=== PATIENT | male | born 1945 | race Caucasian/White ===

== ENCOUNTER 2018-12-28 11:34 | Inpatient (IN) | payer MEDICARE ==
[2018-12-28] MEDS ORDERED: LASIX40 MG PO (11:52)
[2018-12-28] MEDS ORDERED: METOPROLOL TART25 MG PO (11:52)
[2018-12-28] MEDS ORDERED: ASPIRIN81 MG PO (11:53)
[2018-12-28] MEDS ORDERED: LIPITOR40 MG PO (11:53)
[2018-12-28] MEDS ORDERED: NOVOLOG100 UNIT/1 SC (11:54)
[2018-12-28] MEDS ORDERED: FENOFIBRATE54 MG PO (11:54)
[2018-12-28] MEDS ORDERED: CLARITIN 10 MG10 MG PO (11:55)
[2018-12-28] MEDS ORDERED: LANTUS INSULIN10 ML SC (11:55)
[2018-12-28] MEDS ORDERED: GLUCOPHAGE500 MG PO (11:55)
[2018-12-28] MEDS ORDERED: OMEPRAZOLE20 M1 PO (11:56)
[2018-12-28] MEDS ORDERED: ELIQUIS5 MG PO (11:56)
[2018-12-28] MEDS ORDERED: FLOMAX0.4 MG PO (11:56)
[2018-12-28 12:36] LABS: BASOPHILS 0.3 % (0-2); EOSINOPHILS 1.8 % (0-7); HEMATOCRIT 36.9 % (42.0-54.0); HEMOGLOBIN 11.8 g/dL (13.5-17.5); IMMATURE GRANULOCYTES 0.3 % (0-5); LYMPHOCYTES 12.5 % (15-50); MCH 25.1 pg (26.0-34.0); MCV 78.5 fL (80.0-100.0); MEAN PLATELET VOLUME 9.2 fL (7.4-10.4); MONOCYTES 8.3 % (2-11); NEUTROPHILS 76.8 % (40-80); PLATELET COUNT 410 10x3/uL (130-400); RDW 16.6 % (11.5-14.5); WBC 13.1 10x3/uL (4.8-10.8)
[2018-12-28 12:47] LABS: ALBUMIN 2.8 g/dL (3.4-5.0); ANION GAP 15.1 mmol/L (8-16); BILIRUBIN - TOTAL 0.47 mg/dL (0.2-1.3); CALCIUM 9.1 mg/dL (8.5-10.1); CARBON DIOXIDE 25.8 mmol/L (21.0-32.0); CREATININE - SERUM 1.5 mg/dL (0.6-1.3); POTASSIUM - SERUM 3.9 mmol/L (3.5-5.1); PROTEIN - SERUM 7.6 g/dL (6.4-8.2)
[2018-12-28] MEDS ORDERED: LISINOPRIL20 MG PO (14:27)
--- NOTE | 2018-12-28 14:57 | MORECARE ---
CASE MANAGEMENT DISCHARGE SUMMARY PATIENT: GRAZYNA VALVERDE UNIT: [id number] ADM DATE: 12/28/18 AGE: 73 : 45 SEX: M ROOM/BED: D.2209 AUTHOR: SANFORDDOC PHYSICIAN: REFERRING PHYSICIAN: BILLY SHOOK MD DATE OF SERVICE: 12/28/18 Discharge Plan Patient Name: GRAZYNA VALVERDE Facility: [facility]:[place] : 1945 Planned Disposition: Home Anticipated Discharge Date: Discharge Date: Expected LOS: Initial Reviewer: [email or web address] Initial Review Date: 12/28/2018 Generated: 12/28/18 3:57 pm DCP- Discharge Planning Updated by [email or web address]: Rosalina Connor on 12/28/18 1:[address] Patient Name: GRAZYNA VALVERDE Admission Status: ER Accout number: [id number] Admission Date: 12-28-2018 : 1945 Admission Diagnosis: Attending: BILLY SHOOK Current LOS: 1 Anticipated DC Date: Planned Disposition: Home Primary Insurance: OUT OF STATE MEDICARE HMO Discharge Planning Comments: CM met with patient to complete initial dc planning assessment. CM educated patient on the CM role and verbal consent given by patient to complete assessment. CM verified patient's address, phone number, and emergency contact phone numbers. Patient lives in [facility] but is here in [place] staying with his ex . At discharge patient plans to return to his ex husbands home and feels this is a safe discharge. CM discussed availability of home health, rehab services, and medical equipment. Patient denied known discharge needs at this time. Patient reports is ex will transport him home at time of discharge. CM will continue to follow and will assist as needed with dc plans/needs. Director Foundation: Rosalina Connor RN, [facility] DCPIA - Discharge Planning Initial Assessment Updated by [email or web address]: Rosalina Connor on 12/28/18 2:51 pm * Is the patient Alert and Oriented? Yes * How many steps to enter\exit or inside your home? NONE * PCP Dr. Best Kathleen - In [place] * Pharmacy [facility] * Preadmission Environment Home with Family * ADLs Independent * Equipment None * List name and contact numbers for known caregivers / representatives who currently or will assist patient after discharge: William Ceja - ex [facility] - [phone] * Verbal permission to speak to the caregivers and representatives has been obtained from the patient. Yes * Community resources currently utilized None * Additional services required to return to the preadmission environment? No * Can the patient safely return to the preadmission environment? Yes * Has this patient been hospitalized within the prior 30 days at any hospital? No Patient Name: GRAZYNA VALVERDE Page 78064 at 1457 All edits/amendments must be made on the electronic document DICTATION DATE: 12/28/181455 AUTO SERVICE ADVISOR: VALDO 12/28/181455 RPT#: [id number] DC DATE: STATUS: ADM IN [facility] [address] [place] [address] END OF REPORT
[2018-12-28 15:32] VITALS: BP 140/73; BMI 32.2
[2018-12-28 17:06] VITALS: BP 140/73
[2018-12-28 20:00] VITALS: BP 110/45
--- NOTE | 2018-12-28 20:00 | NUR ---
PT SITTING UP IN BED WITHOUT DISTRESS, ALERT AND ORIENTED. AT BEDSIDE. DENIES PAIN UNLESS GETTING UP AND WALKING, USING URINAL. IV LEFT WRIST INFUSING NS @ [facility]. ULCER TO RIGHT SIDE OF R FOOT. CONSENTS SIGNED FOR I&D. PT VERBALIZED UNDERSTANDING OF NPO AFTER MN. WITHOUT NEEDS AT THIS TIME. CL IN REACH, WILL CTM
[2018-12-29] VITALS: BP 132/68
[2018-12-29 04:00] VITALS: BP 124/70
[2018-12-29 07:28] LABS: BASOPHILS 0.4 % (0-2); EOSINOPHILS 2.3 % (0-7); HEMATOCRIT 34.3 % (42.0-54.0); HEMOGLOBIN 10.9 g/dL (13.5-17.5); IMMATURE GRANULOCYTES 0.4 % (0-5); LYMPHOCYTES 14.6 % (15-50); MCHC 31.8 g/dL (31.0-37.0); MCV 78.7 fL (80.0-100.0); MEAN PLATELET VOLUME 9.4 fL (7.4-10.4); MONOCYTES 10.4 % (2-11); NEUTROPHILS 71.9 % (40-80); PLATELET COUNT 399 10x3/uL (130-400); RBC 4.36 10x6/uL (4.20-6.10); RDW 16.8 % (11.5-14.5)
[2018-12-29 07:36] LABS: WBC 9.7 10x3/uL (4.8-10.8)
[2018-12-29 07:48] LABS: CALCIUM 8.7 mg/dL (8.5-10.1); CARBON DIOXIDE 27.5 mmol/L (21.0-32.0); CREATININE - SERUM 1.4 mg/dL (0.6-1.3); POTASSIUM - SERUM 3.5 mmol/L (3.5-5.1)
[2018-12-29 08:41] VITALS: BP 131/80
[2018-12-29 12:35] VITALS: BMI 32.1
--- NOTE | 2018-12-29 13:03 | NUR ---
FSBS 61MG/DL. DR. CHAO NOTIFIED AND ORDERD 25ML D50W.
--- NOTE | 2018-12-29 13:16 | NUR ---
FSBS 115.
[2018-12-29 13:30] VITALS: BP 146/78
--- NOTE | 2018-12-29 16:17 | NUR ---
I have reviewed this patient and I concur with the Shift Assessment completed by the Licensed Practical Nurse today this shift.
--- NOTE | 2018-12-29 19:25 | NUR ---
RECEIVED REPORT, WILL ASSUME CARE OF PT, PT IS SITTING IN CHAIR WITH FOOT PROP UP, ASKING FOR COFFEE AND ICE CREAM(PROVIDED), CALL LIGHT IN REACH, WILL CONTINUE PLAN OF CARE
[2018-12-29 20:00] VITALS: BP 130/62
--- NOTE | 2018-12-29 22:03 | NUR ---
PM MEDS GIVEN, [id number] 80 UNITS OF LANTUS, PROVIDE ICE WATER, CALL LIGHT IN REACH, WILL CONTINUE PLAN OF CARE
--- NOTE | 2018-12-29 23:23 | NUR ---
SLEEPING, NO DISTRESS NOTICED AT THIS TIME, BED IS LOW, SRX2, CALL LIGHT IN REACH, WILL CONTINUE PLAN OF CARE
[2018-12-30] VITALS: BP 128/60
--- NOTE | 2018-12-30 01:04 | NUR ---
SITTING ON SIDE OF BED, DENIES ANY NEEDS, CALL LIGHT IN REACH, WILL CONTINUE PLAN OF CARE
--- NOTE | 2018-12-30 02:53 | NUR ---
SLEEPING, CALL LIGHT IN REACH, WILL CONTINUE PLAN OF CARE
[2018-12-30 03:00] VITALS: BP 162/74
--- NOTE | 2018-12-30 03:24 | NUR ---
I have reviewed this patient and I concur with the Shift Assessment completed by the Licensed Practical Nurse today this shift.
[2018-12-30 07:13] LABS: CALCIUM 8.5 mg/dL (8.5-10.1); CARBON DIOXIDE 26.9 mmol/L (21.0-32.0); CREATININE - SERUM 1.3 mg/dL (0.6-1.3); POTASSIUM - SERUM 3.9 mmol/L (3.5-5.1)
[2018-12-30 09:04] VITALS: BP 159/74
--- NOTE | 2018-12-30 11:45 | NUR ---
PT RESTING IN BED. NO SIGNS OF DISTRESS. IV TO LEFT WRIST PATENT NO REDNESS OR TENDERNESS. HAS DRESSING TO RIGHT FOOT CLEAN AND INTACT. DENIES ANY FUTHER NEED AT THIS TIME. CALL LIGHT IN REACH. BED LOW POSITION.
[2018-12-30 13:22] VITALS: BP 133/72
--- NOTE | 2018-12-30 15:36 | NUR ---
I have reviewed this patient and I concur with the Shift Assessment completed by the Licensed Practical Nurse today this shift.
[2018-12-30 17:13] VITALS: BP 143/73
--- NOTE | 2018-12-30 19:30 | NUR ---
ALERT AND ORIENTED. VISITORS AT BEDSIDE. PT STATES HE IS READY FOR DISCHARGE. LEFT WRIST IV THAT IS CURRENTLY SALINE LOCKED. HAS RIGHT FOOT ULCER THAT HAS DRESSING WITH PREVIOUS BLOD STAIN THAT IS SIZE OF TERESITA. DENIES FURTHER NEEDS. CALL LIGHT IN REACH.
[2018-12-30 20:00] VITALS: BP 134/68
[2018-12-31] VITALS: BP 131/70
--- NOTE | 2018-12-31 01:50 | NUR ---
I have reviewed this patient and I concur with the Shift Assessment completed by the Licensed Practical Nurse today this shift.
[2018-12-31 03:00] VITALS: BP 129/65
[2018-12-31 07:28] LABS: BASOPHILS 0.4 % (0-2); EOSINOPHILS 5.3 % (0-7); HEMATOCRIT 32.7 % (42.0-54.0); HEMOGLOBIN 10.3 g/dL (13.5-17.5); IMMATURE GRANULOCYTES 0.3 % (0-5); LYMPHOCYTES 16.5 % (15-50); MCH 24.7 pg (26.0-34.0); MCHC 31.5 g/dL (31.0-37.0); MCV 78.4 fL (80.0-100.0); MEAN PLATELET VOLUME 9.6 fL (7.4-10.4); MONOCYTES 10.4 % (2-11); NEUTROPHILS 67.1 % (40-80); PLATELET COUNT 422 10x3/uL (130-400); RBC 4.17 10x6/uL (4.20-6.10); RDW 16.7 % (11.5-14.5)
[2018-12-31 07:49] LABS: CALCIUM 8.4 mg/dL (8.5-10.1); CARBON DIOXIDE 25.9 mmol/L (21.0-32.0); CREATININE - SERUM 1.2 mg/dL (0.6-1.3); POTASSIUM - SERUM 3.9 mmol/L (3.5-5.1)
[2018-12-31 08:14] VITALS: BP 138/73
--- NOTE | 2018-12-31 08:48 | NUR ---
ALERT AND ORIENTED X 3. LUNGS CLEAR BILATERALLY IN ALL CALVERT. HEART SOUNDS 1 AND S2 HEARD IN ALL CALVERT. BOWEL SOUNDS ACTIVE X 4. SKIN INTACT WITHOUT REDNESS. DRSG IN PLACE TO RIGHT FOOT. EX EXPRESSED CONCERNS THAT PATIENT IS BECOMING DEPRESSED AND IS READY TO GO HOME. STATES NEED SOME SORT OF BRACE SO PATIENT DOES NOT WALK ON RIGHT FOOT. NOTIFIED. STATED PATIENT WILL LIKELY BE ABLE TO DC TODAY. WILL CONTINUE TO MONITOR. BED LOW. CALL KATZ AND PERSONAL ITEMS IN REACH.
[2018-12-31] MEDS ORDERED: CLEOCIN HCL300 MG PO (09:27)
--- NOTE | 2018-12-31 10:27 | NUR ---
RESTING IN BED. DENIES PAIN. DENIES NEEDS. WILL CONTINUE TO MONITOR.
--- NOTE | 2018-12-31 10:40 | NUR ---
SPOKE WITH CASE MANAGEMENT ABOUT PATIENT DISCHARGING HOME. STATED TO PUT IN PT ORDER SO THAT PATIENT CAN BE EVALUATED FOR USE OF WALKER, CRUTCHES, OR BOOT FOR RIGHT FOOT BEFORE DISCHARGING. ORDER PLACED. NOTIFIED KAYLYNN PT. WILL CONTINUE TO MONITOR.
--- NOTE | 2018-12-31 11:00 | NUR ---
SPOKE WITH DR RUTHERFORD WHO STATES OK FOR PATIENT TO DC ON ANTIBIOTICS PER PRIMARY CARE. STATES CHANGED DRSG TO PATIENT'S RIGHT FOOT AND TO KEEP CLEAN AND DRY. STATES WOUND LOOKS GOOD. NO FURTHER ORDERS.
--- NOTE | 2018-12-31 11:48 | NUR ---
DISCHARGE EDUCATION PROVIDED BOTH WRITTEN AND VERBAL. PATIENT VERBALIZED UNDERSTANDING. DENIES FURTHER QUESTIONS. IV REMOVED TO LFA WITH TIP INTACT. EXTRA DRSG GIVEN TO PATIENT PRECAUTION. EDUCATED TO KEEP CLEAN AND DRY. EDUCATED TO FOLLOW UP WITH SANGEETA IN 1 WEEK. RESOURCES FOR WALKER GIVEN TO PATIENT. DENIES FURTHER NEEDS.
--- NOTE | 2018-12-31 12:37 | MORECARE ---
CASE MANAGEMENT DISCHARGE SUMMARY PATIENT: GRAZYNA VALVERDE UNIT: [id number] ADM DATE: 12/28/18 AGE: 73 : 45 SEX: M ROOM/BED: D.2209 AUTHOR: SANFORDDOC PHYSICIAN: REFERRING PHYSICIAN: BILLY SHOOK MD DATE OF SERVICE: 12/31/18 Discharge Plan Patient Name: GRAZYNA VALVERDE Facility: [facility]:[place] : 1945 Planned Disposition: Home Anticipated Discharge Date: 12/31/18 Discharge Date: Expected LOS: 3 Initial Reviewer: [email or web address] Initial Review Date: 12/28/2018 Generated: 12/31/18 1:37 pm DCP- Discharge Planning Updated by [email or web address]: Rosalina Connor on 12/28/18 1:[address] Patient Name: GRAZYNA VALVERDE Admission Status: ER Accout number: [id number] Admission Date: 12-28-2018 : 1945 Admission Diagnosis: Attending: BILLY SHOOK Current LOS: 1 Anticipated DC Date: Planned Disposition: Home Primary Insurance: OUT OF STATE MEDICARE HMO Discharge Planning Comments: CM met with patient to complete initial dc planning assessment. CM educated patient on the CM role and verbal consent given by patient to complete assessment. CM verified patient's address, phone number, and emergency contact phone numbers. Patient lives in [facility] but is here in [place] staying with his ex . At discharge patient plans to return to his ex husbands home and feels this is a safe discharge. CM discussed availability of home health, rehab services, and medical equipment. Patient denied known discharge needs at this time. Patient reports is ex will transport him home at time of discharge. CM will continue to follow and will assist as needed with dc plans/needs. Can Conveyor Feeder: Rosalina Connor RN, [facility] DCPIA - Discharge Planning Initial Assessment Updated by [email or web address]: Rosalina Connor on 12/28/18 2:51 pm * Is the patient Alert and Oriented? Yes * How many steps to enter\exit or inside your home? NONE * PCP Dr. Best Kathleen - In [place] * Pharmacy [facility] * Preadmission Environment Home with Family * ADLs Independent * Equipment None * List name and contact numbers for known caregivers / representatives who currently or will assist patient after discharge: William Ceja - ex [facility] - [phone] * Verbal permission to speak to the caregivers and representatives has been obtained from the patient. Yes * Community resources currently utilized None * Additional services required to return to the preadmission environment? No * Can the patient safely return to the preadmission environment? Yes * Has this patient been hospitalized within the prior 30 days at any hospital? No Last DP export: 12/28/18 1:57 p Patient Name: GRAZYNA VALVERDE Page 02110 at 1237 All edits/amendments must be made on the electronic document DICTATION DATE: 12/31/18 1236 TRAFFIC OR SYSTEM DISPATCHER: VALDO 12/31/18 1236 RPT#: [id number] DC DATE: STATUS: ADM IN [facility] [address] [place] [address] END OF REPORT
--- NOTE | 2018-12-31 12:44 | MORECARE ---
CASE MANAGEMENT DISCHARGE SUMMARY PATIENT: GRAZYNA VALVERDE UNIT: [id number] ADM DATE: 12/28/18 AGE: 73 : 45 SEX: M ROOM/BED: D.2209 AUTHOR: SANFORDDOC PHYSICIAN: REFERRING PHYSICIAN: BILLY SHOOK MD DATE OF SERVICE: 12/31/18 Discharge Plan Patient Name: GRAZYNA VALVERDE Facility: [facility]:[place] : 1945 Planned Disposition: Home Anticipated Discharge Date: 12/31/18 Discharge Date: Expected LOS: 3 Initial Reviewer: [email or web address] Initial Review Date: 12/28/2018 Generated: 12/31/18 1:44 pm DCP- Discharge Planning Updated by [email or web address]: Rosalina Connor on 12/28/18 1:[address] Patient Name: GRAZYNA VALVERDE Admission Status: ER Accout number: [id number] Admission Date: 12-28-2018 : 1945 Admission Diagnosis: Attending: BILLY SHOOK Current LOS: 1 Anticipated DC Date: Planned Disposition: Home Primary Insurance: OUT OF STATE MEDICARE HMO Discharge Planning Comments: CM met with patient to complete initial dc planning assessment. CM educated patient on the CM role and verbal consent given by patient to complete assessment. CM verified patient's address, phone number, and emergency contact phone numbers. Patient lives in [facility] but is here in [place] staying with his ex . At discharge patient plans to return to his ex husbands home and feels this is a safe discharge. CM discussed availability of home health, rehab services, and medical equipment. Patient denied known discharge needs at this time. Patient reports is ex will transport him home at time of discharge. CM will continue to follow and will assist as needed with dc plans/needs. Plate Cutter: Rosalina Connor RN, [facility] DCPIA - Discharge Planning Initial Assessment Updated by [email or web address]: Rosalina Connor on 12/28/18 2:51 pm * Is the patient Alert and Oriented? Yes * How many steps to enter\exit or inside your home? NONE * PCP Dr. Best Kathleen - In [place] * Pharmacy [facility] * Preadmission Environment Home with Family * ADLs Independent * Equipment None * List name and contact numbers for known caregivers / representatives who currently or will assist patient after discharge: William Ceja - ex [facility] - [phone] * Verbal permission to speak to the caregivers and representatives has been obtained from the patient. Yes * Community resources currently utilized None * Additional services required to return to the preadmission environment? No * Can the patient safely return to the preadmission environment? Yes * Has this patient been hospitalized within the prior 30 days at any hospital? No Last DP export: 12/31/18 11:37 am Patient Name: GRAZYNA VALVERDE Page [phone] at 1244 All edits/amendments must be made on the electronic document DICTATION DATE: 12/31/181242 BATT PACKER: VALDO 12/31/183 RPT#: [id number] DC DATE: STATUS: ADM IN [facility] [address] [place] [address] END OF REPORT
--- NOTE | 2018-12-31 12:57 | MORECARE ---
CASE MANAGEMENT DISCHARGE SUMMARY PATIENT: GRAZYNA VALVERDE UNIT: [id number] ADM DATE: 12/28/18 AGE: 73 : 45 SEX: M ROOM/BED: D.2209 AUTHOR: SANFORD,DOC PHYSICIAN: REFERRING PHYSICIAN: BILLY SHOOK MD DATE OF SERVICE: 12/31/18 Discharge Plan Patient Name: GRAZYNA VALVERDE Facility: [facility]:[place] : 1945 Planned Disposition: Home Anticipated Discharge Date: 12/31/18 Discharge Date: 12/31/2018 Expected LOS: 3 Initial Reviewer: [email or web address] Initial Review Date: 12/28/2018 Generated: 12/31/18 1:57 pm Comments DCP- Discharge Planning Updated by [email or web address]: Kylie Sykes on 12/31/18 11:[address] Late Entry 0930 CM reviewed clinical and MD plan. Discussed with primary nurse. Awaited surgeon's visit to obtain order for Physical Therapy eval and initial dressing change. Imaging disc and clinical for referral to [facility] prepared. CM spoke with physical therapist, ortho MD requested boot for patient's foot. Therapist recommended a walker for the patient with consideration of age, height and weight. The [place]. He does not want to pay for a new walker. He states he will buy a used walker. CM provided names and locations ie [facility], [facility] and [facility]. Squared postop shoe boot obtained and applied by PT. Patient denies any other needs. 1230 CM explained Discharge IMM. Patient states he is ready for discharge. Discharge IMM served. Signature obtained. Copy to the patient and copy to the hard cover chart. Patient has transportation. No additional needs identified. Referral packet to be delivered to the Wound Center. DCP- Discharge Planning Updated by [email or web address]: Rosalina Connor on 12/28/18 1:[address] Patient Name: GRAZYNA VALVERDE Admission Status: ER Accout number: [id number] Admission Date: 12-28-2018 : 1945 Admission Diagnosis: Attending: BILLY SHOOK Current LOS: 1 Anticipated DC Date: Planned Disposition: Home Primary Insurance: OUT OF STATE MEDICARE HMO Discharge Planning Comments: CM met with patient to complete initial dc planning assessment. CM educated patient on the CM role and verbal consent given by patient to complete assessment. CM verified patient's address, phone number, and emergency contact phone numbers. Patient lives in [facility] but is here in [place] staying with his ex . At discharge patient plans to return to his ex husbands home and feels this is a safe discharge. CM discussed availability of home health, rehab services, and medical equipment. Patient denied known discharge needs at this time. Patient reports is ex will transport him home at time of discharge. CM will continue to follow and will assist as needed with dc plans/needs. Supervisor Stitching Department: Rosalina Connor RN, [facility] DCPIA - Discharge Planning Initial Assessment Updated by [email or web address]: Rosalina Connor on 12/28/18 2:51 pm * Is the patient Alert and Oriented? Yes * How many steps to enter\exit or inside your home? NONE * PCP Dr. Best Kathleen - In [place] * Pharmacy [facility] * Preadmission Environment Home with Family * ADLs Independent * Equipment None * List name and contact numbers for known caregivers / representatives who currently or will assist patient after discharge: William Ceja - ex - [phone] * Verbal permission to speak to the caregivers and representatives has been obtained from the patient. Yes * Community resources currently utilized None * Additional services required to return to the preadmission environment? No * Can the patient safely return to the preadmission environment? Yes * Has this patient been hospitalized within the prior 30 days at any hospital? No Coverage Notice Reviewer: [id number] - Kylie Sykes Notice Issued Date-Time: 12/31/2018 12:30 Notice Type: IM Discharge Notice Notice Delivered To: Patient Relationship to Patient: Self Center Specialists Name: Delivery Method: HAND - Hand Delivered Kirti Days: Prior Verbal Notification: Recipient Understood Notice: Yes Recipient Signature: Yes Med Rec Note Co-signed by Attending: Coverage Notice Comment: Discharge IMM explained. Patient had no questions or concerns. D/C IMM served. Last DP export: 12/31/18 11:44 am Patient Name: GRAZYNA VALVERDE Page 33750 at 1257 All edits/amendments must be made on the electronic document DICTATION DATE: 12/31/18 1257 OPERATIONS CLERK: VALDO 12/31/18 1257 RPT#: [id number] DC DATE:12/31/18 STATUS: DIS IN [facility] [address] [place] [address] END OF REPORT
--- NOTE | 2019-01-01 09:58 | MORECARE ---
CASE MANAGEMENT DISCHARGE SUMMARY PATIENT: GRAZYNA VALVERDE UNIT: [id number] ADM DATE: 12/28/18 AGE: 73 : 45 SEX: M ROOM/BED: D.2209 AUTHOR: SANFORD,DOC PHYSICIAN: REFERRING PHYSICIAN: BILLY SHOOK MD DATE OF SERVICE: 01/01/19 Discharge Plan Patient Name: GRAZYNA VALVERDE Facility: [facility]:[place] : 1945 Planned Disposition: Home Anticipated Discharge Date: 12/31/18 Discharge Date: 12/31/2018 Expected LOS: 3 Initial Reviewer: [email or web address] Initial Review Date: 12/28/2018 Generated: 01/01/19 10:58 am Comments DCP- Discharge Planning Updated by [email or web address]: Kylie Sykes on 01/01/19 8:[address] CLINICAL INFORMATION FORWARDED TO THE WOUND CENTER FOR PATIENT'S APPOINTMENT. TELEPHONED THE PATIENT . NO ANSWER. COULD NOT LEAVE A MESSAGE. TELEPHONED AGAIN. PATIENT ANSWERED AND HUNG UP. DCP- Discharge Planning Updated by [email or web address]: Kylie Sykes on 12/31/18 11:[address] Late Entry 0930 CM reviewed clinical and MD plan. Discussed with primary nurse. Awaited surgeon's visit to obtain order for Physical Therapy eval and initial dressing change. Imaging disc and clinical for referral to [facility] prepared. CM spoke with physical therapist, ortho MD requested boot for patient's foot. Therapist recommended a walker for the patient with consideration of age, height and weight. The patient has a walk[place] at home [place]. He does not want to pay for a new walker. He states he will buy a used walker. CM provided names and locations ie [facility], [facility] and [facility]. Squared postop shoe boot obtained and applied by PT. Patient denies any other needs. 1230 CM explained Discharge IMM. Patient states he is ready for discharge. Discharge IMM served. Signature obtained. Copy to the patient and copy to the hard cover chart. Patient has transportation. No additional needs identified. Referral packet to be delivered to the Wound Center. DCP- Discharge Planning Updated by [email or web address]: Rosalina Connor on 12/28/18 1:[address] Patient Name: GRAZYNA VALVERDE Admission Status: ER Accout number: [id number] Admission Date: 12-28-2018 : 1945 Admission Diagnosis: Attending: BILLY SHOOK Current LOS: 1 Anticipated DC Date: Planned Disposition: Home Primary Insurance: OUT OF STATE MEDICARE HMO Discharge Planning Comments: CM met with patient to complete initial dc planning assessment. CM educated patient on the CM role and verbal consent given by patient to complete assessment. CM verified patient's address, phone number, and emergency contact phone numbers. Patient lives in [facility] but is here in [place] staying with his ex . At discharge patient plans to return to his ex husbands home and feels this is a safe discharge. CM discussed availability of home health, rehab services, and medical equipment. Patient denied known discharge needs at this time. Patient reports is ex will transport him home at time of discharge. CM will continue to follow and will assist as needed with dc plans/needs. Insurance Clerk: Rosalina Connor RN, [facility] DCPIA - Discharge Planning Initial Assessment Updated by [email or web address]: Rosalina Connor on 12/28/18 2:51 pm * Is the patient Alert and Oriented? Yes * How many steps to enter\exit or inside your home? NONE * PCP Dr. Best Kathleen - In [place] * Pharmacy [facility] * Preadmission Environment Home with Family * ADLs Independent * Equipment None * List name and contact numbers for known caregivers / representatives who currently or will assist patient after discharge: William Ceja - ex - [phone] * Verbal permission to speak to the caregivers and representatives has been obtained from the patient. Yes * Community resources currently utilized None * Additional services required to return to the preadmission environment? No * Can the patient safely return to the preadmission environment? Yes * Has this patient been hospitalized within the prior 30 days at any hospital? No Coverage Notice Reviewer: [id number] - Kylie Sykes Notice Issued Date-Time: 12/31/2018 12:30 Notice Type: IM Discharge Notice Notice Delivered To: Patient Relationship to Patient: Self Cabinet Abrasive Sandblaster Name: Delivery Method: HAND - Hand Delivered Kirti Days: Prior Verbal Notification: Recipient Understood Notice: Yes Recipient Signature: Yes Med Rec Note Co-signed by Attending: Coverage Notice Comment: Discharge IMM explained. Patient had no questions or concerns. D/C IMM served. Last DP export: 6/2/19 11:57 am Patient Name: GRAZYNA VALVERDE Page [phone] at 0958 All edits/amendments must be made on the electronic document DICTATION DATE: 01/01/19957 PHLEBOTOMY TECHNOLOGIST: VALDO 01/01/19957 RPT#: [id number] DC DATE:12/31/18 STATUS: DIS IN [facility] [address] [place] [address] END OF REPORT
--- NOTE | 2019-01-02 15:36 | MORECARE ---
CASE MANAGEMENT DISCHARGE SUMMARY PATIENT: GRAZYNA VALVERDE UNIT: [id number] ADM DATE: 12/28/18 AGE: 73 : 45 SEX: M ROOM/BED: D.2209 AUTHOR: SANFORD,DOC PHYSICIAN: REFERRING PHYSICIAN: BILLY SHOOK MD DATE OF SERVICE: 01/02/19 Discharge Plan Patient Name: GRAZYNA VALVERDE Facility: [facility]:[place] : 1945 Planned Disposition: Home Anticipated Discharge Date: 12/31/18 Discharge Date: 12/31/2018 Expected LOS: 3 Initial Reviewer: [email or web address] Initial Review Date: 12/28/2018 Generated: 01/02/19 4:36 pm Comments DCP- Discharge Planning Updated by [email or web address]: Kylie Sykes on 01/01/19 8:[address] CLINICAL INFORMATION FORWARDED TO THE [facility] FOR PATIENT'S APPOINTMENT. TELEPHONED THE PATIENT . NO ANSWER. COULD NOT LEAVE A MESSAGE. TELEPHONED AGAIN. PATIENT ANSWERED AND HUNG UP. DCP- Discharge Planning Updated by [email or web address]: Kylie Sykes on 12/31/18 11:[address] Late Entry 0930 CM reviewed clinical and MD plan. Discussed with primary nurse. Awaited surgeon's visit to obtain order for Physical Therapy eval and initial dressing change. Imaging disc and clinical for referral to [facility] prepared. CM spoke with physical therapist, ortho MD requested boot for patient's foot. Therapist recommended a walker for the patient with consideration of age, height and weight. The patient [place] walk[place]. He does not want to pay for a new walker. He states he will buy a used walker. CM provided names and locations ie [facility], [facility] and [facility]. Squared postop shoe boot obtained and applied by PT. Patient denies any other needs. 1230 CM explained Discharge IMM. Patient states he is ready for discharge. Discharge IMM served. Signature obtained. Copy to the patient and copy to the hard cover chart. Patient has transportation. No additional needs identified. Referral packet to be delivered to the W[facility] Center. DCP- Discharge Planning Updated by [email or web address]: Rosalina Connor on 12/28/18 1:[address] Patient Name: GRAZYNA VALVERDE Admission Status: ER Accout number: [id number] Admission Date: 12-28-2018 : 1945 Admission Diagnosis: Attending: BILLY SHOOK Current LOS: 1 Anticipated DC Date: Planned Disposition: Home Primary Insurance: OUT OF STATE MEDICARE HMO Discharge Planning Comments: CM met with patient to complete initial dc planning assessment. CM educated patient on the CM role and verbal consent given by patient to complete assessment. CM verified patient's address, phone number, and emergency contact phone numbers. Patient lives in [facility] but is here in [place] staying with his ex . At discharge patient plans to return to his ex husbands home and feels this is a safe discharge. CM discussed availability of home health, rehab services, and medical equipment. Patient denied known discharge needs at this time. Patient reports is ex will transport him home at time of discharge. CM will continue to follow and will assist as needed with dc plans/needs. Maitre D': Rosalina Connor RN, [facility] DCPIA - Discharge Planning Initial Assessment Updated by [email or web address]: Rosalina Connor on 12/28/18 2:51 pm * Is the patient Alert and Oriented? Yes * How many steps to enter\exit or inside your home? NONE * PCP Dr. Best Kathleen - In [place] * Pharmacy [facility] * Preadmission Environment Home with Family * ADLs Independent * Equipment None * List name and contact numbers for known caregivers / representatives who currently or will assist patient after discharge: William Ceja - ex - [phone] * Verbal permission to speak to the caregivers and representatives has been obtained from the patient. Yes * Community resources currently utilized None * Additional services required to return to the preadmission environment? No * Can the patient safely return to the preadmission environment? Yes * Has this patient been hospitalized within the prior 30 days at any hospital? No Coverage Notice Reviewer: [email or web address] - Kylie Sykes Notice Issued Date-Time: 12/31/2018 12:30 Notice Type: IM Discharge Notice Notice Delivered To: Patient Relationship to Patient: Self Director Digital Marketing Name: Delivery Method: HAND - Hand Delivered Kirti Days: Prior Verbal Notification: Recipient Understood Notice: Yes Recipient Signature: Yes Med Rec Note Co-signed by Attending: Coverage Notice Comment: Discharge IMM explained. Patient had no questions or concerns. D/C IMM served. Last DP export: 6/3/19 8:58 am Patient Name: GRAZYNA VALVERDE Page [id number] at 1536 All edits/amendments must be made on the electronic document DICTATION DATE: 01/02/19 1535 TRAY LINE SUPERVISOR: VALDO 01/02/19 1535 RPT#: [id number] DC DATE:12/31/18 STATUS: DIS IN [facility] [address] [place] [address] END OF REPORT
[2019-01-07 17:06] LABS: AEROBE ID Final report (())
[2019-03-08] MEDS ORDERED: LOPRESSOR25 MG PO (10:18)
[2019-03-08] MEDS ORDERED: HYDROCODON-ACE1 EA10 PO (15:38)
== END 2018-12-31 12:56 | disposition home or self-care (01) | DRG 624 ==
LOC: D.ER 11:34 → D.MS 13:06
PROVIDERS: Emergency Medicine; Orthopaedic Surgery; ADMIT Legal Medicine; ATTEND Legal Medicine
PROC: 0JBQ0ZZ Excision of Right Foot Subcutaneous Tissue and Fascia, Open Approach (ICD-10-PCS; principal; 2018-12-29 10:30)
DX: E11.621 Type 2 diabetes mellitus with foot ulcer (principal); L97.512 Non-pressure chronic ulcer of other part of right foot with fat layer exposed; I10 Essential (primary) hypertension; D64.9 Anemia, unspecified

== ENCOUNTER 2019-01-15 10:47 | Inpatient (IN) | payer MEDICARE ==
[~2019-01-15] VITALS: Ht 182.9 cm; Wt 107.0 kg
[~2019-01-15 10:47] MED LIST: ASPIRIN81 MG PO; CLARITIN 10 MG10 MG PO; CLEOCIN HCL300 MG PO; ELIQUIS5 MG PO; FENOFIBRATE54 MG PO; FLOMAX0.4 MG PO; GLUCOPHAGE500 MG PO; LANTUS INSULIN10 ML SC; LASIX40 MG PO; LIPITOR40 MG PO; LISINOPRIL20 MG PO; METOPROLOL TART25 MG PO; NOVOLOG100 UNIT/1 SC; OMEPRAZOLE20 M1 PO
[2019-01-15 12:06] LABS: BASOPHILS 0.2 % (0-2); EOSINOPHILS 1.7 % (0-7); HEMATOCRIT 34.7 % (42.0-54.0); HEMOGLOBIN 11.2 g/dL (13.5-17.5); IMMATURE GRANULOCYTES 0.3 % (0-5); LYMPHOCYTES 11.5 % (15-50); MCH 24.9 pg (26.0-34.0); MCHC 32.3 g/dL (31.0-37.0); MCV 77.1 fL (80.0-100.0); MEAN PLATELET VOLUME 9.1 fL (7.4-10.4); NEUTROPHILS 77.3 % (40-80); PLATELET COUNT 409 10x3/uL (130-400); WBC 14.4 10x3/uL (4.8-10.8)
[2019-01-15 12:14] LABS: ALBUMIN 2.5 g/dL (3.4-5.0); ANION GAP 12.5 mmol/L (8-16); BILIRUBIN - TOTAL 0.45 mg/dL (0.2-1.3); CALCIUM 9.2 mg/dL (8.5-10.1); CARBON DIOXIDE 26.4 mmol/L (21.0-32.0); CREATININE - SERUM 1.7 mg/dL (0.6-1.3); POTASSIUM - SERUM 4.9 mmol/L (3.5-5.1); PROTEIN - SERUM 7.7 g/dL (6.4-8.2)
[2019-01-15] MEDS ORDERED: AMOXICILLIN500 M1 (13:28)
[2019-01-15] MEDS ORDERED: CIPRO500 MG (13:29)
[2019-01-15 14:57] VITALS: BP 179/96
[2019-01-15 15:30] VITALS: BP 147/88
[2019-01-15 16:30] VITALS: BP 152/70
--- NOTE | 2019-01-15 17:30 | NUR ---
PT REPORTS RIGHT FOOT PAIN 3/10 NUMERIC SCALE THAT IS INTERMITTENT AND FEELS LIKE A SHARP/STABBING SENSATION. PT REQUESTED MOTRIN. EDP NOTIFIED, ORDER FOR MOTRIN PLACED.
--- NOTE | 2019-01-15 17:50 | NUR ---
PT REPOSITIONED IN BED. DENIES FURTHER NEEDS AT THIS TIME. BREATHING IS EVEN AND UNLABORED. WILL CONTINUE TO MONITOR.
[2019-01-15 18:00] VITALS: BP 158/83
--- NOTE | 2019-01-15 18:37 | NUR ---
VERIFIED WITH TREATING PROVIDER Carlo CONNORS THAT IV NS INITIATED AT 1610 WAS TO BE ADMINISTERED BOLUS. NS BOLUS COMPLETE AT 1835. NURSE THEN RECEIVED ORDER TO ADMINISTER NS AT 75ML/HOUR.
--- NOTE | 2019-01-15 18:59 | NUR ---
HAND-OFF REPORT GIVEN TO YANET CASTRO.
--- NOTE | 2019-01-15 19:00 | NUR ---
PT SITTING ON BED EATING DINNER TRAY. PT DENIES FURTHER NEEDS AT THIS TIME.
--- NOTE | 2019-01-15 19:20 | NUR ---
REPORT CALLED TO MANUEL ON MED 1. MANUEL ADVISES ROOM DIRTY AT THIS TIME. WILL CALL WHEN ROOM IS CLEAN.
--- NOTE | 2019-01-15 19:29 | NUR ---
PT C/O R FOOT "LEAKING ON FLOOR". LOOSE DRESSING APPLIED TO 5TH TOE ON R FOOT.
[2019-01-15 23:54] VITALS: BP 146/68; BMI 32.1
[2019-01-16] VITALS (11 sets, daily range): BP systolic 117–158; BP diastolic 65–82; Ht 182.9 cm; Wt 107.0 kg
--- NOTE | 2019-01-16 03:17 | NUR ---
TELEMETRY APPLIED. PATIENT RUNNING 70 FLUTTER
[2019-01-16 06:48] LABS: BASOPHILS 0.2 % (0-2); EOSINOPHILS 2.3 % (0-7); HEMATOCRIT 32.7 % (42.0-54.0); HEMOGLOBIN 10.4 g/dL (13.5-17.5); IMMATURE GRANULOCYTES 0.4 % (0-5); MCH 24.5 pg (26.0-34.0); MCHC 31.8 g/dL (31.0-37.0); MCV 76.9 fL (80.0-100.0); MEAN PLATELET VOLUME 9.1 fL (7.4-10.4); MONOCYTES 8.8 % (2-11); NEUTROPHILS 77.3 % (40-80); PLATELET COUNT 400 10x3/uL (130-400); RBC 4.25 10x6/uL (4.20-6.10); RDW 17.1 % (11.5-14.5); WBC 11.4 10x3/uL (4.8-10.8)
[2019-01-16 07:13] LABS: ANION GAP 13.1 mmol/L (8-16); CALCIUM 8.6 mg/dL (8.5-10.1); CARBON DIOXIDE 25.1 mmol/L (21.0-32.0); CREATININE - SERUM 1.3 mg/dL (0.6-1.3); MAGNESIUM - SERUM 1.9 mg/dL (1.8-2.4); PHOSPHOROUS 3.7 mg/dL (2.5-4.9); POTASSIUM - SERUM 4.2 mmol/L (3.5-5.1)
[2019-01-16 07:14] LABS: % SATURATION 9 % (15-55); IRON 18 ug/dl (35-150); TOTAL IRON BIND CAPACITY 188 ug/dl (260-445); UNSAT IRON BIND CAPACITY 170 ug/dl (150-375)
[2019-01-16 07:16] LABS: INR 1.23 (0.85-1.17)
--- NOTE | 2019-01-16 08:00 | NUR ---
PT RESTING IN BED WITH FAMILY AT BEDSIDE. NO ACUTE DISTRESS NOTED. IV TO LEFT HAND D/C'D DUE TO LEAKING SITE. RESITED 22 G TO LEFT FOREARM X 1 STICK NS @ 75ML/HR INFUSING VIA PUMP. DRESSING C/D/I TO RIGHT FOOT. PT DENIES PAIN AT THIS TIME. DENIES FURTHER NEEDS ATH THIS TIME. CL WITHIN REACH. ENCOURAGED TO CALL WITH NEEDS. CONTINUE POC
--- NOTE | 2019-01-16 10:20 | NUR ---
PT TAKEN TO SURGERY VIA BED. NO ACUTE DISTRESS NOTED. IV INTACT TO LEFT FOREARM
--- NOTE | 2019-01-16 12:31 | NUR ---
PT RETURNED FROM SURGERY VIA BED. AWAKE ALERT AND ORIENTED. NO ACUTE DISTRESS. O2 @ 3L NC IN PLACE. IV INTACT TO LEFT FOREARM. SITE WITHOUT REDNESS OR EDEMA. DRESSING C/D/I TO RIGHT LOWER EXTREMITY. ABLE TO MOVE TOES. EXTREMITY WARM TO TOUCH, PULSE PALPABLE
[2019-01-17] VITALS: BP 141/76
--- NOTE | 2019-01-17 01:54 | NUR ---
PATIENT UP IN CHAIR TO SLEEP. STATES HE CAN NO LONGER SLEEP IN THE BED. CL IN REACH. O2 ON AT 2 L BECAUSE HE WAS 85% ON ROOM AIR. FRESH LINEN PROVIDED BECAUSE HIS BED WAS WET. WCTM
[2019-01-17 04:00] VITALS: BP 144/68
[2019-01-17 05:41] LABS: BASOPHILS 0.2 % (0-2); EOSINOPHILS 1.1 % (0-7); HEMATOCRIT 32.4 % (42.0-54.0); HEMOGLOBIN 10.3 g/dL (13.5-17.5); IMMATURE GRANULOCYTES 0.4 % (0-5); LYMPHOCYTES 9.6 % (15-50); MCH 24.6 pg (26.0-34.0); MCHC 31.8 g/dL (31.0-37.0); MCV 77.3 fL (80.0-100.0); MEAN PLATELET VOLUME 9.1 fL (7.4-10.4); MONOCYTES 10.7 % (2-11); PLATELET COUNT 429 10x3/uL (130-400); RBC 4.19 10x6/uL (4.20-6.10); RDW 17.4 % (11.5-14.5)
[2019-01-17 06:03] LABS: ANION GAP 12.5 mmol/L (8-16); CALCIUM 8.4 mg/dL (8.5-10.1); CARBON DIOXIDE 26.7 mmol/L (21.0-32.0); CREATININE - SERUM 1.3 mg/dL (0.6-1.3); MAGNESIUM - SERUM 1.8 mg/dL (1.8-2.4); PHOSPHOROUS 3.6 mg/dL (2.5-4.9); POTASSIUM - SERUM 4.2 mmol/L (3.5-5.1)
[2019-01-17 08:12] LABS: FOLATE (FOLIC ACID) - SERUM >20.0 ng/mL (>3.0)
--- NOTE | 2019-01-17 08:21 | NUR ---
PT SITTING UP IN CHAIR. DENIES ANY NEEDS. NO S.S OF ACUTE DISTRESS. CL IN PLACE.
[2019-01-17 09:12] VITALS: BP 153/70
[2019-01-17 12:09] VITALS: BP 156/73
--- NOTE | 2019-01-17 16:01 | MORECARE ---
CASE MANAGEMENT DISCHARGE SUMMARY PATIENT: GRAZYNA VALVERDE UNIT: [id number] ADM DATE: 01/15/19 AGE: 73 : 45 SEX: M ROOM/BED: D.2233 AUTHOR: SHELIA CHRISTINA PHYSICIAN: REFERRING PHYSICIAN: REFUGIO BAJWA MD DATE OF SERVICE: 01/17/19 Discharge Plan Patient Name: GRAZYNA VALVERDE [facility] [facility] 1945 Planned Disposition: Home Anticipated Discharge Date: Discharge Date: Expected LOS: Initial Reviewer: [email or web address] Initial Review Date: 01/17/2019 Generated: 01/17/19 5:01 pm DCPIA - Discharge Planning Initial Assessment Updated by [email or web address]: Jessica Huang on 01/17/19 3:57 pm * Is the patient Alert and Oriented? Yes * How many steps to enter\exit or inside your home? 0/0 * PCP None * Pharmacy [facility] on [address] * Preadmission Environment Home with Family * ADLs Independent * Equipment Walker * List name and contact numbers for known caregivers / representatives who currently or will assist patient after discharge: William Ceja - [phone] * Verbal permission to speak to the caregivers and representatives has been obtained from the patient. Yes * Community resources currently utilized None * Additional services required to return to the preadmission environment? No * Can the patient safely return to the preadmission environment? Yes * Has this patient been hospitalized within the prior 30 days at any hospital? Yes Patient Name: GRAZYNA VALVERDE Page [id number] at 1601 All edits/amendments must be made on the electronic document DICTATION DATE: 01/17/19 1601 SUPERVISOR GROWER: VALDO 01/17/19 1601 RPT#: [id number] DC DATE: STATUS: ADM IN [facility] [address] [place] [address] END OF REPORT
--- NOTE | 2019-01-17 16:13 | MORECARE ---
CASE MANAGEMENT DISCHARGE SUMMARY PATIENT: GRAZYNA VALVERDE UNIT: [id number] ADM DATE: 01/15/19 AGE: 73 : 45 SEX: M ROOM/BED: D.2233 AUTHOR: SANFORD,DOC PHYSICIAN: REFERRING PHYSICIAN: REFUGIO BAJWA MD DATE OF SERVICE: 01/17/19 Discharge Plan Patient Name: GRAZYNA VALVERDE Facility: [facility]:[place] : 1945 Planned Disposition: Home Anticipated Discharge Date: Discharge Date: Expected LOS: Initial Reviewer: [email or web address] Initial Review Date: 01/17/2019 Generated: 01/17/19 5:13 pm Comments DCP- Discharge Planning Updated by [email or web address]: Jessica Huang on 01/17/19 3:[address] Patient Name: GRAZYNA VALVERDE Admission Status: ER Accout number: [id number] Admission Date: 01-15-2019 : 1945 Admission Diagnosis: Attending: REFUGIO BAJWA Current LOS: 2 Anticipated DC Date: Planned Disposition: Home Primary Insurance: OUT OF STATE MEDICARE HMO Discharge Planning Comments: CM met with patient to complete initial dc planning assessment. CM educated patient on the CM role and verbal consent given by patient to complete assessment. Patient lives at home with William Ceja. At discharge patient plans to return and feels this is a safe discharge. CM discussed availability of home health, rehab services, and medical equipment. Patient denied known discharge needs at this time. He states his insurance will cancel at the end of the month and wanted information on which insurance company would be best for him. I referred him to [facility] and he states he knows where that is and he will see them. I informed him he should get a primary care doctor and physician referral line offered. He states that William is a nurse and has worked with home health and he will get him a primary doctor here in [place]. CM will continue to follow and will assist as needed with dc plans/needs Corporate Logistics Manager: Jessica Huang DCPIA - Discharge Planning Initial Assessment Updated by [email or web address]: Jessica Huang on 01/17/19 3:57 pm * Is the patient Alert and Oriented? Yes * How many steps to enter\exit or inside your home? 0/0 * PCP None * Pharmacy [facility] on [address] * Preadmission Environment Home with Family * ADLs Independent * Equipment Walker * List name and contact numbers for known caregivers / representatives who currently or will assist patient after discharge: William Ceja - [phone] * Verbal permission to speak to the caregivers and representatives has been obtained from the patient. Yes * Community resources currently utilized None * Additional services required to return to the preadmission environment? No * Can the patient safely return to the preadmission environment? Yes * Has this patient been hospitalized within the prior 30 days at any hospital? Yes Last DP export: 01/17/19 3:01 p Patient Name: GRAZYNA VALVERDE Page [id number] at 1613 All edits/amendments must be made on the electronic document DICTATION DATE: 01/17/191612 MICROARRAY SPECIALIST: VALDO 01/17/191612 RPT#: [id number] DC DATE: STATUS: ADM IN [facility] [address] [place] [address] END OF REPORT
[2019-01-17 16:24] VITALS: BP 124/64
--- NOTE | 2019-01-17 18:40 | NUR ---
PT RESTING IN BED. DENIES PAIN. BROUGHT PT A GOSIA UPON REQUEST. NO S/S OF ACUTE DISTRESS. CL IN PLACE.
[2019-01-17 20:56] VITALS: BP 142/68
[2019-01-18 00:47] VITALS: BP 119/65
--- NOTE | 2019-01-18 03:09 | NUR ---
PT RESTING IN CHAIR. EYES CLOSED. NO SIGNS OF DISTRESS. BREATHING EVEN AND UNLABORED. CALL LIGHT IN REACH. WILL CONTINUE PLAN OF CARE.
--- NOTE | 2019-01-18 03:13 | NUR ---
I have reviewed this patient and I concur with the Shift Assessment completed by the Licensed Practical Nurse today this shift.
[2019-01-18 05:23] VITALS: BP 135/77
--- NOTE | 2019-01-18 06:14 | NUR ---
FSBS 134 NO INSULIN GIVEN AT THIS TIME PER SS.
[2019-01-18 06:36] LABS: BASOPHILS 0.2 % (0-2); EOSINOPHILS 2.2 % (0-7); HEMATOCRIT 29.8 % (42.0-54.0); HEMOGLOBIN 9.5 g/dL (13.5-17.5); IMMATURE GRANULOCYTES 0.5 % (0-5); LYMPHOCYTES 10.2 % (15-50); MCH 24.4 pg (26.0-34.0); MCHC 31.9 g/dL (31.0-37.0); MCV 76.4 fL (80.0-100.0); MONOCYTES 9.5 % (2-11); NEUTROPHILS 77.4 % (40-80); PLATELET COUNT 388 10x3/uL (130-400); RDW 17.6 % (11.5-14.5); WBC 12.4 10x3/uL (4.8-10.8)
[2019-01-18 07:16] LABS: ANION GAP 12.1 mmol/L (8-16); CALCIUM 8.4 mg/dL (8.5-10.1); CARBON DIOXIDE 27.6 mmol/L (21.0-32.0); CREATININE - SERUM 1.3 mg/dL (0.6-1.3); MAGNESIUM - SERUM 1.8 mg/dL (1.8-2.4); PHOSPHOROUS 3.5 mg/dL (2.5-4.9); POTASSIUM - SERUM 3.7 mmol/L (3.5-5.1)
--- NOTE | 2019-01-18 08:10 | NUR ---
PT SITTING UP IN CHAIR. " I AM READY TO GO HOME." LET PT KNOW WE DID NOT HAVE A DC ORDER ON HIM BUT ONCE I SAW THE MD I WOULD ASK HIM. NO S/S OF ACUTE DISTRESS. CL IN PLACE.
[2019-01-18 08:55] VITALS: BP 154/73
[2019-01-18 12:24] VITALS: BP 133/70
--- NOTE | 2019-01-18 13:56 | MORECARE ---
CASE MANAGEMENT DISCHARGE SUMMARY PATIENT: GRAZYNA VALVERDE UNIT: [id number] ADM DATE: 01/15/19 AGE: 73 : 45 SEX: M ROOM/BED: D.2233 AUTHOR: SANFORD,DOC PHYSICIAN: REFERRING PHYSICIAN: REFUGIO BAJWA MD DATE OF SERVICE: 01/18/19 Discharge Plan Patient Name: GRAZYNA VALVERDE Facility: [facility]:[place] : 1945 Planned Disposition: Home Anticipated Discharge Date: Discharge Date: Expected LOS: Initial Reviewer: [email or web address] Initial Review Date: 01/17/2019 Generated: 01/18/19 2:56 pm Comments DCP- Discharge Planning Updated by [email or web address]: Jessica Huang on 01/18/19 12:[address] Celestino Rueda from patient's insurance called and states she wanted to make sure that the patient knew he would need to change his insurance after 01/28. I informed her that he did know and has plans to [facility] to chose the "right one for him." I spoke with the patient again after her call and he is planning on going to [facility] to chose a new insurance to start on 01/29. I provided him with the physician referral number and [facility] number and informed him to chose a PCP as soon as he had his new insurance. He states he will give the numbers to William. States "he takes care of all that for me." Declines other needs at this time. CM will continue to follow and assist with discharge planning/needs. DCP- Discharge Planning Updated by [email or web address]: Jessica Huang on 01/17/19 3:[address] Patient Name: GRAZYNA VALVERDE Admission Status: ER Accout number: [id number] Admission Date: 01-15-2019 : 1945 Admission Diagnosis: Attending: REFUGIO BAJWA Current LOS: 2 Anticipated DC Date: Planned Disposition: Home Primary Insurance: OUT OF STATE MEDICARE HMO Discharge Planning Comments: CM met with patient to complete initial dc planning assessment. CM educated patient on the CM role and verbal consent given by patient to complete assessment. Patient lives at home with William Ceja. At discharge patient plans to return and feels this is a safe discharge. CM discussed availability of home health, rehab services, and medical equipment. Patient denied known discharge needs at this time. He states his insurance will cancel at the end of the month and wanted information on which insurance company would be best for him. I referred him to [facility] and he states he knows where that is and he will see them. I informed him he should get a primary care doctor and physician referral line offered. He states that William is a nurse and has worked with home health and he will get him a primary doctor here in [place]. CM will continue to follow and will assist as needed with dc plans/needs Aircraft Maintenance Technician: Jessica Huang DCPIA - Discharge Planning Initial Assessment Updated by [email or web address]: Jessica Huang on 01/17/19 3:57 pm * Is the patient Alert and Oriented? Yes * How many steps to enter\\exit or inside your home? 0/0 * PCP None * Pharmacy [facility] on [address] * Preadmission Environment Home with Family * ADLs Independent * Equipment Walker * List name and contact numbers for known caregivers / representatives who currently or will assist patient after discharge: William Ceja - [phone] * Verbal permission to speak to the caregivers and representatives has been obtained from the patient. Yes * Community resources currently utilized None * Additional services required to return to the preadmission environment? No * Can the patient safely return to the preadmission environment? Yes * Has this patient been hospitalized within the prior 30 days at any hospital? Yes Last DP export: 01/17/19 3:13 p Patient Name: GRAZYNA VALVERDE Page [id number] at 1356 All edits/amendments must be made on the electronic document DICTATION DATE: 01/18/19 1356 REPAIRER HELPER: VALDO 01/18/19 1352 RPT#: [id number] DC DATE: STATUS: ADM IN [facility] [address] [place] [address] END OF REPORT
--- NOTE | 2019-01-18 14:40 | NUR ---
NUTRITION F/U CHART REVIEWED, PT VISIT. TOLERATING DIABETIC DIET WITH GOOD INTAKE RECENT MEALS. WILL CONTINUE TO PROVIDE DIET, MONITOR PO INTAKE. RD FOLLOWING
[2019-01-18 17:34] VITALS: BP 151/71
--- NOTE | 2019-01-18 18:16 | NUR ---
PT SITTING UP IN CHAIR WATCHING TV. IV ABT RUNNING. NO S/S OF ACUTE DISTRESS. DENIES PAIN. CL IN PLACE.
--- NOTE | 2019-01-18 19:08 | NUR ---
PT REQUEST SOMETHING FOR CONSTIPATION, "HAS NOT WENT IN X3 DAYS ALSO I NEED A POTASSIUM SUPPLEMENT." SPOKE WITH DR BAJWA WHO GAVE VO FOR MAG CITRATE AND POTASSIUM. NO S/S OF ACUTE DISTRESS. CL IN PLACE.
[2019-01-18 20:00] VITALS: BP 158/74
--- NOTE | 2019-01-18 21:00 | NUR ---
FSBS 234 8 UNITS OF INSULIN GIVEN PER SS.
[2019-01-19 04:00] VITALS: BP 145/75
--- NOTE | 2019-01-19 05:19 | NUR ---
I have reviewed this patient and I concur with the Shift Assessment completed by the Licensed Practical Nurse today this shift.
--- NOTE | 2019-01-19 07:41 | NUR ---
SITTING IN CHAIR AT BEDSIDE. ALERT AND ORIENTED X 3. LUNGS CLEAR BILATERALLY IN ALL CALVERT. BOWEL SOUNDS ACTIVE X 4. SKIN INTACT WITHOUT REDNESS. BOOT AND DRSG IN PLACE TO RIGHT FOOT FROM RIGHT GREAT TOE AMPUTATION X 3 [address] AGO[address] TELE[address] IN PL[address]. IV TO LFA PATENT WITHOUT REDNESS. DENIES PAIN. DENIES NEEDS. STATED DISCHARGING HOME TODAY. CALL KATZ AND PERSONAL ITEMS IN REACH. WILL CONTINUE TO MONITOR.
[2019-01-19 08:00] VITALS: BP 161/83
--- NOTE | 2019-01-19 08:24 | MORECARE ---
CASE MANAGEMENT DISCHARGE SUMMARY PATIENT: GRAZYNA VALVERDE UNIT: [id number] ADM DATE: 01/15/19 AGE: 73 : 45 SEX: M ROOM/BED: D.2233 AUTHOR: SANFORD,DOC PHYSICIAN: REFERRING PHYSICIAN: REFUGIO BAJWA MD DATE OF SERVICE: 01/19/19 Discharge Plan Patient Name: GRAZYNA VALVERDE Facility: [facility]:[place] : 1945 Planned Disposition: Home Anticipated Discharge Date: Discharge Date: Expected LOS: Initial Reviewer: [email or web address] Initial Review Date: 01/17/2019 Generated: 01/19/19 9:23 am Comments DCP- Discharge Planning Updated by [id number]: Jessica Hsunancy on 01/18/19 12:[address] Celestino Rueda from patient's insurance called and states she wanted to make sure that the patient knew he would need to change his insurance after 01/28. I informed her that he did know and has plans to go [facility] to chose the "right one for him." I spoke with the patient again after her call and he is planning on going [facility] to chose a new insurance to start on 01/29. I provided him with the physician referral number and [facility] number and informed him to chose a PCP as soon as he had his new insurance. He states he will give the numbers to William. States "he takes care of all that for me." Declines other needs at this time. CM will continue to follow and assist with discharge planning/needs. DCP- Discharge Planning Updated by [email or web address]: Jessica Huang on 01/17/19 3:[address] Patient Name: GRAZYNA VALVERDE Admission Status: ER Accout number: [id number] Admission Date: 01-15-2019 : 1945 Admission Diagnosis: Attending: REFUGIO BAJWA Current LOS: 2 Anticipated DC Date: Planned Disposition: Home Primary Insurance: OUT OF STATE MEDICARE HMO Discharge Planning Comments: CM met with patient to complete initial dc planning assessment. CM educated patient on the CM role and verbal consent given by patient to complete assessment. Patient lives at home with William Ceja. At discharge patient plans to return and feels this is a safe discharge. CM discussed availability of home health, rehab services, and medical equipment. Patient denied known discharge needs at this time. He states his insurance will cancel at the end of the month and wanted information on which insurance company would be best for him. I referred him to [facility] and he states he knows where that is and he will see them. I informed him he should get a primary care doctor and physician referral line offered. He states that William is a nurse and has worked with home health and he will get him a primary doctor here in [place]. CM will continue to follow and will assist as needed with dc plans/needs Hearing Therapy Teacher: Jessica Huang DCPIA - Discharge Planning Initial Assessment Updated by [id number]: Jessica Huang on 01/17/19 3:57 pm * Is the patient Alert and Oriented? Yes * How many steps to enter\\exit or inside your home? 0/0 * PCP None * Pharmacy [facility] * Preadmission Environment Home with Family * ADLs Independent * Equipment Walker * List name and contact numbers for known caregivers / representatives who currently or will assist patient after discharge: William Ceja - [phone] * Verbal permission to speak to the caregivers and representatives has been obtained from the patient. Yes * Community resources currently utilized None * Additional services required to return to the preadmission environment? No * Can the patient safely return to the preadmission environment? Yes * Has this patient been hospitalized within the prior 30 days at any hospital? Yes External Providers External Provider: [facility] Next Contact Date: Service Request Date: Service Type: Resolution: Reviewer: Comments: Last DP export: 01/18/19 12:56 p Patient Name: GRAZYNA VALVERDE Page [phone] at 0824 All edits/amendments must be made on the electronic document DICTATION DATE: 01/19/19822 DIRECTOR ALUMNI RELATIONS: VALDO 01/19/19822 RPT#: [id number] DC DATE: STATUS: ADM IN [facility] [address] [facility] [place] [address] END OF REPORT
[2019-01-19 09:22] LABS: BASOPHILS 0.2 % (0-2); EOSINOPHILS 2.5 % (0-7); HEMATOCRIT 32.7 % (42.0-54.0); HEMOGLOBIN 10.5 g/dL (13.5-17.5); IMMATURE GRANULOCYTES 0.5 % (0-5); LYMPHOCYTES 10.5 % (15-50); MCH 24.4 pg (26.0-34.0); MCHC 32.1 g/dL (31.0-37.0); MCV 75.9 fL (80.0-100.0); MEAN PLATELET VOLUME 9.2 fL (7.4-10.4); MONOCYTES 9.8 % (2-11); NEUTROPHILS 76.5 % (40-80); PLATELET COUNT 425 10x3/uL (130-400); RBC 4.31 10x6/uL (4.20-6.10); RDW 17.3 % (11.5-14.5); WBC 12.1 10x3/uL (4.8-10.8)
[2019-01-19 09:35] LABS: CALCIUM 8.9 mg/dL (8.5-10.1); CREATININE - SERUM 1.2 mg/dL (0.6-1.3); MAGNESIUM - SERUM 2.1 mg/dL (1.8-2.4); PHOSPHOROUS 3.2 mg/dL (2.5-4.9)
--- NOTE | 2019-01-19 10:47 | NUR ---
SITTING IN CHAIR AT BEDSIDE. DENIES PAIN. DENIES NEEDS. WILL CONTINUE TO MONITOR.
--- NOTE | 2019-01-19 11:45 | MORECARE ---
CASE MANAGEMENT DISCHARGE SUMMARY PATIENT: GRAZYNA VAVLERDE UNIT: [id number] ADM DATE: 01/15/19 AGE: 73 : 45 SEX: M ROOM/BED: D.2233 AUTHOR: SANFORD,DOC PHYSICIAN: REFERRING PHYSICIAN: REFUGIO BAJWA MD DATE OF SERVICE: 01/19/19 Discharge Plan Patient Name: GRAZYNA VALVERDE Facility: [facility]:[place] : 1945 Planned Disposition: Home Anticipated Discharge Date: Discharge Date: Expected LOS: Initial Reviewer: [id number] Initial Review Date: 01/17/2019 Generated: 01/19/19 12:45 pm Comments DCP- Discharge Planning Updated by [email or web address]: Jessica Huang on 01/18/19 12:[address] Celestino Rueda from patient's insurance called and states she wanted to make sure that the patient knew he would need to change his insurance after 01/28. I informed her that he did know and [facility] I spoke with the patient again after her call and [facility] to start on 01/[facility]. I provided him with the physician referral number and [facility] number and informed him to chose a PCP as soon as he had his new insurance. He states he will give the numbers to William. States "he takes care of all that for me." Declines other needs at this time. CM will continue to follow and assist with discharge planning/needs. DCP- Discharge Planning Updated by [email or web address]: Jessica Huang on 01/17/19 3:[address] Patient Name: GRAZYNA VALVERDE Admission Status: ER Accout number: [id number] Admission Date: 01-15-2019 : 1945 Admission Diagnosis: Attending: REFUGIO BAJWA Current LOS: 2 Anticipated DC Date: Planned Disposition: Home Primary Insurance: OUT OF STATE MEDICARE HMO Discharge Planning Comments: CM met with patient to complete initial dc planning assessment. CM educated patient on the CM role and verbal consent given by patient to complete assessment. Patient lives at home with William Ceja. At discharge patient plans to return and feels this is a safe discharge. CM discussed availability of home health, rehab services, and medical equipment. Patient denied known discharge needs at this time. He states his insurance will cancel at the end of the month and wanted information on which insurance company would be best for him. I referred him to [facility] and he states he knows where that is and he will see them. I informed him he should get a primary care doctor and physician referral line offered. 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 CM will continue to follow and will assist as needed with dc plans/needs Seismograph Chief: Jessica Huang DCPIA - Discharge Planning Initial Assessment Updated by [email or web address]: Jessica Huang on 01/17/19 3:57 pm * Is the patient Alert and Oriented? Yes * How many steps to enter\\exit or inside your home? 0/0 * PCP None * Pharmacy [facility] [address] * Preadmission Environment Home with Family * ADLs Independent * Equipment Walker * List name and contact numbers for known caregivers / representatives who currently or will assist patient after discharge: William Ceja - [phone] * Verbal permission to speak to the caregivers and representatives has been obtained from the patient. Yes * Community resources currently utilized None * Additional services required to return to the preadmission environment? No * Can the patient safely return to the preadmission environment? Yes * Has this patient been hospitalized within the prior 30 days at any hospital? Yes External Providers External Provider: [facility] Next Contact Date: Service Request Date: Service Type: Resolution: Reviewer: Comments: [facility] Next Contact Date: Service Request Date: Service Type: Resolution: Reviewer: Comments: Last DP export: 01/19/19 7:24 a Patient Name: GRAZYNA VALVERDE Page [phone] at 1145 All edits/amendments must be made on the electronic document DICTATION DATE: 01/19/19 1145 SUPPLY CHAIN DEVELOPMENT MANAGER: VALDO 01/19/19 1145 RPT#: [id number] DC DATE: STATUS: ADM IN [facility] [address] [place] [address] END OF REPORT
--- NOTE | 2019-01-19 11:54 | MORECARE ---
CASE MANAGEMENT DISCHARGE SUMMARY PATIENT: GRAZYNA VALVERDE UNIT: [id number] ADM DATE: 01/15/19 AGE: 73 : 45 SEX: M ROOM/BED: D.2233 AUTHOR: SANFORD,DOC PHYSICIAN: REFERRING PHYSICIAN: REFUGIO BAJWA MD DATE OF SERVICE: 01/19/19 Discharge Plan Patient Name: GRAZYNA VALVERDE Facility: [facility]:[place] : 1945 Planned Disposition: Home Anticipated Discharge Date: Discharge Date: Expected LOS: Initial Reviewer: [email or web address] Initial Review Date: 01/17/2019 Generated: 01/19/19 12:54 pm Comments DCP- Discharge Planning Updated by [email or web address]: Jessica Huang on 01/19/19 10:[address] Warren note has the patient will need IV antibiotics at home. I have called [facility] and she states they will not be following the patient. He does not have a PCP. She states Dr. Warren will be following. I called and spoke to Cesar Cavazos, he will come over at lunch and write discharge antibiotic orders. I spoke with the patient and explained he would need [facility] set up for IV antibiotics. He does not have a preference of [facility] or IV infusion companies. I gave him the TIFF and the list. I called [facility] and spoke with Susana and called Betty Oakes with [employer] for a mercedes quote. CM will continue to follow and assist with discharge planning/needs. DCP- Discharge Planning Updated by [id number]: Jessica Huang on 01/18/19 12:[address] Celestino Rueda from patient's insurance called and states she wanted to make sure that the patient knew he would need to change his insurance after 01/28. I informed her that he did know and has plans to go to [facility] to chose the "right one for him." I spoke with the patient again after her call and he is planning on going to [facility] to chose a new insurance to start on 01/29. I provided him with the physician referral number and [facility] number and informed him to chose a PCP as soon as he had his new insurance. He states he will give the numbers to William. States "he takes care of all that for me." Declines other needs at this time. CM will continue to follow and assist with discharge planning/needs. DCP- Discharge Planning Updated by [email or web address]: Jessica Huang on 01/17/19 3:[address] Patient Name: GRAZYNA VALVERDE Admission Status: ER Accout number: [id number] Admission Date: 01-15-2019 : 1945 Admission Diagnosis: Attending: REFUGIO BAJWA Current LOS: 2 Anticipated DC Date: Planned Disposition: Home Primary Insurance: OUT OF STATE MEDICARE HMO Discharge Planning Comments: CM met with patient to complete initial dc planning assessment. CM educated patient on the CM role and verbal consent given by patient to complete assessment. Patient lives at home with William Ceja. At discharge patient plans to return and feels this is a safe discharge. CM discussed availability of home health, rehab services, and medical equipment. Patient denied known discharge needs at this time. He states his insurance will cancel at the end of the month and wanted information on which insurance company would be best for him. [facility] and he states he knows where that is and he will see them. I informed him he should get a primary care doctor and physician referral line offered. 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 CM will continue to follow and will assist as needed with dc plans/needs Traffic Sign Supervisor: Jessica Huang DCPIA - Discharge Planning Initial Assessment Updated by [id number]: Jessica Huang on 01/17/19 3:57 pm * Is the patient Alert and Oriented? Yes * How many steps to enter\\exit or inside your home? 0/0 * PCP None * Pharmacy [facility] * Preadmission Environment Home with Family * ADLs Independent * Equipment Walker * List name and contact numbers for known caregivers / representatives who currently or will assist patient after discharge: William Ceja - [phone] * Verbal permission to speak to the caregivers and representatives has been obtained from the patient. Yes * Community resources currently utilized None * Additional services required to return to the preadmission environment? No * Can the patient safely return to the preadmission environment? Yes * Has this patient been hospitalized within the prior 30 days at any hospital? Yes Last DP export: 01/19/19 10:45 a Patient Name: GRAZYNA VALVERDE Page 15894 at 1154 All edits/amendments must be made on the electronic document DICTATION DATE: 01/19/19 115 COMPUTER ARCHITECT: VALDO 01/19/19 1153 RPT#: [id number] DC DATE: STATUS: ADM IN [facility] [address] [place] [address] END OF REPORT
--- NOTE | 2019-01-19 12:02 | MORECARE ---
CASE MANAGEMENT DISCHARGE SUMMARY PATIENT: GRAZYNA VALVERED UNIT: [id number] ADM DATE: 01/15/19 AGE: 73 : 45 SEX: M ROOM/BED: D.2233 AUTHOR: SANFORD,DOC PHYSICIAN: REFERRING PHYSICIAN: REFUGIO BAJWA MD DATE OF SERVICE: 01/19/19 Discharge Plan Patient Name: GRAZYNA VALVERDE Facility: [facility]:[place] : 1945 Planned Disposition: Home Anticipated Discharge Date: Discharge Date: Expected LOS: Initial Reviewer: [email or web address] Initial Review Date: 01/17/2019 Generated: 01/19/19 1:02 pm Comments DCP- Discharge Planning Updated by [id number]: Jessica Huang on 01/19/19 10:[address] Warren note has the patient will need IV antibiotics at home. I have called [facility] and she states they will not be following the patient. He does not have a PCP. She states Dr. Warren will be following. I called and spoke to Cesar Cavazos, he will come over at lunch and write discharge antibiotic orders. I spoke with the patient and explained he would need [facility] set up for IV antibiotics. He does not have a preference of [facility] or IV infusion companies. I gave him the TIFF and the list. I called [facility] and spoke with Susana and called Betty Oakes with [employer] for a mercedes quote. CM will continue to follow and assist with discharge planning/needs. DCP- Discharge Planning Updated by [email or web address]: Jessica Huang on 01/18/19 12:[address] Celestino Rueda from patient's insurance called and states she wanted to make sure that the patient knew he would need to change his insurance after 01/28. I informed her that he did know and has plans to go to [facility] to chose the "right one for him." I spoke with the patient again after her call and he is planning on going to [facility] to chose a new insurance to start on 01/29. I provided him with the physician referral number and [facility] number and informed him to chose a PCP as soon as he had his new insurance. He states he will give the numbers to William. States "he takes care of all that for me." Declines other needs at this time. CM will continue to follow and assist with discharge planning/needs. DCP- Discharge Planning Updated by [email or web address]: Jessica Huang on 01/17/19 3:[address] Patient Name: GRAZYNA VALVERDE Admission Status: ER Accout number: [id number] Admission Date: 01-15-2019 : 1945 Admission Diagnosis: Attending: REFUGIO BAJWA Current LOS: 2 Anticipated DC Date: Planned Disposition: Home Primary Insurance: OUT OF STATE MEDICARE HMO Discharge Planning Comments: CM met with patient to complete initial dc planning assessment. CM educated patient on the CM role and verbal consent given by patient to complete assessment. Patient lives at home with William Ceja. At discharge patient plans to return and feels this is a safe discharge. CM discussed availability of home health, rehab services, and medical equipment. Patient denied known discharge needs at this time. He states his insurance will cancel at the end of the month and wanted information on which insurance company would be best for him. [facility] and he states he knows where that is and he will see them. I informed him he should get a primary care doctor and physician referral line offered. 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 CM will continue to follow and will assist as needed with dc plans/needs Back Stayer: Jessica Huang DCPIA - Discharge Planning Initial Assessment Updated by [email or web address]: Jessica Huang on 01/17/19 3:57 pm * Is the patient Alert and Oriented? Yes * How many steps to enter\\exit or inside your home? 0/0 * PCP None * Pharmacy [facility] * Preadmission Environment Home with Family * ADLs Independent * Equipment Walker * List name and contact numbers for known caregivers / representatives who currently or will assist patient after discharge: William Ceja - [phone] * Verbal permission to speak to the caregivers and representatives has been obtained from the patient. Yes * Community resources currently utilized None * Additional services required to return to the preadmission environment? No * Can the patient safely return to the preadmission environment? Yes * Has this patient been hospitalized within the prior 30 days at any hospital? Yes External Providers External Provider: [facility] Next Contact Date: Service Request Date: Service Type: Resolution: Reviewer: Comments: Last DP export: 01/19/19 10:54 a Patient Name: GRAZYNA VALVERDE Page [phone] at 1202 All edits/amendments must be made on the electronic document DICTATION DATE: 01/19/19 1202 POLE FRAMER MACHINE: VALDO 01/19/19 1202 RPT#: [id number] DC DATE: STATUS: ADM IN [facility] [address] [place] [address] END OF REPORT
[2019-01-19] MEDS ORDERED: ULTRAM50 MG PO (12:19)
--- NOTE | 2019-01-19 12:26 | MORECARE ---
CASE MANAGEMENT DISCHARGE SUMMARY PATIENT: GRAZYNA VALVERDE UNIT: [id number] ADM DATE: 01/15/19 AGE: 73 : 45 SEX: M ROOM/BED: D.2233 AUTHOR: SANFORD,DOC PHYSICIAN: REFERRING PHYSICIAN: REFUGIO BAJWA MD DATE OF SERVICE: 01/19/19 Discharge Plan Patient Name: GRAZYNA VALVERDE Facility: [facility]:[place] : 1945 Planned Disposition: Home Anticipated Discharge Date: Discharge Date: Expected LOS: Initial Reviewer: [email or web address] Initial Review Date: 01/17/2019 Generated: 01/19/19 1:26 pm Comments DCP- Discharge Planning Updated by [email or web address]: Jessica Huang on 01/19/19 10:[address] Warren note has the patient will need IV antibiotics at home. I have called [facility] and she states they will not be following the patient. He does not have a PCP. She states Dr. Warren will be following. I called and spoke to Cesar Cavazos, he will come over at lunch and write discharge antibiotic orders. I spoke with the patient and explained he would need [facility] set up for IV antibiotics. He does not have a preference of [facility] or IV infusion companies. I gave him the TIFF and the list. I called [facility] and spoke with Susana and called Betty Oakes with [employer] for a mercedes quote. CM will continue to follow and assist with discharge planning/needs. DCP- Discharge Planning Updated by [email or web address]: Jessica Huang on 01/18/19 12:[address] Celestino Rueda from patient's insurance called and states she wanted to make sure that the patient knew he would need to change his insurance after 01/28. I informed her that he did know and has plans to go to [facility] to chose the "right one for him." I spoke with the patient again after her call and he is planning on going to [facility] to chose a new insurance to start on 01/29. I provided him with the physician referral number and [facility] number and informed him to chose a PCP as soon as he had his new insurance. He states he will give the numbers to William. States "he takes care of all that for me." Declines other needs at this time. CM will continue to follow and assist with discharge planning/needs. DCP- Discharge Planning Updated by [id number]: Jessica Huang on 01/17/19 3:[address] Patient Name: GRAZYNA VALVERDE Admission Status: ER Accout number: [id number] Admission Date: 01-15-2019 : 1945 Admission Diagnosis: Attending: REFUGIO BAJWA Current LOS: 2 Anticipated DC Date: Planned Disposition: Home Primary Insurance: OUT OF STATE MEDICARE HMO Discharge Planning Comments: CM met with patient to complete initial dc planning assessment. CM educated patient on the CM role and verbal consent given by patient to complete assessment. Patient lives at home with William Ceja. At discharge patient plans to return and feels this is a safe discharge. CM discussed availability of home health, rehab services, and medical equipment. Patient denied known discharge needs at this time. He states his insurance will cancel at the end of the month and wanted information on which insurance company would be best for him. [facility] and he states he knows where that is and he will see them. I informed him he should get a primary care doctor and physician referral line offered. 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 CM will continue to follow and will assist as needed with dc plans/needs Senior [employer] Parachutist: Jessica Huang DCPIA - Discharge Planning Initial Assessment Updated by [email or web address]: Jessica Huang on 01/17/19 3:57 pm * Is the patient Alert and Oriented? Yes * How many steps to enter\\exit or inside your home? 0/0 * PCP None * Pharmacy [facility] * Preadmission Environment Home with Family * ADLs Independent * Equipment Walker * List name and contact numbers for known caregivers / representatives who currently or will assist patient after discharge: William Ceja - [phone] * Verbal permission to speak to the caregivers and representatives has been obtained from the patient. Yes * Community resources currently utilized None * Additional services required to return to the preadmission environment? No * Can the patient safely return to the preadmission environment? Yes * Has this patient been hospitalized within the prior 30 days at any hospital? Yes External Providers External Provider: [facility] Next Contact Date: Service Request Date: Service Type: Resolution: Reviewer: Comments: Last DP export: 01/19/19 11:02 a Patient Name: GRAZYNA VALVERDE Page 43773 at 1226 All edits/amendments must be made on the electronic document DICTATION DATE: 01/19/19 1226 BRICK MOLDER HAND: VALDO 01/19/19 1226 RPT#: [id number] DC DATE: STATUS: ADM IN [facility] [address] [place] [address] END OF REPORT
[2019-01-19 13:07] VITALS: BP 157/81
--- NOTE | 2019-01-19 14:13 | MORECARE ---
CASE MANAGEMENT DISCHARGE SUMMARY PATIENT: GRAZYNA VALVERDE UNIT: [id number] ADM DATE: 01/15/19 AGE: 73 : 45 SEX: M ROOM/BED: D.2233 AUTHOR: SANFORD,DOC PHYSICIAN: REFERRING PHYSICIAN: REFUGIO BAJAW MD DATE OF SERVICE: 01/19/19 Discharge Plan Patient Name: GRAZYNA VALVERDE Facility: [facility]:[place] : 1945 Planned Disposition: Home Anticipated Discharge Date: Discharge Date: Expected LOS: Initial Reviewer: [email or web address] Initial Review Date: 01/17/2019 Generated: 01/19/19 3:13 pm Comments DCP- Discharge Planning Updated by [email or web address]: Jessica Huang on 01/19/19 10:[address] Warren note has the patient will need IV antibiotics at home. I have called [facility] and she states they will not be following the patient. He does not have a PCP. She states Dr. Warren will be following. I called and spoke to Cesar Cavazos, he will come over at lunch and write discharge antibiotic orders. I spoke with the patient and explained he would need [facility] set up for IV antibiotics. He does not have a preference of [facility] or IV infusion companies. I gave him the TIFF and the list. I called [facility] and spoke with Susana and called Betty Oakes with [employer] for a [employer]cedes quote. CM will continue to follow and assist with discharge planning/needs. DCP- Discharge Planning Updated by [email or web address]: Jessica Huang on 01/18/19 12:[address] Celestino Rueda from patient's insurance called and states she wanted to make sure that the patient knew he would need to change his insurance after 01/28. I informed her that he did know and has plans to go to [facility] to chose the "right one for him." I spoke with the patient again after her call and he is planning on going to elder[facility] to chose a new insurance to start on 01/29. I provided him with the physician referral number and [facility] number and informed him to chose a PCP as soon as he had his new insurance. He states he will give the numbers to iWlliam. States "he takes care of all that for me." Declines other needs at this time. CM will continue to follow and assist with discharge planning/needs. DCP- Discharge Planning Updated by [email or web address]: Jessica Huang on 01/17/19 3:[address] Patient Name: GRAZYNA VALVERDE Admission Status: ER Accout number: [id number] Admission Date: 01-15-2019 : 1945 Admission Diagnosis: Attending: REFUGIO BAJWA Current LOS: 2 Anticipated DC Date: Planned Disposition: Home Primary Insurance: OUT OF STATE MEDICARE HMO Discharge Planning Comments: CM met with patient to complete initial dc planning assessment. CM educated patient on the CM role and verbal consent given by patient to complete assessment. Patient lives at home with William Ceja. At discharge patient plans to return and feels this is a safe discharge. CM discussed availability of home health, rehab services, and medical equipment. Patient denied known discharge needs at this time. He states his insurance will cancel at the end of the month and wanted information on which insurance company would be best for him. [facility] and he states he knows where that is and he will see them. I informed him he should get a primary care doctor and physician referral line offered. 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 CM will continue to follow and will assist as needed with dc plans/needs High School Director: Jessica Huang DCPIA - Discharge Planning Initial Assessment Updated by [id number]: Jessica Huang on 01/17/19 3:57 pm * Is the patient Alert and Oriented? Yes * How many steps to enter\\exit or inside your home? 0/0 * PCP None * Pharmacy [facility] * Preadmission Environment Home with Family * ADLs Independent * Equipment Walker * List name and contact numbers for known caregivers / representatives who currently or will assist patient after discharge: William Ceja - [phone] * Verbal permission to speak to the caregivers and representatives has been obtained from the patient. Yes * Community resources currently utilized None * Additional services required to return to the preadmission environment? No * Can the patient safely return to the preadmission environment? Yes * Has this patient been hospitalized within the prior 30 days at any hospital? Yes External Providers [facility] Next Contact Date: Service Request Date: Service Type: Resolution: Reviewer: Comments: Last DP export: 01/19/19 11:26 a Patient Name: GRAZYNA VALVERDE Page 19304 at 1413 All edits/amendments must be made on the electronic document DICTATION DATE: 01/19/191412 ROTOPRINTER: VALDO 01/19/191412 RPT#: [id number] DC DATE: STATUS: ADM IN [facility] [address] [place] [address] END OF REPORT
--- NOTE | 2019-01-19 14:29 | NUR ---
RESTING IN BED. DENIES NEEDS. WILL CONTINUE TO MONITOR.
--- NOTE | 2019-01-19 14:33 | MORECARE ---
CASE MANAGEMENT DISCHARGE SUMMARY PATIENT: GRAZYNA VALVERDE UNIT: [id number] ADM DATE: 01/15/19 AGE: 73 : 45 SEX: M ROOM/BED: D.2233 AUTHOR: SANFORD,DOC PHYSICIAN: REFERRING PHYSICIAN: REFUGIO BAJWA MD DATE OF SERVICE: 01/19/19 Discharge Plan Patient Name: GRAZYNA VALVERDE Facility: [facility]:[place] : 1945 Planned Disposition: Home Anticipated Discharge Date: Discharge Date: Expected LOS: Initial Reviewer: [id number] Initial Review Date: 01/17/2019 Generated: 01/19/19 3:33 pm Comments DCP- Discharge Planning Updated by [id number]: Jessica Huang on 01/19/19 1:[address] I have sent a referral for home health to [facility] (next available next weed), [facility] (not able to take IV antibiotic patient's at this time per Peggy), [facility] (not available until next week), [facility] (has not gotten back to me yet) and [facility] (has not returned call yet). Still awaiting mercedes quote from [facility] and [employer] [facility] [employer]. CM will continue to follow and assist with discharge planning/needs. DCP- Discharge Planning Updated by [id number]: Jessica Huang on 01/19/19 10:[address] Warren note has the patient will need IV antibiotics at home. I have called [facility] and she states they will not be following the patient. He does not have a PCP. She states Dr. Warren will be following. I called and spoke to Cesar Cavazos, he will come over at lunch and write discharge antibiotic orders. I spoke with the patient and explained he would need [facility] set up for IV antibiotics. He does not have a preference of [facility] or IV infusion companies. I gave him the TIFF and the list. I called [facility] and spoke with Susana and called Betty Oakes with [facility] for a mercedes quote. CM will continue to follow and assist with discharge planning/needs. DCP- Discharge Planning Updated by [id number]: Jessica Huang on 01/18/19 12:[address] Cathlene Layton from patient's insurance called and states she wanted to make sure that the patient knew he would need to change his insurance after 01/28. I informed her that he did know and has plans to go to eldercare to chose the "right one for him." I spoke with the patient again after her call and he is planning on going to eldercare to chose a new insurance to start on 01/29. I provided him with the physician referral number and [facility] number and informed him to chose a PCP as soon as he had his new insurance. He states he will give the numbers to William. States "he takes care of all that for me." Declines other needs at this time. CM will continue to follow and assist with discharge planning/needs. DCP- Discharge Planning Updated by [id number]: Jessica Huang on 01/17/19 3:[address] Patient Name: GRAZYNA VALVERDE Admission Status: ER Accout number: [id number] Admission Date: 01-15-2019 : 1945 Admission Diagnosis: Attending: REFUGIO BAJWA Current LOS: 2 Anticipated DC Date: Planned Disposition: Home Primary Insurance: OUT OF STATE MEDICARE HMO Discharge Planning Comments: CM met with patient to complete initial dc planning assessment. CM educated patient on the CM role and verbal consent given by patient to complete assessment. Patient lives at home with William Ceja. At discharge patient plans to return and feels this is a safe discharge. CM discussed availability of home health, rehab services, and medical equipment. Patient denied known discharge needs at this time. He states his insurance will cancel at the end of the month and wanted information on which insurance company would be best for him. I referred him to eldercare and he states he knows where that is and he will see them. I informed him he should get a primary care doctor and physician referral line offered. He states that William is a nurse and has worked with home health and he will get him a primary doctor here in [place]. CM will continue to follow and will assist as needed with dc plans/needs Extrusion Former: Jessica Huang DCPIA - Discharge Planning Initial Assessment Updated by [id number]: Jessica Huang on 01/17/19 3:57 pm * Is the patient Alert and Oriented? Yes * How many steps to enter\\exit or inside your home? 0/0 * PCP None * Pharmacy [facility] * Preadmission Environment Home with Family * ADLs Independent * Equipment Walker * List name and contact numbers for known caregivers / representatives who currently or will assist patient after discharge: William Ceja - [phone] * Verbal permission to speak to the caregivers and representatives has been obtained from the patient. Yes * Community resources currently utilized None * Additional services required to return to the preadmission environment? No * Can the patient safely return to the preadmission environment? Yes * Has this patient been hospitalized within the prior 30 days at any hospital? Yes External [facility]iders [facility] Contact Date: Service Request Date: Service Type: Resolution: Reviewer: Comments: Last DP export: 01/19/19 1:13 p Patient Name: GRAZYNA VALVERDE Page [id number] at 1433 All edits/amendments must be made on the electronic document DICTATION DATE: 01/19/191431 WHEAT COMBINE DRIVER: VALDO 01/19/191431 RPT#: [id number] DC DATE: STATUS: ADM IN [facility] [address] [place] [address] END OF REPORT
--- NOTE | 2019-01-19 14:56 | MORECARE ---
CASE MANAGEMENT DISCHARGE SUMMARY PATIENT: GRAZYNA VALVERDE UNIT: [id number] ADM DATE: 01/15/19 AGE: 73 : 45 SEX: M ROOM/BED: D.2233 AUTHOR: SANFORD,DOC PHYSICIAN: REFERRING PHYSICIAN: REFUGIO BAJWA MD DATE OF SERVICE: 01/19/19 Discharge Plan Patient Name: GRAZYNA VALVERDE Facility: [facility]:[place] : 1945 Planned Disposition: Home Anticipated Discharge Date: Discharge Date: Expected LOS: Initial Reviewer: [email or web address] Initial Review Date: 01/17/2019 Generated: 01/19/19 3:56 pm Comments DCP- Discharge Planning Updated by [id number]: Jessica Huang on 01/19/19 1:[address] [facility] called back and states they can accept the patient and will see him Tuesday. William (patient's ex-spouse, he lives with) is a nurse and will be giving the IV antibiotic on Tuesday after instruction by [facility] or [facility]. I have called [facility] and [facility] and waiting a mercedes quote back from them. DCP- Discharge Planning Updated by [id number]: Jessica Huang on 01/19/19 1:[address] I have sent a referral for home health to [facility] (next available next weed), [facility] (not able to take IV antibiotic patient's at this time per Peggy), [facility] (not available until next week), [facility] (has not gotten back to me yet) and [facility] (has not returned call yet). Still awaiting mercedes quote from [facility] and [facility] infusion companies. CM will continue to follow and assist with discharge planning/needs. DCP- Discharge Planning Updated by [id number]: Jessica Huang on 01/19/19 10:[address] Warren note has the patient will need IV antibiotics at home. I have called [facility] and she states they will not be following the patient. He does not have a PCP. She states Dr. Warren will be following. I called and spoke to Cesar Cavazos, he will come over at lunch and write discharge antibiotic orders. I spoke with the patient and explained he would need [facility] set up for IV antibiotics. He does not have a preference of [facility] or IV infusion companies. I gave him the TIFF and the list. I called [facility] and spoke with Susana and called Betty Oakes with [facility] for a mercedes quote. CM will continue to follow and assist with discharge planning/needs. DCP- Discharge Planning Updated by [email or web address]: Jessica Huang on 01/18/19 12:[address] Celestino Rueda from patient's insurance called and states she wanted to make sure that the patient knew he would need to change his insurance after 01/28. I informed her that he did know and [facility]." I spoke with the patient again after her call and he is planning on going to [facility] to chose a new insurance to start on 01/29. I provided him with the physician referral number and [facility] number and informed him to chose a PCP as soon as he had his new insurance. He states he will give the numbers to William. States "he takes care of all that for me." Declines other needs at this time. CM will continue to follow and assist with discharge planning/needs. DCP- Discharge Planning Updated by [id number]: Jessica Huang on 01/17/19 3:[address] Patient Name: GRAZYNA VALVERDE Admission Status: ER Accout number: [id number] Admission Date: 01-15-2019 : 1945 Admission Diagnosis: Attending: REFUGIO BAJWA Current LOS: 2 Anticipated DC Date: Planned Disposition: Home Primary Insurance: OUT OF STATE MEDICARE HMO Discharge Planning Comments: CM met with patient to complete initial dc planning assessment. CM educated patient on the CM role and verbal consent given by patient to complete assessment. Patient lives at home with William Ceja. At discharge patient plans to return and feels this is a safe discharge. CM discussed availability of home health, rehab services, and medical equipment. Patient denied known discharge needs at this time. He states his insurance will cancel at the end of the month and wanted information on which insurance company would be best for him. I referred him to [facility] and he states he knows where that is and he will see them. I informed him he should get a primary care doctor and physician referral line offered. He states that William is a nurse and has worked with home health and he will get him a primary doctor here in [place]. CM will continue to follow and will assist as needed with dc plans/needs Admissions Director: Jessicakeaton Huang DCPIA - Discharge Planning Initial Assessment Updated by [email or web address]: Jessica Sal on 01/17/19 3:57 pm * Is the patient Alert and Oriented? Yes * How many steps to enter\\exit or inside your home? 0/0 * PCP None * Pharmacy [facility] [address] * Preadmission Environment Home with Family * ADLs Independent * Equipment Walker * List name and contact numbers for known caregivers / representatives who currently or will assist patient after discharge: William Marcial - [phone] * Verbal permission to speak to the caregivers and representatives has been obtained from the patient. Yes * Community resources currently utilized None * Additional services required to return to the preadmission environment? No * Can the patient safely return to the preadmission environment? Yes * Has this patient been hospitalized within the prior 30 days at any hospital? Yes Last DP export: 01/19/19 1:33 p Patient Name: GRAZYNA VALVERDE Page [id number] at 1456 All edits/amendments must be made on the electronic document DICTATION DATE: 01/19/191454 WHITE LEAD GRINDER: VALDO 01/19/191454 RPT#: [id number] DC DATE: STATUS: ADM IN [facility] [address] [place] [address] END OF REPORT
--- NOTE | 2019-01-19 16:27 | MORECARE ---
CASE MANAGEMENT DISCHARGE SUMMARY PATIENT: GRAZYNA VALVERDE UNIT: [id number] ADM DATE: 01/15/19 AGE: 73 : 45 SEX: M ROOM/BED: D.2233 AUTHOR: SANFORD,DOC PHYSICIAN: REFERRING PHYSICIAN: REFUGIO BAJWA MD DATE OF SERVICE: 01/19/19 Discharge Plan Patient Name: GRAZYNA VALVERDE Facility: [facility]:[place] : 1945 Planned Disposition: Home Anticipated Discharge Date: Discharge Date: Expected LOS: Initial Reviewer: [email or web address] Initial Review Date: 01/17/2019 Generated: 01/19/19 5:27 pm Comments DCP- Discharge Planning Updated by [email or web address]: Jessica Huang on 01/19/19 3:[address] [facility] states there will be a copay for his med and his supply costs, unsure of copay amount. Genesis with [facility] states that his med and supplies are 100% I spoke with the patient and he wants to use [facility]. After speaking with the patient, [facility] returned call and states that he will not be covered at all for IV antibiotics since his insurance is out of state. I have called Betty Oakes with [facility] and they are still trying to work out all the details. DCP- Discharge Planning Updated by [email or web address]: Jessica Huang on 01/19/19 1:[address] Susana with [facility] called back and states they can accept the patient and will see him Tuesday morning. William (patient's ex-spouse, he lives with) is a nurse and will be giving the IV antibiotic on Tuesday after instruction by [facility] or [facility]. I have called [facility] and [facility] and waiting a mercedes quote back from them. DCP- Discharge Planning Updated by [id number]: Jessica Huang on 01/19/19 1:[address] I have sent a referral for home health to [facility] (next available next weed), [facility] (not able to take IV antibiotic patient's at this time per Peggy), [facility] (not available until next week), [facility] (has not gotten back to me yet) and [facility] (has not returned call yet). Still awaiting mercedes quote from [facility] and [facility]. CM will continue to follow and assist with discharge planning/needs. DCP- Discharge Planning Updated by [id number]: Jessica Huang on 01/19/19 10:[address] Warren note has the patient will need IV antibiotics at home. I have called [facility] and she states they will not be following the patient. He does not have a PCP. She states Dr. Warren will be following. I called and spoke to Cesar Cavazos, he will come over at lunch and write discharge antibiotic orders. I spoke with the patient and explained he would need [facility] set up for IV antibiotics. He does not have a preference of [facility] or IV infusion companies. I gave him the TIFF and the list. I called [facility] and spoke with Susana and called Betty Oakes with [facility] for a mercedes quote. CM will continue to follow and assist with discharge planning/needs. DCP- Discharge Planning Updated by [email or web address]: Jessica Hsunancy on 01/18/19 12:[address] Celestino Rueda from patient's insurance called and states she wanted to make sure that the patient knew he would need to change his insurance after 01/28. I informed her that he did know and has plans to go to elder[facility] to chose the "right one for him." I spoke with the patient again after her call and [facility] to start on [facility]. I provided him with the physician referral number and [facility] number and informed him to chose a PCP as soon as he had his new insurance. He states he will give the numbers to [place]. States "he takes care of all that for me." Declines other needs at this time. CM will continue to follow and assist with discharge planning/needs. DCP- Discharge Planning Updated by [id number]: Jessica Huang on 01/17/19 3:[address] Patient Name: GRAZYNA VALVERDE Admission Status: ER Accout number: [id number] Admission Date: 01-15-2019 : 1945 Admission Diagnosis: Attending: REFUGIO BAJWA Current LOS: 2 Anticipated DC Date: Planned Disposition: Home Primary Insurance: OUT OF STATE MEDICARE HMO Discharge Planning Comments: CM met with patient to complete initial dc planning assessment. CM educated patient on the CM role and verbal consent given by patient to complete assessment. Patient lives at home with William Ceja. At discharge patient plans to return and feels this is a safe discharge. CM discussed availability of home health, rehab services, and medical equipment. Patient denied known discharge needs at this time. He states his insurance will cancel at the end of the month and wanted information on which insurance company would be best for him. [facility] and he states he knows where that is and he will see them. I informed him he should get a primary care doctor and physician referral line offered. He states that William is a nurse and has worked with home health and he will get him a primary doctor here in [place]. CM will continue to follow and will assist as needed with dc plans/needs Wood Cabinet Finisher: Jessica Huang DCPIA - Discharge Planning Initial Assessment Updated by [id number]: Jessica Huang on 01/17/19 3:57 pm * Is the patient Alert and Oriented? Yes * How many steps to enter\\exit or inside your home? 0/0 * PCP None * Pharmacy [facility] * Preadmission Environment Home with Family * ADLs Independent * Equipment Walker * List name and contact numbers for known caregivers / representatives who currently or will assist patient after discharge: William Ceja - [phone] * Verbal permission to speak to the caregivers and representatives has been obtained from the patient. Yes * Community resources currently utilized None * Additional services required to return to the preadmission environment? No * Can the patient safely return to the preadmission environment? Yes * Has this patient been hospitalized within the prior 30 days at any hospital? Yes Coverage Notice Reviewer: [id number] Leonarda Huang Notice Issued Date-Time: 01/19/2019 14:53 Notice Type: Patient Choice Letter Notice Delivered To: Patient Relationship to Patient: Self Canine Enforcement Officer Name: Delivery Method: HAND - Hand Delivered Kirti Days: Prior Verbal Notification: Recipient Understood Notice: Yes Recipient Signature: Yes Med Rec Note Co-signed by Attending: Coverage Notice Comment: TIFF for [employer] Reviewer: [email or web address] Leonarda Huang Notice Issued Date-Time: 01/19/2019 15:05 Notice Type: IM Discharge Notice Notice Delivered To: Patient Relationship to Patient: Self Canine Enforcement Officer Name: Delivery Method: HAND - Hand Delivered Kirti Days: Prior Verbal Notification: Recipient Understood Notice: Yes Recipient Signature: Yes Med Rec Note Co-signed by Attending: Coverage Notice Comment: IMM explained, signed, given, copy placed in MR Last DP export: 01/19/19 1:56 p Patient Name: GRAZYNA VALVERDE Page [id number] at 1627 All edits/amendments must be made on the electronic document DICTATION DATE: 01/19/191625 ADVANCED REGISTERED NURSE: VALDO 01/19/191625 RPT#: [id number] DC DATE: STATUS: ADM IN [facility] [address] [place] [address] END OF REPORT
--- NOTE | 2019-01-19 17:14 | MORECARE ---
CASE MANAGEMENT DISCHARGE SUMMARY PATIENT: GRAZYNA VALVERDE UNIT: [id number] ADM DATE: 01/15/19 AGE: 73 : 45 SEX: M ROOM/BED: D.2233 AUTHOR: SANFORD,DOC PHYSICIAN: REFERRING PHYSICIAN: REFUGIO BAJWA MD DATE OF SERVICE: 01/19/19 Discharge Plan Patient Name: GRAZYNA VALVERDE Facility: [facility]:[place] : 1945 Planned Disposition: Home Anticipated Discharge Date: Discharge Date: Expected LOS: Initial Reviewer: [id number] Initial Review Date: 01/17/2019 Generated: 01/19/19 6:14 pm Comments DCP- Discharge Planning Updated by [email or web address]: Jessica Sal on 01/19/19 4:[address] [facility] with [facility] priced 1535 for 14 days of IV antibiotics. [facility] priced worse case scenario as 457 per week. I informed Jeff with [facility] that he now would like to go with [facility]. I called [facility] and they will call William Ceja and get the OK and what time to come out. Patient states he has a 100 dollar copay for each outpatient visit. [facility] Grigsby notified of the difficulty getting IV antibiotic set up with out of state insurance. CM will continue to follow and assist with discharge planning/needs. DCP- Discharge Planning Updated by [id number]: Jessica Hsunancy on 01/19/19 3:[address] Betty Oakes states there will be a copay for his med and his supply costs, unsure of copay amount. Genesis with [facility] states that his med and supplies are 100% I spoke with the patient and he wants to use [facility]. After speaking with the patient, [facility] returned call and states that he will not be covered at all for IV antibiotics since his insurance is out of state. I have called Shweta with [facility] and they are still trying to work out all the details. DCP- Discharge Planning Updated by [id number]: Jessica Hsunancy on 01/19/19 1:[address] Susana with [facility] called back and states they can accept the patient and will see him Tuesday. William (patient's ex-spouse, he lives with) is a nurse and will be giving the IV antibiotic on Tuesday after instruction by [facility] or [facility]. I have called Shweta and Jeff and waiting a mercedes quote back from them. DCP- Discharge Planning Updated by [id number]: Jessica Huang on 01/19/19 1:[address] I have sent a referral for home health to [facility] (next available next weed), [facility] (not able to take IV antibiotic patient's at this time per Peggy), [facility] (not available until next week), [facility] (has not gotten back to me yet) and [facility] (has not returned call yet). Still awaiting mercedes quote from [facility] and [facility] infusion companies. CM will continue to follow and assist with discharge planning/needs. DCP- Discharge Planning Updated by [id number]: Jessica Hsunancy on 01/19/19 10:[address] Warren note has the patient will need IV antibiotics at home. I have called [facility] and she states they will not be following the patient. He does not have a PCP. She states Dr. Warren will be following. I called and spoke to Cesar Cavazos, he will come over at lunch and write discharge antibiotic orders. I spoke with the patient and explained he would need [facility] set up for IV antibiotics. He does not have a preference of [facility] or IV infusion companies. I gave him the TIFF and the list. I called [facility] and spoke with Susana and called Shweta with [facility] for a mercedes quote. CM will continue to follow and assist with discharge planning/needs. DCP- Discharge Planning Updated by [id number]: Jessica Huang on 01/18/19 12:[address] Celestino Rueda from patient's insurance called and states she wanted to make sure that the patient knew he would need to change his insurance after 01/28. I informed her that he did know and has plans to go to eldercare to chose the "right one for him." I spoke with the patient again after her call and he is planning on going to eldercare to chose a new insurance to start on 01/29. I provided him with the physician referral number and [facility] number and informed him to chose a PCP as soon as he had his new insurance. He states he will give the numbers to William. States "he takes care of all that for me." Declines other needs at this time. CM will continue to follow and assist with discharge planning/needs. DCP- Discharge Planning Updated by [id number]: Jessica Huang on 01/17/19 3:[address] Patient Name: GRAZYNA VALVERDE Admission Status: ER Accout number: [id number] Admission Date: 01-15-2019 : 1945 Admission Diagnosis: Attending: REFUGIO BAJWA Current LOS: 2 Anticipated DC Date: Planned Disposition: Home Primary Insurance: OUT OF STATE MEDICARE HMO Discharge Planning Comments: CM met with patient to complete initial dc planning assessment. CM educated patient on the CM role and verbal consent given by patient to complete assessment. Patient lives at home with William Ceja. At discharge patient plans to return and feels this is a safe discharge. CM discussed availability of home health, rehab services, and medical equipment. Patient denied known discharge needs at this time. He states his insurance will cancel at the end of the month and wanted information on which insurance company would be best for him. I referred him to [employer] and he states he knows where that is and he will see them. I informed him he should get a primary care doctor and physician referral line offered. He states that William is a nurse and has worked with home health and he will get him a primary doctor here in [place]. CM will continue to follow and will assist as needed with dc plans/needs Diversified Crops Supervisor: Jessica Sal DCPIA - Discharge Planning Initial Assessment Updated by [id number]: Jessica Huang on 01/17/19 3:57 pm * Is the patient Alert and Oriented? Yes * How many steps to enter\\exit or inside your home? 0/0 * PCP None * Pharmacy [facility] [address] * Preadmission Environment Home with Family * ADLs Independent * Equipment Walker * List name and contact numbers for known caregivers / representatives who currently or will assist patient after discharge: William Ceja - [phone] * Verbal permission to speak to the caregivers and representatives has been obtained from the patient. Yes * Community resources currently utilized None * Additional services required to return to the preadmission environment? No * Can the patient safely return to the preadmission environment? Yes * Has this patient been hospitalized within the prior 30 days at any hospital? Yes Coverage Notice Reviewer: [id number] Leonarda Huang Notice Issued Date-Time: 01/19/2019 14:53 Notice Type: Patient Choice Letter Notice Delivered To: Patient Relationship to Patient: Self Credit Underwriter Name: Delivery Method: HAND - Hand Delivered Kirti Days: Prior Verbal Notification: Recipient Understood Notice: Yes Recipient Signature: Yes Med Rec Note Co-signed by Attending: Coverage Notice Comment: TIFF for [facility] and [facility] and [employer] infusion [facility] Reviewer: [id number] Leonarda Huang Notice Issued Date-Time: 01/19/2019 15:05 Notice Type: IM Discharge Notice Notice Delivered To: Patient Relationship to Patient: Self Credit Underwriter Name: Delivery Method: HAND - Hand Delivered Kirti Days: Prior Verbal Notification: Recipient Understood Notice: Yes Recipient Signature: Yes Med Rec Note Co-signed by Attending: Coverage Notice Comment: IMM explained, signed, given, copy placed in MR Last DP export: 01/19/19 3:27 p Patient Name: GRAZYNA VALVERDE Page [id number] at 1714 All edits/amendments must be made on the electronic document DICTATION DATE: 01/19/191712 TESTER PRINTED CIRCUIT BOARDS: VALDO 01/19/191712 RPT#: [id number] DC DATE: STATUS: ADM IN [facility] [address] [place] [address] END OF REPORT
[2019-01-19 17:23] VITALS: BP 164/86
--- NOTE | 2019-01-19 17:24 | MORECARE ---
CASE MANAGEMENT DISCHARGE SUMMARY PATIENT: GRAZYNA VALVERDE UNIT: [id number] ADM DATE: 01/15/19 AGE: 73 : 45 SEX: M ROOM/BED: D.2233 AUTHOR: SANFORD,DOC PHYSICIAN: REFERRING PHYSICIAN: REFUGIO BAJWA MD DATE OF SERVICE: 01/19/19 Discharge Plan Patient Name: GRAZYNA VALVERDE Facility: [facility]:[place] : 1945 Planned Disposition: Home Anticipated Discharge Date: Discharge Date: Expected LOS: Initial Reviewer: [id number] Initial Review Date: 01/17/2019 Generated: 01/19/19 6:24 pm Comments DCP- Discharge Planning Updated by [id number]: Jessica Huang on 01/19/19 4:[address] Betty Oakes with [facility] will come to patient's house at 1900 to go over the antibiotics with patient and his spouse, William. [facility] will see him on Tuesday. Susana with [facility] states William is a nurse and [facility] will check him off to do the antibiotics and they will follow up on competency. Patient informed and he is in agreement to discharge with [facility] and [facility] infusion [facility]. CM will continue to follow and assist with discharge planning/needs. DCP- Discharge Planning Updated by [id number]: Jessica Huang on 01/19/19 4:[address] [facility] with [facility] priced 1535 for 14 days of IV antibiotics. [facility] priced worse case scenario as 457 per week. I informed Jeff with [facility] that he now would like to go with [facility]. I called Betty Oakes and they will call William Ceja and get the OK and what time to come out. Patient states he has a 100 dollar copay for each outpatient visit. Arnulfo Grigsby notified of the difficulty getting IV antibiotic set up with out of state insurance. CM will continue to follow and assist with discharge planning/needs. DCP- Discharge Planning Updated by [id number]: Jessica Sal on 01/19/19 3:[address] Betty Oakes states there will be a copay for his med and his supply costs, unsure of copay amount. Genesis with [facility] states that his med and supplies are 100% I spoke with the patient and he wants to use [facility]. After speaking with the patient, [facility] returned call and states that he will not be covered at all for IV antibiotics since his insurance is out of state. I have called Shweta with [facility] and they are still trying to work out all the details. DCP- Discharge Planning Updated by [id number]: Jessica Huang on 01/19/19 1:[address] Susana with [facility] called back and states they can accept the patient and will see him Tuesday morning. William (patient's ex-spouse, he lives with) is a nurse and will be giving the IV antibiotic on Tuesday after instruction by [facility] or [facility]. I have called Betty Oakes and Jeff and waiting a mercedes quote back from them. DCP- Discharge Planning Updated by [id number]: Jessica Huang on 01/19/19 1:[address] I have sent a referral for home health to [facility] (next available next weed), [facility] (not able to take IV antibiotic patient's at this time per Peggy), [facility] (not available until next week), [facility] (has not gotten back to me yet) and [facility] (has not returned call yet). Still awaiting mercedes quote from [facility] and [facility] infusion companies. CM will continue to follow and assist with discharge planning/needs. DCP- Discharge Planning Updated by [id number]: Jessica Huang on 01/19/19 10:[address] Warren note has the patient will need IV antibiotics at home. I have called [facility] and she states they will not be following the patient. He does not have a PCP. She states Dr. Warren will be following. I called and spoke to Cesar Cavazos, he will come over at lunch and write discharge antibiotic orders. I spoke with the patient and explained he would need [facility] set up for IV antibiotics. He does not have a preference of [facility] or IV infusion companies. I gave him the TIFF and the list. I called [facility] and spoke with Susana and called Betty Oakes with [facility] for a mercedes quote. CM will continue to follow and assist with discharge planning/needs. DCP- Discharge Planning Updated by [id number]: Jessica Huang on 01/18/19 12:[address] Cathlene [place] from patient's insurance called and states she wanted to make sure that the patient knew he would need to change his insurance after 01/28. I informed her that he did know and has plans to go to eldercare to chose the "right one for him." I spoke with the patient again after her call and he is planning on going to eldercare to chose a new insurance to start on 01/29. I provided him with the physician referral number and [facility] number and informed him to chose a PCP as soon as he had his new insurance. He states he will give the numbers to William. States "he takes care of all that for me." Declines other needs at this time. CM will continue to follow and assist with discharge planning/needs. DCP- Discharge Planning Updated by [id number]: Jessica Huang on 01/17/19 3:[address] Patient Name: GRAZYNA VALVERDE Admission Status: ER Accout number: [id number] Admission Date: 01-15-2019 : 1945 Admission Diagnosis: Attending: REFUGIO BAJWA Current LOS: 2 Anticipated DC Date: Planned Disposition: Home Primary Insurance: [place] OUT OF STATE MEDICARE HMO Discharge Planning Comments: CM met with patient to complete initial dc planning assessment. CM educated patient on the CM role and verbal consent given by patient to complete assessment. Patient lives at home with William Ceja. At discharge patient plans to return and feels this is a safe discharge. CM discussed availability of home health, rehab services, and medical equipment. Patient denied known discharge needs at this time. He states his insurance will cancel at the end of the month and wanted information on which insurance company would be best for him. I referred him to eldercare and he states he knows where that is and he will see them. I informed him he should get a primary care doctor and physician referral line offered. He states that William is a nurse and has worked with home health and he will get him a primary doctor here in [place]. CM will continue to follow and will assist as needed with dc plans/needs Printed Circuit Board Assembler: Jessica Huang DCPIA - Discharge Planning Initial Assessment Updated by [id number]: Jessica Huang on 01/17/19 3:57 pm * Is the patient Alert and Oriented? Yes * How many steps to enter\\exit or inside your home? 0/0 * PCP None * Pharmacy [facility] [address] * Preadmission Environment Home with Family * ADLs Independent * Equipment Walker * List name and contact numbers for known caregivers / representatives who currently or will assist patient after discharge: William Ceja - [phone] * Verbal permission to speak to the caregivers and representatives has been obtained from the patient. Yes * Community resources currently utilized None * Additional services required to return to the preadmission environment? No * Can the patient safely return to the preadmission environment? Yes * Has this patient been hospitalized within the prior 30 days at any hospital? Yes Coverage Notice Reviewer: [id number] Leonarda Huang Notice Issued Date-Time: 01/19/2019 14:53 Notice Type: Patient Choice Letter Notice Delivered To: Patient Relationship to Patient: Self Flatbed Driver Name: Delivery Method: HAND - Hand Delivered Kirti Days: Prior Verbal Notification: Recipient Understood Notice: Yes Recipient Signature: Yes Med Rec Note Co-signed by Attending: Coverage Notice Comment: [facility] for [employer] and [employer] and [employer] Reviewer: [id number] Leonarda Huang Notice Issued Date-Time: 01/19/2019 15:05 Notice Type: IM Discharge Notice Notice Delivered To: Patient Relationship to Patient: Self Flatbed Driver Name: Delivery Method: HAND - Hand Delivered Kirti Days: Prior Verbal Notification: Recipient Understood Notice: Yes Recipient Signature: Yes Med Rec Note Co-signed by Attending: Coverage Notice Comment: IMM explained, signed, given, copy placed in MR Last DP export: 01/19/19 4:14 p Patient Name: GRAZYNA VALVERDE Page [phone] at 1724 All edits/amendments must be made on the electronic document DICTATION DATE: 01/19/191722 TRAINS SERVICE CONDUCTOR: VALDO 01/19/191722 RPT#: [id number] DC DATE: STATUS: ADM IN [facility] [address] [place] [address] END OF REPORT
[2019-01-19] MEDS ORDERED: MAXIPIME 1 GM/D51 G1 IV (17:25)
[2019-01-19] MEDS ORDERED: Vancomycin 1.25 GM/N IV (17:25)
--- NOTE | 2019-01-19 17:33 | MORECARE ---
CASE MANAGEMENT DISCHARGE SUMMARY PATIENT: GRAZYNA VALVERDE UNIT: [id number] ADM DATE: 01/15/19 AGE: 73 : 45 SEX: M ROOM/BED: D.2233 AUTHOR: SANFORD,DOC PHYSICIAN: REFERRING PHYSICIAN: REFUGIO BAJWA MD DATE OF SERVICE: 01/19/19 Discharge Plan Patient Name: GRAZYNA VALVERDE Facility: [facility]:[place] : 1945 Planned Disposition: Home Anticipated Discharge Date: Discharge Date: Expected LOS: Initial Reviewer: [email or web address] Initial Review Date: 01/17/2019 Generated: 01/19/19 6:33 pm Comments DCP- Discharge Planning Updated by [id number]: Jessica Huang on 01/19/19 4:[address] marketing communications coordinator (Amber) and primary nurse (Bella) notified that [facility] is meeting patient at his home tonight at 7PM. [facility] Grigsby APN is writing his discharge orders. DCP- Discharge Planning Updated by [id number]: Jessica Huang on 01/19/19 4:[address] Betty Oakes with [facility] will come to patient's house at 1900 to go over the antibiotics with patient and his spouse, William. [facility] will see him on Tuesday morning. 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 Patient informed and he is in agreement to discharge with [facility] and [facility] infusion company. CM will continue to follow and assist with discharge planning/needs. DCP- Discharge Planning Updated by [email or web address]: Jessica Huang on 01/19/19 4:[address] [facility] with [facility] priced 1535 for 14 days of IV antibiotics. [facility] priced worse case scenario as 457 per week. I informed Jeff with [facility] that he now would like to go with [facility]. I called Betty Oakes and they will call William Ceja and get the OK and what time to come out. Patient states he has a 100 dollar copay for each outpatient visit. Arnulfo Grigsby notified of the difficulty getting IV antibiotic set up with out of state insurance. CM will continue to follow and assist with discharge planning/needs. DCP- Discharge Planning Updated by [email or web address]: Jessica Hsunancy on 01/19/19 3:[address] Betty Oakes states there will be a copay for his med and his supply costs, unsure of copay amount. Genesis with [facility] states that his med and supplies are 100% I spoke with the patient and he wants to use [facility]. After speaking with the patient, [facility] returned call and states that he will not be covered at all for IV antibiotics since his insurance is out of state. I have called Betty Oakes with [facility] and they are still trying to work out all the details. DCP- Discharge Planning Updated by [id number]: Jessica Sal on 01/19/19 1:[address] Susana with [facility] called back and states they can accept the patient and will see him Tuesday. William (patient's ex-spouse, he lives with) is a nurse and will be giving the IV antibiotic on Tuesday after instruction by [facility] or [facility]. I have called Betty Oakes and Jeff and waiting a mercedes quote back from them. DCP- Discharge Planning Updated by [id number]: Jessica Hsunancy on 01/19/19 1:[address] I have sent a referral for home health to [facility] (next available next weed), [facility] (not able to take IV antibiotic patient's at this time per Peggy), [facility] (not available until next week), [facility] (has not gotten back to me yet) and [facility] (has not returned call yet). Still awaiting mercedes quote from [facility] and [facility] infusion companies. CM will continue to follow and assist with discharge planning/needs. DCP- Discharge Planning Updated by [id number]: Jessica Huang on 01/19/19 10:[address] Warren note has the patient will need IV antibiotics at home. I have called [facility] and she states they will not be following the patient. He does not have a PCP. She states Dr. Warren will be following. I called and spoke to Cesar Cavazos, he will come over at lunch and write discharge antibiotic orders. I spoke with the patient and explained he would need [facility] set up for IV antibiotics. He does not have a preference of [facility] or IV infusion companies. I gave him the TIFF and the list. I called [facility] and spoke with Susana and called Betty Oakes with [facility] for a mercedes quote. CM will continue to follow and assist with discharge planning/needs. DCP- Discharge Planning Updated by [email or web address]: Jessica Huang on 01/18/19 12:[address] Celestino Rueda from patient's insurance called and states she wanted to make sure that the patient knew he would need to change his insurance after 01/28. I informed her that he did know and has plans to go to eldercare to chose the "right one for him." I spoke with the patient again after her call and he is planning on going to eldercare to chose a new insurance to start on 01/29. I provided him with the physician referral number and [facility] number and informed him to chose a PCP as soon as he had his new insurance. He states he will give the numbers to William. States "he takes care of all that for me." Declines other needs at this time. CM will continue to follow and assist with discharge planning/needs. DCP- Discharge Planning Updated by [id number]: Jessica Huang on 01/17/19 3:[address] Patient Name: GRAZYNA VALVERDE Admission Status: ER Accout number: [id number] Admission Date: 01-15-2019 : 1945 Admission Diagnosis: Attending: REFUGIO BAJWA Current LOS: 2 Anticipated DC Date: Planned Disposition: Home Primary Insurance: OUT OF STATE MEDICARE HMO Discharge Planning Comments: CM met with patient to complete initial dc planning assessment. CM educated patient on the CM role and verbal consent given by patient to complete assessment. Patient lives at home with William Marcial. At discharge patient plans to return and feels this is a safe discharge. CM discussed availability of home health, rehab services, and medical equipment. Patient denied known discharge needs at this time. He states his insurance will cancel at the end of the month and wanted information on which insurance company would be best for him. I referred him to eldercare and he states he knows where that is and he will see them. I informed him he should get a primary care doctor and physician referral line offered. He states that William is a nurse and has worked with home health and he will get him a primary doctor here in [place]. CM will continue to follow and will assist as needed with dc plans/needs X Ray Service Engineer: Jessica Sal DCPIA - Discharge Planning Initial Assessment Updated by [id number]: Jessica Huang on 01/17/19 3:57 pm * Is the patient Alert and Oriented? Yes * How many steps to enter\\exit or inside your home? 0/0 * PCP None * Pharmacy [facility] on [address] * Preadmission Environment Home with Family * ADLs Independent * Equipment Walker * List name and contact numbers for known caregivers / representatives who currently or will assist patient after discharge: William Ceja - [phone] * Verbal permission to speak to the caregivers and representatives has been obtained from the patient. Yes * Community resources currently utilized None * Additional services required to return to the preadmission environment? No * Can the patient safely return to the preadmission environment? Yes * Has this patient been hospitalized within the prior 30 days at any hospital? Yes Coverage Notice Reviewer: [id number] Leonarda Huang Notice Issued Date-Time: 01/19/2019 14:53 Notice Type: Patient Choice Letter Notice Delivered To: Patient Relationship to Patient: Self Frame And Scrap Crusher Name: Delivery Method: HAND - Hand Delivered Kirti Days: Prior Verbal Notification: Recipient Understood Notice: Yes Recipient Signature: Yes Med Rec Note Co-signed by Attending: Coverage Notice Comment: TIFF for [employer] and [employer] and [employer] Reviewer: [id number] Leonarda Huang Notice Issued Date-Time: 01/19/2019 15:05 Notice Type: IM Discharge Notice Notice Delivered To: Patient Relationship to Patient: Self Frame And Scrap Crusher Name: Delivery Method: HAND - Hand Delivered Kirti Days: Prior Verbal Notification: Recipient Understood Notice: Yes Recipient Signature: Yes Med Rec Note Co-signed by Attending: Coverage Notice Comment: IMM explained, signed, given, copy placed in MR Last DP export: 01/19/19 4:24 p Patient Name: GRAZYNA VALVERDE Page [id number] at 1733 All edits/amendments must be made on the electronic document DICTATION DATE: 01/19/191731 MEDICAL PRACTICE MANAGER: VALDO 01/19/191731 RPT#: [id number] DC DATE: STATUS: ADM IN [place] [id number] [place] [address] END OF REPORT
--- NOTE | 2019-01-19 17:42 | NUR ---
SITTING IN BED. DENIES PAIN. DENIES NEEDS.
--- NOTE | 2019-01-19 18:22 | NUR ---
DISCHARGE EDUCATION PROVIDED BOTH WRITTEN AND VERBAL. DENIES QUESTIONS. DENIES NEEDS. IV REMOVED TO RIGHT WRIST WITH TIP INTACT. PATIENT DISCHARGED HOME WITH WITH ALL BELONGINGS.
== END 2019-01-19 18:23 | disposition home health service (06) | DRG 617 ==
LOC: D.ER 10:47 → D.SDCHOLD 18:21 → D.MS 18:21
PROVIDERS: Family Medicine; Orthopaedic Surgery; ADMIT Internal Medicine Nephrology; ATTEND Internal Medicine Nephrology
PROC: 0Y6M0ZD Detachment at Right Foot, Partial 4th Ray, Open Approach (ICD-10-PCS; principal; 2019-01-16 09:00)
DX: E11.69 Type 2 diabetes mellitus with other specified complication (principal); L97.516 Non-pressure chronic ulcer of other part of right foot with bone involvement without evidence of necrosis; M86.171 Other acute osteomyelitis, right ankle and foot; E11.621 Type 2 diabetes mellitus with foot ulcer; L97.514 Non-pressure chronic ulcer of other part of right foot with necrosis of bone; E11.65 Type 2 diabetes mellitus with hyperglycemia; I10 Essential (primary) hypertension; I25.10 Atherosclerotic heart disease of native coronary artery without angina pectoris; D64.9 Anemia, unspecified

== ENCOUNTER → 2019-01-22 08:12 | Outpatient (CLI) | payer MEDICARE ==
[2019-01-16 13:24] VITALS: BMI 32.0
[~2019-01-22 08:12] MED LIST changes: +AMOXICILLIN500 M1; +CIPRO500 MG; +MAXIPIME 1 GM/D51 G1 IV; +ULTRAM50 MG PO; +Vancomycin 1.25 GM/N IV
[2019-01-22 09:21] LABS: BASOPHILS 0.2 % (0-2); EOSINOPHILS 2.3 % (0-7); HEMATOCRIT 30.6 % (42.0-54.0); HEMOGLOBIN 9.8 g/dL (13.5-17.5); IMMATURE GRANULOCYTES 0.8 % (0-5); LYMPHOCYTES 8.3 % (15-50); MCH 24.4 pg (26.0-34.0); MCV 76.1 fL (80.0-100.0); MEAN PLATELET VOLUME 9.2 fL (7.4-10.4); MONOCYTES 7.5 % (2-11); NEUTROPHILS 80.9 % (40-80); PLATELET COUNT 414 10x3/uL (130-400); RBC 4.02 10x6/uL (4.20-6.10); WBC 12.8 10x3/uL (4.8-10.8)
[2019-01-22 09:33] LABS: CREATININE - SERUM 1.3 mg/dL (0.6-1.3); VANCOMYCIN - TROUGH 17.2 ug/mL (10.0-20.0)
[2019-01-22 09:40] LABS: C-REACTIVE PROTEIN 16.9 mg/dL (0.0-0.9)
[2019-01-22 10:39] LABS: ERYTHROCYTE SEDIMENTATION RATE 130 mm/hr (0-20)
== END | disposition home or self-care (01) ==
LOC: D.LABREF 08:12
PROVIDERS: ATTEND Orthopaedic Surgery
DX: M86.9 Osteomyelitis, unspecified (principal); E11.621 Type 2 diabetes mellitus with foot ulcer

== ENCOUNTER → 2019-01-29 19:55 | Outpatient (CLI) | payer MEDICARE ==
[2019-01-16 13:24] VITALS: BMI 32.0
[2019-01-29 20:09] LABS: BASOPHILS 0.3 % (0-2); EOSINOPHILS 3.1 % (0-7); HEMATOCRIT 33.7 % (42.0-54.0); HEMOGLOBIN 10.8 g/dL (13.5-17.5); IMMATURE GRANULOCYTES 0.7 % (0-5); LYMPHOCYTES 15.1 % (15-50); MCH 24.7 pg (26.0-34.0); MCV 76.9 fL (80.0-100.0); MEAN PLATELET VOLUME 9.3 fL (7.4-10.4); MONOCYTES 8.6 % (2-11); NEUTROPHILS 72.2 % (40-80); PLATELET COUNT 468 10x3/uL (130-400); RBC 4.38 10x6/uL (4.20-6.10); RDW 17.9 % (11.5-14.5); WBC 9.7 10x3/uL (4.8-10.8)
[2019-01-29 20:22] LABS: CREATININE - SERUM 1.2 mg/dL (0.6-1.3); VANCOMYCIN - TROUGH 15.5 ug/mL (10.0-20.0)
[2019-01-29 21:16] LABS: ERYTHROCYTE SEDIMENTATION RATE 95 mm/hr (0-20)
== END | disposition home or self-care (01) ==
LOC: D.LABREF 19:55
PROVIDERS: ATTEND Orthopaedic Surgery
DX: E11.621 Type 2 diabetes mellitus with foot ulcer (principal); L97.509 Non-pressure chronic ulcer of other part of unspecified foot with unspecified severity; M86.9 Osteomyelitis, unspecified

== ENCOUNTER → 2019-02-05 10:41 | Outpatient (CLI) | payer OTHER ==
[2019-01-16 13:24] VITALS: BMI 32.0
[~2019-02-05 10:41] MED LIST changes: +AMIODARONE HCL200 MG PO; +MAXIPIME 2 GM/D52 G1 IVPB; +ZOFRAN ODT4 MG/UDTAB PO; +ZYVOX PREMIX600 MG IV; +ZYVOX600 MG PO
[2019-02-05 15:27] LABS: BASOPHILS 0.2 % (0-2); EOSINOPHILS 1.8 % (0-7); HEMOGLOBIN 10.1 g/dL (13.5-17.5); IMMATURE GRANULOCYTES 0.3 % (0-5); LYMPHOCYTES 15.2 % (15-50); MCH 24.5 pg (26.0-34.0); MCHC 31.6 g/dL (31.0-37.0); MCV 77.7 fL (80.0-100.0); MEAN PLATELET VOLUME 9.4 fL (7.4-10.4); MONOCYTES 13.8 % (2-11); NEUTROPHILS 68.7 % (40-80); PLATELET COUNT 471 10x3/uL (130-400); RBC 4.12 10x6/uL (4.20-6.10); RDW 18.7 % (11.5-14.5); WBC 10.3 10x3/uL (4.8-10.8)
[2019-02-05 15:40] LABS: CREATININE - SERUM 1.2 mg/dL (0.6-1.3); VANCOMYCIN - TROUGH 16.2 ug/mL (10.0-20.0)
[2019-02-05 16:54] LABS: ERYTHROCYTE SEDIMENTATION RATE 120 mm/hr (0-20)
== END | disposition home or self-care (01) ==
LOC: D.LABREF 10:41
PROVIDERS: ATTEND Orthopaedic Surgery
DX: Z47.89 Encounter for other orthopedic aftercare (principal)

== ENCOUNTER 2019-02-06 11:38 | Inpatient (IN) | payer OTHER ==
[~2019-02-06] VITALS: Ht 182.9 cm; Wt 103.9 kg
[~2019-02-06 11:38] MED LIST changes: -AMIODARONE HCL200 MG PO; -MAXIPIME 2 GM/D52 G1 IVPB; -ZOFRAN ODT4 MG/UDTAB PO; -ZYVOX PREMIX600 MG IV; -ZYVOX600 MG PO
--- NOTE | 2019-02-06 12:05 | NUR ---
PT HAS EXISTING PICC LINE TO LEFT UPPER ARM. NO REDDNESS NOTED. DRESSING DATED 02/05/19. ACCESSED FOR USE.
[2019-02-06 13:32] VITALS: BP 198/81
[2019-02-06 13:42] LABS: BASOPHILS 0.2 % (0-2); HEMATOCRIT 33.4 % (42.0-54.0); HEMOGLOBIN 10.5 g/dL (13.5-17.5); IMMATURE GRANULOCYTES 0.4 % (0-5); LYMPHOCYTES 10.2 % (15-50); MCH 24.5 pg (26.0-34.0); MCHC 31.4 g/dL (31.0-37.0); MONOCYTES 9.7 % (2-11); NEUTROPHILS 78.5 % (40-80); PLATELET COUNT 461 10x3/uL (130-400); RBC 4.28 10x6/uL (4.20-6.10); RDW 18.7 % (11.5-14.5)
[2019-02-06 13:43] LABS: WBC 14.3 10x3/uL (4.8-10.8)
[2019-02-06 13:51] LABS: ANION GAP 13.5 mmol/L (8-16); C-REACTIVE PROTEIN 11.8 mg/dL (0.0-0.9); CALCIUM 8.8 mg/dL (8.5-10.1); CARBON DIOXIDE 28.7 mmol/L (21.0-32.0); CREATININE - SERUM 1.4 mg/dL (0.6-1.3); POTASSIUM - SERUM 5.2 mmol/L (3.5-5.1)
[2019-02-06 14:42] LABS: ERYTHROCYTE SEDIMENTATION RATE 128 mm/hr (0-20)
--- NOTE | 2019-02-06 15:04 | NUR ---
As per Dr. Meneses's orders, a wound vac dressing was applied to open wound on right lateral foot. Measurements are 2cm x 10cm x 1cm. There is an odor to the wound. No drainage noted on dressing. #4 toe on right foot is purple and blistered. Pulses palpable. Foot is warm to the touch. Wound care will continue monitoring.
[2019-02-06 17:19] VITALS: BP 164/62
[2019-02-06 21:47] VITALS: BP 138/72
[2019-02-07 01:23] VITALS: BP 128/90
[2019-02-07 04:53] VITALS: BP 135/64
--- NOTE | 2019-02-07 07:30 | NUR ---
PT SITTING UP IN BED TALKING TO SPOUSE ALERT X4. PICC LINE SITE LOCATED IN LT UPPPER ARM INFUSING 0.9 NS @ 50 ML/HR. SITE IS CLEAN WITH NO REDNESS OR SWELLING. WOUND LOCATED ON TOP OF RT FOOT WITH WOUND VAC IN PLACE. DARK RED DRAINAGE NOTED FROM THE WOUND VAC. PT DENIES PAIN OR NEEDING ANYTHING AT THIS TIME. BED IN LOWEST POSITION AND CALL LIGHT WITH IN REACH. CONTINUE WITH PLAN OF CARE.
[2019-02-07 07:43] LABS: BASOPHILS 0.1 % (0-2); EOSINOPHILS 2.4 % (0-7); HEMATOCRIT 30.1 % (42.0-54.0); HEMOGLOBIN 9.4 g/dL (13.5-17.5); IMMATURE GRANULOCYTES 0.5 % (0-5); LYMPHOCYTES 14.2 % (15-50); MCH 24.1 pg (26.0-34.0); MCHC 31.2 g/dL (31.0-37.0); MCV 77.2 fL (80.0-100.0); MONOCYTES 10.5 % (2-11); NEUTROPHILS 72.3 % (40-80); PLATELET COUNT 455 10x3/uL (130-400); RDW 18.5 % (11.5-14.5)
[2019-02-07 07:50] LABS: WBC 10.2 10x3/uL (4.8-10.8)
[2019-02-07 08:02] LABS: ALBUMIN 1.9 g/dL (3.4-5.0); ANION GAP 12.6 mmol/L (8-16); BILIRUBIN - TOTAL 0.94 mg/dL (0.2-1.3); CALCIUM 8.8 mg/dL (8.5-10.1); CARBON DIOXIDE 27.5 mmol/L (21.0-32.0); CREATININE - SERUM 1.2 mg/dL (0.6-1.3); POTASSIUM - SERUM 4.1 mmol/L (3.5-5.1); PROTEIN - SERUM 7.3 g/dL (6.4-8.2)
--- NOTE | 2019-02-07 08:02 | NUR ---
REC'D. IN BED.RIGHT FOOT ELEVATED.2+EDEMA TO FOOT/DISCOLORATION.PEDAL PULSE PRESENT WITH MINIMAL DECREASE IN SENSATION. WIGGLES TOES WOUND VAC INTACT.WILL CONTINUE TO MONITOR FOR ANY CHANGE IN NEUROVASCULAR STATUS AND FOLLOW CURRENT PLAN OF CARE
--- NOTE | 2019-02-07 08:06 | NUR ---
PT. ACCIDENTLY PULLED WOUND VAC OFF. MESSAGE LEFT FOR WOUNDCARE NURSE
--- NOTE | 2019-02-07 08:23 | NUR ---
Pt resting in bed resting no needs noted at this time . call light in reach.
[2019-02-07 08:39] VITALS: BP 157/70
[2019-02-07 13:13] VITALS: BP 160/74
--- NOTE | 2019-02-07 15:40 | NUR ---
PT SITTING IN BED AND REQUESTED TO BE MOVED TO CHAIR. MOVED PT TO CHAIR WITH WHEELS LOCKED AND CALL LIGHT WITH IN REACH. CONTINUE WITH PLAN OF CARE.
[2019-02-07 17:36] VITALS: BP 151/74
--- NOTE | 2019-02-07 18:14 | NUR ---
REQUESTED PAIN MED, COMPLAINING OF 8/10 THROBBING PAIN IN RT FOOT. GAVE NORCO 7.5 MG TAB ORDERED. WILL REASSES PAIN IN THIRTY MINUTES. PT ALSO STATED THE HE DID NOT WANT HIS EVENING DOSE OF LASIX BECAUSE HE HAS BEEN PEEING ALL DAY.
--- NOTE | 2019-02-07 18:45 | NUR ---
REASSED PAIN LEVEL TO RT FOOT. PT STATES PAIN LEVEL IS 3/10, DENIES NEEDING ANYTHING ELSE AT THIS TIME. CONTINUE PLAN OF CARE.
[2019-02-07 20:50] VITALS: BP 158/76
--- NOTE | 2019-02-07 20:57 | NUR ---
REC'D. IN BED EYES CLOSED RESP.DEEP AND EVEN.LYING ON LEFT SIDE.WILL CONTINUE TO MONITOR FOR ANY CHGES. AND FOLLOW CURRENT PLAN OF CARE.
[2019-02-08 00:50] VITALS: BP 140/74
[2019-02-08 04:47] VITALS: BP 150/78
--- NOTE | 2019-02-08 05:16 | NUR ---
I have reviewed this patient and I concur with the Shift Assessment completed by the Licensed Practical Nurse today this shift.
[2019-02-08 06:34] LABS: BASOPHILS 0.2 % (0-2); EOSINOPHILS 3.5 % (0-7); HEMATOCRIT 30.8 % (42.0-54.0); HEMOGLOBIN 9.7 g/dL (13.5-17.5); IMMATURE GRANULOCYTES 0.6 % (0-5); LYMPHOCYTES 13.3 % (15-50); MCH 24.1 pg (26.0-34.0); MCHC 31.5 g/dL (31.0-37.0); MCV 76.6 fL (80.0-100.0); NEUTROPHILS 72.4 % (40-80); PLATELET COUNT 451 10x3/uL (130-400); RBC 4.02 10x6/uL (4.20-6.10); RDW 18.5 % (11.5-14.5); WBC 9.4 10x3/uL (4.8-10.8)
[2019-02-08 06:47] LABS: ALBUMIN 1.9 g/dL (3.4-5.0); BILIRUBIN - TOTAL 0.74 mg/dL (0.2-1.3); CALCIUM 8.7 mg/dL (8.5-10.1); CREATININE - SERUM 1.2 mg/dL (0.6-1.3); PROTEIN - SERUM 7.3 g/dL (6.4-8.2)
[2019-02-08 10:01] VITALS: BP 151/55
--- NOTE | 2019-02-08 10:07 | NUR ---
GAVE PREOP MEDS ORDERED. AWAITING TO GO BACK FOR PROCEDURE. CONTINUE PLAN OF CARE.
--- NOTE | 2019-02-08 12:40 | NUR ---
RECEIVED FROM RECOVERY VIA BED. WOUND VAC APPLIED TO RIGHT FOOT DRAINING DARK RED BLOOD. PICC LINE TO THE LT UPPER ARM INFUSING LR AT 30ML/HR. ALERT X4 AND DENIES ANY PAIN AT THIS TIME. BED IN THE LOWEST POSITON AND CALL LIGHT WITH IN REACH. WILL CONTINUE TO ASSES AND MONITOR.
[2019-02-08 12:44] VITALS: BP 105/63
[2019-02-08 13:22] VITALS: BMI 31.0
[2019-02-08 15:28] VITALS: Ht 182.9 cm; Wt 103.9 kg
--- NOTE | 2019-02-08 15:31 | MORECARE ---
CASE MANAGEMENT DISCHARGE SUMMARY PATIENT: GRAZYNA VALVERDE UNIT: [id number] ADM DATE: 02/06/19 AGE: 73 : 45 SEX: M ROOM/BED: D.2202 AUTHOR: SHELIA CHRISTINA PHYSICIAN: REFERRING PHYSICIAN: DELFINO ZEE MD DATE OF SERVICE: 02/08/19 Discharge Plan Patient Name: GRAZYNA VALEVRDE [facility] [facility] 1945 Planned Disposition: Home Health Service Anticipated Discharge Date: Discharge Date: Expected LOS: Initial Reviewer: [email or web address] Initial Review Date: 02/06/2019 Generated: 02/08/19 4:30 pm DCPIA - Discharge Planning Initial Assessment Updated by [email or web address]: Eulalia Zavala on 02/08/19 3:29 pm * Is the patient Alert and Oriented? Yes * How many steps to enter\exit or inside your home? * PCP DR LUCERO * Pharmacy [facility] * Preadmission Environment Home with Family * ADLs Independent * Equipment Walker * List name and contact numbers for known caregivers / representatives who currently or will assist patient after discharge: ERASMO CARIAS [phone] * Verbal permission to speak to the caregivers and representatives has been obtained from the patient. N/A * Community resources currently utilized Home Health Infusion Services * Please name any agencies selected above. [facility] * Additional services required to return to the preadmission environment? Yes * Can the patient safely return to the preadmission environment? Yes * Has this patient been hospitalized within the prior 30 days at any hospital? Yes Patient Name: GRAZYNA VALVERDE Page [id number] at 1531 All edits/amendments must be made on the electronic document DICTATION DATE: 02/08/19 1530 CONTACT PERSON: VALDO 02/08/19 1530 RPT#: [id number] DC DATE: STATUS: ADM IN [facility] [address] [place] [address] END OF REPORT
--- NOTE | 2019-02-08 15:40 | MORECARE ---
CASE MANAGEMENT DISCHARGE SUMMARY PATIENT: GRAZYNA VALVERDE UNIT: [id number] ADM DATE: 02/06/19 AGE: 73 : 45 SEX: M ROOM/BED: D.2202 AUTHOR: SANFORD,DOC PHYSICIAN: REFERRING PHYSICIAN: DELFINO ZEE MD DATE OF SERVICE: 02/08/19 Discharge Plan Patient Name: GRAZYNA VALVERDE Facility: [facility]:[place] : 1945 Planned Disposition: Home Health Service Anticipated Discharge Date: Discharge Date: Expected LOS: Initial Reviewer: [id number] Initial Review Date: 02/06/2019 Generated: 02/08/19 4:40 pm Comments DCP- Discharge Planning Updated by [email or web address]: Eulalia Zavala on 02/08/19 2:[address] Patient Name: GRAZYNA VALVERDE Admission Status: Elective Accout number: [id number] Admission Date: 02-06-2019 : 1945 Admission Diagnosis: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 Discharge Planning Comments: CM met with patient to complete initial dc planning assessment. CM educated patient on the CM role and verbal consent given by patient to complete assessment. Patient lives at home with his partner Erasmo, where he was independent at home. At discharge patient plans to return home and feels this is a safe discharge. CM discussed availability of home health, rehab services, and medical equipment. He is current with [facility] and [facility]. He is happy with both of those services. He does have a walker at home. Patient denied known discharge needs at this time. CM will continue to follow and will assist as needed with dc plans/needs. Rooming House Operator: Eulalia Zavala DCPIA - Discharge Planning Initial Assessment Updated by [id number]: Eulalia Zavala on 02/08/19 3:29 pm * Is the patient Alert and Oriented? Yes * How many steps to enter\exit or inside your home? * PCP DR LUCERO * Pharmacy [facility] * Preadmission Environment Home with Family * ADLs Independent * Equipment Walker * List name and contact numbers for known caregivers / representatives who currently or will assist patient after discharge: ERASMO CARIAS [phone] * Verbal permission to speak to the caregivers and representatives has been obtained from the patient. N/A * Community resources currently utilized Home Health Infusion Services * Please name any agencies selected above. [facility] * Additional services required to return to the preadmission environment? Yes * Can the patient safely return to the preadmission environment? Yes * Has this patient been hospitalized within the prior 30 days at any hospital? Yes Coverage Notice Reviewer: [id number] Leonarda Zavala Notice Issued Date-Time: 02/08/2019 15:25 Notice Type: Patient Choice Letter Notice Delivered To: Patient Relationship to Patient: Materials Management Clerk Name: Delivery Method: - Kirti Days: Prior Verbal Notification: Recipient Understood Notice: Yes Recipient Signature: Yes Med Rec Note Co-signed by Attending: Coverage Notice Comment: CURRENT WITH RICARDO Last DP export: 02/08/19 2:31 p Patient Name: GRAZYNA VALVERDE Page [phone] at 1540 All edits/amendments must be made on the electronic document DICTATION DATE: 02/08/19 1540 STAPLE PROCESSING MACHINE OPERATOR: VALDO 02/08/19 1540 RPT#: [id number] DC DATE: STATUS: ADM IN [facility] [address] [place] [address] END OF REPORT
--- NOTE | 2019-02-08 15:49 | MORECARE ---
CASE MANAGEMENT DISCHARGE SUMMARY PATIENT: GRAZYNA VALVERDE UNIT: [id number] ADM DATE: 02/06/19 AGE: 73 : 45 SEX: M ROOM/BED: D.2202 AUTHOR: SANFORD,DOC PHYSICIAN: REFERRING PHYSICIAN: DELFINO ZEE MD DATE OF SERVICE: 02/08/19 Discharge Plan Patient Name: GRAZYNA VALVERDE Facility: [facility]:[place] : 1945 Planned Disposition: Home Health Service Anticipated Discharge Date: Discharge Date: Expected LOS: Initial Reviewer: [email or web address] Initial Review Date: 02/06/2019 Generated: 02/08/19 4:48 pm Comments DCP- Discharge Planning Updated by [email or web address]: Eulalia Zavala on 02/08/19 2:[address] Patient Name: GRAZYNA VALVERDE Admission Status: Elective Accout number: [id number] Admission Date: 02-06-2019 : 1945 Admission Diagnosis:TYPE 2 DIABETES MELLITUS WITH OTHER SPECIFIED COMPLICAT Attending: DELFINO ZEE Current LOS: 2 Anticipated DC Date: Planned Disposition: Home Health Service Primary Insurance: [employer] Discharge Planning Comments: CM met with patient to complete initial dc planning assessment. CM educated patient on the CM role and verbal consent given by patient to complete assessment. Patient lives at home with his partner Erasmo, where he was independent at home. At discharge patient plans to return home and feels this is a safe discharge. CM discussed availability of home health, rehab services, and medical equipment. He is current with [facility] and [facility]. He is happy with both of those services. He does have a walker at home. Patient denied known discharge needs at this time. CM will continue to follow and will assist as needed with dc plans/needs. Java Sdet: Eulalia Zavala DCPIA - Discharge Planning Initial Assessment Updated by [id number]: Eulalia Zavala on 02/08/19 3:29 pm * Is the patient Alert and Oriented? Yes * How many steps to enter\exit or inside your home? * PCP DR LUCERO * Pharmacy [facility] * Preadmission Environment Home with Family * ADLs Independent * Equipment Walker * List name and contact numbers for known caregivers / representatives who currently or will assist patient after discharge: ERASMO CARIAS [phone] * Verbal permission to speak to the caregivers and representatives has been obtained from the patient. N/A * Community resources currently utilized Home Health Infusion Services * Please name any agencies selected above. [facility] * Additional services required to return to the preadmission environment? Yes * Can the patient safely return to the preadmission environment? Yes * Has this patient been hospitalized within the prior 30 days at any hospital? Yes External Providers External Provider: [facility] Next Contact Date: Service Request Date: Service Type: Resolution: Reviewer: Comments: Coverage Notice Reviewer: [id number] Leonarda Zavala Notice Issued Date-Time: 02/08/2019 15:25 Notice Type: Patient Choice Letter Notice Delivered To: Patient Relationship to Patient: House Superintendent Name: Delivery Method: - Kirti Days: Prior Verbal Notification: Recipient Understood Notice: Yes Recipient Signature: Yes Med Rec Note Co-signed by Attending: Coverage Notice Comment: CURRENT WITH RICARDO Last DP export: 02/08/19 2:40 p Patient Name: GRAZYNA VALVERDE Page [id number] at 1549 All edits/amendments must be made on the electronic document DICTATION DATE: 02/08/191547 WELDER/FABRICATOR: VALDO 02/08/191547 RPT#: [id number] DC DATE: STATUS: ADM IN [facility] [address] [place] [address] END OF REPORT
--- NOTE | 2019-02-08 19:00 | NUR ---
REPORT RECEIVED AND CARE OF PT ASSUMED. PT LYING IN SUPINE POSITION WITH EYES CLOSED. LEFT PICC LINE PATENT WITH NS INFUSING AT 30 ML/HR. DRESSING ON RIGHT FOOT CLEAN AND DRY. WILL MONITOR FOR NEEDS.
[2019-02-08 19:09] VITALS: BP 138/73
[2019-02-08 20:00] VITALS: BP 151/73
--- NOTE | 2019-02-08 20:54 | NUR ---
HS MEDICATIONS GIVEN. FSBS 201 THIS CHECK REQUIRING COVERAGE WITH 4 UNITS OF INSULIN PER SLIDING SCALE.
--- NOTE | 2019-02-08 21:00 | NUR ---
GAVE ORANGE SHEBERT FOR HS SNACK.
[2019-02-09] VITALS: BP 138/68
[2019-02-09 03:30] LABS: BASOPHILS 0.2 % (0-2); EOSINOPHILS 1.2 % (0-7); HEMATOCRIT 28.4 % (42.0-54.0); HEMOGLOBIN 8.9 g/dL (13.5-17.5); IMMATURE GRANULOCYTES 0.5 % (0-5); MCHC 31.3 g/dL (31.0-37.0); MCV 76.5 fL (80.0-100.0); MEAN PLATELET VOLUME 8.7 fL (7.4-10.4); MONOCYTES 10.8 % (2-11); NEUTROPHILS 79.3 % (40-80); PLATELET COUNT 423 10x3/uL (130-400); RBC 3.71 10x6/uL (4.20-6.10); RDW 18.6 % (11.5-14.5); WBC 9.7 10x3/uL (4.8-10.8)
[2019-02-09 03:41] LABS: ALBUMIN 1.7 g/dL (3.4-5.0); ANION GAP 10.3 mmol/L (8-16); BILIRUBIN - TOTAL 0.67 mg/dL (0.2-1.3); CARBON DIOXIDE 27.1 mmol/L (21.0-32.0); CREATININE - SERUM 1.5 mg/dL (0.6-1.3); POTASSIUM - SERUM 4.4 mmol/L (3.5-5.1); PROTEIN - SERUM 6.5 g/dL (6.4-8.2)
[2019-02-09 04:00] VITALS: BP 133/58
--- NOTE | 2019-02-09 07:49 | NUR ---
PT RESTING IN BED. CO OF PAIN, "NORCO MAKES ME SICK AND I TAKE ULTRAM ON A SCHEDULED BASIS." CONCERNED ABOUT PT "TELLING ME THAT HE MAY BE SEPTIC" SPOKE WITH SEDRICK CHAUDHARY WHO STATED, "NO, THERE IS NO EVIDENCE ON BEING SEPTIC BUT WE ARE ADDING [employer] FOR ANEROBIC COVERAGE". RELAYED INFO TO ERASMO, WHO "IS OK" NO S/S OF ACUTE DISTRESS. CL IN PLACE.
[2019-02-09 08:30] VITALS: BP 145/66
[2019-02-09 09:29] LABS: ERYTHROCYTE SEDIMENTATION RATE 110 mm/hr (0-20)
[2019-02-09 12:32] VITALS: BP 120/63
--- NOTE | 2019-02-09 14:23 | MORECARE ---
CASE MANAGEMENT DISCHARGE SUMMARY PATIENT: GRAZYNA VALVERDE UNIT: [id number] ADM DATE: 02/06/19 AGE: 73 : 45 SEX: M ROOM/BED: D.2202 AUTHOR: SANFORD,DOC PHYSICIAN: REFERRING PHYSICIAN: DELFINO ZEE MD DATE OF SERVICE: 02/09/19 Discharge Plan Patient Name: GRAZYNA VALVERDE Facility: [facility]:[place] : 1945 Planned Disposition: Home Health Service Anticipated Discharge Date: Discharge Date: Expected LOS: Initial Reviewer: [email or web address] Initial Review Date: 02/06/2019 Generated: 02/09/19 3:23 pm Comments DCP- Discharge Planning Updated by [email or web address]: Eulalia Zavala on 02/09/19 1:[address] [facility] wound vac order sent, awaiting approval DCP- Discharge Planning Updated by [email or web address]: Eulalia Zavala on 02/08/19 2:[address] Patient Name: GRAZYNA VALVERDE Admission Status: Elective Accout number: [id number] Admission Date: 02-06-2019 : 1945 Admission Diagnosis:TYPE 2 DIABETES MELLITUS WITH OTHER SPECIFIED COMPLICAT Attending: DELFINO ZEE Current LOS: 2 Anticipated DC Date: Planned Disposition: Home Health Service Primary Insurance: [facility] Discharge Planning Comments: CM met with patient to complete initial dc planning assessment. CM educated patient on the CM role and verbal consent given by patient to complete assessment. Patient lives at home with his partner Erasmo, where he was independent at home. At discharge patient plans to return home and feels this is a safe discharge. CM discussed availability of home health, rehab services, and medical equipment. He is current with [facility] and [facility]. He is happy with both of those services. He does have a walker at home. Patient denied known discharge needs at this time. CM will continue to follow and will assist as needed with dc plans/needs. Size Roller Operator: Eulalia Zavala DCPIA - Discharge Planning Initial Assessment Updated by [id number]: Eulalia Zavala on 02/08/19 3:29 pm * Is the patient Alert and Oriented? Yes * How many steps to enter\exit or inside your home? * PCP DR LUCERO * Pharmacy [facility] * Preadmission Environment Home with Family * ADLs Independent * Equipment Walker * List name and contact numbers for known caregivers / representatives who currently or will assist patient after discharge: ERASMO CARIAS [phone] * Verbal permission to speak to the caregivers and representatives has been obtained from the patient. N/A * Community resources currently utilized Home [facility] Infusion Services * Please name any agencies selected above. [facility] * Additional services required to return to the preadmission environment? Yes * Can the patient safely return to the preadmission environment? Yes * Has this patient been hospitalized within the prior 30 days at any hospital? Yes Coverage Notice Reviewer: [id number] Leonarda Zavala Notice Issued Date-Time: 02/08/2019 15:25 Notice Type: Patient Choice Letter Notice Delivered To: Patient Relationship to Patient: Mattress And Foundation Sewer Name: Delivery Method: - Kirti Days: Prior Verbal Notification: Recipient Understood Notice: Yes Recipient Signature: Yes Med Rec Note Co-signed by Attending: Coverage Notice Comment: CURRENT WITH [facility] Last DP export: 02/08/19 2:48 p Patient Name: GRAZYNA VALVERDE Page [id number] at 1423 All edits/amendments must be made on the electronic document DICTATION DATE: 02/09/191422 DIRECTOR OF PUBLIC HEALTH: VALDO 02/09/191422 RPT#: [id number] DC DATE: STATUS: ADM IN [facility] [address] [place] [address] END OF REPORT
--- NOTE | 2019-02-09 16:25 | MORECARE ---
CASE MANAGEMENT DISCHARGE SUMMARY PATIENT: GRAZYNA VALVERDE UNIT: [id number] ADM DATE: 02/06/19 AGE: 73 : 45 SEX: M ROOM/BED: D.2202 AUTHOR: SANFORD,DOC PHYSICIAN: REFERRING PHYSICIAN: DELFINO ZEE MD DATE OF SERVICE: 02/09/19 Discharge Plan Patient Name: GRAZYNA VALVERDE Facility: [facility]:[place] : 1945 Planned Disposition: Home Health Service Anticipated Discharge Date: Discharge Date: Expected LOS: Initial Reviewer: [email or web address] Initial Review Date: 02/06/2019 Generated: 02/09/19 5:25 pm Comments DCP- Discharge Planning Updated by [id number]: Eulalia Zavala on 02/09/19 3:[address] Lucero's office and he has been seen there as a work in, but he not an official patient. I spoke with Rowan at the office and she stated that there is a list for Dr Lucero, but she could get him in to see his partner Dr Painting. When DC need to make an apt with Dr Painting. He will have to have a referral to go see the timber mill worker per Sarah DUBOSE DCP- Discharge Planning Updated by [id number]: Eulalia Zavala on 02/09/19 1:[address] [facility] wound vac order sent, awaiting approval DCP- Discharge Planning Updated by [id number]: Elualia Zavala on 02/08/19 2:[address] Patient Name: GRAZYNA VALVERDE Admission Status: Elective Accout number: [id number] Admission Date: 02-06-2019 : 1945 Admission Diagnosis:TYPE 2 DIABETES MELLITUS WITH OTHER SPECIFIED COMPLICAT Attending: DELFINO ZEE Current LOS: 2 Anticipated DC Date: Planned Disposition: Home Health Service Primary Insurance: [facility] Discharge Planning Comments: CM met with patient to complete initial dc planning assessment. CM educated patient on the CM role and verbal consent given by patient to complete assessment. Patient lives at home with his partner Erasmo, where he was independent at home. At discharge patient plans to return home and feels this is a safe discharge. CM discussed availability of home health, rehab services, and medical equipment. He is current with [facility] and [facility]. He is happy with both of those services. He does have a walker at home. Patient denied known discharge needs at this time. CM will continue to follow and will assist as needed with dc plans/needs. Distillery Worker: Eulalia Zavala DCPIA - Discharge Planning Initial Assessment Updated by [id number]: Eulalia Zavala on 02/08/19 3:29 pm * Is the patient Alert and Oriented? Yes * How many steps to enter\exit or inside your home? * PCP DR LUCERO * Pharmacy [facility] * Preadmission Environment Home with Family * ADLs Independent * Equipment Walker * List name and contact numbers for known caregivers / representatives who currently or will assist patient after discharge: ERASMO CARIAS [phone] * Verbal permission to speak to the caregivers and representatives has been obtained from the patient. N/A * Community resources currently utilized [facility]fusion [facility] * Please name any agencies selected above. [facility] * Additional services required to return to the preadmission environment? Yes * Can the patient safely return to the preadmission environment? Yes * Has this patient been hospitalized within the prior 30 days at any hospital? Yes Coverage Notice Reviewer: [id number] - Eulalia Zavala Notice Issued Date-Time: 02/08/2019 15:25 Notice Type: Patient Choice Letter Notice Delivered To: Patient Relationship to Patient: Digital Campaign Manager Name: Delivery Method: - Kirti Days: Prior Verbal Notification: Recipient Understood Notice: Yes Recipient Signature: Yes Med Rec Note Co-signed by Attending: Coverage Notice Comment: CURRENT [facility] Last DP export: 02/09/19 1:23 p Patient Name: GRAZYNA VALVERDE Page [phone] at 1625 All edits/amendments must be made on the electronic document DICTATION DATE: 02/09/191624 GETTER OPERATOR: VALDO 02/09/191624 RPT#: [id number] DC DATE: STATUS: ADM IN [facility] [address] [place] [address] END OF REPORT
--- NOTE | 2019-02-09 16:36 | MORECARE ---
CASE MANAGEMENT DISCHARGE SUMMARY PATIENT: GRAZYNA VALVERDE UNIT: [id number] ADM DATE: 02/06/19 AGE: 73 : 45 SEX: M ROOM/BED: D.2202 AUTHOR: SANFORD,DOC PHYSICIAN: REFERRING PHYSICIAN: DELFINO ZEE MD DATE OF SERVICE: 02/09/19 Discharge Plan Patient Name: GRAZYNA VALVERDE Facility: [facility]:[place] : 1945 Planned Disposition: Home Health Service Anticipated Discharge Date: Discharge Date: Expected LOS: Initial Reviewer: [email or web address] Initial Review Date: 02/06/2019 Generated: 02/09/19 5:36 pm Comments DCP- Discharge Planning Updated by [email or web address]: Eulalia Zavala on 02/09/19 3:[address] Patient's Home Wound Vac has been approved. Patient is sleeping and I did not wake him to sign the Proof of Delivery form. THESE FORMS ARE ON THE FRONT OF HIS CHART if he is DC over the weekend please have patient sign & fax to correct areas. CM will continue to follow and assist with DC planning as needed DCP- Discharge Planning Updated by [email or web address]: Eulalia Zavala on 02/09/19 3:[address] Lucero's office and he has been seen there as a work in, but he not an official patient. I spoke with Rowan at the office and she stated that there is a list for Dr Lucero, but she could get him in to see his partner Dr Painting. When DC need to make an apt with Dr Painting. He will have to have a referral to go see the grout machine tender per Sarah DUBOSE DCP- Discharge Planning Updated by [id number]: Eulalia Zavala on 02/09/19 1:[address] [facility] wound vac order sent, awaiting approval DCP- Discharge Planning Updated by [id number]: Eulalia Zavala on 02/08/19 2:[address] Patient Name: GRAZYNA VALVERDE Admission Status: Elective Accout number: [id number] Admission Date: 02-06-2019 : 1945 Admission Diagnosis:TYPE 2 DIABETES MELLITUS WITH OTHER SPECIFIED COMPLICAT Attending: DELFINO ZEE Current LOS: 2 Anticipated DC Date: Planned Disposition: Home Health Service Primary Insurance: [facility] Discharge Planning Comments: CM met with patient to complete initial dc planning assessment. CM educated patient on the CM role and verbal consent given by patient to complete assessment. Patient lives at home with his partner Erasmo, where he was independent at home. At discharge patient plans to return home and feels this is a safe discharge. CM discussed availability of home health, rehab services, and medical equipment. He is current with [facility] and [facility]. He is happy with both of those services. He does have a walker at home. Patient denied known discharge needs at this time. CM will continue to follow and will assist as needed with dc plans/needs. Flat Drier: Eulalia Zavala DCPIA - Discharge Planning Initial Assessment Updated by [email or web address]: Eulalia Zavala on 02/08/19 3:29 pm * Is the patient Alert and Oriented? Yes * How many steps to enter\exit or inside your home? * PCP DR LUCERO * Pharmacy [facility] * Preadmission Environment Home with Family * ADLs Independent * Equipment Walker * List name and contact numbers for known caregivers / representatives who currently or will assist patient after discharge: ERASMO CARIAS [phone] * Verbal permission to speak to the caregivers and representatives has been obtained from the patient. N/A * Community resources currently utilized [facility] * Please name any agencies selected above. [facility] * Additional services required to return to the preadmission environment? Yes * Can the patient safely return to the preadmission environment? Yes * Has this patient been hospitalized within the prior 30 days at any hospital? Yes Coverage Notice Reviewer: [id number] - Eulalia Zavala Notice Issued Date-Time: 02/08/2019 15:25 Notice Type: Patient Choice Letter Notice Delivered To: Patient Relationship to Patient: Decorative Engraver Apprentice Name: Delivery Method: - Kirti Days: Prior Verbal Notification: Recipient Understood Notice: Yes Recipient Signature: Yes Med Rec Note Co-signed by Attending: Coverage Notice Comment: CURRENT [facility] Last DP export: 02/09/19 3:25 p Patient Name: GRAZYNA VALVERDE Page [phone] at 1636 All edits/amendments must be made on the electronic document DICTATION DATE: 02/09/19 163 CORPORATE COMPLIANCE DIRECTOR: VALDO 02/09/19 163 RPT#: [id number] DC DATE: STATUS: ADM IN [facility] [address] [place] [address] END OF REPORT
[2019-02-09 16:51] VITALS: BP 110/61
--- NOTE | 2019-02-09 19:00 | NUR ---
REPORT RECEIVED AND CARE OF PT ASSUMED. PT LYING ON RIGHT SIDE WITH EYES CLOSED AND EASY RESPIRATIONS. LEFT PICC LINE PATENT WITH LR INFUSING AT 30 ML/HR. WOUND VAC IN LACE ON RIGHT FOOT WITH NO LEAKAGE ALARMS. WILL MONITOR FOR NEEDS. SPOUSE IS AT BEDSIDE.
[2019-02-09 20:00] VITALS: BP 131/76
--- NOTE | 2019-02-09 20:46 | NUR ---
HS MEDICATIONS GIVEN. FSBS 247 THIS CHECK. PT DECLINED SLIDING SCALE. 80 UNITS OF LANTUS GIVEN PER ORDER. GAVE TRMADOL PO FOR PAIN AND ZOFRAN IVP FOR C/O NAUSEA. WILL CONTINUE TO MONITOR FOR NEEDS. SPOUSE IS AT BEDSIDE.
[2019-02-10] VITALS: BP 151/71
[2019-02-10 06:06] LABS: BASOPHILS 0.2 % (0-2); EOSINOPHILS 2.9 % (0-7); HEMATOCRIT 27.4 % (42.0-54.0); HEMOGLOBIN 8.4 g/dL (13.5-17.5); IMMATURE GRANULOCYTES 0.9 % (0-5); LYMPHOCYTES 14.5 % (15-50); MCH 23.5 pg (26.0-34.0); MCHC 30.7 g/dL (31.0-37.0); MCV 76.8 fL (80.0-100.0); MONOCYTES 11.5 % (2-11); PLATELET COUNT 435 10x3/uL (130-400); RBC 3.57 10x6/uL (4.20-6.10); RDW 18.5 % (11.5-14.5)
--- NOTE | 2019-02-10 06:07 | NUR ---
STARTED NEW IV TO LEFT WRIST USING 22 GUAGE CATHETER IN ONE STICK. IV FLUIDS MOVED TO THIS SITE.
[2019-02-10 06:36] LABS: ALBUMIN 1.7 g/dL (3.4-5.0); BILIRUBIN - TOTAL 0.5 mg/dL (0.2-1.3); CALCIUM 8.3 mg/dL (8.5-10.1); CREATININE - SERUM 1.5 mg/dL (0.6-1.3); PROTEIN - SERUM 6.8 g/dL (6.4-8.2); VANCOMYCIN - TROUGH 19.9 ug/mL (10.0-20.0)
[2019-02-10 06:38] LABS: ANION GAP 10.7 mmol/L (8-16); POTASSIUM - SERUM 3.7 mmol/L (3.5-5.1)
--- NOTE | 2019-02-10 07:15 | NUR ---
REC'D IN BED AWAKE AND ALERT. RESP EVEN AND UNLABORED WITH NO DISTRESS NOTED. CAN EXPRESS NEEDS AND WANTS WITH NONE NOTED OR VOICED. ASSESSMENT COMPLETED. C/L IN REACH AT BEDSIDE.
[2019-02-10 08:26] VITALS: BP 134/59
[2019-02-10 12:46] VITALS: BP 157/78
--- NOTE | 2019-02-10 16:28 | NUR ---
I have reviewed this patient and I concur with the Shift Assessment completed by the Licensed Practical Nurse today this shift.
[2019-02-10 17:52] VITALS: BP 140/70
--- NOTE | 2019-02-10 19:00 | NUR ---
REPORT RECEIVED AND CARE OF PT ASSUMED. PT SITTING UP IN CHAIR WATCHING TV....STATES THAT HE IS FEELING BETTER TODAY. LEFT PICC LINE PATENT WITH LR INFUSING AT 30 ML/HR. WOUND VAC IN PLACE ON RIGHT FOOT. WILL MONITOR FOR NEEDS.
[2019-02-10 20:00] VITALS: BP 128/71
[2019-02-11] VITALS: BP 147/74
[2019-02-11 04:00] VITALS: BP 156/79
[2019-02-11 06:40] LABS: BASOPHILS 0.3 % (0-2); EOSINOPHILS 4.3 % (0-7); HEMATOCRIT 28.3 % (42.0-54.0); HEMOGLOBIN 8.9 g/dL (13.5-17.5); IMMATURE GRANULOCYTES 1.3 % (0-5); LYMPHOCYTES 15.7 % (15-50); MCH 24.1 pg (26.0-34.0); MCHC 31.4 g/dL (31.0-37.0); MCV 76.7 fL (80.0-100.0); MEAN PLATELET VOLUME 9.1 fL (7.4-10.4); MONOCYTES 11.2 % (2-11); NEUTROPHILS 67.2 % (40-80); PLATELET COUNT 470 10x3/uL (130-400); RBC 3.69 10x6/uL (4.20-6.10); RDW 18.5 % (11.5-14.5); WBC 9.3 10x3/uL (4.8-10.8)
[2019-02-11 07:11] LABS: ALBUMIN 1.7 g/dL (3.4-5.0); ANION GAP 12.9 mmol/L (8-16); BILIRUBIN - TOTAL 0.45 mg/dL (0.2-1.3); CALCIUM 8.2 mg/dL (8.5-10.1); CARBON DIOXIDE 26.9 mmol/L (21.0-32.0); CREATININE - SERUM 1.6 mg/dL (0.6-1.3); POTASSIUM - SERUM 3.8 mmol/L (3.5-5.1); PROTEIN - SERUM 6.9 g/dL (6.4-8.2); VANCOMYCIN - RANDOM 19.8 ug/mL (10.0-20.0)
[2019-02-11 09:10] VITALS: BP 146/78
--- NOTE | 2019-02-11 09:32 | NUR ---
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 EXPLAINED TO PATIENT REASON FOR ISOLATION. VERBALIZED UNDERSTANDING. DENIES ANY CONCERNS OR QUESTIONS, BED LOWERED AND LOCKED, CALL LIGHT WITHIN REACH. CPOC
[2019-02-11 12:12] VITALS: BP 156/82
[2019-02-11 16:31] VITALS: BP 126/66
--- NOTE | 2019-02-11 19:00 | NUR ---
REPORT RECEIVED AND CARE OF PT ASSUMED. PT SITTING UP ON SIDE OF BED AT THIS TIME. WOUND VAC IN PLACE ON RIGHT FOOT. LEFT PICC LINE PATENT WITH 1/2 NS INFUSING AT 75 ML/HR. WILL MONITOR FOR NEEDS.
--- NOTE | 2019-02-11 20:06 | NUR ---
HS MEDICATIONS GIVEN. FSBS 265 THIS CHECK REQUIRING COVERAGE WITH 6 UNITS OF INSULIN PER SLIDING SCALE.
[2019-02-11 20:44] VITALS: BP 138/72
--- NOTE | 2019-02-11 21:03 | NUR ---
GAVE ULTRAM PER REQUEST FOR PAIN, PER PRN ORDER. WILL CONTINUE TO MONITOR FOR NEEDS.
--- NOTE | 2019-02-11 23:31 | NUR ---
PT RESTING ON RIGHT SIDE WITH EYES CLOSED AND EASY RESPIRATIONS. WILL CONTINUE TO MONITOR FOR NEEDS.
[2019-02-12 01:27] VITALS: BP 120/70
[2019-02-12 05:19] LABS: BASOPHILS 0.4 % (0-2); EOSINOPHILS 4.7 % (0-7); HEMATOCRIT 28.5 % (42.0-54.0); HEMOGLOBIN 8.8 g/dL (13.5-17.5); IMMATURE GRANULOCYTES 1.4 % (0-5); LYMPHOCYTES 15.8 % (15-50); MCH 23.7 pg (26.0-34.0); MCHC 30.9 g/dL (31.0-37.0); MCV 76.6 fL (80.0-100.0); MEAN PLATELET VOLUME 8.8 fL (7.4-10.4); MONOCYTES 10.6 % (2-11); NEUTROPHILS 67.1 % (40-80); PLATELET COUNT 456 10x3/uL (130-400); RBC 3.72 10x6/uL (4.20-6.10); RDW 18.5 % (11.5-14.5); WBC 8.4 10x3/uL (4.8-10.8)
[2019-02-12 05:42] VITALS: BP 124/85
[2019-02-12 05:46] LABS: ALBUMIN 1.7 g/dL (3.4-5.0); ANION GAP 12.3 mmol/L (8-16); BILIRUBIN - TOTAL 0.39 mg/dL (0.2-1.3); C-REACTIVE PROTEIN 4.1 mg/dL (0.0-0.9); CALCIUM 8.1 mg/dL (8.5-10.1); CARBON DIOXIDE 27.3 mmol/L (21.0-32.0); CREATININE - SERUM 1.4 mg/dL (0.6-1.3); POTASSIUM - SERUM 3.6 mmol/L (3.5-5.1); PROTEIN - SERUM 6.7 g/dL (6.4-8.2)
[2019-02-12 05:49] LABS: ERYTHROCYTE SEDIMENTATION RATE 98 mm/hr (0-20)
[2019-02-12 08:43] VITALS: BP 148/77
--- NOTE | 2019-02-12 11:33 | NUR ---
WOUND VAC DRESSING CHANGE DATE: 02/12/19 (FIRST DRESSING CHANGE SINCE I&D ON 02/08) WOUND LOCATION: RIGHT FOOT + #4/5 TOES WOUND MEASUREMENTS: 3CM X 12CM X 2.5CM WOUND DESCRIPTION: GRANULATION NOTED MUSCLE, TENDON, OR BONE EXPOSED? ABLE TO TAP BONE (NONE EXPOSED) DRAINAGE AMOUNT/DESCRIPTION: MODERATE BLOODY ODOR? SLIGHT ODOR TYPE OF SPONGE USED AND AMOUNT: BLACK (1 PIECE) SETTINGS: -125MMHG LOW CONTINUOUS TEACHING: HEALING PROCESS, DRESSING CHANGES, HOME HEALTH PT TOLERATED WELL.
[2019-02-12 13:10] VITALS: BP 150/85
[2019-02-12 17:15] VITALS: BP 149/82
--- NOTE | 2019-02-12 18:38 | EC ---
PATIENT:GRAZYNA VALVERDE DATE OF SERVICE: 02/06/19 SEX: M MEDICAL RECORD: [id number] DATE OF : [birth year] LOCATION:D.MS [address] AGE OF PATIENT: 73 ADMISSION DATE: 02/06/19 REFERRING PHYSICIAN: INTERPRETING PHYSICIAN: SYLVIA ROGERS MD ECHOCARDIOGRAM REPORT ECHO CHARGES 4 ECHO COMPLETE Date: 02/09/19 CLINICAL DIAGNOSIS: CHF/ATRIAL FLUTTER HX CAD/CABG ECHOCARDIOGRAPHIC MEASUREMENTS (adult normal given) AC root (d.<3.7cm) 4.2 cm LV Septum d (<1.2 cm> 1.4 cm Valve Excursion 1.7 cm LV Septum (systole) 1.7 cm Left Atria (s.<4.0cm> 5.5 cm LVPW d(<1.2cm) 1.5 cm RV (d.<2.3cm) 4.5 cm LVPW (sytole) 1.7 cm LV diastole(<5.6CM) 7.7 cm MV E-F(>70mm/sec) cm LV systole 6.0 cm LVOT Diameter 2.4 cm MV exc.(>10mm) 1.7 cm Est.ejection fraction (50-75%) % DOPPLER: LVIT cm/sec A 44.0 cm/sec E 115 cm/sec LA cm/sec RVSP 32 mmHg LVOT 94 cm/sec AOP1/2T m/s Asc. Ao 149 cm/sec RVOT 83 cm/sec RA cm/sec PA 109 cm/sec AV Gradient Peak 8.89 mmHg AV Mean 5.17 mmHg AV Area 2.8 cm MV Gradient Peak 6.19 mmHg MV Mean 2.01 mmHg MV Area cm COMMENTS: Yard Conductor: Diallo TOUSSAINT Aviation Safety Technician: 1 Dr. Rogers TAPE# PACS Pericardial Effusion N DATE OF SERVICE: FINDINGS: 1. Left ventricular chamber size is dilated. Left ventricular systolic function is mildly reduced at 45% to 50%. 2. Left atrium is severely dilated at 5.5 cm. Right atrium and right ventricular chamber sizes are as well severely dilated. 3. Valvular structures have normal structure and motion. 4. Doppler interrogation reveals mild mitral regurgitation, mild tricuspid regurgitation, no other valvular insufficiency or stenosis. ECHOCARDIOGRAM REPORT [id number] GRAZYNA VALVERDE 5. No evidence of pericardial effusion or left ventricular thrombus. TRANSINT:[id number] Voice Confirmation ID: [id number] DOCUMENT ID: [id number] SYLVIA ROGERS MD at 1838 CC: [id number] DICTATION DATE: 02/09/19 1227 SOFTWARE TOOLS BUILD ENGINEER: 02/09/19 1259 ADM IN [facility] [address] [place] [address]
--- NOTE | 2019-02-12 20:27 | NUR ---
REC'D CÉSAR OF SHIFT IN BED SPOUSE AT BEDSIDE. RAY WRAP WITH WOUND VAC INTACT RIGHT FOOT UP ON PILLOW.TOES PINK/WARM WIGGLES WITHOUT DIFFICULTY.WILL CONTINUE TO MONITOR FOR ANY CHGES. IN NEUROVASCULAR STATUS AND FOLLOW CURRENT PLAN OF CARE.
[2019-02-12 21:57] VITALS: BP 148/77
[2019-02-13 00:53] VITALS: BP 154/70
--- NOTE | 2019-02-13 04:00 | NUR ---
I have reviewed this patient and I concur with the Shift Assessment completed by the Licensed Practical Nurse today this shift.
[2019-02-13 04:45] VITALS: BP 164/77
[2019-02-13 07:04] LABS: BASOPHILS 0.4 % (0-2); EOSINOPHILS 4.5 % (0-7); HEMATOCRIT 29.8 % (42.0-54.0); HEMOGLOBIN 9.3 g/dL (13.5-17.5); IMMATURE GRANULOCYTES 1.3 % (0-5); LYMPHOCYTES 17.1 % (15-50); MCHC 31.2 g/dL (31.0-37.0); MCV 76.8 fL (80.0-100.0); MEAN PLATELET VOLUME 8.8 fL (7.4-10.4); MONOCYTES 10.2 % (2-11); NEUTROPHILS 66.5 % (40-80); PLATELET COUNT 481 10x3/uL (130-400); RBC 3.88 10x6/uL (4.20-6.10); RDW 18.5 % (11.5-14.5)
[2019-02-13 07:21] LABS: ALBUMIN 1.9 g/dL (3.4-5.0); ANION GAP 13.2 mmol/L (8-16); BILIRUBIN - TOTAL 0.34 mg/dL (0.2-1.3); CALCIUM 8.6 mg/dL (8.5-10.1); CARBON DIOXIDE 28.4 mmol/L (21.0-32.0); CREATININE - SERUM 1.3 mg/dL (0.6-1.3); POTASSIUM - SERUM 3.6 mmol/L (3.5-5.1); PROTEIN - SERUM 7.1 g/dL (6.4-8.2)
[2019-02-13 09:08] VITALS: BP 162/81
--- NOTE | 2019-02-13 10:22 | NUR ---
PT RESTING QUIETLY WITH NO VOICED COMPLAINTS. DRESSING TO RIGHT FOOT CLEAN DRY AND INTACT WITH WOUND VAC PRESENT. FOR DISCHARGE LATER TODAY. REMAINS IN CONTACT ISOLATION. CALL LIGHT IN REACH
--- NOTE | 2019-02-13 11:15 | MORECARE ---
CASE MANAGEMENT DISCHARGE SUMMARY PATIENT: GRAZYNA VALVERDE UNIT: [id number] ADM DATE: 02/06/19 AGE: 73 : 45 SEX: M ROOM/BED: D.2202 AUTHOR: SANFORD,DOC PHYSICIAN: REFERRING PHYSICIAN: DELFINO ZEE MD DATE OF SERVICE: 02/13/19 Discharge Plan Patient Name: GRAZYNA VALVERDE Facility: [facility]:[place] : 1945 Planned Disposition: Home Health Service Anticipated Discharge Date: Discharge Date: Expected LOS: Initial Reviewer: [email or web address] Initial Review Date: 02/06/2019 Generated: 02/13/19 12:14 pm DCP- Discharge Planning Updated by [email or web address]: Eulalia Zavala on 02/09/19 3:[address] Patient's Home Wound Vac has been approved. Patient is sleeping and I did not wake him to sign the Proof of Delivery form. THESE FORMS ARE ON THE FRONT OF HIS CHART if he is DC over the weekend please have patient sign & fax to correct areas. CM will continue to follow and assist with DC planning as needed DCP- Discharge Planning Updated by [email or web address]: Eulalia Zavala on 02/09/19 3:[address] Lucero's office and he has been seen there as a work in, but he not an official patient. I spoke with Rowan at the office and she stated that there is a list for Dr Lucero, but she could get him in to see his partner Dr Painting. When DC need to make an apt with Dr Painting. He will have to have a referral to go see the teacher elementary school per Sarah DUBOSE DCP- Discharge Planning Updated by [id number]: Eulalia Zavala on 02/09/19 1:[address] [facility] wound vac order sent, awaiting approval DCP- Discharge Planning Updated by [email or web address]: Eulalia Zavala on 02/08/19 2:[address] Patient Name: GRAZYNA VALVERDE Admission Status: Elective Accout number: [id number] Admission Date: 02-06-2019 : 1945 Admission Diagnosis:TYPE 2 DIABETES MELLITUS WITH OTHER SPECIFIED COMPLICAT Attending: DELFINO ZEE Current LOS: 2 Anticipated DC Date: Planned Disposition: Home Health Service [facility] Discharge Planning Comments: CM met with patient to complete initial dc planning assessment. CM educated patient on the CM role and verbal consent given by patient to complete assessment. Patient lives at home with his partner Erasmo, where he was independent at home. At discharge patient plans to return home and feels this is a safe discharge. CM discussed availability of home health, rehab services, and medical equipment. He is current with [facility] and [facility]. He is happy with both of those services. He does have a walker at home. Patient denied known discharge needs at this time. CM will continue to follow and will assist as needed with dc plans/needs. Roll Filler: Eulalia Zavala DCPIA - Discharge Planning Initial Assessment Updated by [email or web address]: Eulalia Zavala on 02/08/19 3:29 pm * Is the patient Alert and Oriented? Yes * How many steps to enter\exit or inside your home? * PCP DR LUCERO * Pharmacy [facility] * Preadmission Environment Home with Family * ADLs Independent * Equipment Walker * List name and contact numbers for known caregivers / representatives who currently or will assist patient after discharge: ERASMO CARIAS [phone] * Verbal permission to speak to the caregivers and representatives has been obtained from the patient. N/A * Community resources currently utilized [facility]fusion Services * Please name any agencies selected above. [facility] * Additional services required to return to the preadmission environment? Yes * Can the patient safely return to the preadmission environment? Yes * Has this patient been hospitalized within the prior 30 days at any hospital? Yes External Providers External Provider: [facility] Next Contact Date: Service Request Date: Service Type: Resolution: Reviewer: Comments: Coverage Notice Reviewer: [email or web address] - Eulalia Zavala Notice Issued Date-Time: 02/08/2019 15:25 Notice Type: Patient Choice Letter Notice Delivered To: Patient Relationship to Patient: Hat Stock Laminating Machine Operator Name: Delivery Method: - Kirti Days: Prior Verbal Notification: Recipient Understood Notice: Yes Recipient Signature: Yes Med Rec Note Co-signed by Attending: Coverage Notice Comment: CURRENT WITH [facility] Last DP export: 02/09/19 3:36 p Patient Name: GRAZYNA VALVERDE Page 51120 at 1115 All edits/amendments must be made on the electronic document DICTATION DATE: 02/13/191113 COREMAKING SUPERVISOR: VALDO 02/13/191113 RPT#: [id number] DC DATE: STATUS: ADM IN [facility] [address] [place] [address] END OF REPORT
--- NOTE | 2019-02-13 11:53 | MORECARE ---
CASE MANAGEMENT DISCHARGE SUMMARY PATIENT: GRAZYNA VALVERDE UNIT: [id number] ADM DATE: 02/06/19 AGE: 73 : 45 SEX: M ROOM/BED: D.2202 AUTHOR: SANFORD,DOC PHYSICIAN: REFERRING PHYSICIAN: DELFINO ZEE MD DATE OF SERVICE: 02/13/19 Discharge Plan Patient Name: GRAZYNA VALVERDE Facility: [facility]:[place] : 1945 Planned Disposition: Home Health Service Anticipated Discharge Date: Discharge Date: Expected LOS: Initial Reviewer: [id number] Initial Review Date: 02/06/2019 Generated: 02/13/19 12:53 pm Comments DCP- Discharge Planning Updated by [email or web address]: Eulalia Zavala on 02/13/19 10:[address] Patient will be discharging home today with IV abx , home wound vac and home health with [facility]. [facility] will deliver his Abx to his home. He will have his zyvox due at 1800 tonight and Betty Oakes is aware of this. I spoke with Linda with [facility] and she has him down to be seen tomorrow. [facility] home wound vac has been approved and will be delivered and exchanged prior to DC. I called Marium with Wound care to let her know. CM will continue to follow and assist with DC planning. IMM served and explained DCP- Discharge Planning Updated by [id number]: Eulalia Zavala on 02/09/19 3:[address] Patient's Home Wound Vac has been approved. Patient is sleeping and I did not wake him to sign the Proof of Delivery form. THESE FORMS ARE ON THE FRONT OF HIS CHART if he is DC over the weekend please have patient sign & fax to correct areas. CM will continue to follow and assist with DC planning as needed DCP- Discharge Planning Updated by [email or web address]: Eulalia Zavala on 02/09/19 3:[address] Lucero's office and he has been seen there as a work in, but he not an official patient. I spoke with Rowan at the office and she stated that there is a list for Dr Lucero, but she could get him in to see his partner Dr Painting. When DC need to make an apt with Dr Painting. He will have to have a referral to go see the dice person per Sarah DUBOSE DCP- Discharge Planning Updated by [id number]: Eulalia Zavala on 02/09/19 1:[address] [facility] wound vac order sent, awaiting approval DCP- Discharge Planning Updated by [email or web address]: Eulalia Lucas on 02/08/19 2:[address] Patient Name: GRAZYNA VALVERDE Admission Status: Elective Accout number: [id number] Admission Date: 02-06-2019 : 1945 Admission Diagnosis:TYPE 2 DIABETES MELLITUS WITH OTHER SPECIFIED COMPLICAT Attending: DELFINO ZEE Current LOS: 2 Anticipated DC Date: Planned Disposition: Home Health Service Primary Insurance: [employer] Discharge Planning Comments: CM met with patient to complete initial dc planning assessment. CM educated patient on the CM role and verbal consent given by patient to complete assessment. Patient lives at home with his partner Erasmo, where he was independent at home. At discharge patient plans to return home and feels this is a safe discharge. CM discussed availability of home health, rehab services, and medical equipment. He is current with [facility] and [facility]. He is happy with both of those services. He does have a walker at home. Patient denied known discharge needs at this time. CM will continue to follow and will assist as needed with dc plans/needs. Linux System Administrator: Eulalia Zavala DCPIA - Discharge Planning Initial Assessment Updated by [email or web address]: Eulalia Zavala on 02/08/19 3:29 pm * Is the patient Alert and Oriented? Yes * How many steps to enter\exit or inside your home? * PCP DR LUCERO * Pharmacy [facility] * Preadmission Environment Home with Family * ADLs Independent * Equipment Walker * List name and contact numbers for known caregivers / representatives who currently or will assist patient after discharge: ERASMO CARIAS [phone] * Verbal permission to speak to the caregivers and representatives has been obtained from the patient. N/A * Community resources currently utilized [facility] * Please name any agencies selected above. [facility] * Additional services required to return to the preadmission environment? Yes * Can the patient safely return to the preadmission environment? Yes * Has this patient been hospitalized within the prior 30 days at any hospital? Yes Coverage Notice Reviewer: [id number] Leonarda Zavala Notice Issued Date-Time: 02/08/2019 15:25 Notice Type: Patient Choice Letter Notice Delivered To: Patient Relationship to Patient: Novelty Twister Operator Name: Delivery Method: - Kirti Days: Prior Verbal Notification: Recipient Understood Notice: Yes Recipient Signature: Yes Med Rec Note Co-signed by Attending: Coverage Notice Comment: CURRENT WITH RICARDO Reviewer: [id number] Leonarda Zavala Notice Issued Date-Time: 02/13/2019 11:20 Notice Type: IM Discharge Notice Notice Delivered To: Patient Relationship to Patient: Novelty Twister Operator Name: Delivery Method: HAND - Hand Delivered Kirti Days: Prior Verbal Notification: Recipient Understood Notice: Yes Recipient Signature: Yes Med Rec Note Co-signed by Attending: Coverage Notice Comment: Last DP export: 02/13/19 10:15 a Patient Name: GRAZYNA VALVERDE Page 38523 at 1153 All edits/amendments must be made on the electronic document DICTATION DATE: 02/13/19 1152 CASUALTY CLAIM ADJUSTER: VALDO 02/13/19 1152 RPT#: [id number] DC DATE: STATUS: ADM IN [facility] [address] [place] [address] END OF REPORT
[2019-02-13] MEDS ORDERED: ZYVOX600 MG PO (12:01)
[2019-02-13] MEDS ORDERED: MAXIPIME 2 GM/D52 G1 IVPB (12:01)
[2019-02-13] MEDS ORDERED: AMIODARONE HCL200 MG PO (12:02)
[2019-02-13] MEDS ORDERED: ZOFRAN ODT4 MG/UDTAB PO (12:03)
[2019-02-13 13:28] VITALS: BP 143/74
--- NOTE | 2019-02-13 14:19 | NUR ---
Planned d/c home today. Disconnected from [employer] vac [id number] and attached to his home vac. Instructions about functions of home vac, troubleshooting and what to do after home vac is d/c'd discussed with pt. [facility] vac placed in soiled utility room on [place]. rubbish collection supervisor request sent to [facility] AT THE [facility].
--- NOTE | 2019-02-13 16:09 | MORECARE ---
CASE MANAGEMENT DISCHARGE SUMMARY PATIENT: GRAZYNA VALVERDE UNIT: [id number] ADM DATE: 02/06/19 AGE: 73 : 45 SEX: M ROOM/BED: D.2202 AUTHOR: SANFORD,DOC PHYSICIAN: REFERRING PHYSICIAN: DELFINO ZEE MD DATE OF SERVICE: 02/13/19 Discharge Plan Patient Name: GRAZYNA VALVERDE Facility: [facility]:[place] : 1945 Planned Disposition: Home Health Service Anticipated Discharge Date: Discharge Date: 02/13/2019 Expected LOS: Initial Reviewer: [email or web address] Initial Review Date: 02/06/2019 Generated: 02/13/19 5:09 pm Comments DCP- Discharge Planning Updated by [id number]: Eulalia Zavala on 02/13/19 10:[address] Patient will be discharging home today with IV abx , home wound vac and home health with [facility]. [facility] will deliver his Abx to his home. He will have his zyvox due at 1800 tonight and Betty Oakes is aware of this. I spoke with Linda with [facility] and she has him down to be seen tomorrow. [facility] home wound vac has been approved and will be delivered and exchanged prior to DC. I called Marium with Wound care to let her know. CM will continue to follow and assist with DC planning. IMM served and explained DCP- Discharge Planning Updated by [id number]: Eulalia Zavala on 02/09/19 3:[address] Patient's Home Wound Vac has been approved. Patient is sleeping and I did not wake him to sign the Proof of Delivery form. THESE FORMS ARE ON THE FRONT OF HIS CHART if he is DC over the weekend please have patient sign & fax to correct areas. CM will continue to follow and assist with DC planning as needed DCP- Discharge Planning Updated by [id number]: Eulalia Zavala on 02/09/19 3:[address] Lucero's office and he has been seen there as a work in, but he not an official patient. I spoke with Rowan at the office and she stated that there is a list for Dr Lucero, but she could get him in to see his partner Dr Painting. When DC need to make an apt with Dr Painting. He will have to have a referral to go see the equipment maint tech per Sarah DUBOSE DCP- Discharge Planning Updated by [id number]: Eulalia Zavala on 02/09/19 1:[address] [facility] wound vac order sent, awaiting approval DCP- Discharge Planning Updated by [id number]: Eulalia Zavala on 02/08/19 2:[address] Patient Name: GRAZYNA VALVERDE Admission Status: Elective Accout number: [id number] Admission Date: 02-06-2019 : 1945 Admission Diagnosis:TYPE 2 DIABETES MELLITUS WITH OTHER SPECIFIED COMPLICAT Attending: DELFINO ZEE Current LOS: 2 Anticipated DC Date: Planned Disposition: Home Health Service Primary Insurance: [employer] Discharge Planning Comments: CM met with patient to complete initial dc planning assessment. CM educated patient on the CM role and verbal consent given by patient to complete assessment. Patient lives at home with his partner Erasmo, where he was independent at home. At discharge patient plans to return home and feels this is a safe discharge. CM discussed availability of home health, rehab services, and medical equipment. He is current with [facility] and [facility]. He is happy with both of those services. He does have a walker at home. Patient denied known discharge needs at this time. CM will continue to follow and will assist as needed with dc plans/needs. Case Work Aide: Eulalia Zavala DCPIA - Discharge Planning Initial Assessment Updated by [id number]: Eulalia Zavala on 02/08/19 3:29 pm * Is the patient Alert and Oriented? Yes * How many steps to enter\exit or inside your home? * PCP DR LUCERO * Pharmacy [place] * Preadmission Environment Home with Family * ADLs Independent * Equipment Walker * List name and contact numbers for known caregivers / representatives who currently or will assist patient after discharge: ERASMO CARIAS [phone] * Verbal permission to speak to the caregivers and representatives has been obtained from the patient. N/A * Community resources currently utilized Home [facility] Infusion Services * Please name any agencies selected above. [facility] * Additional services required to return to the preadmission environment? Yes * Can the patient safely return to the preadmission environment? Yes * Has this patient been hospitalized within the prior 30 days at any hospital? Yes External Providers [facility] Next Contact Date: Service Request Date: Service Type: Resolution: Reviewer: Comments: Coverage Notice Reviewer: [email or web address] Leonarda Zavala Notice Issued Date-Time: 02/08/2019 15:25 Notice Type: Patient Choice Letter Notice Delivered To: Patient Relationship to Patient: Education Reviewer Name: Delivery Method: - Kirti Days: Prior Verbal Notification: Recipient Understood Notice: Yes Recipient Signature: Yes Med Rec Note Co-signed by Attending: Coverage Notice Comment: CURRENT WITH RICARDO Reviewer: [id number] Leonarda Zavala Notice Issued Date-Time: 02/13/2019 11:20 Notice Type: IM Discharge Notice Notice Delivered To: Patient Relationship to Patient: Education Reviewer Name: Delivery Method: HAND - Hand Delivered Kirti Days: Prior Verbal Notification: Recipient Understood Notice: Yes Recipient Signature: Yes Med Rec Note Co-signed by Attending: Coverage Notice Comment: Last DP export: 02/13/19 10:53 a Patient Name: GRAZYNA VALVERDE Page 14986 at 1609 All edits/amendments must be made on the electronic document DICTATION DATE: 02/13/191607 DIE MAINTENANCE: VALDO 02/13/191607 RPT#: [id number] DC DATE:02/13/19 STATUS: DIS IN [facility] [address] [place] [address] END OF REPORT
--- NOTE | 2019-02-13 16:24 | MORECARE ---
CASE MANAGEMENT DISCHARGE SUMMARY PATIENT: GRAZYNA VALVERDE UNIT: [id number] ADM DATE: 02/06/19 AGE: 73 : 45 SEX: M ROOM/BED: D.2202 AUTHOR: SANFORD,DOC PHYSICIAN: REFERRING PHYSICIAN: DELFINO ZEE MD DATE OF SERVICE: 02/13/19 Discharge Plan Patient Name: GRAZYNA VALVERDE Facility: [facility]:[place] : 1945 Planned Disposition: Home Health Service Anticipated Discharge Date: Discharge Date: 02/13/2019 Expected LOS: Initial Reviewer: [email or web address] Initial Review Date: 02/06/2019 Generated: 02/13/19 5:24 pm Comments DCP- Discharge Planning Updated by [email or web address]: Eulalia Zavala on 02/13/19 3:[address] Received a call from Brigida with [facility] and she stated that they are out of network and she has set everything up with [facility] because that was in network. Brigida Spoke with [facility] and stated that they would have his 1800 dose of abx today. I called Vivien Caldera's QUALITY ASSURANCE TEST PROGRAM MANAGER to let her know and she was going to call the and let him know. DCP- Discharge Planning Updated by [email or web address]: Eulalia Zavala on 02/13/19 10:[address] Patient will be discharging home today with IV abx , home wound vac and home health with [facility]. [facility] will deliver his Abx to his home. He will have his zyvox due at 1800 tonight and Betty Oakes is aware of this. I spoke with Linda with [facility] and she has him down to be seen tomorrow. [facility] home wound vac has been approved and will be delivered and exchanged prior to DC. I called Marium with Wound care to let her know. CM will continue to follow and assist with DC planning. IMM served and explained DCP- Discharge Planning Updated by [email or web address]: Eulalia Zavala on 02/09/19 3:[address] Patient's Home Wound Vac has been approved. Patient is sleeping and I did not wake him to sign the Proof of Delivery form. THESE FORMS ARE ON THE FRONT OF HIS CHART if he is DC over the weekend please have patient sign & fax to correct areas. CM will continue to follow and assist with DC planning as needed DCP- Discharge Planning Updated by [id number]: Eulalia Zavala on 02/09/19 3:[address] Lucero's office and he has been seen there as a work in, but he not an official patient. I spoke with Rowan at the office and she stated that there is a list for Dr Lucero, but she could get him in to see his partner Dr Painting. When DC need to make an apt with Dr Painting. He will have to have a referral to go see the handle and vent machine operator per Sarah DUBOSE DCP- Discharge Planning Updated by [id number]: Eulalia Zavala on 02/09/19 1:[address] [facility] wound vac order sent, awaiting approval DCP- Discharge Planning Updated by [id number]: Eulalia Zavala on 02/08/19 2:[address] Patient Name: GRAZYNA VALVERDE Admission Status: Elective Accout number: [id number] Admission Date: 02-06-2019 : 1945 Admission Diagnosis:TYPE 2 DIABETES MELLITUS WITH OTHER SPECIFIED COMPLICAT Attending: DELFINO ZEE Current LOS: 2 Anticipated DC Date: Planned Disposition: Home Health Service Primary Insurance: [facility] Discharge Planning Comments: CM met with patient to complete initial dc planning assessment. CM educated patient on the CM role and verbal consent given by patient to complete assessment. Patient lives at home with his partner Erasmo, where he was independent at home. At discharge patient plans to return home and feels this is a safe discharge. CM discussed availability of home health, rehab services, and medical equipment. He is current with [facility] and [facility]. He is happy with both of those services. He does have a walker at home. Patient denied known discharge needs at this time. CM will continue to follow and will assist as needed with dc plans/needs. Oil Well Perforator Operator: Euallia Zavala DCPIA - Discharge Planning Initial Assessment Updated by [id number]: Eulalia Zavala on 02/08/19 3:29 pm * Is the patient Alert and Oriented? Yes * How many steps to enter\exit or inside your home? * PCP DR LUCERO * Pharmacy [place] * Preadmission Environment Home with Family * ADLs Independent * Equipment Walker * List name and contact numbers for known caregivers / representatives who currently or will assist patient after discharge: ERASMO CARIAS [phone] * Verbal permission to speak to the caregivers and representatives has been obtained from the patient. N/A * Community resources currently utilized [facility]fusion Services * Please name any agencies selected above. [facility] * Additional services required to return to the preadmission environment? Yes * Can the patient safely return to the preadmission environment? Yes * Has this patient been hospitalized within the prior 30 days at any hospital? Yes Coverage Notice Reviewer: [id number] Leonarda Zavala Notice Issued Date-Time: 02/08/2019 15:25 Notice Type: Patient Choice Letter Notice Delivered To: Patient Relationship to Patient: Tub Chucker Name: Delivery Method: - Kirti Days: Prior Verbal Notification: Recipient Understood Notice: Yes Recipient Signature: Yes Med Rec Note Co-signed by Attending: Coverage Notice Comment: CURRENT WITH RICARDO Reviewer: [id number] Leonarda Zavala Notice Issued Date-Time: 02/13/2019 11:20 Notice Type: IM Discharge Notice Notice Delivered To: Patient Relationship to Patient: Tub Chucker Name: Delivery Method: HAND - Hand Delivered Kirti Days: Prior Verbal Notification: Recipient Understood Notice: Yes Recipient Signature: Yes Med Rec Note Co-signed by Attending: Coverage Notice Comment: Last DP export: 02/13/19 3:09 p Patient Name: GRAZYNA VALVERDE Page [id number] at 1624 All edits/amendments must be made on the electronic document DICTATION DATE: 02/13/19 1624 ROOF MECHANIC: VALDO 02/13/19 1624 RPT#: [id number] DC DATE:02/13/19 STATUS: DIS IN [facility] [address] [place] [address] END OF REPORT
[2019-02-13] MEDS ORDERED: ZYVOX PREMIX600 MG IV (16:27)
--- NOTE | 2019-02-15 15:15 | OP ---
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 PREOPERATIVE DIAGNOSIS: Osteomyelitis of the right foot fourth ray open wound with chronic infection. PROCEDURE: 1. Fourth metatarsal ray resection. 2. Excisional debridement including skin, subcutaneous tissue, portions of fat, fascia, muscle, and bone. Total dimensions approximately 80 cm in total. 3. Application of wound VAC. Note, cultures were taken. INDICATIONS: Mr. Valverde had complete breakdown of the previously excised fifth metatarsal ray. The wound was purulent and foul smelling. Thusly, he was scheduled for the above procedure. OPERATIVE SUMMARY IN DETAIL: After obtaining the appropriate preoperative orthopedic surgery consent as well as anesthetic consultation, evaluation and clearance, the patient was brought to the operating room and placed on the operating table in supine position. After adequate general laryngeal mask airway was administered, no tourniquet was placed about the proximal aspect of the right lower extremity. Right lower extremity was then prepped and draped in routine sterile fashion. At this point, the appropriate timeout was taken with the appropriate patient identifiers, agreed upon by all in the operative suite. After copious irrigation and both scalpel curettage as well as rongeur removal of tissue, a small sagittal saw from the TPS set was made to cut the fourth ray at the base in a slightly diagonal position to try and aid with ambulation in the future. This was taken out in its entirety and sent for further evaluation. Of note, the patient did have purulent tissue in and about the entire MTP joint of this wound and it required further dissection. Third ray was not exposed; however, and good dissection was carried out. Deep cultures were taken at this point. After all nonviable-appearing tissue had been removed, good bleeding was noted. In fact, one intermetatarsal artery had to be cauterized. The wound was completely dried and then a wound VAC was placed. Wound VAC was placed with 125 mm of intermediate suction continuously. Good solid seal was noted. The patient was then awakened and taken to recovery in stable condition. All final needle and sponge counts were correct. TRANSINT:[id number] Voice Confirmation ID: [id number] DOCUMENT ID: [id number] SAADIA MOORE, DELFINO CHAIDEZ at 1515 CC: [id number] DICTATION DATE: 02/15/19 1207 CNC SPECIALIST: 02/15/19 1221 DIS IN 02/13/19 [place] [id number] [place] [id number]
--- NOTE | 2019-02-19 08:55 | MORECARE ---
CASE MANAGEMENT DISCHARGE SUMMARY PATIENT: GRAZYNA VALVERDE UNIT: [id number] ADM DATE: 02/06/19 AGE: 73 : 45 SEX: M ROOM/BED: D.2202 AUTHOR: SANFORD,DOC PHYSICIAN: REFERRING PHYSICIAN: DELFINO ZEE MD DATE OF SERVICE: 02/19/19 Discharge Plan Patient Name: GRAZYNA VALVERDE Facility: [facility]:Valatie : 1945 Planned Disposition: Home Health Service Anticipated Discharge Date: Discharge Date: 02/13/2019 Expected LOS: 0 Initial Reviewer: [email or web address] Initial Review Date: 02/06/2019 Generated: 02/19/19 9:54 am Comments DCP- Discharge Planning Updated by [email or web address]: Eulalia Zavala on 02/13/19 3:[address] Received a call from Brigida with [facility] and she stated that they are out of network and she has set everything up with [facility] because that was in network. Brigida Spoke with Velvet and stated that they would have his 1800 dose of abx today. I called Vivien Caldera's MACHINE II COREMAKER to let her know and she was going to call the and let him know. DCP- Discharge Planning Updated by [email or web address]: Eulalia Zavala on 02/13/19 10:[address] Patient will be discharging home today with IV abx , home wound vac and home health with [facility]. Charly will deliver his Abx to his home. He will have his zyvox due at 1800 tonight and Betty Oakes is aware of this. I spoke with Linda with [facility] and she has him down to be seen tomorrow. [facility] has been approved and will be delivered and exchanged prior to DC. I called Marium with Wound care to let her know. CM will continue to follow and assist with DC planning. IMM served and explained DCP- Discharge Planning Updated by [email or web address]: Eulalia Zavala on 02/09/19 3:[address] Patient's Home Wound Vac has been approved. Patient is sleeping and I did not wake him to sign the Proof of Delivery form. THESE FORMS ARE ON THE FRONT OF HIS CHART if he is DC over the weekend please have patient sign & fax to correct areas. CM will continue to follow and assist with DC planning as needed DCP- Discharge Planning Updated by [email or web address]: Eulalia Zavala on 02/09/19 3:[address] Lucero's office and he has been seen there as a work in, but he not an official patient. I spoke with Rowan at the office and she stated that there is a list for Dr Lucero, but she could get him in to see his partner Dr aPinting. When DC need to make an apt with Dr Painting. He will have to have a referral to go see the sewer hand per Sarah DUBOSE DCP- Discharge Planning Updated by [email or web address]: Eulalia Zavala on 02/09/19 1:[address] [facility] wound vac order sent, awaiting approval DCP- Discharge Planning Updated by [email or web address]: Eulalia Zavala on 02/08/19 2:[address] Patient Name: GRAZYNA VALVERDE Admission Status: Elective Accout number: [id number] Admission Date: 02-06-2019 : 1945 Admission Diagnosis:TYPE 2 DIABETES MELLITUS WITH OTHER SPECIFIED COMPLICAT Attending: DELFINO ZEE Current LOS: 2 Anticipated DC Date: Planned Disposition: Home Health Service Primary Insurance: [facility] Discharge Planning Comments: CM met with patient to complete initial dc planning assessment. CM educated patient on the CM role and verbal consent given by patient to complete assessment. Patient lives at home with his partner Erasmo, where he was independent at home. At discharge patient plans to return home and feels this is a safe discharge. CM discussed availability of home health, rehab services, and medical equipment. He is current with [facility] and [facility]. He is happy with both of those services. He does have a walker at home. Patient denied known discharge needs at this time. CM will continue to follow and will assist as needed with dc plans/needs. Church Organist: Eulalia Zavala DCPIA - Discharge Planning Initial Assessment Updated by [email or web address]: Eulalia Zavala on 02/08/19 3:29 pm * Is the patient Alert and Oriented? Yes * How many steps to enter\exit or inside your home? * PCP DR LUCERO * Pharm[facility] * Preadmission Environment Home with Family * ADLs Independent * Equipment Walker * List name and contact numbers for known caregivers / representatives who currently or will assist patient after discharge: ERASMO CARIAS [phone] * Verbal permission to speak to the caregivers and representatives has been obtained from the patient. N/A * Community resources currently utilized [facility] * Please name any agencies selected above. [facility] * Additional services required to return to the preadmission environment? Yes * Can the patient safely return to the preadmission environment? Yes * Has this patient been hospitalized within the prior 30 days at any hospital? Yes Coverage Notice Reviewer: [id number] Leonarda Zavala Notice Issued Date-Time: 02/08/2019 15:25 Notice Type: Patient Choice Letter Notice Delivered To: Patient Relationship to Patient: Grocery Store Clerk Name: Delivery Method: - Kirti Days: Prior Verbal Notification: Recipient Understood Notice: Yes Recipient Signature: Yes Med Rec Note Co-signed by Attending: Coverage Notice Comment: CURRENT WITH RICARDO Reviewer: [id number] Zavala Notice Issued Date-Time: 02/13/2019 11:20 Notice Type: IM Discharge Notice Notice Delivered To: Patient Relationship to Patient: Grocery Store Clerk Name: Delivery Method: HAND - Hand Delivered Kirti Days: Prior Verbal Notification: Recipient Understood Notice: Yes Recipient Signature: Yes Med Rec Note Co-signed by Attending: Coverage Notice Comment: Last DP export: 02/13/19 3:24 p Patient Name: GRAZYNA VALVERDE Page [id number] at 0855 All edits/amendments must be made on the electronic document DICTATION DATE: 02/19/19 0854 SOCIAL SCIENCE TEACHER: VALDO 02/19/19 0854 RPT#: [id number] DC DATE:02/13/19 STATUS: DIS IN [facility] [address] [place] [address] END OF REPORT
[2019-03-08] MEDS ORDERED: LOPRESSOR25 MG PO (10:18)
[2019-03-08] MEDS ORDERED: HYDROCODON-ACE1 EA10 PO (15:38)
== END 2019-02-13 15:37 | disposition home health service (06) | DRG 616 ==
LOC: D.MS 11:38
PROVIDERS: Family Medicine; Orthopaedic Surgery; ADMIT Orthopaedic Surgery; ATTEND Orthopaedic Surgery
PROC: 0Y6M0ZD Detachment at Right Foot, Partial 4th Ray, Open Approach (ICD-10-PCS; principal; 2019-02-08 13:55)
DX: E11.69 Type 2 diabetes mellitus with other specified complication (principal); E43 Unspecified severe protein-calorie malnutrition; L03.115 Cellulitis of right lower limb; I50.32 Chronic diastolic (congestive) heart failure; M86.171 Other acute osteomyelitis, right ankle and foot; N17.9 Acute kidney failure, unspecified; E11.9 Type 2 diabetes mellitus without complications; I25.10 Atherosclerotic heart disease of native coronary artery without angina pectoris; E78.5 Hyperlipidemia, unspecified; I10 Essential (primary) hypertension; E86.0 Dehydration; Z68.31 Body mass index [BMI] 31.0-31.9, adult; M62.58 Muscle wasting and atrophy, not elsewhere classified, other site

== ENCOUNTER → 2019-02-19 11:21 | Outpatient (CLI) | payer OTHER ==
[2019-02-08 15:28] VITALS: BMI 31.0
[~2019-02-19 11:21] MED LIST changes: +AMIODARONE HCL200 MG PO; +MAXIPIME 2 GM/D52 G1 IVPB; +ZOFRAN ODT4 MG/UDTAB PO; +ZYVOX PREMIX600 MG IV; +ZYVOX600 MG PO
[2019-02-19 11:32] LABS: BASOPHILS 0.5 % (0-2); EOSINOPHILS 2.6 % (0-7); HEMATOCRIT 33.7 % (42.0-54.0); HEMOGLOBIN 10.6 g/dL (13.5-17.5); IMMATURE GRANULOCYTES 0.4 % (0-5); LYMPHOCYTES 17.7 % (15-50); MCH 24.4 pg (26.0-34.0); MCHC 31.5 g/dL (31.0-37.0); MCV 77.6 fL (80.0-100.0); MONOCYTES 8.8 % (2-11); RBC 4.34 10x6/uL (4.20-6.10); RDW 19.9 % (11.5-14.5); WBC 8.1 10x3/uL (4.8-10.8)
[2019-02-19 11:39] LABS: PLATELET COUNT 352 10x3/uL (130-400)
[2019-02-19 11:51] LABS: C-REACTIVE PROTEIN 0.7 mg/dL (0.0-0.9); CREATININE - SERUM 1.3 mg/dL (0.6-1.3)
[2019-02-19 14:05] LABS: ERYTHROCYTE SEDIMENTATION RATE 105 mm/hr (0-20)
== END | disposition home or self-care (01) ==
LOC: D.LABREF 11:21
PROVIDERS: ATTEND Orthopaedic Surgery
DX: M86.8X7 Other osteomyelitis, ankle and foot (principal)

== ENCOUNTER → 2019-02-26 12:45 | Outpatient (CLI) | payer OTHER ==
[2019-02-08 15:28] VITALS: BMI 31.0
[2019-02-26 12:55] LABS: BASOPHILS 0.3 % (0-2); EOSINOPHILS 3.2 % (0-7); HEMATOCRIT 33.1 % (42.0-54.0); HEMOGLOBIN 10.7 g/dL (13.5-17.5); IMMATURE GRANULOCYTES 0.4 % (0-5); LYMPHOCYTES 19.1 % (15-50); MCH 25.5 pg (26.0-34.0); MCHC 32.3 g/dL (31.0-37.0); MEAN PLATELET VOLUME 9.6 fL (7.4-10.4); MONOCYTES 10.5 % (2-11); NEUTROPHILS 66.5 % (40-80); RBC 4.19 10x6/uL (4.20-6.10); RDW 21.8 % (11.5-14.5); WBC 7.5 10x3/uL (4.8-10.8)
[2019-02-26 13:05] LABS: PLATELET COUNT 241 10x3/uL (130-400)
[2019-02-26 13:20] LABS: CREATININE - SERUM 1.3 mg/dL (0.6-1.3); UREA NITROGEN 15 mg/dL (7-18)
[2019-02-26 13:21] LABS: C-REACTIVE PROTEIN < 0.2 mg/dL (0.0-0.9)
[2019-02-26 14:40] LABS: ERYTHROCYTE SEDIMENTATION RATE 64 mm/hr (0-20)
== END | disposition home or self-care (01) ==
LOC: D.LABREF 12:45
PROVIDERS: ATTEND Orthopaedic Surgery
DX: M86.679 Other chronic osteomyelitis, unspecified ankle and foot (principal)

== ENCOUNTER → 2019-03-05 18:44 | Outpatient (CLI) | payer OTHER ==
[2019-02-08 15:28] VITALS: BMI 31.0
[~2019-03-05 18:44] MED LIST changes: +HYDROCODON-ACE1 EA10 PO; +LOPRESSOR25 MG PO
[2019-03-05 19:12] LABS: BASOPHILS 0.8 % (0-2); EOSINOPHILS 5.5 % (0-7); HEMATOCRIT 35.6 % (42.0-54.0); HEMOGLOBIN 11.3 g/dL (13.5-17.5); IMMATURE GRANULOCYTES 1.6 % (0-5); LYMPHOCYTES 19.4 % (15-50); MCH 25.6 pg (26.0-34.0); MCHC 31.7 g/dL (31.0-37.0); MCV 80.7 fL (80.0-100.0); MEAN PLATELET VOLUME 9.9 fL (7.4-10.4); MONOCYTES 11.9 % (2-11); NEUTROPHILS 60.8 % (40-80); RBC 4.41 10x6/uL (4.20-6.10); RDW 23.7 % (11.5-14.5); WBC 8.6 10x3/uL (4.8-10.8)
[2019-03-05 19:20] LABS: PLATELET COUNT 190 10x3/uL (130-400)
[2019-03-05 19:29] LABS: CREATININE - SERUM 1.2 mg/dL (0.6-1.3)
[2019-03-05 21:06] LABS: ERYTHROCYTE SEDIMENTATION RATE 60 mm/hr (0-20)
== END | disposition home or self-care (01) ==
LOC: D.LABREF 18:44
PROVIDERS: ATTEND Orthopaedic Surgery
DX: M86.679 Other chronic osteomyelitis, unspecified ankle and foot (principal)

== ENCOUNTER → 2019-03-08 08:32 | Day surgery (SDC) | payer OTHER ==
[~2019-03-08] VITALS: Ht 182.9 cm; Wt 102.1 kg
[2019-03-08 09:04] LABS: BASOPHILS 0.3 % (0-2); HEMATOCRIT 35.4 % (42.0-54.0); HEMOGLOBIN 11.3 g/dL (13.5-17.5); IMMATURE GRANULOCYTES 1.5 % (0-5); LYMPHOCYTES 18.5 % (15-50); MCHC 31.9 g/dL (31.0-37.0); MCV 81.4 fL (80.0-100.0); MEAN PLATELET VOLUME 9.2 fL (7.4-10.4); MONOCYTES 9.5 % (2-11); NEUTROPHILS 67.2 % (40-80); PLATELET COUNT 194 10x3/uL (130-400); RBC 4.35 10x6/uL (4.20-6.10); RDW 24.6 % (11.5-14.5); WBC 6.6 10x3/uL (4.8-10.8)
[2019-03-08 09:17] LABS: ANION GAP 12.7 mmol/L (8-16); CALCIUM 8.3 mg/dL (8.5-10.1); CREATININE - SERUM 1.4 mg/dL (0.6-1.3); POTASSIUM - SERUM 4.7 mmol/L (3.5-5.1)
[2019-03-08 09:18] LABS: APTT 32.5 SECONDS (22.8-39.4); INR 1.21 (0.85-1.17); PROTIME 14.8 SECONDS (11.6-15.0)
[2019-03-08 10:23] VITALS: BP 122/63; Ht 182.9 cm; Wt 102.1 kg
--- NOTE | 2019-03-09 07:30 | NUR ---
1655 PT STATES HE WILL F/U WITH DR. ZEE'S OFFICE TOMORROW RE: ABX, DRSG CHANGES,AND WOUND VAC. MIDLINE FLUSHED WITH SALINE AND HEPARIN.DISHCARGE INSTRUCTIONS GIVEN. PT STABLE
--- NOTE | 2019-03-13 14:40 | OP ---
PATIENT NAME: GRAZYNA VALVERDE MEDICAL RECORD: [id number] :[birth year] LOCATION:[facility] ADMISSION DATE: SURGEON: DELFINO ZEE MD DATE OF OPERATION: 03/08/2019 PREOPERATIVE DIAGNOSIS: Open wound, left lateral foot with new bone exposure. POSTOPERATIVE DIAGNOSIS: Open wound, left lateral foot with new bone exposure. PROCEDURE: Excisional debridement to include skin, subcutaneous tissue, portions of fat, fascia, muscle and bone, 70 square-cm in aggregate. INDICATIONS: Mr. Valverde is a 73-year-old gentleman who has end-stage vessel disease. We have been trying for quite some time to try and save the medial half of his foot and he has come a long way. The patient did have an infection to include, but not limited to vancomycin-resistant enterococcus and he has now been on the appropriate antibiotics and has done quite nicely. OPERATIVE SUMMARY IN DETAIL: After obtaining the appropriate preoperative orthopedic surgery consent as well as anesthetic consultation, evaluation and clearance, the patient was brought to the operating room and placed on the operating table in supine position. After adequate general laryngeal mask airway was administered, the patient's left lower extremity was prepped and draped in a routine sterile fashion. Attention was first turned to both curettage and scalpel as well as rongeur removal of all nonviable-appearing tissue. It bled nicely. At this point, the base of the fifth metatarsal was exposed in its entirety and upon starting to take it down, it was quite soft and it did appear to be infectious. As it was removed, there was a clear break between this and what I recall normal bone, the base of the fifth. The base of the fifth was taken down in its entirety. The cavity left behind had beautiful bleeding bone. No excess bleeders were noted. This was irrigated substantially. Further soft tissue was taken down again with a curettage, rongeur and scalpel. After a good bleeding bed was established, it was packed with normal saline gauze. Sterile dressings were applied on top of this. The patient was awakened and taken to recovery room in stable condition. All final needle and sponge counts were correct. TRANSINT:[id number] Voice Confirmation ID: [id number] DOCUMENT ID: [id number] DELFINO ZEE MD at 1440 CC: [id number] DICTATION DATE: 03/13/19 0827 VOICE OVER ANNOUNCER: 03/13/19 0937 [facility] 03/08/19 [facility] [address] [place] [address]
== END | disposition home or self-care (01) ==
LOC: D.OPS 08:32 → D.PAN 10:45 → D.OPS 10:45 → D.PAN 14:15 → D.OPS 14:15
PROVIDERS: ATTEND Orthopaedic Surgery
DX: E13.621 Other specified diabetes mellitus with foot ulcer (principal); Z01.812 Encounter for preprocedural laboratory examination

== ENCOUNTER → 2019-03-12 11:54 | Outpatient (CLI) | payer OTHER ==
[2019-03-08 10:23] VITALS: BMI 30.4
[2019-03-12 12:26] LABS: BASOPHILS 0.3 % (0-2); EOSINOPHILS 3.2 % (0-7); HEMATOCRIT 32.9 % (42.0-54.0); HEMOGLOBIN 10.6 g/dL (13.5-17.5); IMMATURE GRANULOCYTES 0.8 % (0-5); LYMPHOCYTES 16.1 % (15-50); MCH 26.2 pg (26.0-34.0); MCHC 32.2 g/dL (31.0-37.0); MCV 81.2 fL (80.0-100.0); MEAN PLATELET VOLUME 9.8 fL (7.4-10.4); MONOCYTES 12.4 % (2-11); NEUTROPHILS 67.2 % (40-80); RBC 4.05 10x6/uL (4.20-6.10); RDW 24.4 % (11.5-14.5)
[2019-03-12 12:27] LABS: PLATELET COUNT 278 10x3/uL (130-400)
[2019-03-12 12:45] LABS: C-REACTIVE PROTEIN 1.3 mg/dL (0.0-0.9)
[2019-03-12 13:32] LABS: ERYTHROCYTE SEDIMENTATION RATE 40 mm/hr (0-20)
== END | disposition home or self-care (01) ==
LOC: D.LABREF 11:54
PROVIDERS: ATTEND Orthopaedic Surgery
DX: M86.9 Osteomyelitis, unspecified (principal)

== ENCOUNTER → 2019-03-19 14:17 | Outpatient (CLI) | payer OTHER ==
[2019-03-08 10:23] VITALS: BMI 30.4
[2019-03-19 14:37] LABS: BASOPHILS 0.2 % (0-2); EOSINOPHILS 2.6 % (0-7); HEMATOCRIT 32.3 % (42.0-54.0); HEMOGLOBIN 10.2 g/dL (13.5-17.5); IMMATURE GRANULOCYTES 0.8 % (0-5); LYMPHOCYTES 16.6 % (15-50); MCHC 31.6 g/dL (31.0-37.0); MCV 82.2 fL (80.0-100.0); MEAN PLATELET VOLUME 9.8 fL (7.4-10.4); MONOCYTES 10.9 % (2-11); NEUTROPHILS 68.9 % (40-80); RBC 3.93 10x6/uL (4.20-6.10); RDW 24.1 % (11.5-14.5); WBC 8.4 10x3/uL (4.8-10.8)
[2019-03-19 14:38] LABS: PLATELET COUNT 346 10x3/uL (130-400)
[2019-03-19 14:51] LABS: C-REACTIVE PROTEIN < 0.2 mg/dL (0.0-0.9); CREATININE - SERUM 1.2 mg/dL (0.6-1.3); UREA NITROGEN 18 mg/dL (7-18)
[2019-03-19 15:48] LABS: ERYTHROCYTE SEDIMENTATION RATE 39 mm/hr (0-20)
== END | disposition home or self-care (01) ==
LOC: D.LABREF 14:17
PROVIDERS: ATTEND Orthopaedic Surgery
DX: M86.8X7 Other osteomyelitis, ankle and foot (principal)

== ENCOUNTER → 2019-03-26 13:28 | Outpatient (CLI) | payer OTHER ==
[2019-03-08 10:23] VITALS: BMI 30.4
[2019-03-26 13:54] LABS: BASOPHILS 0.3 % (0-2); EOSINOPHILS 2.9 % (0-7); HEMATOCRIT 34.8 % (42.0-54.0); HEMOGLOBIN 11.3 g/dL (13.5-17.5); IMMATURE GRANULOCYTES 0.5 % (0-5); LYMPHOCYTES 17.3 % (15-50); MCH 26.3 pg (26.0-34.0); MCHC 32.5 g/dL (31.0-37.0); MCV 80.9 fL (80.0-100.0); MEAN PLATELET VOLUME 9.9 fL (7.4-10.4); PLATELET COUNT 327 10x3/uL (130-400); RDW 23.4 % (11.5-14.5); WBC 7.6 10x3/uL (4.8-10.8)
[2019-03-26 14:05] LABS: C-REACTIVE PROTEIN < 0.2 mg/dL (0.0-0.9); CREATININE - SERUM 1.3 mg/dL (0.6-1.3); UREA NITROGEN 20 mg/dL (7-18)
[2019-03-26 14:51] LABS: ERYTHROCYTE SEDIMENTATION RATE 45 mm/hr (0-20)
== END | disposition home or self-care (01) ==
LOC: D.LABREF 13:28
PROVIDERS: ATTEND Orthopaedic Surgery
DX: E11.9 Type 2 diabetes mellitus without complications (principal); M86.8X7 Other osteomyelitis, ankle and foot

== ENCOUNTER 2019-03-29 08:58 | Outpatient (CLI) | payer OTHER ==
[~2019-03-29] VITALS: Ht 182.9 cm; Wt 102.3 kg
--- NOTE | ~2019-03-29 | HEMODYNAMI ---
PATIENT:GRAZYNA VALVERDE MEDICAL RECORD: [id number] : 45 LOCATION:[facility]ATI ADMISSION DATE: 03/29/19 Generatedon:03/29/201912:28 Patient name: GRAZYNA VALVERDE Patient #: [id number] SSN: DO B: 1945 Date of study: 03/29/2019 Page: Of Hemodynamic Procedure Report Patient Data Patient Demographics Procedure consent was obtained First Name: GRAZYNA Gender: Male Last Name: ABRAM : 1945 Patient #: [id number] Age: 73 year(s) Race: Unknown Additional ID: [id number] Contact details [address]: [address] [place] [address] State: [place] City: [place] Zip code: [address] Past Medical History Allergies: No known allergies Admission Admission Data Admission Date: 03/29/2019 Admission Time: 8:58 Height (in.): 70 BSA: 2.2 (m2) Height (cm.): 177.8 BMI: 32.43 (kg/m2) Weight (lbs.): 226 Weight (kg.): 102.51 Lab Results Lab Result Date: 03/29/2019 Lab Result Time: 0:00 Biochemistry Name Units Result Min Max BUN mg/dl 22 --(----)-* 7 18 Creatinine mg/dl 1.3 --(---*)-- 0.6 1.3 CBC Name Units Result Min Max Hematocrit % 34.7 *-(----)-- 42 54 Hemoglobin g/dl 11.4 *-(----)-- 13.5 17.5 Procedure Procedure Types Cath Procedure Diagnostic Procedure Cardioversion External Procedure Description Procedure Date Procedure Date: 03/29/2019 Procedure Start Time: 12:07 Procedure Staff Name Function Franky Rogers MD Performing Physician Johanne Lacy RT Monitor Gunnar Kwon RT Monitor Cami Colbert RN Nurse Theodora Velarde RN Rural Carrier Associate Meño Corea MD Additional personnel Procedure Data Cath Procedure Fluoroscopy Diagnostic fluoroscopy Total fluoroscopy Time: 0 time: 0 min min Estimated blood loss: 0 ml Procedure Complications No complications Procedure Medications Medication Administration Route Dosage 0.9% NaCl I.V. 100 ml/hr Oxygen etCO2 Nasal cannula 2 l/min Refer to Anesthesia Notes for Sedation Medications Hemodynamics Rest BSA: 2.2 (m2) HGB: 11.4 (g/dl) O2 Consumption: Estimated: 260.63 (ml/min) O2 Consumption indexed: Estimated:118.47 (ml/min/m) Heart Rate: 78 (bpm) Snapshots Pre Cath Intra NCS Post Cath Vital Signs Time Heart Resp SPO2 etCO2 NIBP (mmHg) Rhythm Pain Sedation Rate (ipm) (%) (mmHg) Status Level (bpm) 12:18:16 69 20 100 15.8 148/79(115) A-Flutter 0 (11) 10(A) , No pain 12:21:44 70 18 100 13.5 134/69(100) NSR 0 (11) 5(A) , No pain 12:25:54 78 18 100 11 148/81(115) NSR 0 (11) 10(A) , No pain Medications Time Medication Route Dose Verified Delivered Reason Notes Effective ness by by 12:17:20 0.9% NaCl I.V. 100 Franky Cami used for ml/hr Sue Colbert cam maker 12:17:27 Oxygen etCO2 2 Franky Cami used for Nasal l/min Sue Colbert procedure cannula RN 12:17:33 Refer to Franky Wilkins Anesthesia Sue Rogers MD Notes for Sedation Medications Procedure Log Time Note 12:00:17 Theodora Velarde RN sent for patient. Start room use. 12:08:23 Signed procedure consent form obtained from patient. 12:08:24 Time tracking: Regular hours (M-F 7:00 - 5:00) 12:08:27 Plan of Care:Hemodynamics will remain stable., Cardiac rhythm will remain stable., Comfort level will be maintained., Respiratory function will remain adequate., Patient/ family verbilizes understanding of procedure., Procedure tolerated without complication., Recovers from procedure without complications.. 12:08:30 Procedure Status Elective Heart Cath (OP). 12:10:22 Meño Corea MD present and monitoring patient for TIVA. 12:11:40 Patient arrived from Pre/Post Procedure Room to [facility] 1. Patient remains on bed/stretcher for procedure. 12:11:41 Warm blankets applied, and silvia hugger turned on for patient comfort. 12:11:41 Correct patient and procedure confirmed by team. 12:11:42 ECG and BP/O2 sat monitors applied to patient. 12:11:51 Patient allergic to No known allergies 12:12:07 Patient Height : 70 inches 12:12:11 Patient Weight : 226 lbs 12:15:54 H&P Date Dictated: 03/22/2019 Within 30 days and on chart., H&P Addendum completed by physician on day of procedure. (MUST COMPLETE FOR ALL OUTPATIENTS). 12:15:54 Pre-procedure instructions explained to patient. 12:15:54 Pre-op teaching completed and patient verbalized understanding. 12:15:55 Family in patients room. 12:15:59 Patient NPO since Breakfast. 12:16:02 Is patient on blood thinner?Yes 12:16:06 ACC The patient was administered the following blood thiners within the last 24 hours: Xarelto 12:16:07 Patient diabetic? Yes. 12:16:08 If diabetic: On Metformin? No 12:16:11 Previous problem with sedation/anesthesia? No ? 12:16:12 Snore? Yes 12:16:13 Sleep apnea? No 12:16:14 Deviated septum? No 12:16:14 Opens mouth fully? Yes 12:16:15 Sticks out tongue? Yes 12:16:17 Airway obstruction? No ? 12:16:19 Dentures? No ? 12:16:31 IV patent on arrival in left hand with 0.9% NaCl at [facility]. 12:17:07 Vital chart was started 12:17:20 0.9% NaCl 100 ml/hr I.V. was administered by Cami Colbert RN; used for procedure; 12:17:21 Lab Result : BUN 22 mg/dl 12:17:21 Lab Result : Creatinine 1.3 mg/dl 12:17:21 Lab Result : Hemoglobin 11.4 g/dl 12:17:21 Lab Result : Hematocrit 34.7 % 12:17:24 Lab results completed and on chart. 12:17:26 Alarms reviewed by RBailey NBailey 12:17:27 Oxygen 2 l/min etCO2 Nasal cannula was administered by Cami Filemon RN; used for procedure; 12:17:27 Sharps counted by scrub and verified by R.N. 12:17:33 Refer to Anesthesia Notes for Sedation Medications was administered by Franky Rogers MD; ; 12:17:36 Quick Combo opened to sterile field. 12::23 --------ALL STOP TIME OUT------ 12:: Final Timeout: patient, procedure, and site verified with staff and physician. All members of the team are in agreement. 12::28 Fire Safety Assessment: C--Open oxygen or nitrous oxide is being used. 12:19:31 Physical assessment completed. ASA score P 2 - A patient with mild systemic disease as per Franky Rogers MD. 12:19:35 Sedation plan: TIVA Medication:Propofol 12:20:00 ------Cardioversion------ 12:20:05 Quick combo pads placed on patients chest and back. 12:20:22 Baseline sample Acquired. 12:20:25 Rhythm: atrial flutter 12::26 Full Disclosure recording started 12:20:40 Defibrillator synced and charged to 275 Joules. 12:20:46 Shock delivered. 12:21:05 Patient cardioverted to sinus rhythm . 12:21:15 Procedure ended.(Physican Out) 12:22:29 Fluoroscopy time 00.00 minutes. 12::36 Post-procedure physical assessment completed. ASA score P 2 - A patient with mild systemic disease as per Franky Rogers MD. 12:22:40 Post procedure rhythm: sinus rhythm 12:22:41 Estimated blood loss: 0 ml 12:22:43 Post procedure instruction explained to patient.Patient verbalizes understanding. 12:22:43 Patient needs reinforcement of post procedure teaching. 12:22:58 Procedure and supply charges have been captured, reviewed, submitted and are correct. 12:23:01 Procedure Complication : No complications 12:28:14 Vital chart was stopped 12::14 See physician's report for complete and final results. 12:28:16 Report given to Pre/Post Procedure Room. 12:28:19 Patient transfered to Pre/Post Procedure Room with Bed. 12:28:24 End room use (Document Last) Device Usage Item Manufacture Quantity Catalog Hospital Part Current Minimal Lot# / Name Number Charge Number Stock Stock Adrianne nicholson# Code Quick Edge Systems 1 [id number] Combo Signature Audit [place] Stage Time Signature Unsigned Intra-Procedure 03/29/2019 Johanne Lacy 12:28:54 PM RT(R) Signatures Performing Physician : Signature : Franky Rogers MD Date : Time : Monitor : Johanne Lacy Signature : RT Date : Time : Monitor : Gunnar Cher RT Signature : Date : Time : Nurse : Cami Colbert RN Signature : Date : Time : [address] [place] [address]
[2019-03-29 09:36] VITALS: BP 138/73; Ht 182.9 cm; Wt 102.3 kg
[2019-03-29 11:34] LABS: BASOPHILS 0.5 % (0-2); EOSINOPHILS 2.4 % (0-7); HEMATOCRIT 34.7 % (42.0-54.0); HEMOGLOBIN 11.4 g/dL (13.5-17.5); IMMATURE GRANULOCYTES 0.2 % (0-5); LYMPHOCYTES 15.3 % (15-50); MCH 26.9 pg (26.0-34.0); MCHC 32.9 g/dL (31.0-37.0); MCV 81.8 fL (80.0-100.0); MONOCYTES 8.5 % (2-11); NEUTROPHILS 73.1 % (40-80); PLATELET COUNT 341 10x3/uL (130-400); RBC 4.24 10x6/uL (4.20-6.10); WBC 8.9 10x3/uL (4.8-10.8)
[2019-03-29 11:44] LABS: ANION GAP 13.2 mmol/L (8-16); CALCIUM 8.4 mg/dL (8.5-10.1); CARBON DIOXIDE 23.9 mmol/L (21.0-32.0); CREATININE - SERUM 1.3 mg/dL (0.6-1.3); POTASSIUM - SERUM 5.1 mmol/L (3.5-5.1)
[2019-03-29 12:00] LABS: INR 2.08 (0.85-1.17); PROTIME 22.7 SECONDS (11.6-15.0)
--- NOTE | 2019-03-29 12:35 | NUR ---
PT RECEIVED VIA STRETCHER FROM OVERNIGHT HOUSEPERSON POST SUCCESSFUL CARDIOVERSION. HR NSR RATE 79, BP 121/69, 02 SAT 100 ON 2L/NC. PT DENIES PAIN OR DISCOMFORT. IV PATENT INFUSING VIA ORDERS. OFFERED DRINK AND SANDWICH HE DOESN'T WANT ANYTHING AT THIS TIME. CALL LIGHT IN REACH, DENIES NEEDS.
--- NOTE | 2019-03-29 13:05 | NUR ---
DR FABIAN AT BEDSIDE DISCUSSED W PT PROCEDURE RESULTS AND PLAN OF CARE. HR 84, BP 128/73. ICE CHIPS GIVEN, PT DENIES PAIN OR OTHER NEEDS AT THIS TIME. CALL LIGHT IN REACH
--- NOTE | 2019-03-29 13:20 | NUR ---
DISCHARGE INFORMATION REVIEWED W PT, HE VERBALIZED UNDERSTANDING. IV REMOVED W CATH INTACT. MONITORS AND O2 REMOVED AND PT UP TO DRESS FOR DISCHARGE. 1325 PT TO BR VIA SCOOTER, VOIDING W/O DIFFICULITY
--- NOTE | 2019-03-29 13:32 | NUR ---
PT ASSISTED TO PRIVATE VEHICLE TO FAMILY WAITING PER PERSONAL SCOOTER. HE PREFERRED NOT TO RIDE IN THE . PT HAD ALL OF HIS BELONGINGS.
--- NOTE | 2019-03-30 10:47 | OP ---
PATIENT NAME: GRAZYNA VALVERDE MEDICAL RECORD: [id number] :45 LOCATION:D.CAT ADMISSION DATE: SURGEON: SYLVIA FABIAN MD DATE OF OPERATION: 03/29/2019 DATE OF SERVICE: 03/29/2019 PROCEDURE: DC cardioversion. INDICATION: Atrial fibrillation. PROCEDURE IN DETAIL: IV conscious sedation per anesthesia. He received 1 shock at 275 joules restoring sinus rhythm. OVERALL IMPRESSION: Successful direct current cardioversion from atrial fibrillation to sinus rhythm. TRANSINT:[id number] Voice Confirmation ID: [id number] DOCUMENT ID: [id number] SYLVIA FABIAN MD at 1047 CC: [id number] DICTATION DATE: 03/29/19 1249 TRACTOR OPERATOR BATTERY: 03/29/19 1334 DEP CLI 03/29/[address] [address]
== END 2019-03-29 13:30 | disposition home or self-care (01) ==
LOC: D.CATH 08:58
PROVIDERS: ATTEND Internal Medicine Interventional Cardiology
DX: I48.91 Unspecified atrial fibrillation (principal); Z01.812 Encounter for preprocedural laboratory examination

== ENCOUNTER 2019-04-17 15:58 | Inpatient (IN) | payer OTHER ==
[~2019-04-17] VITALS: Ht 182.9 cm; Wt 95.3 kg
--- NOTE | 2019-04-17 16:13 | NUR ---
RECEIVED PT DIRECT ADMIT FROM SAADIA'S OFFICE. ALERT AND ORIENTED. C/O NAUSEA AND PAIN. ADMITTED WITH INFECTION TO RIGHT FOOT, DRESSING C/D/I.
[2019-04-17 18:26] VITALS: BP 111/64; BMI 28.5
--- NOTE | 2019-04-17 18:47 | NUR ---
ALERT AND ORIENTED, RESTING IN BED. NO C/O PAIN. NO S/S OF ACUTE DISTRESS NOTED. PT DENIES ANY NEEDS AT THIS TIME. CALL LIGHT IN REACH.
--- NOTE | 2019-04-17 20:00 | NUR ---
ASSESSMENT PE FLOWSHEET. IV PATENT LEFT UPPER ARM OF 1/2NS AT 30CC'S/HR. DRSG TO RT FOOT C/D/I. 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 O2 ON 2L/M PER NC. PLACED IN ENTERIC ISOLATION PENDING STOOL RESULTS FOR CDT.
[2019-04-17 20:18] VITALS: BP 122/68
[2019-04-17 20:47] LABS: ERYTHROCYTE SEDIMENTATION RATE 118 mm/hr (0-20)
--- NOTE | 2019-04-18 00:09 | NUR ---
EYES CLOSED RESPIRATIONS WITH EASE AND UNLABORED. DENIES PAIN OR DISCOMFORT. UP AD LAYNE TO BR VOIDS WELL.
[2019-04-18 00:44] VITALS: BP 148/77
--- NOTE | 2019-04-18 04:00 | NUR ---
DRSG CHANGED TO RT FOOT WOUND
[2019-04-18 04:43] VITALS: BP 139/76
[2019-04-18 05:45] LABS: BASOPHILS 0.1 % (0-2); EOSINOPHILS 0.7 % (0-7); HEMATOCRIT 31.2 % (42.0-54.0); HEMOGLOBIN 10.5 g/dL (13.5-17.5); IMMATURE GRANULOCYTES 0.5 % (0-5); LYMPHOCYTES 8.3 % (15-50); MCH 26.6 pg (26.0-34.0); MCHC 33.7 g/dL (31.0-37.0); MCV 79.2 fL (80.0-100.0); MEAN PLATELET VOLUME 8.9 fL (7.4-10.4); MONOCYTES 8.4 % (2-11); RBC 3.94 10x6/uL (4.20-6.10); RDW 20.4 % (11.5-14.5); WBC 17.5 10x3/uL (4.8-10.8)
[2019-04-18 05:53] LABS: PLATELET COUNT 538 10x3/uL (130-400)
--- NOTE | 2019-04-18 06:00 | NUR ---
NO CHANGES IN ASSESSMENT. ISOLATION REMOVED PT DOES NOT MEET CRITERIA FOR CDT
[2019-04-18 06:04] LABS: ANION GAP 14.4 mmol/L (8-16); CALCIUM 8.8 mg/dL (8.5-10.1); CREATININE - SERUM 1.9 mg/dL (0.6-1.3); POTASSIUM - SERUM 5.4 mmol/L (3.5-5.1)
--- NOTE | 2019-04-18 07:15 | NUR ---
PAULINE RECIEVED RESTING IN BED WITH NO NEEDS VOICED. CL IN REACH.
[2019-04-18 08:46] VITALS: BP 127/68
--- NOTE | 2019-04-18 10:28 | NUR ---
DRESSING CHANGED TO RIGHT FOOT, WET TO DRY, 4X4, ABD, KERLIX, TAPE. PAIENT TOLERATED WELL. PAIN CONTROLED WITH TRAMADOL
[2019-04-18 11:44] VITALS: BP 132/71
[2019-04-18 12:57] VITALS: Ht 182.9 cm; Wt 95.3 kg
[2019-04-18 16:51] VITALS: BP 151/74
--- NOTE | 2019-04-18 20:00 | NUR ---
ASSESSMENT PER FLOWSHEET. DRSG TO RT FOOT WOUND C/D/I. IV PATENT RT AC OF 1/2NS AT 30CC'S/HR. SITE CLOEAR. RESTIN QUIETLY DENIES NEEDS SR UP X2 CALL LIGHT WITHIN REACH.
--- NOTE | 2019-04-18 21:45 | NUR ---
MEDS GIVEN PER MAR. SANO=[id number]. HUMALOG INSULIN 10 UNITS SUBC GIVEN PER S/S.
--- NOTE | 2019-04-18 23:29 | NUR ---
C/O PAIN RT FOOT. RATES PAIN LEVEL #6-8. ULTRAM TAB ONE PO GIVEN FOR PAIN CONTROL.
[2019-04-19] VITALS (9 sets, daily range): BP systolic 115–157; BP diastolic 61–75
--- NOTE | 2019-04-19 03:16 | NUR ---
EYES CLOSED RESPIRATIONSD WITH EASE AND UNLABORED. REMAINS NPO PER ORDERS.
[2019-04-19 05:48] LABS: BASOPHILS 0.1 % (0-2); EOSINOPHILS 0.8 % (0-7); HEMATOCRIT 32.7 % (42.0-54.0); IMMATURE GRANULOCYTES 0.4 % (0-5); LYMPHOCYTES 9.6 % (15-50); MCH 26.6 pg (26.0-34.0); MCHC 33.6 g/dL (31.0-37.0); MCV 79.2 fL (80.0-100.0); MEAN PLATELET VOLUME 9.1 fL (7.4-10.4); MONOCYTES 8.6 % (2-11); NEUTROPHILS 80.5 % (40-80); PLATELET COUNT 609 10x3/uL (130-400); RBC 4.13 10x6/uL (4.20-6.10); RDW 20.3 % (11.5-14.5); WBC 17.3 10x3/uL (4.8-10.8)
[2019-04-19 06:05] LABS: ANION GAP 15.8 mmol/L (8-16); CALCIUM 8.5 mg/dL (8.5-10.1); CARBON DIOXIDE 23.9 mmol/L (21.0-32.0); CREATININE - SERUM 1.7 mg/dL (0.6-1.3); POTASSIUM - SERUM 5.7 mmol/L (3.5-5.1)
--- NOTE | 2019-04-19 06:15 | NUR ---
MEDS PER SEP. [id number]. HUMALOG INSULIN 10 UNITS GIVEN SUBC PER S/S
--- NOTE | 2019-04-19 09:01 | NUR ---
CONSENTS SIGNED. PATIENT PLACED IN TEMP. CONTACT ISOLATION. PROVIDED EVERYTHING EXCEPT WASH CLOTHS FOR HIBICLEANS BATH. CL IN REACH. ERASMO AT BEDSIDE. WCTM
--- NOTE | 2019-04-19 11:32 | NUR ---
PATIENT HAS BEEN PREOPED. CL IN REACH. BED ALARM ON. WCTM
--- NOTE | 2019-04-19 13:34 | CN ---
PATIENT NAME:GRAZYNA VALVERDE MEDICAL RECORD: [id number] : 45 LOCATION:D.MS [facility]2235 ADMIT DATE: 04/17/19 ACCOUNT: [id number] CONSULTING PHYSICIAN: EVELINE BRYAN MD REFERRING PHYSICIAN: DELFINO ZEE MD DATE OF CONSULTATION: 04/18/2019 The patient's chart was reviewed. As I understand it, I am asked to see him because of depression. I do not see anything about any acute dangerousness. Nothing about thoughts of harming others or psychotic symptoms. There is nothing about confusion. Given the patient's acute illness and amputation, it would be perfectly natural and appropriate to be depressed. If there is some evidence of dangerousness that needs to be evaluated, please reconsult me. Otherwise, I would view this as an appropriate reaction to a dread full life event and it does not require a psychiatric consultation. TRANSINT:[id number] Voice Confirmation ID: [id number] DOCUMENT ID: [id number] EVELINE BRYAN MD at 1334 CC: [id number] DICTATION DATE: 04/18/19 1639 DENTAL LABORATORY SUPERVISOR: 04/18/192015 ADM IN [facility] [address] [place] [id number]
--- NOTE | 2019-04-19 16:13 | MORECARE ---
CASE MANAGEMENT DISCHARGE SUMMARY PATIENT: GRAZYNA VALVERDE UNIT: [id number] ADM DATE: 04/17/19 AGE: 73 : 45 SEX: M ROOM/BED: D.2235 AUTHOR: SHELIA CHRISTINA PHYSICIAN: REFERRING PHYSICIAN: DELFINO ZEE MD DATE OF SERVICE: 04/19/19 Discharge Plan Patient Name: GRAZYNA VALVERDE [facility] [facility] 1945 Planned Disposition: Anticipated Discharge Date: Discharge Date: Expected LOS: Initial Reviewer: [email or web address] Initial Review Date: 04/19/2019 Generated: 04/19/19 5:13 pm DCPIA - Discharge Planning Initial Assessment Updated by [email or web address]: Larisa Morales on 04/19/19 4:13 pm * Is the patient Alert and Oriented? Yes * PCP [facility] * Preadmission Environment Home with Family * ADLs Independent * Other Equipment KNEE SCOOTER AND WALKER * List name and contact numbers for known caregivers / representatives who currently or will assist patient after discharge: ERASMO, [place], * Community resources currently utilized Home Health * Please name any agencies selected above. CURRENT WITH [facility] * Additional services required to return to the preadmission environment? No * Can the patient safely return to the preadmission environment? Yes * Has this patient been hospitalized within the prior 30 days at any hospital? Yes Patient Name: GRAZYNA VALVERDE Page [phone] at 1613 All edits/amendments must be made on the electronic document DICTATION DATE: 04/19/19 161 THREE KNIFE TRIMMER: VALDO 04/19/19 161 RPT#: [id number] DC DATE: STATUS: ADM IN [facility] [address] [place] [address] END OF REPORT
--- NOTE | 2019-04-19 16:22 | MORECARE ---
CASE MANAGEMENT DISCHARGE SUMMARY PATIENT: GRAZYNA VALVERDE UNIT: [id number] ADM DATE: 04/17/19 AGE: 73 : 45 SEX: M ROOM/BED: D.2235 AUTHOR: SHELIA CHRISTINA PHYSICIAN: REFERRING PHYSICIAN: DELFINO ZEE MD DATE OF SERVICE: 04/19/19 Discharge Plan Patient Name: GRAZYNA VALVERDE Facility: [facility]:[place] : 1945 Planned Disposition: Anticipated Discharge Date: Discharge Date: Expected LOS: Initial Reviewer: [id number] Initial Review Date: 04/19/2019 Generated: 04/19/19 5:22 pm Comments DCP- Discharge Planning Updated by [id number]: Larisa Morales on 04/19/19 3:[address] Patient Name: GRAZYNA VALVERDE Admission Status: Urgent Accout number: [id number] Admission Date: 04-17-2019 : 1945 Admission Diagnosis: Attending: DELFINO ZEE Current LOS: 2 Anticipated DC Date: Planned Disposition: Primary Insurance: [employer] Discharge Planning Comments: CM met with patient at bedside after explaining CM role and obtaining verbal consent. STATES IS CURRENT WITH [facility] AND WOULD LIKE TO RESUME AT TIME OF DISCHARGE. CM TO FOLLOW AND ASSSIT. Construction Project Coordinator: Larisa Morales DCPIA - Discharge Planning Initial Assessment Updated by [email or web address]: Larisa Morales on 04/19/19 4:13 pm * Is the patient Alert and Oriented? Yes * PCP FARO * Preadmission Environment Home with Family * ADLs Independent * Other Equipment KNEE SCOOTER AND WALKER * List name and contact numbers for known caregivers / representatives who currently or will assist patient after discharge: ERASMO, SPOUSE, * Community resources currently utilized Home Health * Please name any agencies selected above. CURRENT WITH [facility] * Additional services required to return to the preadmission environment? No * Can the patient safely return to the preadmission environment? Yes * Has this patient been hospitalized within the prior 30 days at any hospital? Yes Last DP export: 04/19/19 3:13 p Patient Name: GRAZYNA VALVERDE Page 49549 at 1622 All edits/amendments must be made on the electronic document DICTATION DATE: 04/19/191621 DATA INTEGRITY ANALYST: VALDO 04/19/191621 RPT#: [id number] DC DATE: STATUS: ADM IN [facility] [address] [place] [address] END OF REPORT
--- NOTE | 2019-04-19 19:30 | NUR ---
PATIENT LYING IN BED. ALERT AND ORIENTED X4. PATIENT STATES PAIN IS A 5 OUT OF 10. ENCOURAGED PATIENT TO CALL WITH ANY NEEDS. BED IN LOW POSITION, CALL LIGHT WITHIN REACH.
[2019-04-20 01:31] VITALS: BP 143/72
[2019-04-20 05:54] VITALS: BP 150/69
[2019-04-20 06:48] LABS: BASOPHILS 0.1 % (0-2); EOSINOPHILS 1.5 % (0-7); IMMATURE GRANULOCYTES 0.4 % (0-5); LYMPHOCYTES 8.5 % (15-50); MCH 26.1 pg (26.0-34.0); MCHC 32.3 g/dL (31.0-37.0); MCV 80.9 fL (80.0-100.0); NEUTROPHILS 80.5 % (40-80); PLATELET COUNT 585 10x3/uL (130-400); RBC 3.83 10x6/uL (4.20-6.10); RDW 20.3 % (11.5-14.5); WBC 13.8 10x3/uL (4.8-10.8)
[2019-04-20 07:11] LABS: ANION GAP 13.2 mmol/L (8-16); CALCIUM 8.7 mg/dL (8.5-10.1); CARBON DIOXIDE 25.6 mmol/L (21.0-32.0); CREATININE - SERUM 1.5 mg/dL (0.6-1.3)
[2019-04-20 07:12] LABS: POTASSIUM - SERUM 4.8 mmol/L (3.5-5.1)
--- NOTE | 2019-04-20 08:37 | NUR ---
AWAKE AND ALERT. ORIENTED X3. C/O OF RIGHT FOOT PAIN AT THIS TIME. WILL GET PRN. LUNGS ARE CLEAR BILATERALLY, PRODUCTIVE COUGH NOTED WITH DARK BROWN SPUTUM. SKIN IS INTACT WITHOUT REDNESS EXCEPT INCISION TO RIGHT FOOT WHICH HAS A DRY INTACT DRESSING IN PLACE. IV TO LEFT UPPER ARM IS PATENT WTIHOUT REDNESS AT INSERTTION SITE. BREAKFAST SERVED IN ROOM. DENIES NEEDS.
--- NOTE | 2019-04-20 08:48 | NUR ---
REQUESTED AND GIVEN ONE HYDROCODONE PO FOR C/O RIGHT FOOT PAIN LEVEL 7.. WILL MONITOR. REQUESTED AND GIVEN MOM PO FOR C/O CONSTIPATION. WILL MONITOR.
[2019-04-20 09:28] VITALS: BP 132/72
--- NOTE | 2019-04-20 11:21 | NUR ---
RESTING QUIETLY IN BED. DENIES NEEDS.
--- NOTE | 2019-04-20 12:00 | NUR ---
FSBS 314. GIVEN 12 UNITS HUMALOG SUBQ PER SS. DENIES NEEDS.
[2019-04-20 12:32] VITALS: BP 136/65
--- NOTE | 2019-04-20 15:09 | NUR ---
RESTING QUIETLY IN BED. DENIES NEEDS.
--- NOTE | 2019-04-20 15:30 | NUR ---
REQUESTED AND GIVEN ONE HYDROCODONE PO FOR C/O RIGHT FOOT PAIN LEVEL 10. WILL MONITOR. VISITORS AT [facility].
[2019-04-20 16:52] VITALS: BP 169/68
--- NOTE | 2019-04-20 17:00 | NUR ---
FSBS 178. GIVEN 4 UNITS HUMALOG SUBQ FOR SAME. CLARE ALEX SERVED.
--- NOTE | 2019-04-20 19:15 | NUR ---
ATE ONLY A FEW BITES OF DINNER. DENIES NEEDS. NO CHANGES NOTED.
[2019-04-20 20:15] VITALS: BP 177/85
--- NOTE | 2019-04-20 22:39 | NUR ---
patient in bed resting alert and orented able to voice needs and wabnts to staff. iv out resited 22g. to right hand with [address] dressing cdi to right foot. call light and water in reach. bed low.
[2019-04-21 00:06] VITALS: BP 161/74
[2019-04-21 04:02] VITALS: BP 140/77
[2019-04-21 05:26] LABS: BASOPHILS 0.2 % (0-2); HEMATOCRIT 29.8 % (42.0-54.0); HEMOGLOBIN 9.7 g/dL (13.5-17.5); IMMATURE GRANULOCYTES 0.5 % (0-5); LYMPHOCYTES 9.5 % (15-50); MCH 26.2 pg (26.0-34.0); MCHC 32.6 g/dL (31.0-37.0); MCV 80.5 fL (80.0-100.0); MONOCYTES 9.2 % (2-11); NEUTROPHILS 78.6 % (40-80); PLATELET COUNT 538 10x3/uL (130-400); WBC 13.7 10x3/uL (4.8-10.8)
[2019-04-21 05:51] LABS: ANION GAP 12.7 mmol/L (8-16); CALCIUM 8.8 mg/dL (8.5-10.1); CARBON DIOXIDE 25.2 mmol/L (21.0-32.0); CREATININE - SERUM 1.3 mg/dL (0.6-1.3); POTASSIUM - SERUM 4.9 mmol/L (3.5-5.1)
--- NOTE | 2019-04-21 07:40 | NUR ---
PT IS RESTING IN BED WITH EYES OPEN. RESPIRATIONS ARE EVEN AND UNLABORED. DRESSING TO RIGHT FOOT NOTED AND IS C/D/I. PT REPORTS AMPUTATIONS OF TOES TO RIGHT FOOT. PT REPORTS PAIN 05/10. WILL ADDRESS. SEE EMAR. CONTACT ISOLATION PRECAUTIONS IN PLACE AND FOLLOWED. PT DENIES PRESENCE OF N/V/SOB/DYSPNEA AT THIS TIME. BED IS IN THE LOWEST POSITION. CALL LIGHT AND BEDSIDE TABLE ARE WITHIN REACH. SIDE RAILS X 2. PT DENIES FURTHER NEEDS. WILL CONT TO MONITOR.
[2019-04-21 09:16] VITALS: BP 161/86
[2019-04-21 12:30] VITALS: BP 164/89
[2019-04-21 20:40] VITALS: BP 161/78
--- NOTE | 2019-04-21 22:22 | NUR ---
alert and orented able to voice needs and wants to staff. IV to right hand. with 1/2 ns at 30 on room air. telemerty in place. FSBS per orders pt. is wornding why he is not getting lantus he takes 40 units at HS at home. asured pt that this nurse would pass it on in am as well as make a note . educated him to talke with the DR in am.
[2019-04-22 01:10] VITALS: BP 162/81
[2019-04-22 05:18] VITALS: BP 157/78
[2019-04-22 06:23] LABS: BASOPHILS 0.2 % (0-2); EOSINOPHILS 2.2 % (0-7); HEMATOCRIT 29.9 % (42.0-54.0); HEMOGLOBIN 9.7 g/dL (13.5-17.5); IMMATURE GRANULOCYTES 0.7 % (0-5); LYMPHOCYTES 9.6 % (15-50); MCH 26.1 pg (26.0-34.0); MCHC 32.4 g/dL (31.0-37.0); MCV 80.4 fL (80.0-100.0); MEAN PLATELET VOLUME 8.7 fL (7.4-10.4); MONOCYTES 9.1 % (2-11); NEUTROPHILS 78.2 % (40-80); PLATELET COUNT 566 10x3/uL (130-400); RBC 3.72 10x6/uL (4.20-6.10); RDW 19.7 % (11.5-14.5)
[2019-04-22 06:50] LABS: ANION GAP 12.7 mmol/L (8-16); CALCIUM 8.8 mg/dL (8.5-10.1); CARBON DIOXIDE 24.9 mmol/L (21.0-32.0); CREATININE - SERUM 1.3 mg/dL (0.6-1.3); POTASSIUM - SERUM 4.6 mmol/L (3.5-5.1)
--- NOTE | 2019-04-22 08:30 | NUR ---
PT RESTING IN BED WITH FAMILY AT BEDSIDE. NO ACUTE DISTRESS NOTED AT THIS TIME. RATES PAIN 0/10 AT THIS TIME. IV TO RIGHT FOREARM WITH 1/2 NS @ 30ML/HR INFUSING VIA PUMP. SITE WITHOUT REDNESS OR EDEMA. DRESSING WITH RAY WRAP TO RIGHT LOWER EXTREMITY, C/D/I. DENIES FURTHER NEEDS AT THIS TIME. CL WITHIN REACH. ENCOURAGED TO CALL WITH NEEDS. CONTINUE POC
[2019-04-22 08:38] VITALS: BP 138/75
[2019-04-22 12:40] VITALS: BP 153/73
[2019-04-22 17:20] VITALS: BP 143/79
--- NOTE | 2019-04-22 19:13 | NUR ---
IN BED WITH TELEVISION ON, PLEASANT MOOD AND AFFECT. STATES HE IS STARTING TO FEEL ACHEY AND WOULD LIKE PAIN MEDICATION WITH EVENING MEDS. IV TO RIGHT FOREARM. FLUIDS INFUSING VIA ORDERS. REMAINS ON CONTACT ISOLATION. UA WAS COLLECTED. ABLE TO VOICE ALL NEEDS. WILL NOTE ANY CHANGE.
[2019-04-22 20:00] VITALS: BP 190/93
[2019-04-22 20:19] LABS: APPEARANCE CLEAR (CLEAR); COLOR YELLOW (YELLOW); NITRITE NEGATIVE (NEGATIVE); PROTEIN 2+ mg/dL (NEGATIVE)
[2019-04-22 20:20] LABS: BILIRUBIN NEGATIVE (NEGATIVE); GLUCOSE 100 mg/dL (NEGATIVE); KETONE NEGATIVE (NEGATIVE); UROBILINOGEN NORMAL (NORMAL)
[2019-04-22 20:25] LABS: BACTERIA FEW /hpf (NEGATIVE); EPITHELIAL CELLS NSEEN /hpf (0-5); RED CELLS - URINE 0-5 /hpf (0-5); WHITE CELLS - URINE 0-5 /hpf (NEGATIVE)
[2019-04-23] VITALS: BP 115/86
[2019-04-23 04:00] VITALS: BP 157/80
--- NOTE | 2019-04-23 04:06 | NUR ---
I have reviewed this patient and I concur with the Shift Assessment completed by the Licensed Practical Nurse today this shift.
[2019-04-23 06:32] LABS: BASOPHILS 0.2 % (0-2); HEMATOCRIT 29.4 % (42.0-54.0); HEMOGLOBIN 9.5 g/dL (13.5-17.5); IMMATURE GRANULOCYTES 0.9 % (0-5); MCH 25.9 pg (26.0-34.0); MCHC 32.3 g/dL (31.0-37.0); MCV 80.1 fL (80.0-100.0); MEAN PLATELET VOLUME 8.6 fL (7.4-10.4); NEUTROPHILS 74.9 % (40-80); PLATELET COUNT 553 10x3/uL (130-400); RBC 3.67 10x6/uL (4.20-6.10); RDW 19.6 % (11.5-14.5)
[2019-04-23 06:52] LABS: WBC 9.6 10x3/uL (4.8-10.8)
--- NOTE | 2019-04-23 07:12 | NUR ---
AWAKE AND ALERT. ORIENTED X3. NO C/O AT THIS TIME. LUNGS ARE CLEAR BIALTERALLY, NO COUGH NOTED. SKIN IS INTACT WTIHOUT REDNESS EXCEPT INCISION TO RIGHT FOOT WHICH HAS A DRY INTACT DRESSING IN PLACE. IV TO RIGHT AC/FOREARM IS PATENT WTIHOUT REDNESS AT INSERTION SITE. DENIES NEEDS.
[2019-04-23 07:27] LABS: ALBUMIN 1.5 g/dL (3.4-5.0); ANION GAP 14.5 mmol/L (8-16); BILIRUBIN - TOTAL 0.44 mg/dL (0.2-1.3); CALCIUM 8.6 mg/dL (8.5-10.1); CARBON DIOXIDE 24.2 mmol/L (21.0-32.0); CREATININE - SERUM 1.2 mg/dL (0.6-1.3); POTASSIUM - SERUM 4.7 mmol/L (3.5-5.1); PROTEIN - SERUM 6.3 g/dL (6.4-8.2)
--- NOTE | 2019-04-23 09:00 | NUR ---
RASH NOTED TO LEFT FOOT, BACKS OF ARMS. DOES NOT ITCH OR BURN. JULIET LARA APN, NOTIFIED OF SAME. WILL MONITOR.
[2019-04-23 09:43] LABS: ERYTHROCYTE SEDIMENTATION RATE 129 mm/hr (0-20)
--- NOTE | 2019-04-23 11:15 | NUR ---
UP IN BR AT THIS TIME TRYING TO HAVE BM. WILL MONITOR.
[2019-04-23 12:03] VITALS: BP 145/85
--- NOTE | 2019-04-23 13:59 | NUR ---
REQUESTED AND GIVEN ONE HYDROCODONE PO FOR C/O RIGHT FOOT PAIN LEVELL 5. WILL MONITOR.
--- NOTE | 2019-04-23 14:58 | OP ---
PATIENT NAME: GRAZYNA VALVERDE MEDICAL RECORD: [id number] :[birth year] LOCATION:D.MS [id number] ADMISSION DATE:04/17/19 SURGEON: DELFINO ZEE MD DATE OF OPERATION: 04/19/2019 PREOPERATIVE DIAGNOSES: 1. Peripheral vascular disease of the right lower extremity. 2. Osteomyelitis of the right foot. POSTOPERATIVE DIAGNOSES: 1. Peripheral vascular disease of the right lower extremity. 2. Osteomyelitis of the right foot. PROCEDURE: Midfoot amputation. SURGEON: Delfino Zee MD PAN PULLER: Darrick Lucero INTRAOPERATIVE COMPLICATIONS: Essentially none. SUMMARY OF PATHOLOGIC FINDINGS: Consistent with the patient's preoperative radiographs and MRI, the patient has osteomyelitis at the residual base of the 4th and 5th as well as into the distal aspect of the 3rd. The patient had necrosis of the second and first toe. INDICATIONS: Mr. Valverde is a 73-year-old gentleman that we tried very hard to save his second, third, and fourth metatarsals. He was doing extremely well until approximately 3 days ago when he had a recurrence of his infection and ischemic event to his second toe and in his first - great toe. He came to the office and was apparently in early sepsis. He was admitted to the hospital and responded very well to IV antibiotics and the redness in and about his entire lower extremity did localize to his toes. After explaining the risks, hazards, and benefits associated with this, we decided to proceed with the planned transmetatarsal amputation; however, at the time of surgery, it was found that he needed a higher amputation, which resulted in the mid foot amputation. He understands that if this surgery fails, he will have to have a below-knee amputation. OPERATIVE SUMMARY IN DETAIL: After obtaining the appropriate preoperative orthopedic surgery consent as well as anesthetic consultation, evaluation and clearance, the patient was brought to the operating room and placed on the operating table in supine position. After general laryngeal mask airway was administered, the patient's right lower extremity was prepped and draped in routine sterile fashion. Leg was elevated, not exsanguinated. Tourniquet was inflated to 250 mmHg. An incision was carried out to use a plantar flap for a transmetatarsal amputation to help purnima the base of the second, third, and fourth toes. The flap had obvious infection with a red purulent substance. This was cultured. The flap was cut back in dissection and resection was carried back to the mid foot joint that means that the base of the fifth, fourth as well as the third, second and first were all amputated back to the cuneiforms and cuboid. At this level, the tourniquet was deflated and excellent blood supply was noted. This was irrigated. The patient's residual linear incision was completely cleansed back to bleeding healthy tissue. All arterial bleeders were coagulated and high ligated with a stitch. When it was felt that a OPERATIVE REPORT [id number] GRAZYNA VALVERDE generalized oozing only remained, the entire incision was closed with 0 Prolene and 2-0 Prolene. Reapproximation did appear to be healthy. Sterile dressings were applied. The patient was awakened, taken to recovery room in stable condition. All final needle and sponge counts were correct. TRANSINT:[id number] Voice Confirmation ID: [id number] DOCUMENT ID: [id number] SAADIA MOORE, DELFINO CHAIDEZ at 1458 CC: [id number] DICTATION DATE: 04/20/19 1052 SIMPLEX PRINTER INSTALLER: 04/20/19 2139 ADM IN [facility] [address] [place] [id number]
[2019-04-23 17:02] VITALS: BP 152/74
--- NOTE | 2019-04-23 19:42 | NUR ---
NO CHANGES NOTED.
--- NOTE | 2019-04-23 20:00 | NUR ---
ASSESSSMENT PER FLOWSHEET.DRESSING TO RT FOOT INCISION C/D/I. IV PATENT RT AC OF 1/2 NS AT 30CC'S/HR.TELM. SR AT 76.
--- NOTE | 2019-04-23 20:05 | NUR ---
XFJX=711. HUMALOG INSULIN 10 UNITS SUBC GIVEN PER S/S.
[2019-04-23 20:34] VITALS: BP 171/80
--- NOTE | 2019-04-23 23:50 | NUR ---
C/O INCISIONAL PAIN NORCO TAB ONE PO GIVEN FOR PAIN CONTROL. HJNZ=[id number] NO COVERAGE NEEDED. UP AD LAYNE WITH WALKER TO BR VOIDS WELL AND HAD BM.
[2019-04-24 01:22] VITALS: BP 195/87
--- NOTE | 2019-04-24 04:31 | NUR ---
KAMZ=147 HUMALOG INSULIN 4 UNITS GIVEN SUBC PER S/S
[2019-04-24 05:18] VITALS: BP 189/92
[2019-04-24 06:29] LABS: BASOPHILS 0.2 % (0-2); EOSINOPHILS 3.3 % (0-7); HEMATOCRIT 29.5 % (42.0-54.0); HEMOGLOBIN 9.5 g/dL (13.5-17.5); IMMATURE GRANULOCYTES 1.1 % (0-5); LYMPHOCYTES 14.3 % (15-50); MCHC 32.2 g/dL (31.0-37.0); MCV 80.6 fL (80.0-100.0); MEAN PLATELET VOLUME 8.4 fL (7.4-10.4); MONOCYTES 9.3 % (2-11); NEUTROPHILS 71.8 % (40-80); PLATELET COUNT 521 10x3/uL (130-400); RBC 3.66 10x6/uL (4.20-6.10); RDW 19.8 % (11.5-14.5); WBC 9.8 10x3/uL (4.8-10.8)
[2019-04-24 07:00] LABS: ALBUMIN 1.6 g/dL (3.4-5.0); ANION GAP 13.7 mmol/L (8-16); BILIRUBIN - TOTAL 0.42 mg/dL (0.2-1.3); CALCIUM 8.7 mg/dL (8.5-10.1); CARBON DIOXIDE 24.9 mmol/L (21.0-32.0); CREATININE - SERUM 1.3 mg/dL (0.6-1.3); POTASSIUM - SERUM 4.6 mmol/L (3.5-5.1); PROTEIN - SERUM 6.3 g/dL (6.4-8.2)
--- NOTE | 2019-04-24 08:10 | NUR ---
FSBS 191. GIVEN 4 UNITS HUMALOG SUBQ PER SS. AWAKE AND ALERT. ORIENTED X3. NO C/O PAIN AT THIS TIME. LUNGS ARE CLEAR BIALTERALLY, NO COUGH NOTED. SKIN IS INTACT WITHOUT REDNESS EXCEPT AMPUTATION SITE TO RIGHT FOOT WHICH HAS A DRY INTACT DRESSING IN PLACE. RASH TO ALL EXTREMETIES IS STILL PRESENT, DENIES ITCH OR BURNING. WILL CONTINUE TO MONITOR. IV TO RIGHT AC IS PATETN WTIHOUT REDNESS AT INSERTION SITE. DENIES NEEDS. SIGNIFICANT OTHER AT BEDSIDE.
--- NOTE | 2019-04-24 09:30 | NUR ---
ATE ALMOST ALL OF BREAKFAST. DENIES NEEDS. REFUSED MIRALAX TODAY. IN ROOM.
[2019-04-24 10:02] LABS: ERYTHROCYTE SEDIMENTATION RATE 136 mm/hr (0-20)
--- NOTE | 2019-04-24 21:30 | NUR ---
AWAKE,ALERT,NO COMPLAINTS VOCIED. RESP EVEN AND UNLABOREED. NO DISTRESS NOTEDD. IV INFSUING TO MARTIN WITHOUT REDNESS OR EDEMA NOTED. RAY WRAP DRESSING INTACT TO RIGHT FOOT WITHOUT DRAINAGE NOTED. CL IN REACH
[2019-04-24 22:08] VITALS: BP 170/77
[2019-04-25 00:50] VITALS: BP 149/75
--- NOTE | 2019-04-25 01:43 | NUR ---
I have reviewed this patient and I concur with the Shift Assessment completed by the Licensed Practical Nurse today this shift.
[2019-04-25 05:34] VITALS: BP 165/84
[2019-04-25 06:11] LABS: BASOPHILS 0.2 % (0-2); EOSINOPHILS 3.5 % (0-7); HEMATOCRIT 30.2 % (42.0-54.0); HEMOGLOBIN 9.7 g/dL (13.5-17.5); IMMATURE GRANULOCYTES 1.3 % (0-5); LYMPHOCYTES 17.4 % (15-50); MCH 25.8 pg (26.0-34.0); MCHC 32.1 g/dL (31.0-37.0); MCV 80.3 fL (80.0-100.0); MEAN PLATELET VOLUME 8.3 fL (7.4-10.4); MONOCYTES 10.2 % (2-11); NEUTROPHILS 67.4 % (40-80); PLATELET COUNT 477 10x3/uL (130-400); RBC 3.76 10x6/uL (4.20-6.10); RDW 19.7 % (11.5-14.5); WBC 8.4 10x3/uL (4.8-10.8)
[2019-04-25 06:28] LABS: ALBUMIN 1.6 g/dL (3.4-5.0); ANION GAP 9.5 mmol/L (8-16); BILIRUBIN - TOTAL 0.42 mg/dL (0.2-1.3); CALCIUM 8.6 mg/dL (8.5-10.1); CREATININE - SERUM 1.3 mg/dL (0.6-1.3); POTASSIUM - SERUM 4.5 mmol/L (3.5-5.1); PROTEIN - SERUM 7.3 g/dL (6.4-8.2)
--- NOTE | 2019-04-25 07:49 | MORECARE ---
CASE MANAGEMENT DISCHARGE SUMMARY PATIENT: GRAZYNA VALVERDE UNIT: [id number] ADM DATE: 04/17/19 AGE: 73 : 45 SEX: M ROOM/BED: D.2235 AUTHOR: SANFORD,DOC PHYSICIAN: REFERRING PHYSICIAN: DELFINO ZEE MD DATE OF SERVICE: 04/25/19 Discharge Plan Patient Name: GRAZYNA VALVERDE Facility: [facility]:[place] : 1945 Planned Disposition: Anticipated Discharge Date: Discharge Date: Expected LOS: Initial Reviewer: [email or web address] Initial Review Date: 04/19/2019 Generated: 04/25/19 8:49 am DCP- Discharge Planning Updated by [email or web address]: Larisa Morales on 04/19/19 3:[address] Patient Name: GRAZYNA VALVERDE Admission Status: Urgent Accout number: [id number] Admission Date: 04-17-2019 : 1945 Admission Diagnosis: Attending: DELFINO ZEE Current LOS: 2 Anticipated DC Date: Planned Disposition: Primary Insurance: [employer] Discharge Planning Comments: CM met with patient at bedside after explaining CM role and obtaining verbal consent. STATES IS CURRENT WITH [facility] AND WOULD LIKE TO RESUME AT TIME OF DISCHARGE. CM TO FOLLOW AND ASSSIT. Sprayer Automatic Spray Machine: Larisa Morales DCPIA - Discharge Planning Initial Assessment Updated by [email or web address]: Larisa Morales on 04/19/19 4:13 pm * Is the patient Alert and Oriented? Yes * PCP FARO * Preadmission Environment Home with Family * ADLs Independent * Other Equipment KNEE SCOOTER AND WALKER * List name and contact numbers for known caregivers / representatives who currently or will assist patient after discharge: ERASMO, SPOUSE, * Community resources currently utilized Home Health * Please name any agencies selected above. CURRENT WITH [facility] * Additional services required to return to the preadmission environment? No * Can the patient safely return to the preadmission environment? Yes * Has this patient been hospitalized within the prior 30 days at any hospital? Yes External Providers External Provider: [facility] Next Contact Date: Service Request Date: Service Type: Resolution: Reviewer: Comments: Coverage Notice Reviewer: [email or web address] - Larisa Morales Notice Issued Date-Time: 04/24/2019 15:49 Notice Type: IM Discharge Notice Notice Delivered To: Patient Relationship to Patient: Medic Technician Name: Delivery Method: HAND - Hand Delivered Kirti Days: Prior Verbal Notification: Recipient Understood Notice: Yes Recipient Signature: Yes Med Rec Note Co-signed by Attending: Coverage Notice Comment: Last DP export: 04/19/19 3:22 p Patient Name: GRAZYNA VALVERDE Page [phone] at 0749 All edits/amendments must be made on the electronic document DICTATION DATE: 04/25/1949 HUMAN FACTORS ERGONOMIST: VALDO 04/25/19 0749 RPT#: [id number] DC DATE: STATUS: ADM IN [facility] [address] [place] [address] END OF REPORT
--- NOTE | 2019-04-25 08:03 | MORECARE ---
CASE MANAGEMENT DISCHARGE SUMMARY PATIENT: GRAZYNA VALVERDE UNIT: [id number] ADM DATE: 04/17/19 AGE: 73 : 45 SEX: M ROOM/BED: D.2235 AUTHOR: SANFORD,DOC PHYSICIAN: REFERRING PHYSICIAN: DELFINO ZEE MD DATE OF SERVICE: 04/25/19 Discharge Plan Patient Name: GRAZYNA VALVERDE Facility: [facility]:[place] : 1945 Planned Disposition: Anticipated Discharge Date: Discharge Date: Expected LOS: Initial Reviewer: [email or web address] Initial Review Date: 04/19/2019 Generated: 04/25/19 9:03 am DCP- Discharge Planning Updated by [email or web address]: Larisa Morales on 04/19/19 3:[address] Patient Name: GRAZYNA VALVERDE Admission Status: Urgent Accout number: [id number] Admission Date: 04-17-2019 : 1945 Admission Diagnosis: Attending: DELFINO ZEE Current LOS: 2 Anticipated DC Date: Planned Disposition: Primary Insurance: [employer] Discharge Planning Comments: CM met with patient at bedside after explaining CM role and obtaining verbal consent. STATES IS CUR[facility] AND WOULD LIKE TO RESUME AT TIME OF DISCHARGE. CM TO FOLLOW AND ASSSIT. Retail Services Professional: Larisa Morales DCPIA - Discharge Planning Initial Assessment Updated by [email or web address]: Larisa Morales on 04/19/19 4:13 pm * Is the patient Alert and Oriented? Yes * PCP FARO * Preadmission Environment Home with Family * ADLs Independent * Other Equipment KNEE SCOOTER AND WALKER * List name and contact numbers for known caregivers / representatives who currently or will assist patient after discharge: ERASMO, SPOUSE, * Community resources currently utilized Home Health * Please name any agencies selected above. [facility] * Additional services required to return to the preadmission environment? No * Can the patient safely return to the preadmission environment? Yes * Has this patient been hospitalized within the prior 30 days at any hospital? Yes External Providers External Provider: [facility] Next Contact Date: Service Request Date: Service Type: Resolution: Reviewer: Comments: Coverage Notice Reviewer: [email or web address] Leonarda Morales Notice Issued Date-Time: 04/24/2019 15:49 Notice Type: IM Discharge Notice Notice Delivered To: Patient Relationship to Patient: Doctor Of Podiatric Medicine Name: Delivery Method: HAND - Hand Delivered Kirti Days: Prior Verbal Notification: Recipient Understood Notice: Yes Recipient Signature: Yes Med Rec Note Co-signed by Attending: Coverage Notice Comment: Last DP export: 04/25/19 6:49 a Patient Name: GRAZYNA VALVERDE Page [phone] at 0803 All edits/amendments must be made on the electronic document DICTATION DATE: 04/25/19 08 COOK SPECIALTY FOREIGN FOOD: VALDO 04/25/19 0803 RPT#: [id number] DC DATE: STATUS: ADM IN [facility] [address] [place] [address] END OF REPORT
--- NOTE | 2019-04-25 08:10 | NUR ---
PT RESTING IN BED. DENIES PAIN. "WAITING ON BREAKFAST" NO S/S OF ACUTE DISTRESS. CL IN PLACE. AT .
--- NOTE | 2019-04-25 08:10 | MORECARE ---
CASE MANAGEMENT DISCHARGE SUMMARY PATIENT: GRAZYNA VALVERDE UNIT: [id number] ADM DATE: 04/17/19 AGE: 73 : 45 SEX: M ROOM/BED: D.2235 AUTHOR: SANFORD,DOC PHYSICIAN: REFERRING PHYSICIAN: DELFINO ZEE MD DATE OF SERVICE: 04/25/19 Discharge Plan Patient Name: GRAZYNA VALVERDE Facility: [facility]:[place] : 1945 Planned Disposition: Anticipated Discharge Date: Discharge Date: Expected LOS: Initial Reviewer: [email or web address] Initial Review Date: 04/19/2019 Generated: 04/25/19 9:09 am Comments DCP- Discharge Planning Updated by [id number]: Jessica Huang on 04/25/19 7:[address] Anticipate discharge today. I spoke with Betty Oakes with [facility] and clinical faxed. I faxed clinical to [facility]. I will call [facility] when they open. CM will continue to follow and assist with discharge planning/needs. DCP- Discharge Planning Updated by [email or web address]: Larisa Morales on 04/19/19 3:[address] Patient Name: GRAZYNA VALVERDE Admission Status: Urgent Accout number: [id number] Admission Date: 04-17-2019 : 1945 Admission Diagnosis: Attending: DELFINO ZEE Current LOS: 2 Anticipated DC Date: Planned Disposition: [facility] Discharge Planning Comments: CM met with patient at bedside after explaining CM role and obtaining verbal consent. STATES IS CURRENT WITH [facility] AND WOULD LIKE TO RESUME AT TIME OF DISCHARGE. CM TO FOLLOW AND ASSSIT. Second Shift Supervisor: Larisa Morales DCPIA - Discharge Planning Initial Assessment Updated by [email or web address]: Larisa Morales on 04/19/19 4:13 pm * Is the patient Alert and Oriented? Yes * PCP FARO * Preadmission Environment Home with Family * ADLs Independent * Other Equipment KNEE SCOOTER AND WALKER * List name and contact numbers for known caregivers / representatives who currently or will assist patient after discharge: ERASMO, [place], * Community resources currently utilized Home Health * Please name any agencies selected above. CURRENT WITH [facility] * Additional services required to return to the preadmission environment? No * Can the patient safely return to the preadmission environment? Yes * Has this patient been hospitalized within the prior 30 days at any hospital? Yes Coverage Notice Reviewer: [email or web address] Leonarda Morales Notice Issued Date-Time: 04/24/2019 15:49 Notice Type: IM Discharge Notice Notice Delivered To: Patient Relationship to Patient: Shooting Gallery Operator Name: Delivery Method: HAND - Hand Delivered Kirti Days: Prior Verbal Notification: Recipient Understood Notice: Yes Recipient Signature: Yes Med Rec Note Co-signed by Attending: Coverage Notice Comment: Last DP export: 04/25/19 7:03 a Patient Name: GRAZYNA VALVERDE Page 82052 at 0810 All edits/amendments must be made on the electronic document DICTATION DATE: 04/25/19808 GEAR DESIGN ENGINEER: VALDO 04/25/19808 RPT#: [id number] DC DATE: STATUS: ADM IN [facility] [address] [place] [address] END OF REPORT
[2019-04-25 09:00] VITALS: BP 133/70
[2019-04-25] MEDS ORDERED: HYDROCODON-ACE1 EA10 PO (09:04)
--- NOTE | 2019-04-25 09:11 | MORECARE ---
CASE MANAGEMENT DISCHARGE SUMMARY PATIENT: GRAZYNA VALVERDE UNIT: [id number] ADM DATE: 04/17/19 AGE: 73 : 45 SEX: M ROOM/BED: D.2235 AUTHOR: SANFORD,DOC PHYSICIAN: REFERRING PHYSICIAN: DELFINO ZEE MD DATE OF SERVICE: 04/25/19 Discharge Plan Patient Name: GRAZYNA VALVERDE Facility: [facility]:[place] : 1945 Planned Disposition: Anticipated Discharge Date: Discharge Date: Expected LOS: Initial Reviewer: [id number] Initial Review Date: 04/19/2019 Generated: 04/25/19 10:10 am Comments DCP- Discharge Planning Updated by [email or web address]: Jessica Huang on 04/25/19 7:[address] Anticipate discharge today. I spoke with Betty Oakes with [facility] and clinical faxed. I faxed clinical to [facility]. I will call [facility] when they open. CM will continue to follow and assist with discharge planning/needs. DCP- Discharge Planning Updated by [email or web address]: Larisa Morales on 04/19/19 3:[address] Patient Name: GRAZYNA VALVERDE Admission Status: Urgent Accout number: [id number] Admission Date: 04-17-2019 : 1945 Admission Diagnosis: Attending: DELFINO ZEE Current LOS: 2 Anticipated DC Date: Planned Disposition: [facility] Discharge Planning Comments: CM met with patient at bedside after explaining CM role and obtaining verbal consent. STATES IS CURRENT WITH [facility] AND WOULD LIKE TO RESUME AT TIME OF DISCHARGE. CM TO FOLLOW AND ASSSIT. Screw Machine Tool Setter: Larisa Morales DCPIA - Discharge Planning Initial Assessment Updated by [id number]: Larisa Morales on 04/19/19 4:13 pm * Is the patient Alert and Oriented? Yes * PCP FARO * Preadmission Environment Home with Family * ADLs Independent * Other Equipment KNEE SCOOTER AND WALKER * List name and contact numbers for known caregivers / representatives who currently or will assist patient after discharge: ERASMO, [place], * Community resources currently utilized Home Health * Please name any agencies selected above. CURRENT WITH [facility] * Additional services required to return to the preadmission environment? No * Can the patient safely return to the preadmission environment? Yes * Has this patient been hospitalized within the prior 30 days at any hospital? Yes External Providers External Provider: [facility] Next Contact Date: Service Request Date: Service Type: Resolution: Reviewer: Comments: External Provider: [facility] Next Contact Date: Service Request Date: Service Type: Resolution: Reviewer: Comments: Coverage Notice Reviewer: [id number] Leonarda Morales Notice Issued Date-Time: 04/24/2019 15:49 Notice Type: IM Discharge Notice Notice Delivered To: Patient Relationship to Patient: Senior Architect/Design Manager Name: Delivery Method: HAND - Hand Delivered Kirti Days: Prior Verbal Notification: Recipient Understood Notice: Yes Recipient Signature: Yes Med Rec Note Co-signed by Attending: Coverage Notice Comment: Last DP export: 04/25/19 7:10 a Patient Name: GRAZYNA VALVERDE Page [phone] at 0911 All edits/amendments must be made on the electronic document DICTATION DATE: 04/25/19909 ANIMAL CARE PROVIDER: VALDO 04/25/19909 RPT#: [id number] DC DATE: STATUS: ADM IN [facility] [address] [place] [address] END OF REPORT
--- NOTE | 2019-04-25 09:45 | MORECARE ---
CASE MANAGEMENT DISCHARGE SUMMARY PATIENT: GRAZYNA VALVERDE UNIT: [id number] ADM DATE: 04/17/19 AGE: 73 : 45 SEX: M ROOM/BED: D.2235 AUTHOR: SANFORD,DOC PHYSICIAN: REFERRING PHYSICIAN: DELFINO ZEE MD DATE OF SERVICE: 04/25/19 Discharge Plan Patient Name: GRAZYNA VALVERDE Facility: [facility]:[place] : 1945 Planned Disposition: Home with Home Health Anticipated Discharge Date: 04/25/19 Discharge Date: Expected LOS: 8 Initial Reviewer: [email or web address] Initial Review Date: 04/19/2019 Generated: 04/25/19 10:44 am Comments DCP- Discharge Planning Updated by [email or web address]: Jessica Huang on 04/25/19 8:[address] HH [facility] to [facility] and spoke with Leann. [facility] is no longer in network with patient's insurance (per Betty Oakes). I spoke with patient and he would like to change to someone in his network, he agrees to see if [facility] will accept. I spoke with Jeff and order faxed. CM will continue to follow and assist with discharge planning/needs. DCP- Discharge Planning Updated by [id number]: Jessica Huang on 04/25/19 7:[address] Anticipate discharge today. I spoke with Betty Oakes with [facility] and clinical faxed. I faxed clinical to [facility]. I will call [facility] when they open. CM will continue to follow and assist with discharge planning/needs. DCP- Discharge Planning Updated by [id number]: Larisa Morales on 04/19/19 3:[address] Patient Name: GRAZYNA VALVERDE Admission Status: Urgent Accout number: [id number] Admission Date: 04-17-2019 : 1945 Admission Diagnosis: Attending: DELFINO ZEE Current LOS: 2 Anticipated DC Date: Planned Disposition: Primary Insurance: NOVASYSMCR Discharge Planning Comments: CM met with patient at bedside after explaining CM role and obtaining verbal consent. STATES IS CURRENT WITH [facility] AND WOULD LIKE TO RESUME AT TIME OF DISCHARGE. CM TO FOLLOW AND ASSSIT. Card Scraper: Larisa Morales DCPIA - Discharge Planning Initial Assessment Updated by [id number]: Larisa Morales on 04/19/19 4:13 pm * Is the patient Alert and Oriented? Yes * PCP FARO * Preadmission Environment Home with Family * ADLs Independent * Other Equipment KNEE SCOOTER AND WALKER * List name and contact numbers for known caregivers / representatives who currently or will assist patient after discharge: BERLIN ZIMMERMAN, * Community resources currently utilized Home Health * Please name any agencies selected above. CURRENT WITH [facility] * Additional services required to return to the preadmission environment? No * Can the patient safely return to the preadmission environment? Yes * Has this patient been hospitalized within the prior 30 days at any hospital? Yes Coverage Notice Reviewer: [id number] - Larisa Morales Notice Issued Date-Time: 04/24/2019 15:49 Notice Type: IM Discharge Notice Notice Delivered To: Patient Relationship to Patient: Health Care Marketing Manager Name: Delivery Method: HAND - Hand Delivered Kirti Days: Prior Verbal Notification: Recipient Understood Notice: Yes Recipient Signature: Yes Med Rec Note Co-signed by Attending: Coverage Notice Comment: Last DP export: 04/25/19 8:11 a Patient Name: GRAZYNA VALVERDE Page [phone] at 0945 All edits/amendments must be made on the electronic document DICTATION DATE: 04/25/19943 TITLE INSURANCE SALES REPRESENTATIVE: VALDO 04/25/19943 RPT#: [id number] DC DATE: STATUS: ADM IN [facility] [address] [place] [address] END OF REPORT
--- NOTE | 2019-04-25 10:09 | MORECARE ---
CASE MANAGEMENT DISCHARGE SUMMARY PATIENT: GRAZYNA VALVERDE UNIT: [id number] ADM DATE: 04/17/19 AGE: 73 : 45 SEX: M ROOM/BED: D.2235 AUTHOR: SANFORD,DOC PHYSICIAN: REFERRING PHYSICIAN: DELFINO ZEE MD DATE OF SERVICE: 04/25/19 Discharge Plan Patient Name: GRAZYNA VALVERDE Facility: [facility]:[place] : 1945 Planned Disposition: Home with Home Health Anticipated Discharge Date: 04/25/19 Discharge Date: Expected LOS: 8 Initial Reviewer: [email or web address] Initial Review Date: 04/19/2019 Generated: 04/25/19 11:08 am Comments DCP- Discharge Planning Updated by [email or web address]: Jessica Huang on 04/25/19 8:[address] HH order faxed to [facility] and spoke with Leann. [facility] is no longer in network with patient's insurance (per Betty Oakes). I spoke with patient and he would like to change to someone in his network, he agrees to see if [facility] will accept. I spoke with Jeff and order faxed. CM will continue to follow and assist with discharge planning/needs. DCP- Discharge Planning Updated by [id number]: Jessica Huang on 04/25/19 7:[address] Anticipate discharge today. I spoke with Betty Oakes with [facility] and clinical faxed. I faxed clinical to [facility]. I will call [facility] when they open. CM will continue to follow and assist with discharge planning/needs. DCP- Discharge Planning Updated by [email or web address]: Larisa Morales on 04/19/19 3:[address] Patient Name: GRAZYNA VALVERDE Admission Status: Urgent Accout number: [id number] Admission Date: 04-17-2019 : 1945 Admission Diagnosis: Attending: DELFINO ZEE Current LOS: 2 Anticipated DC Date: Planned Disposition: Primary Insurance: NOVASYSMCR Discharge Planning Comments: CM met with patient at bedside after explaining CM role and obtaining verbal consent. STATES IS CURRENT WITH [facility] AND WOULD LIKE TO RESUME AT TIME OF DISCHARGE. CM TO FOLLOW AND ASSSIT. Fixer Boarding Room: Larisa Morales DCPIA - Discharge Planning Initial Assessment Updated by [email or web address]: Larisa Morales on 04/19/19 4:13 pm * Is the patient Alert and Oriented? Yes * PCP FARO * Preadmission Environment Home with Family * ADLs Independent * Other Equipment KNEE SCOOTER AND WALKER * List name and contact numbers for known caregivers / representatives who currently or will assist patient after discharge: BERLIN ZIMMERMAN, * Community resources currently utilized Home Health * Please name any agencies selected above. [facility] * Additional services required to return to the preadmission environment? No * Can the patient safely return to the preadmission environment? Yes * Has this patient been hospitalized within the prior 30 days at any hospital? Yes External Providers External Provider: OTHER-OTHER Next Contact Date: Service Request Date: Service Type: Resolution: Reviewer: Comments: Coverage Notice Reviewer: [id number] - Larisahoa Morales Notice Issued Date-Time: 04/24/2019 15:49 Notice Type: IM Discharge Notice Notice Delivered To: Patient Relationship to Patient: Test Man Name: Delivery Method: HAND - Hand Delivered Kirti Days: Prior Verbal Notification: Recipient Understood Notice: Yes Recipient Signature: Yes Med Rec Note Co-signed by Attending: Coverage Notice Comment: Last DP export: 04/25/19 8:45 a Patient Name: GRAZYNA VALVERDE Page [phone] at 1009 All edits/amendments must be made on the electronic document DICTATION DATE: 04/25/19 1008 ACCOUNTING ADMINISTRATIVE ASSISTANT: VALDO 04/25/19 1008 RPT#: [id number] DC DATE: STATUS: ADM IN [facility] [address] [place] [address] END OF REPORT
[2019-04-25 12:05] VITALS: BP 163/82
--- NOTE | 2019-04-25 12:09 | MORECARE ---
CASE MANAGEMENT DISCHARGE SUMMARY PATIENT: GRAZYNA VALVERDE UNIT: [id number] ADM DATE: 04/17/19 AGE: 73 : 45 SEX: M ROOM/BED: D.2235 AUTHOR: SANFORD,DOC PHYSICIAN: REFERRING PHYSICIAN: DELFINO ZEE MD DATE OF SERVICE: 04/25/19 Discharge Plan Patient Name: GRAZYNA VALVERDE Facility: [facility]:[place] : 1945 Planned Disposition: Home with Home Health Anticipated Discharge Date: 04/25/19 Discharge Date: Expected LOS: 8 Initial Reviewer: [email or web address] Initial Review Date: 04/19/2019 Generated: 04/25/19 1:09 pm Comments DCP- Discharge Planning Updated by [id number]: Jessica Huang on 04/25/19 8:[address] HH order faxed to [facility] and spoke with Leann. [facility] is no longer in network with patient's insurance (per Betty Oakes). I spoke with patient and he would like to change to someone in his network, he agrees to see if [facility] will accept. I spoke with Jeff and order faxed. CM will continue to follow and assist with discharge planning/needs. DCP- Discharge Planning Updated by [id number]: Jessica Huang on 04/25/19 7:[address] Anticipate discharge today. I spoke with Betty Oakes with [facility] and clinical faxed. I faxed clinical to [facility]. I will call [facility] when they open. CM will continue to follow and assist with discharge planning/needs. DCP- Discharge Planning Updated by [id number]: Larisa Morales on 04/19/19 3:[address] Patient Name: GRAZYNA VALVERDE Admission Status: Urgent Accout number: [id number] Admission Date: 04-17-2019 : 1945 Admission Diagnosis: Attending: DELFINO ZEE Current LOS: 2 Anticipated DC Date: Planned Disposition: Primary Insurance: NOVASYSMCR Discharge Planning Comments: CM met with patient at bedside after explaining CM role and obtaining verbal consent. STATES IS CURRENT WITH [facility] AND WOULD LIKE TO RESUME AT TIME OF DISCHARGE. CM TO FOLLOW AND ASSSIT. Property Economist: Larisa Morales DCPIA - Discharge Planning Initial Assessment Updated by [id number]: Larisa Morales on 04/19/19 4:13 pm * Is the patient Alert and Oriented? Yes * PCP FARO * Preadmission Environment Home with Family * ADLs Independent * Other Equipment KNEE SCOOTER AND WALKER * List name and contact numbers for known caregivers / representatives who currently or will assist patient after discharge: ERASMO, [place], * Community resources currently utilized Home Health * Please name any agencies selected above. [facility] * Additional services required to return to the preadmission environment? No * Can the patient safely return to the preadmission environment? Yes * Has this patient been hospitalized within the prior 30 days at any hospital? Yes External Providers External Provider: [facility] Next Contact Date: Service Request Date: Service Type: Resolution: Reviewer: Comments: Coverage Notice Reviewer: [id number] Leonarda [place]is[place] Morales Notice Issued Date-Time: 04/24/2019 15:49 Notice Type: IM Discharge Notice Notice Delivered To: Patient Relationship to Patient: Voip Network Technician Name: Delivery Method: HAND - Hand Delivered Kirti Days: Prior Verbal Notification: Recipient Understood Notice: Yes Recipient Signature: Yes Med Rec Note Co-signed by Attending: Coverage Notice Comment: Last DP export: 04/25/19 9:08 a Patient Name: GRAZYNA VALVERDE Page [phone] at 1209 All edits/amendments must be made on the electronic document DICTATION DATE: 04/25/19 120 PATIENT CARRIER: VALDO 04/25/19 1209 RPT#: [id number] DC DATE: STATUS: ADM IN [facility] [address] [place] [address] END OF REPORT
--- NOTE | 2019-04-25 14:22 | NUR ---
IC DC PER SPN. TIP IN TACT. DRESSING CHANGE DONE PER MD ORDER. DC INSTRUCTIONS AND PAPERWORK DONE. NO S/S OF ACUTE DISTRESS. PUSHED PT OFF FLOOR VIA WC. PT AND CARRIED ALL BELONGINGS DOWN.
--- NOTE | 2019-04-27 14:16 | MORECARE ---
CASE MANAGEMENT DISCHARGE SUMMARY PATIENT: GRAZYNA VALVERDE UNIT: [id number] ADM DATE: 04/17/19 AGE: 73 : 45 SEX: M ROOM/BED: D.2235 AUTHOR: SANFORD,DOC PHYSICIAN: REFERRING PHYSICIAN: DELFINO ZEE MD DATE OF SERVICE: 04/27/19 Discharge Plan Patient Name: GRAZYNA VALVERDE Facility: [facility]:[place] : 1945 Planned Disposition: Home with Home Health Anticipated Discharge Date: 04/25/19 Discharge Date: 04/25/2019 Expected LOS: 8 Initial Reviewer: [email or web address] Initial Review Date: 04/19/2019 Generated: 04/27/19 3:16 pm Comments DCP- Discharge Planning Updated by [id number]: Jessica Huang on 04/25/19 8:[address] HH order faxed to [facility] and spoke with Leann. [facility] is no longer in network with patient's insurance (per Betty Oakes). I spoke with patient and he would like to change to someone in his network, he agrees to see if [facility] will accept. I spoke with Jeff and order faxed. CM will continue to follow and assist with discharge planning/needs. DCP- Discharge Planning Updated by [email or web address]: Jessica Huang on 04/25/19 7:[address] Anticipate discharge today. I spoke with Betty Oakes with [facility] and clinical faxed. I faxed clinical to [facility]. I will call [facility] when they open. CM will continue to follow and assist with discharge planning/needs. DCP- Discharge Planning Updated by [id number]: Larisa Morales on 04/19/19 3:[address] Patient Name: GRAZYNA VALVERDE Admission Status: Urgent Accout number: [id number] Admission Date: 04-17-2019 : 1945 Admission Diagnosis: Attending: DELFINO ZEE Current LOS: 2 Anticipated DC Date: Planned Disposition: Primary Insurance: NOVASYSMCR Discharge Planning Comments: CM met with patient at bedside after explaining CM role and obtaining verbal consent. STATES IS CURRENT WITH [facility] AND WOULD LIKE TO RESUME AT TIME OF DISCHARGE. CM TO FOLLOW AND ASSSIT. Air Conditioning Unit Tester: Larisa Morales DCPIA - Discharge Planning Initial Assessment Updated by [id number]: Larisa Morales on 04/19/19 4:13 pm * Is the patient Alert and Oriented? Yes * PCP FARO * Preadmission Environment Home with Family * ADLs Independent * Other Equipment KNEE SCOOTER AND WALKER * List name and contact numbers for known caregivers / representatives who currently or will assist patient after discharge: ERASMO, [place], * Community resources currently utilized Home Health * Please name any agencies selected above. [facility] WITH [facility] * Additional services required to return to the preadmission environment? No * Can the patient safely return to the preadmission environment? Yes * Has this patient been hospitalized within the prior 30 days at any hospital? Yes Coverage Notice Reviewer: [id number] - Larisa Morales Notice Issued Date-Time: 04/24/2019 15:49 Notice Type: IM Discharge Notice Notice Delivered To: Patient Relationship to Patient: Design Printing Machine Set Up Operator Name: Delivery Method: HAND - Hand Delivered Kirti Days: Prior Verbal Notification: Recipient Understood Notice: Yes Recipient Signature: Yes Med Rec Note Co-signed by Attending: Coverage Notice Comment: Last DP export: 04/25/19 11:09 a Patient Name: GRAZYNA VALVERDE Page [phone] at 1416 All edits/amendments must be made on the electronic document DICTATION DATE: 04/27/196 METAL NUMERICAL CONTROL PROGRAMMER: VALDO 04/27/19 1416 RPT#: [id number] DC DATE:04/25/19 STATUS: DIS IN [facility] [address] [place] [address] END OF REPORT
== END 2019-04-25 14:23 | disposition home health service (06) | DRG 853 ==
LOC: D.MS 15:58
PROVIDERS: Emergency Medicine; ADMIT Orthopaedic Surgery; ATTEND Orthopaedic Surgery
PROC: 0Y6M0ZC Detachment at Right Foot, Partial 3rd Ray, Open Approach (ICD-10-PCS; 2019-04-19)
PROC: 0Y6M0ZD Detachment at Right Foot, Partial 4th Ray, Open Approach (ICD-10-PCS; 2019-04-19)
PROC: 0Y6M0ZF Detachment at Right Foot, Partial 5th Ray, Open Approach (ICD-10-PCS; 2019-04-19)
PROC: 0Y6M0Z9 Detachment at Right Foot, Partial 1st Ray, Open Approach (ICD-10-PCS; principal; 2019-04-19 13:00)
PROC: 0Y6M0ZB Detachment at Right Foot, Partial 2nd Ray, Open Approach (ICD-10-PCS; 2019-04-19 13:00)
PROC: 05HY33Z Insertion of Infusion Device into Upper Vein, Percutaneous Approach (ICD-10-PCS; 2019-04-25)
DX: A41.9 Sepsis, unspecified organism (principal); E43 Unspecified severe protein-calorie malnutrition; M86.171 Other acute osteomyelitis, right ankle and foot; E87.1 Hypo-osmolality and hyponatremia; I50.32 Chronic diastolic (congestive) heart failure; D62 Acute posthemorrhagic anemia; N17.9 Acute kidney failure, unspecified; E11.69 Type 2 diabetes mellitus with other specified complication; E11.65 Type 2 diabetes mellitus with hyperglycemia; E86.0 Dehydration; E87.5 Hyperkalemia; E11.40 Type 2 diabetes mellitus with diabetic neuropathy, unspecified; F43.21 Adjustment disorder with depressed mood; D50.9 Iron deficiency anemia, unspecified; I11.0 Hypertensive heart disease with heart failure; I48.91 Unspecified atrial fibrillation; I25.10 Atherosclerotic heart disease of native coronary artery without angina pectoris; K21.9 Gastro-esophageal reflux disease without esophagitis; N40.0 Benign prostatic hyperplasia without lower urinary tract symptoms; Z85.46 Personal history of malignant neoplasm of prostate; B96.20 Unspecified Escherichia coli [E. coli] as the cause of diseases classified elsewhere; B95.62 Methicillin resistant Staphylococcus aureus infection as the cause of diseases classified elsewhere

== ENCOUNTER → 2019-04-30 11:20 | Outpatient (CLI) | payer OTHER ==
[2019-04-18 12:57] VITALS: BMI 28.5
[2019-04-30 12:10] LABS: BASOPHILS 0.3 % (0-2); EOSINOPHILS 3.1 % (0-7); IMMATURE GRANULOCYTES 0.8 % (0-5); LYMPHOCYTES 14.5 % (15-50); MCH 25.4 pg (26.0-34.0); MCHC 30.8 g/dL (31.0-37.0); MCV 82.7 fL (80.0-100.0); MEAN PLATELET VOLUME 8.7 fL (7.4-10.4); MONOCYTES 7.6 % (2-11); NEUTROPHILS 73.7 % (40-80); PLATELET COUNT 524 10x3/uL (130-400); WBC 13.2 10x3/uL (4.8-10.8)
[2019-04-30 12:12] LABS: HEMATOCRIT 14.3 % (42.0-54.0); HEMOGLOBIN 4.4 g/dL (13.5-17.5); RBC 1.73 10x6/uL (4.20-6.10)
[2019-04-30 12:15] LABS: C-REACTIVE PROTEIN 0.9 mg/dL (0.0-0.9); CREATININE - SERUM 1.1 mg/dL (0.6-1.3)
[2019-04-30 13:32] LABS: ERYTHROCYTE SEDIMENTATION RATE 180 mm/hr (0-20)
== END | disposition home or self-care (01) ==
LOC: D.LABREF 11:20
PROVIDERS: ATTEND Orthopaedic Surgery
DX: E11.69 Type 2 diabetes mellitus with other specified complication (principal); M86.8X7 Other osteomyelitis, ankle and foot

== ENCOUNTER 2019-04-30 14:18 | Emergency (ER) | payer OTHER ==
[~2019-04-30] VITALS: Ht 182.9 cm; Wt 95.0 kg
[2019-04-30 14:31] VITALS: Ht 182.9 cm; Wt 95.0 kg
[2019-04-30 15:33] VITALS: BP 158/79
[2019-04-30 15:51] LABS: BASOPHILS 0.3 % (0-2); EOSINOPHILS 3.2 % (0-7); IMMATURE GRANULOCYTES 1.2 % (0-5); LYMPHOCYTES 16.3 % (15-50); MCHC 31.1 g/dL (31.0-37.0); MCV 83.5 fL (80.0-100.0); MEAN PLATELET VOLUME 8.6 fL (7.4-10.4); MONOCYTES 7.6 % (2-11); NEUTROPHILS 71.4 % (40-80); RDW 19.8 % (11.5-14.5); WBC 10.7 10x3/uL (4.8-10.8)
[2019-04-30 15:53] LABS: HEMATOCRIT 32.8 % (42.0-54.0); HEMOGLOBIN 10.2 g/dL (13.5-17.5); PLATELET COUNT 396 10x3/uL (130-400); RBC 3.93 10x6/uL (4.20-6.10)
== END 2019-04-30 16:41 | disposition home or self-care (01) ==
LOC: D.ER 14:18
PROVIDERS: Family Medicine
DX: D64.9 Anemia, unspecified (principal); I11.0 Hypertensive heart disease with heart failure; I50.9 Heart failure, unspecified

== ENCOUNTER → 2019-05-08 11:19 | Outpatient (CLI) | payer OTHER ==
[2019-04-30 14:31] VITALS: BMI 28.4
[2019-05-08 11:43] LABS: C-REACTIVE PROTEIN < 0.2 mg/dL (0.0-0.9); CREATININE - SERUM 1.3 mg/dL (0.6-1.3); UREA NITROGEN 29 mg/dL (7-18)
== END | disposition home or self-care (01) ==
LOC: D.LABREF 11:19
PROVIDERS: ATTEND Orthopaedic Surgery
DX: E11.52 Type 2 diabetes mellitus with diabetic peripheral angiopathy with gangrene (principal)

== ENCOUNTER → 2019-05-11 11:00 | Outpatient (CLI) | payer OTHER ==
[2019-04-30 14:31] VITALS: BMI 28.4
[2019-05-11 11:27] LABS: BASOPHILS 0.5 % (0-2); EOSINOPHILS 5.1 % (0-7); HEMATOCRIT 35.2 % (42.0-54.0); HEMOGLOBIN 10.8 g/dL (13.5-17.5); IMMATURE GRANULOCYTES 0.3 % (0-5); MCH 26.4 pg (26.0-34.0); MCHC 30.7 g/dL (31.0-37.0); MCV 86.1 fL (80.0-100.0); MEAN PLATELET VOLUME 9.7 fL (7.4-10.4); MONOCYTES 6.9 % (2-11); NEUTROPHILS 65.2 % (40-80); PLATELET COUNT 336 10x3/uL (130-400); RBC 4.09 10x6/uL (4.20-6.10); RDW 20.5 % (11.5-14.5); WBC 8.6 10x3/uL (4.8-10.8)
[2019-05-11 12:44] LABS: ERYTHROCYTE SEDIMENTATION RATE 76 mm/hr (0-20)
== END | disposition home or self-care (01) ==
LOC: D.LABREF 11:00
PROVIDERS: ATTEND Orthopaedic Surgery
DX: M86.8X7 Other osteomyelitis, ankle and foot (principal)

== ENCOUNTER → 2019-05-17 16:45 | Outpatient (CLI) | payer OTHER ==
[2019-04-30 14:31] VITALS: BMI 28.4
[2019-05-17 17:52] LABS: BASOPHILS 0.5 % (0-2); HEMATOCRIT 37.6 % (42.0-54.0); HEMOGLOBIN 11.7 g/dL (13.5-17.5); IMMATURE GRANULOCYTES 0.8 % (0-5); LYMPHOCYTES 17.7 % (15-50); MCH 27.3 pg (26.0-34.0); MCHC 31.1 g/dL (31.0-37.0); MCV 87.9 fL (80.0-100.0); MONOCYTES 9.9 % (2-11); NEUTROPHILS 65.1 % (40-80); PLATELET COUNT 299 10x3/uL (130-400); RBC 4.28 10x6/uL (4.20-6.10); RDW 21.5 % (11.5-14.5); WBC 8.8 10x3/uL (4.8-10.8)
[2019-05-17 18:08] LABS: CREATININE - SERUM 1.2 mg/dL (0.6-1.3)
[2019-05-17 18:53] LABS: ERYTHROCYTE SEDIMENTATION RATE 71 mm/hr (0-20)
== END | disposition home or self-care (01) ==
LOC: D.LABREF 16:45
PROVIDERS: ATTEND Orthopaedic Surgery
DX: C61 Malignant neoplasm of prostate (principal)

== ENCOUNTER → 2019-05-21 12:22 | Outpatient (CLI) | payer OTHER ==
[2019-04-30 14:31] VITALS: BMI 28.4
[2019-05-21 12:51] LABS: BASOPHILS 0.8 % (0-2); EOSINOPHILS 5.5 % (0-7); HEMATOCRIT 37.5 % (42.0-54.0); HEMOGLOBIN 11.8 g/dL (13.5-17.5); IMMATURE GRANULOCYTES 0.3 % (0-5); LYMPHOCYTES 20.3 % (15-50); MCH 27.6 pg (26.0-34.0); MCHC 31.5 g/dL (31.0-37.0); MCV 87.8 fL (80.0-100.0); MEAN PLATELET VOLUME 9.8 fL (7.4-10.4); MONOCYTES 7.3 % (2-11); NEUTROPHILS 65.8 % (40-80); PLATELET COUNT 275 10x3/uL (130-400); RBC 4.27 10x6/uL (4.20-6.10); RDW 21.5 % (11.5-14.5)
[2019-05-21 13:01] LABS: CREATININE - SERUM 1.5 mg/dL (0.6-1.3); UREA NITROGEN 23 mg/dL (7-18)
[2019-05-21 13:02] LABS: C-REACTIVE PROTEIN < 0.2 mg/dL (0.0-0.9)
[2019-05-21 13:48] LABS: ERYTHROCYTE SEDIMENTATION RATE 42 mm/hr (0-20)
== END | disposition home or self-care (01) ==
LOC: D.LABREF 12:22
PROVIDERS: ATTEND Orthopaedic Surgery
DX: E11.52 Type 2 diabetes mellitus with diabetic peripheral angiopathy with gangrene (principal)

== ENCOUNTER 2019-08-08 18:56 | Emergency (ER) | payer OTHER ==
[~2019-08-08] VITALS: Ht 182.9 cm; Wt 104.5 kg
[2019-08-08 19:25] VITALS: Ht 182.9 cm; Wt 104.5 kg
[2019-08-08] MEDS ORDERED: VIBRAMYCIN 100100 MG PO (19:26)
[2019-08-08 21:03] LABS: BASOPHILS 0.2 % (0-2); EOSINOPHILS 0.3 % (0-7); HEMATOCRIT 37.6 % (42.0-54.0); IMMATURE GRANULOCYTES 0.4 % (0-5); LYMPHOCYTES 8.3 % (15-50); MCH 27.6 pg (26.0-34.0); MCHC 31.9 g/dL (31.0-37.0); MCV 86.6 fL (80.0-100.0); MEAN PLATELET VOLUME 9.7 fL (7.4-10.4); MONOCYTES 9.4 % (2-11); NEUTROPHILS 81.4 % (40-80); RBC 4.34 10x6/uL (4.20-6.10); RDW 15.8 % (11.5-14.5)
[2019-08-08 21:08] LABS: PLATELET COUNT 346 10x3/uL (130-400)
[2019-08-08 21:16] LABS: INR 1.11 (0.85-1.17); PROTIME 14.3 SECONDS (11.6-15.0)
[2019-08-08 21:23] LABS: CALC OSMOLALITY 287 mosm/kg (275-300); CALCIUM 8.7 mg/dL (8.5-10.1); CARBON DIOXIDE 28.3 mmol/L (21.0-32.0); CHLORIDE - SERUM 100 mmol/L (98-107); CREATININE - SERUM 1.8 mg/dL (0.6-1.3); GLUCOSE 224 mg/dL (74-106); POTASSIUM - SERUM 4.2 mmol/L (3.5-5.1); SODIUM 138 mmol/L (136-145); UREA NITROGEN 27 mg/dL (7-18); eGFR NON AFRICAN AMERICAN 39 mL/min (90-120)
[2019-08-08 21:39] LABS: ALBUMIN 2.3 g/dL (3.4-5.0); ALKALINE PHOSPHATASE 96 U/L (46-116); ALT (SGPT) 18 U/L (10-68); BILIRUBIN - TOTAL 0.45 mg/dL (0.2-1.3); CKMB 0.8 U/L (0.0-3.6); CREATINE KINASE 48 UL (21-232); MAGNESIUM - SERUM 1.5 mg/dL (1.8-2.4); PROTEIN - SERUM 6.5 g/dL (6.4-8.2); THYROID STIMULATING HORMONE 4.97 uIU/mL (0.36-3.74)
[2019-08-08 21:43] LABS: TROPONIN-I < 0.017 ng/mL (0.000-0.060)
[2019-08-08] MEDS ORDERED: AUGMENTIN 875-11 TAB PO (23:56)
[2019-08-09 00:05] VITALS: BP 163/70
== END 2019-08-09 00:05 | disposition home or self-care (01) ==
LOC: D.ER 18:56
PROVIDERS: Family Medicine
DX: J01.90 Acute sinusitis, unspecified (principal); Z86.73 Personal history of transient ischemic attack (TIA), and cerebral infarction without residual deficits; E11.9 Type 2 diabetes mellitus without complications; I25.2 Old myocardial infarction; I25.10 Atherosclerotic heart disease of native coronary artery without angina pectoris; I11.0 Hypertensive heart disease with heart failure; I50.9 Heart failure, unspecified; Z79.4 Long term (current) use of insulin

== ENCOUNTER → 2019-08-20 15:00 | Outpatient (CLI) | payer OTHER ==
[2019-08-08 19:25] VITALS: BMI 31.2
[~2019-08-20 15:00] MED LIST changes: +AUGMENTIN 875-11 TAB PO; +VIBRAMYCIN 100100 MG PO
== END | disposition home or self-care (01) ==
LOC: D.US 15:00
PROVIDERS: ATTEND Clinical Nurse Specialist Family Health
DX: R22.42 Localized swelling, mass and lump, left lower limb (principal)

== ENCOUNTER 2019-08-30 07:39 | Emergency (ER) | payer OTHER ==
[~2019-08-30] VITALS: Ht 182.9 cm; Wt 104.5 kg
[2019-08-30 07:46] VITALS: Ht 182.9 cm; Wt 104.5 kg
[2019-08-30 08:07] LABS: BASOPHILS 0.4 % (0-2); EOSINOPHILS 3.4 % (0-7); HEMATOCRIT 36.2 % (42.0-54.0); HEMOGLOBIN 11.7 g/dL (13.5-17.5); IMMATURE GRANULOCYTES 0.3 % (0-5); LYMPHOCYTES 19.2 % (15-50); MCH 27.5 pg (26.0-34.0); MCHC 32.3 g/dL (31.0-37.0); MCV 85.2 fL (80.0-100.0); MEAN PLATELET VOLUME 9.2 fL (7.4-10.4); MONOCYTES 7.2 % (2-11); NEUTROPHILS 69.5 % (40-80); PLATELET COUNT 412 10x3/uL (130-400); RBC 4.25 10x6/uL (4.20-6.10); RDW 15.9 % (11.5-14.5); WBC 9.7 10x3/uL (4.8-10.8)
[2019-08-30 08:19] LABS: APTT 29.7 SECONDS (22.8-39.4); INR 1.03 (0.85-1.17); PROTIME 13.5 SECONDS (11.6-15.0)
[2019-08-30 08:22] LABS: CALC OSMOLALITY 287 mosm/kg (275-300); CALCIUM 8.1 mg/dL (8.5-10.1); CARBON DIOXIDE 26.6 mmol/L (21.0-32.0); CHLORIDE - SERUM 104 mmol/L (98-107); CREATININE - SERUM 1.5 mg/dL (0.6-1.3); GLUCOSE 265 mg/dL (74-106); POTASSIUM - SERUM 4.5 mmol/L (3.5-5.1); SODIUM 138 mmol/L (136-145); UREA NITROGEN 22 mg/dL (7-18); eGFR NON AFRICAN AMERICAN 49 mL/min (90-120)
[2019-08-30 08:43] LABS: ALBUMIN 2.1 g/dL (3.4-5.0); ALKALINE PHOSPHATASE 97 U/L (30-120); ALT (SGPT) 22 U/L (10-68); CREATINE KINASE 56 UL (21-232); MAGNESIUM - SERUM 1.9 mg/dL (1.8-2.4); PROTEIN - SERUM 6.5 g/dL (6.4-8.2); THYROID STIMULATING HORMONE 6.54 uIU/mL (0.36-3.74); TROPONIN-I 0.027 ng/mL (0.000-0.060)
[2019-08-30 10:50] VITALS: BP 174/88
== END 2019-08-30 10:50 | disposition home or self-care (01) ==
LOC: D.ER 07:39
PROVIDERS: Family Medicine
DX: I65.09 Occlusion and stenosis of unspecified vertebral artery (principal); E11.9 Type 2 diabetes mellitus without complications; I11.0 Hypertensive heart disease with heart failure; I50.9 Heart failure, unspecified; I25.10 Atherosclerotic heart disease of native coronary artery without angina pectoris; Z79.4 Long term (current) use of insulin; R47.81 Slurred speech; Z86.73 Personal history of transient ischemic attack (TIA), and cerebral infarction without residual deficits

== ENCOUNTER 2020-01-23 11:48 | Inpatient (IN) | payer OTHER ==
[~2020-01-23] VITALS: Ht 182.9 cm; Wt 115.2 kg
[2020-01-23] MEDS ORDERED: GLUCOTROL 5 MG T5 MG PO (12:02)
[2020-01-23 12:41] LABS: ANION GAP 7.2 mmol/L (8-16); CALCIUM 7.7 mg/dL (8.5-10.1); CARBON DIOXIDE 27.8 mmol/L (21.0-32.0); CREATININE - SERUM 2.5 mg/dL (0.6-1.3)
[2020-01-23 12:52] LABS: BASOPHILS 0.5 % (0-2); EOSINOPHILS 3.3 % (0-7); HEMOGLOBIN 11.6 g/dL (13.5-17.5); IMMATURE GRANULOCYTES 0.6 % (0-5); LYMPHOCYTES 19.9 % (15-50); MCH 27.9 pg (26.0-34.0); MCHC 31.4 g/dL (31.0-37.0); MCV 88.9 fL (80.0-100.0); MONOCYTES 6.7 % (2-11); RBC 4.16 10x6/uL (4.20-6.10); WBC 7.9 10x3/uL (4.8-10.8)
[2020-01-23 12:54] VITALS: BP 186/79
[2020-01-23 12:54] LABS: ALBUMIN 1.9 g/dL (3.4-5.0); BILIRUBIN - TOTAL 0.31 mg/dL (0.2-1.3); PROTEIN - SERUM 5.8 g/dL (6.4-8.2)
[2020-01-23 13:02] LABS: PLATELET COUNT 317 10x3/uL (130-400)
[2020-01-23 13:16] LABS: BILIRUBIN NEGATIVE (NEGATIVE); GLUCOSE 1000 mg/dL (NEGATIVE); KETONE NEGATIVE (NEGATIVE); NITRITE NEGATIVE (NEGATIVE); UROBILINOGEN NORMAL (NORMAL)
[2020-01-23 13:19] LABS: BACTERIA FEW /hpf (NEGATIVE); EPITHELIAL CELLS 0-5 /hpf (0-5); RED CELLS - URINE 0-5 /hpf (0-5); WHITE CELLS - URINE 0-5 /hpf (NEGATIVE)
[2020-01-23 14:12] VITALS: BP 194/83
--- NOTE | 2020-01-23 14:13 | NUR ---
PROVIDER INFORMED ABOUT PATIENTS BLOOD PRESSURE.
[2020-01-23 15:02] VITALS: BP 187/79
--- NOTE | 2020-01-23 15:30 | NUR ---
ARRIVES TO UNIT PER W/C, FAMILY AT BEDSIDE, IV INFUSING PER LEFT HAND, EDEMA TO KNEES AND LOWER LEGS, NOTED DRY SCAB AREA TO LEFT GREAT TOE, OLD SURGERY TO R FOOT HEALED, ALL TOES MISSING, CONT TO MONITOR
[2020-01-23 15:35] LABS: INR 1.01 (0.85-1.17); PROTIME 13.2 SECONDS (11.6-15.0)
[2020-01-23 15:36] LABS: D-DIMER-QUANTITATIVE 0.62 ug/mLFEU (0.20-0.54)
[2020-01-23] MEDS ORDERED: PLAVIX75 MG PO (16:03)
[2020-01-23 16:11] VITALS: BP 165/92
--- NOTE | 2020-01-23 17:20 | NUR ---
PT ARRIVED TO ROOM AT 1530 AND CONSUMED A SANDWICH, THEN ATE SUPPER TRAY BEFORE I WAS ABLE TO CK HIS SUGAR, SUGAR 405, 12 UNITS GIVEN, CONT TO MONITOR
--- NOTE | 2020-01-23 17:38 | NUR ---
TAKEN TO NUCLEAR MED PER W/C
--- NOTE | 2020-01-23 18:12 | NUR ---
V/Q SCAN WAS ORDERED ON PATIENT. BROUGHT TO DEPARTMENT. POSITIONED PATIENT UNDER CAMERA. TRIED THE MASK ON FOR VENTILATION. SEVERAL ATTEMPTS MADE. PATIENT STATED HE WAS UNABLE TO DO VENTILATION PORTION DUE TO CLAUSTERPHOBIA. PERFUSION ONLY WAS DONE.
[2020-01-23] MEDS ORDERED: LIPITOR40 MG PO (18:45)
[2020-01-23] MEDS ORDERED: FLOMAX0.4 MG PO (18:45)
[2020-01-23 20:00] VITALS: BP 210/97
[2020-01-23 21:42] VITALS: BP 192/87
--- NOTE | 2020-01-23 21:44 | NUR ---
PT LYING IN BED AWAKE ALERT AND ORIENTED x4. NO SIGNS OR SYMPTOMS OF DISTRESS NOTED. RESPIRATIONS EVEN AND UNLABORED. FAMILY IS AT BEDSIDE. B/P ELEVATED B/P MEDICATION GIVEN. PT SIGN BED ALARM KASH. KASH ON PT CHART. URINAL IS AT BEDSIDE. BED IS IN ITS LOWEST POSITION. CALL LIGHT AND OTHER PERSONAL ITEMS WITHI N REACH. WILL CONTINUE TO MONITOR
--- NOTE | 2020-01-23 23:09 | NUR ---
BLOOD PRESSURE 203/91 TERRY JONES APRN PAGED. PRN APRESOLINE ORDERED. WILL ADMINISTER. CALL LIGHT WITH IN REACH. WILL CONTINUE TO MONITOR
[2020-01-24] VITALS: BP 166/63
--- NOTE | 2020-01-24 03:44 | NUR ---
I have reviewed this patient and I concur with the Shift Assessment completed by the Licensed Practical Nurse today this shift.
[2020-01-24 04:00] VITALS: BP 187/76
[2020-01-24] MEDS ORDERED: HUMALOG 30100 UNITS/ SC (08:26)
[2020-01-24] MEDS ORDERED: MILK OF MAGNESI30 ML PO (08:27)
[2020-01-24] MEDS ORDERED: GLUCOPHAGE500 MG PO (11:39)
[2020-01-24 13:09] LABS: BASOPHILS 0.7 % (0-2); EOSINOPHILS 2.4 % (0-7); HEMATOCRIT 38.1 % (42.0-54.0); HEMOGLOBIN 12.2 g/dL (13.5-17.5); IMMATURE GRANULOCYTES 0.2 % (0-5); LYMPHOCYTES 21.3 % (15-50); MCH 28.8 pg (26.0-34.0); MCV 89.9 fL (80.0-100.0); MEAN PLATELET VOLUME 9.6 fL (7.4-10.4); MONOCYTES 5.9 % (2-11); NEUTROPHILS 69.5 % (40-80); PLATELET COUNT 325 10x3/uL (130-400); RBC 4.24 10x6/uL (4.20-6.10); RDW 15.2 % (11.5-14.5)
[2020-01-24 13:34] LABS: ANION GAP 8.9 mmol/L (8-16); BILIRUBIN - TOTAL 0.22 mg/dL (0.2-1.3); CALCIUM 7.5 mg/dL (8.5-10.1); CARBON DIOXIDE 29.4 mmol/L (21.0-32.0); CREATININE - SERUM 2.4 mg/dL (0.6-1.3); MAGNESIUM - SERUM 1.9 mg/dL (1.8-2.4); PHOSPHOROUS 4.7 mg/dL (2.5-4.9); POTASSIUM - SERUM 4.3 mmol/L (3.5-5.1); PROTEIN - SERUM 5.4 g/dL (6.4-8.2)
--- NOTE | 2020-01-24 13:46 | NUR ---
I have reviewed this patient and I concur with the Shift Assessment completed by the Licensed Practical Nurse today this shift.
[2020-01-24 13:57] VITALS: BMI 34.3
--- NOTE | 2020-01-24 14:49 | NUR ---
PT AND PT'S WONDERING WHEN PT WILL GET SEEN BY DR. ALMANZAR. CALLED AND SPOKE WITH ADALBERTO DUBOSE AND SHE STATES PT IS ON THEIR LIST AND DR. ALMANZAR IS CLOSE TO BEING DONE AT [facility] SO SHOULD BE OVER HERE([facility]) SHORTLY. I VERBALIZED UNDERSTANDING. WENT IN PT'S ROOM AND SPOKE WITH HIM AND HIS HSUBAND AND THEY BOTH VERBALIZED UNDERSTANDING.
[2020-01-24 15:21] VITALS: BP 151/83
[2020-01-24 15:23] VITALS: BP 138/77
--- NOTE | 2020-01-24 17:00 | NUR ---
OT NOTE: PT COMPLETED BED MOB TASKS WITH MIN A. PT COMPLETED FACE/HAND HYGIENE WITH SETUP. [id number] THANK YOU,STEFANIA MCKEON
[2020-01-24 17:20] VITALS: Ht 182.9 cm; Wt 115.2 kg
[2020-01-24 17:54] VITALS: BP 136/75
--- NOTE | 2020-01-24 18:15 | NUR ---
UA CUP TAKEN IN ROOM. PT STATES HE IS UNABLE TO URINATE RIGHT NOW BECAUSE HE JUST DID. PT STATES HE WILL GET COLLECTION NEXT TIME. I VERBALIZED UNDERSTANDING.
[2020-01-24 20:00] VITALS: BP 130/72
[2020-01-24 21:00] LABS: BILIRUBIN NEGATIVE (NEGATIVE); GLUCOSE 500 mg/dL (NEGATIVE); KETONE NEGATIVE (NEGATIVE); NITRITE NEGATIVE (NEGATIVE); SPECIFIC GRAVITY 1.015 (1.005-1.020); UROBILINOGEN NORMAL (NORMAL)
[2020-01-24 21:01] LABS: BACTERIA FEW /hpf (NEGATIVE); EPITHELIAL CELLS NSEEN /hpf (0-5); RED CELLS - URINE 0-5 /hpf (0-5); WHITE CELLS - URINE 0-5 /hpf (NEGATIVE)
[2020-01-24 21:53] LABS: CREATININE - URINE 73.2 mg/dL (30-125); PRO/CRE RATIO URINE 24.9 mg/g; PROTEIN - URINE 1824.7 mg/dL (0.0-11.9)
[2020-01-25] VITALS: BP 134/68
[2020-01-25 04:00] VITALS: BP 146/80
[2020-01-25 06:26] LABS: BASOPHILS 0.3 % (0-2); EOSINOPHILS 3.2 % (0-7); HEMOGLOBIN 11.3 g/dL (13.5-17.5); IMMATURE GRANULOCYTES 0.6 % (0-5); LYMPHOCYTES 22.8 % (15-50); MCHC 31.4 g/dL (31.0-37.0); MCV 89.1 fL (80.0-100.0); MEAN PLATELET VOLUME 9.5 fL (7.4-10.4); MONOCYTES 9.1 % (2-11); PLATELET COUNT 295 10x3/uL (130-400); RBC 4.04 10x6/uL (4.20-6.10); RDW 15.2 % (11.5-14.5); WBC 7.2 10x3/uL (4.8-10.8)
[2020-01-25 06:50] LABS: ANION GAP 9.8 mmol/L (8-16); BILIRUBIN - TOTAL 0.34 mg/dL (0.2-1.3); CALCIUM 8.1 mg/dL (8.5-10.1); CARBON DIOXIDE 28.4 mmol/L (21.0-32.0); CREATININE - SERUM 2.7 mg/dL (0.6-1.3); POTASSIUM - SERUM 4.2 mmol/L (3.5-5.1); PROTEIN - SERUM 5.8 g/dL (6.4-8.2)
--- NOTE | 2020-01-25 08:02 | NUR ---
PT IS A DIALY WEIGHT. WEIGHT IS 253.6LB ON STANDING SCALE.
[2020-01-25 09:50] VITALS: BP 141/69
--- NOTE | 2020-01-25 12:00 | NUR ---
PT STATES HE NEED SOME HEMRRHOID CREAM AND THAT HE IS HAVING SOME BLEEDING BUT HE DOESN'T WANT ANYONE TO LOOK BECAUSE HE KNOWS WHAT HE NEEDS. HE ALSO STATES HE IS WORRIED ABOUT IS FSBS BEING SO HIGH DESPITE BEING ON AN INTERMEDIATTE SCALE ALSO AT HOME. I STATED I WOULD SPEAK TO THE [employer] CONSERVATION LABORER. STATED MY CONVERSATION WITH PT TO PUMA DUBOSE AND SHE STATES SHE WILL GET TO IT. I VERBALIZED UNDERSTANDING.
[2020-01-25 13:41] VITALS: BP 152/79
--- NOTE | 2020-01-25 14:49 | NUR ---
PT STATES HE IS WORRIED CAUSE HE HASN'T PEED VERY MUCH TODAY NOT LIKE HE HAS BEEN AND HAS A HX OF PROSTATE CANCER. BLADDER SCANNED PT AND IT ONLY SHOWED 18ML. WILL CONTINUE TO MONITOR.
--- NOTE | 2020-01-25 14:59 | NUR ---
PT STATES HE DOES NOT WANT TO LASIX IV BECAUSE DR. VENTURA SAID HE WAS GOING TO DC THAT AND SWITCH HIM TO A NEW DRUG. I VERBALIZED UNDERSTANDING. CALLED PUMA DUBOSE AND SHE STATES DR. VENTURA HASN'T PUT IN ORDERS OR NOTES YET AND SHE WILL HAVE TO SPEAK WITH HIM ABOUT WHAT HE WANTS. SHE STATES TO WAIT FOR ORDERS TO COME IN. I VERBALIZED UNDERSTANDING.
--- NOTE | 2020-01-25 15:49 | NUR ---
OT NOTE: PT COMPLETED SIT TO STAND WITH SBA. PT COMPLETED ADL MOB WITH SBA. PT COMPLETED TOILETING WITH SPV. [phone] THANK YOU,STEFANIA MCKEON
[2020-01-25] MEDS ORDERED: ALDACTONE25 MG PO (16:42)
--- NOTE | 2020-01-25 16:51 | MORECARE ---
CASE MANAGEMENT DISCHARGE SUMMARY PATIENT: GRAZYNA VALVERDE UNIT: [id number] ADM DATE: 01/23/20 AGE: 74 : 45 SEX: M ROOM/BED: D.2139 AUTHOR: SHELIA CHRISTINA PHYSICIAN: REFERRING PHYSICIAN: LISBETH CRUZ DO DATE OF SERVICE: 01/25/20 Discharge Plan Patient Name: GRAZYNA VALVERDE Facility: [facility]:[place] : 1945 Planned Disposition: Home with Home Health Anticipated Discharge Date: Discharge Date: Expected LOS: Initial Reviewer: [email or web address] Initial Review Date: 01/23/2020 Generated: 01/25/20 5:51 pm Patient Name: GRAZYNA VALVERDE Page 14828 at 1651 All edits/amendments must be made on the electronic document DICTATION DATE: 01/25/201650 STAINED GLASS GLAZIER: VALDO 01/25/201650 RPT#: [id number] DC DATE: STATUS: ADM IN [facility] [address] [place] [address] END OF REPORT
--- NOTE | 2020-01-25 17:00 | NUR ---
BAG MACHINE TENDER STATES TO ME PT IS TO RESUME [facility].
--- NOTE | 2020-01-25 17:09 | NUR ---
DISCHARGE HAS TO SCHEDULE RENAL BIOPSY. CALLED [facility] AND THEY STATE THE MAINTENANCE MECHANIC MILLWRIGHT IS GONE AND THEY WILL CALL ME BACK. I VERBALIZED UNDERSTANDING.
--- NOTE | 2020-01-25 17:13 | MORECARE ---
CASE MANAGEMENT DISCHARGE SUMMARY PATIENT: GRAZYNA VALVERDE UNIT: [id number] ADM DATE: 01/23/20 AGE: 74 : 45 SEX: M ROOM/BED: D.2133 AUTHOR: SHELIA CHRISTINA PHYSICIAN: REFERRING PHYSICIAN: LISBETH CRUZ DO DATE OF SERVICE: 01/25/20 Discharge Plan Patient Name: GRAZYNA VALVERDE Facility: [facility]:[place] : 1945 Planned Disposition: Home with Home Health Anticipated Discharge Date: Discharge Date: Expected LOS: Initial Reviewer: [email or web address] Initial Review Date: 01/23/2020 Generated: 01/25/20 6:12 pm Comments DCP- Discharge Planning Updated by [id number]: Manisha Capone on 01/25/20 4:[address] Patient Name: GRAZYNA VALVERDE Admission Status: ER Accout number: [id number] Admission Date: 01-23-2020 : 1945 Admission Diagnosis:ACUTE ON CHRONIC SYSTOLIC (CONGESTIVE) HEART FAILURE Attending: LISBETH CRUZ Current LOS: 2 Anticipated DC Date: Planned Disposition: Home with Home Health Primary Insurance: Ayi Laile Discharge Planning Comments: CM met with patient to complete initial dc planning assessment. CM educated patient on the CM role and verbal consent given by patient to complete assessment. CM verified patient's address, phone number, and emergency contact phone numbers. Patient lives at home with his . At discharge patient plans to return home and resume [facility] and feels this is a safe discharge. TIFF signed for [facility]. Patient denied other known discharge needs at this time. Transportation provider at discharge will be his . DC IMM delivered, explained, signed by the patient, and placed in chart. Signed form also left with the patient. CM faxed TIFF care order to [facility] . CM will continue to follow and will assist as needed with dc plans/needs. Physician'S Assistant: Manisha Capone Coverage Notice Reviewer: [id number] - Manisha Capone Notice Issued Date-Time: 01/25/2020 16:00 Notice Type: IM Discharge Notice Notice Delivered To: Patient Relationship to Patient: Special Effects Person Name: Delivery Method: HAND - Hand Delivered Kirti Days: Prior Verbal Notification: Recipient Understood Notice: Yes Recipient Signature: Yes Med Rec Note Co-signed by Attending: Coverage Notice Comment: Reviewer: [email or web address] Leonarda Capone Notice Issued Date-Time: 01/25/2020 16:00 Notice Type: IM Discharge Notice Notice Delivered To: Patient Relationship to Patient: Special Effects Person Name: Delivery Method: HAND - Hand Delivered Kirti Days: Prior Verbal Notification: Recipient Understood Notice: Yes Recipient Signature: Yes Med Rec Note Co-signed by Attending: Coverage Notice Comment: resumption of care for [facility] Last DP export: 01/25/20 3:51 p Patient Name: GRAZYNA VALVERDE Page [phone] at 1713 All edits/amendments must be made on the electronic document DICTATION DATE: 01/25/201711 LENS CUTTER: VALDO 01/25/201711 RPT#: [id number] DC DATE: STATUS: ADM IN [facility] [address] [place] [address] END OF REPORT
[2020-01-25 17:43] LABS: CREATININE - URINE 130.6 mg/dL (30-125)
[2020-01-25 17:54] LABS: PRO/CRE RATIO URINE 10.7 mg/g; PROTEIN - URINE 1391.2 mg/dL (0.0-11.9)
[2020-01-25 18:18] LABS: APTT 28.3 SECONDS (22.8-39.4); INR 0.97 (0.85-1.17); PROTIME 12.8 SECONDS (11.6-15.0)
[2020-01-25 18:20] LABS: ANION GAP 9.1 mmol/L (8-16); CARBON DIOXIDE 29.3 mmol/L (21.0-32.0); CREATININE - SERUM 2.8 mg/dL (0.6-1.3); POTASSIUM - SERUM 4.4 mmol/L (3.5-5.1)
[2020-01-25 18:33] LABS: COMPLEMENT C4 28.9 mg/dL (17.4-52.2)
--- NOTE | 2020-01-25 18:51 | NUR ---
DISCHARGE INSTRUCTIONS GIVEN AND EXPLAINED TO PT AND PT'S . ALL QUESTIONS ANSWERED. CHART COPY SIGNED. TELEMTRY DC'D. LEFT HAND 20G IV DC'D WITH CATH INTACT. PT DENIED NEED FOR WC. PT AMBULATED WITH WALKER AND LEFT WITH SPOUSE AND ALL PERSONAL BELONGINGS.
[2020-01-25 19:08] LABS: ERYTHROCYTE SEDIMENTATION RATE 17 mm/hr (0-20)
--- NOTE | 2020-01-26 18:57 | MORECARE ---
CASE MANAGEMENT DISCHARGE SUMMARY PATIENT: GRAZYNA VALVERDE UNIT: [id number] ADM DATE: 01/23/20 AGE: 74 : 45 SEX: M ROOM/BED: D.2136 AUTHOR: SHELIA CHRISTINA PHYSICIAN: REFERRING PHYSICIAN: LISBETH CRUZ DO DATE OF SERVICE: 01/26/20 Discharge Plan Patient Name: GRAZYNA VALVERDE Facility: [facility]:[place] : 1945 Planned Disposition: Home with Home Health Anticipated Discharge Date: Discharge Date: 01/25/2020 Expected LOS: Initial Reviewer: [email or web address] Initial Review Date: 01/23/2020 Generated: 01/26/20 7:57 pm DCP- Discharge Planning Updated by [email or web address]: Manisha Capone on 01/25/20 4:[address] Patient Name: GRAZYNA VALVERDE Admission Status: ER Accout number: [id number] Admission Date: 01-23-2020 : 1945 Admission Diagnosis:ACUTE ON CHRONIC SYSTOLIC (CONGESTIVE) HEART FAILURE Attending: LISBETH CRUZ Current LOS: 2 Anticipated DC Date: Planned Disposition: Home with Home Health Primary Insurance: [employer] Discharge Planning Comments: CM met with patient to complete initial dc planning assessment. CM educated patient on the CM role and verbal consent given by patient to complete assessment. CM verified patient's address, phone number, and emergency contact phone numbers. Patient lives at home with his . At discharge patient plans to return home and resume [facility] and feels this is a safe discharge. TIFF signed for [facility]. Patient denied other known discharge needs at this time. Transportation provider at discharge will be his . DC IMM delivered, explained, signed by the patient, and placed in chart. Signed form also left with the patient. CM faxed TIFF care order to [facility] CM will continue to follow and will assist as needed with dc plans/needs. Cellophane Casting Machine Repairer: Manisha Capone Coverage Notice Reviewer: [id number] - Manisha Capone Notice Issued Date-Time: 01/25/2020 16:00 Notice Type: IM Discharge Notice Notice Delivered To: Patient Relationship to Patient: Ground Worker Name: Delivery Method: HAND - Hand Delivered Kirti Days: Prior Verbal Notification: Recipient Understood Notice: Yes Recipient Signature: Yes Med Rec Note Co-signed by Attending: Coverage Notice Comment: Reviewer: [id number] Leonarda Capone Notice Issued Date-Time: 01/25/2020 16:00 Notice Type: IM Discharge Notice Notice Delivered To: Patient Relationship to Patient: Ground Worker Name: Delivery Method: HAND - Hand Delivered Kirti Days: Prior Verbal Notification: Recipient Understood Notice: Yes Recipient Signature: Yes Med Rec Note Co-signed by Attending: Coverage Notice Comment: resumption of care for [facility] Last DP export: 01/25/20 4:13 p Patient Name: GRAZYNA VALVERDE Page [phone] at 1857 All edits/amendments must be made on the electronic document DICTATION DATE: 01/26/201856 PHLEBOTOMIST ASSOCIATE: VALDO 01/26/201856 RPT#: [id number] DC DATE:01/25/20 STATUS: DIS IN [facility] [address] [place] [address] END OF REPORT
--- NOTE | 2020-01-27 09:33 | MORECARE ---
CASE MANAGEMENT DISCHARGE SUMMARY PATIENT: GRAZYNA VALVERDE UNIT: [id number] ADM DATE: 01/23/20 AGE: 74 : 45 SEX: M ROOM/BED: D.2131 AUTHOR: SHELIA CHRISTINA PHYSICIAN: REFERRING PHYSICIAN: LISBETH CRUZ DO DATE OF SERVICE: 01/27/20 Discharge Plan Patient Name: GRAZYNA VALVERDE Facility: [facility]:[place] : 1945 Planned Disposition: Home with Home Health Anticipated Discharge Date: Discharge Date: 01/25/2020 Expected LOS: Initial Reviewer: [email or web address] Initial Review Date: 01/23/2020 Generated: 01/27/20 10:32 am DCP- Discharge Planning Updated by [id number]: Manisha Capone on 01/25/20 4:[address] Patient Name: GRAZYNA VALVERDE Admission Status: ER Accout number: [id number] Admission Date: 01-23-2020 : 1945 Admission Diagnosis:ACUTE ON CHRONIC SYSTOLIC (CONGESTIVE) HEART FAILURE Attending: LISBETH CRUZ Current LOS: 2 Anticipated DC Date: Planned Disposition: Home with Home Health Primary Insurance: [employer] Discharge Planning Comments: CM met with patient to complete initial dc planning assessment. CM educated patient on the CM role and verbal consent given by patient to complete assessment. CM verified patient's address, phone number, and emergency contact phone numbers. Patient lives at home with his . At discharge patient plans to return home and resume [facility] and feels this is a safe discharge. TIFF signed for [facility]. Patient denied other known discharge needs at this time. Transportation provider at discharge will be his . DC IMM delivered, explained, signed by the patient, and placed in chart. Signed form also left with the patient. CM faxed TIFF care order to [facility] . CM will continue to follow and will assist as needed with dc plans/needs. Merchandise Team Manager: Manisha Capone External Providers External Provider: [facility] Next Contact Date: Service Request Date: Service Type: Resolution: Reviewer: Comments: Coverage Notice Reviewer: [id number] - Manisha Capone Notice Issued Date-Time: 01/25/2020 16:00 Notice Type: IM Discharge Notice Notice Delivered To: Patient Relationship to Patient: Mine Environmental Engineer Name: Delivery Method: HAND - Hand Delivered Kirti Days: Prior Verbal Notification: Recipient Understood Notice: Yes Recipient Signature: Yes Med Rec Note Co-signed by Attending: Coverage Notice Comment: Reviewer: [id number] Leonarda Capone Notice Issued Date-Time: 01/25/2020 16:00 Notice Type: IM Discharge Notice Notice Delivered To: Patient Relationship to Patient: Mine Environmental Engineer Name: Delivery Method: HAND - Hand Delivered Kirti Days: Prior Verbal Notification: Recipient Understood Notice: Yes Recipient Signature: Yes Med Rec Note Co-signed by Attending: Coverage Notice Comment: resumption of care for [facility] Last DP export: 01/26/20 5:57 p Patient Name: GRAZYNA VALVERDE Page [phone] at 0933 All edits/amendments must be made on the electronic document DICTATION DATE: 01/27/20931 BATTERY ASSEMBLER: VALDO 01/27/20931 RPT#: [id number] DC DATE:01/25/20 STATUS: DIS IN [facility] [address] [place] [address] END OF REPORT
--- NOTE | 2020-01-28 12:25 | NUR ---
PER DISCHARGE INSTRUCTIONS OF FOLLOW UP, I CALLED [facility] AT DR BOWERS OFFICE TO SET UP THE KIDNEY BIOPSY AND TO CALL THE PATIENT. SHE TOOK DOWN THE INFORMATION AND STATES THEY WILL CALL HIM.
--- NOTE | 2020-01-28 14:34 | NUR ---
BARBY CARIAS "" OF PATIENT JUST CALLED AND IS UPSET THAT PROCEDURE HAS NOT BEEN SET UP. I EXPLAINED TO HIM THAT I TALKED TO [facility] AT DR BOWERS OFFICE TO PLEASE SET THIS UP AND CALL THE PATIENT WITH THE INFORMATION. HE IS GOING TO CALL THEM.
== END 2020-01-25 18:56 | disposition home health service (06) | DRG 291 ==
LOC: D.ER 11:48 → D.M2 14:13
PROVIDERS: Family Medicine; General Practice; Internal Medicine Nephrology; ADMIT Family Medicine; ATTEND Family Medicine
DX: I13.0 Hypertensive heart and chronic kidney disease with heart failure and stage 1 through stage 4 chronic kidney disease, or unspecified chronic kidney disease (principal); I50.23 Acute on chronic systolic (congestive) heart failure; N17.9 Acute kidney failure, unspecified; N39.0 Urinary tract infection, site not specified; G72.81 Critical illness myopathy; E87.1 Hypo-osmolality and hyponatremia; N18.9 Chronic kidney disease, unspecified; I48.91 Unspecified atrial fibrillation; D64.9 Anemia, unspecified; E11.65 Type 2 diabetes mellitus with hyperglycemia; N40.0 Benign prostatic hyperplasia without lower urinary tract symptoms; K21.9 Gastro-esophageal reflux disease without esophagitis; I25.10 Atherosclerotic heart disease of native coronary artery without angina pectoris; R06.00 Dyspnea, unspecified; Z87.891 Personal history of nicotine dependence

== ENCOUNTER 2020-02-01 06:16 | Outpatient (CLI) | payer OTHER ==
[~2020-02-01] VITALS: Ht 182.9 cm; Wt 115.5 kg
[~2020-02-01 06:16] MED LIST changes: +ALDACTONE25 MG PO; +GLUCOTROL 5 MG T5 MG PO; +HUMALOG 30100 UNITS/ SC; +MILK OF MAGNESI30 ML PO; +PLAVIX75 MG PO
[2020-02-01 06:42] LABS: BASOPHILS 0.6 % (0-2); EOSINOPHILS 3.9 % (0-7); HEMATOCRIT 39.4 % (42.0-54.0); HEMOGLOBIN 12.3 g/dL (13.5-17.5); IMMATURE GRANULOCYTES 0.9 % (0-5); LYMPHOCYTES 21.7 % (15-50); MCH 28.2 pg (26.0-34.0); MCHC 31.2 g/dL (31.0-37.0); MCV 90.4 fL (80.0-100.0); MONOCYTES 9.1 % (2-11); NEUTROPHILS 63.8 % (40-80); PLATELET COUNT 284 10x3/uL (130-400); RBC 4.36 10x6/uL (4.20-6.10); RDW 15.3 % (11.5-14.5)
[2020-02-01 06:51] LABS: ANION GAP 10.9 mmol/L (8-16); CALCIUM 8.4 mg/dL (8.5-10.1); CARBON DIOXIDE 25.2 mmol/L (21.0-32.0); CREATININE - SERUM 2.2 mg/dL (0.6-1.3); POTASSIUM - SERUM 4.1 mmol/L (3.5-5.1)
[2020-02-01 06:59] LABS: INR 0.92 (0.85-1.17); PROTIME 12.4 SECONDS (11.6-15.0)
[2020-02-01 07:27] VITALS: BP 198/94; Ht 182.9 cm; Wt 115.5 kg
[2020-02-01 08:14] LABS: ALBUMIN 2.1 g/dL (3.4-5.0); BILIRUBIN - TOTAL 0.26 mg/dL (0.2-1.3); PROTEIN - SERUM 6.3 g/dL (6.4-8.2)
--- NOTE | 2020-02-01 13:48 | NUR ---
0935-ASSISTED TO RESTROOM X 1. ABLE TO VOID WITHOUT COMPLICATIONS. NO DISTRESS.VSS.DRESSING CDI. DENIES PAIN. IV PATENT AT KVO. CL IN EASY REACH. AT BEDSIDE.
--- NOTE | 2020-02-01 13:49 | NUR ---
1110-LUNCH TRAY TO ROOM. NO CHANGES,VSS,DRESSING CDI,DENIES PAIN,NO DISTRESS,CL IN EASY REACH,VERY PLEASANT, AT BEDSIDE.
--- NOTE | 2020-02-01 13:50 | NUR ---
1210-NO CHANGES,A&oX4,DRESSING CDI,NO DISTRESS,VSS,DENIES PAIN,NO N/V. TOLERATED LUNCH TRAY. AT BEDSIDE,CL IN EASY REACH.
--- NOTE | 2020-02-01 13:51 | NUR ---
1305-REMOVED IV WITH CATH INTACT,DISPOSED CATH INTO SHARPS,COVERED SITE WITH GUAZE,SECURED WITH MEDIPORE TAPE. VSS.DRESSING CDI.NO DISTRESS.DENIES PAIN. DENIES N/V. REVIEWED POST OP INSTRUCTIONS.VERBALIZED UNDERSTANDING.
--- NOTE | 2020-02-01 13:52 | NUR ---
1315-ESCORTED OUT VIA W/C WITH AT SIDE AND FRIEND AVAILABLE TO DRIVE HOME.
== END 2020-02-01 13:15 | disposition home or self-care (01) ==
LOC: D.SP 06:16 → D.RAD 09:00 → D.SP 13:15
PROVIDERS: Specialist; ATTEND Internal Medicine Nephrology
DX: R22.43 Localized swelling, mass and lump, lower limb, bilateral (principal); R06.02 Shortness of breath; Z91.81 History of falling; Z86.73 Personal history of transient ischemic attack (TIA), and cerebral infarction without residual deficits; E11.9 Type 2 diabetes mellitus without complications; I11.0 Hypertensive heart disease with heart failure; I50.9 Heart failure, unspecified; K21.9 Gastro-esophageal reflux disease without esophagitis; Z79.84 Long term (current) use of oral hypoglycemic drugs

== ENCOUNTER 2020-03-14 11:34 | Inpatient (IN) | payer OTHER ==
[~2020-03-14] VITALS: Ht 182.9 cm; Wt 115.2 kg
--- NOTE | 2020-03-14 12:00 | NUR ---
TO ROOM [address] LUCERO'S OFFICE. PATIENT IS WITHOUT DISTRESS.FALL PREVENTION IN PLACE WITH BED ALARM
--- NOTE | 2020-03-14 12:00 | NUR ---
TO ROOM [address] LUCERO'S OFFICE.ASSESSMENT PER ADMIT FLOW SHEET. ORIENTATION TO ROOM.CALL LIGHT IN REACH
[2020-03-14] MEDS ORDERED: PLAVIX75 MG PO (12:56)
[2020-03-14] MEDS ORDERED: THEREMS-M1 TAB PO (12:57)
[2020-03-14] MEDS ORDERED: VITAMIN E100 UNIT PO (12:57)
[2020-03-14] MEDS ORDERED: CALCIUM 500 +1 EAC3 PO (12:59)
[2020-03-14 14:33] LABS: BILIRUBIN NEGATIVE (NEGATIVE); GLUCOSE 250 mg/dL (NEGATIVE); KETONE NEGATIVE (NEGATIVE); NITRITE NEGATIVE (NEGATIVE); UROBILINOGEN NORMAL (NORMAL)
[2020-03-14 14:34] LABS: BACTERIA FEW /hpf (NEGATIVE); RED CELLS - URINE 0-5 /hpf (0-5); WHITE CELLS - URINE 0-5 /hpf (NEGATIVE)
[2020-03-14 14:36] LABS: BASOPHILS 0.5 % (0-2); EOSINOPHILS 3.6 % (0-7); HEMATOCRIT 35.5 % (42.0-54.0); HEMOGLOBIN 11.1 g/dL (13.5-17.5); IMMATURE GRANULOCYTES 0.7 % (0-5); LYMPHOCYTES 23.6 % (15-50); MCH 28.2 pg (26.0-34.0); MCHC 31.3 g/dL (31.0-37.0); MCV 90.1 fL (80.0-100.0); MEAN PLATELET VOLUME 9.5 fL (7.4-10.4); NEUTROPHILS 64.6 % (40-80); PLATELET COUNT 325 10x3/uL (130-400); RBC 3.94 10x6/uL (4.20-6.10); WBC 8.1 10x3/uL (4.8-10.8)
[2020-03-14 15:10] LABS: ANION GAP 13.6 mmol/L (8-16); CALCIUM 7.9 mg/dL (8.5-10.1); CARBON DIOXIDE 23.2 mmol/L (21.0-32.0); CREATININE - SERUM 2.2 mg/dL (0.6-1.3); POTASSIUM - SERUM 4.8 mmol/L (3.5-5.1)
[2020-03-14 15:16] LABS: BILIRUBIN - TOTAL 0.21 mg/dL (0.2-1.3); PROTEIN - SERUM 5.7 g/dL (6.4-8.2)
[2020-03-14 16:19] VITALS: BP 181/71; BMI 34.5
[2020-03-14 16:21] LABS: % SATURATION 20 % (15-55); IRON 50 ug/dl (35-150); TOTAL IRON BIND CAPACITY 240 ug/dl (260-445); UNSAT IRON BIND CAPACITY 190 ug/dl (150-375)
[2020-03-14 17:22] VITALS: BP 187/81
[2020-03-14 19:15] LABS: APTT 28.1 SECONDS (22.8-39.4); INR 1.07 (0.85-1.17); PROTIME 13.8 SECONDS (11.6-15.0)
[2020-03-14 21:48] VITALS: BP 138/72
[2020-03-15 05:41] LABS: BASOPHILS 0.6 % (0-2); EOSINOPHILS 4.2 % (0-7); HEMOGLOBIN 11.3 g/dL (13.5-17.5); IMMATURE GRANULOCYTES 0.8 % (0-5); LYMPHOCYTES 24.1 % (15-50); MCHC 31.4 g/dL (31.0-37.0); MCV 89.3 fL (80.0-100.0); MEAN PLATELET VOLUME 9.9 fL (7.4-10.4); MONOCYTES 8.8 % (2-11); NEUTROPHILS 61.5 % (40-80); PLATELET COUNT 361 10x3/uL (130-400); RBC 4.03 10x6/uL (4.20-6.10); WBC 8.6 10x3/uL (4.8-10.8)
[2020-03-15 06:24] LABS: ALBUMIN 1.9 g/dL (3.4-5.0); ANION GAP 12.1 mmol/L (8-16); BILIRUBIN - TOTAL 0.28 mg/dL (0.2-1.3); CALCIUM 8.2 mg/dL (8.5-10.1); CARBON DIOXIDE 25.6 mmol/L (21.0-32.0); CREATININE - SERUM 2.1 mg/dL (0.6-1.3); MAGNESIUM - SERUM 1.8 mg/dL (1.8-2.4); POTASSIUM - SERUM 4.7 mmol/L (3.5-5.1); PROTEIN - SERUM 6.2 g/dL (6.4-8.2)
[2020-03-15 10:10] VITALS: BP 191/81
[2020-03-15 11:04] VITALS: Ht 182.9 cm; Wt 115.2 kg
[2020-03-15 13:25] VITALS: BP 166/77
[2020-03-15 17:02] VITALS: BP 176/78
[2020-03-15 21:00] VITALS: BP 186/74
[2020-03-16 06:55] LABS: BASOPHILS 0.4 % (0-2); EOSINOPHILS 4.1 % (0-7); HEMATOCRIT 34.9 % (42.0-54.0); HEMOGLOBIN 11.1 g/dL (13.5-17.5); IMMATURE GRANULOCYTES 0.6 % (0-5); LYMPHOCYTES 24.6 % (15-50); MCH 28.4 pg (26.0-34.0); MCHC 31.8 g/dL (31.0-37.0); MCV 89.3 fL (80.0-100.0); MEAN PLATELET VOLUME 9.8 fL (7.4-10.4); MONOCYTES 9.3 % (2-11); PLATELET COUNT 339 10x3/uL (130-400); RBC 3.91 10x6/uL (4.20-6.10); WBC 8.3 10x3/uL (4.8-10.8)
[2020-03-16 07:15] VITALS: BP 178/94
[2020-03-16 07:39] LABS: ANION GAP 10.4 mmol/L (8-16); CALCIUM 8.1 mg/dL (8.5-10.1); CARBON DIOXIDE 26.4 mmol/L (21.0-32.0); CREATININE - SERUM 2.1 mg/dL (0.6-1.3); MAGNESIUM - SERUM 1.7 mg/dL (1.8-2.4); POTASSIUM - SERUM 4.8 mmol/L (3.5-5.1)
--- NOTE | 2020-03-16 09:00 | NUR ---
ALERT AND ORIENTED X4. PATINET REMAINS NPO DUE T PENDING SUGICAL PROCEDURE TO LT AXILLARY AND BUTTOCK ABCESS DEBRIEDMENT. UP ADLIB IV TO LEFT A/C S/L. DENEIS ANY PAIN OR DISCOMFORT AT THIS TIME. ENCOURAGED TO USE CALL LIGHT FOR ASSSIT.
[2020-03-16 12:04] VITALS: BP 172/78
[2020-03-16 20:00] VITALS: BP 130/67; BP 160/91
[2020-03-17] VITALS: BP 188/84
[2020-03-17 04:00] VITALS: BP 188/74
[2020-03-17 06:21] LABS: BASOPHILS 0.2 % (0-2); EOSINOPHILS 3.4 % (0-7); HEMATOCRIT 35.6 % (42.0-54.0); HEMOGLOBIN 11.1 g/dL (13.5-17.5); IMMATURE GRANULOCYTES 0.4 % (0-5); LYMPHOCYTES 16.3 % (15-50); MCHC 31.2 g/dL (31.0-37.0); MCV 89.9 fL (80.0-100.0); MEAN PLATELET VOLUME 9.7 fL (7.4-10.4); MONOCYTES 8.5 % (2-11); NEUTROPHILS 71.2 % (40-80); PLATELET COUNT 349 10x3/uL (130-400); RBC 3.96 10x6/uL (4.20-6.10); RDW 15.1 % (11.5-14.5); WBC 9.1 10x3/uL (4.8-10.8)
[2020-03-17 06:56] LABS: ANION GAP 13.1 mmol/L (8-16); CALCIUM 8.4 mg/dL (8.5-10.1); CARBON DIOXIDE 23.5 mmol/L (21.0-32.0); CREATININE - SERUM 2.4 mg/dL (0.6-1.3); POTASSIUM - SERUM 4.6 mmol/L (3.5-5.1)
[2020-03-17 08:37] VITALS: BP 164/68
[2020-03-17 12:00] VITALS: BP 184/86
[2020-03-17 16:00] VITALS: BP 146/61
[2020-03-17 20:55] VITALS: BP 184/74
[2020-03-18 01:48] VITALS: BP 103/67
[2020-03-18 04:30] VITALS: BP 149/70
[2020-03-18 06:18] LABS: BASOPHILS 0.2 % (0-2); EOSINOPHILS 4.2 % (0-7); HEMATOCRIT 33.6 % (42.0-54.0); HEMOGLOBIN 10.5 g/dL (13.5-17.5); IMMATURE GRANULOCYTES 0.6 % (0-5); LYMPHOCYTES 17.1 % (15-50); MCH 27.9 pg (26.0-34.0); MCHC 31.3 g/dL (31.0-37.0); MCV 89.4 fL (80.0-100.0); MEAN PLATELET VOLUME 9.8 fL (7.4-10.4); MONOCYTES 9.5 % (2-11); NEUTROPHILS 68.4 % (40-80); PLATELET COUNT 329 10x3/uL (130-400); RBC 3.76 10x6/uL (4.20-6.10); RDW 15.2 % (11.5-14.5); WBC 8.2 10x3/uL (4.8-10.8)
[2020-03-18 06:36] LABS: CALCIUM 8.3 mg/dL (8.5-10.1); CARBON DIOXIDE 24.4 mmol/L (21.0-32.0); CREATININE - SERUM 2.8 mg/dL (0.6-1.3); MAGNESIUM - SERUM 1.8 mg/dL (1.8-2.4); POTASSIUM - SERUM 4.4 mmol/L (3.5-5.1)
[2020-03-18 08:09] VITALS: BP 152/69
[2020-03-18 12:54] VITALS: BP 170/67
[2020-03-18] MEDS ORDERED: FLORAJEN3 CAPS460 MG PO (16:06)
[2020-03-18] MEDS ORDERED: DOXYCYCLINE HY100 M2 PO (16:07)
[2020-03-18] MEDS ORDERED: Vibramycin 100 MG/D5 IV (16:33)
--- NOTE | 2020-03-18 18:54 | MORECARE ---
CASE MANAGEMENT DISCHARGE SUMMARY PATIENT: GRAZYNA VALVERDEMON UNIT: [id number] ADM DATE: 03/14/20 AGE: 74 : 45 SEX: M ROOM/BED: D.2228 AUTHOR: SHELIA CHRISTINA PHYSICIAN: REFERRING PHYSICIAN: SHAHLA LUCERO DO DATE OF SERVICE: 03/18/20 Discharge Plan Patient Name: GRAZYNA VALVERDE [facility] [facility] 1945 Planned Disposition: Home with Home Health Anticipated Discharge Date: Discharge Date: 03/18/2020 Expected LOS: Initial Reviewer: [email or web address] Initial Review Date: 03/14/2020 Generated: 03/18/20 7:53 pm DCPIA - Discharge Planning Initial Assessment Updated by [email or web address]: Lila Cornell on 03/18/20 6:50 pm * Is the patient Alert and Oriented? Yes * How many steps to enter\exit or inside your home? RAMP * PCP [facility] * Pharmacy [facility] * Preadmission Environment Home with Family * ADLs Independent * Other Equipment WALKER, W/C * List name and contact numbers for known caregivers / representatives who currently or will assist patient after discharge: ERASMO CARIAS [facility]- [phone] * Verbal permission to speak to the caregivers and representatives has been obtained from the patient. Yes * Community resources currently utilized Home Health * Please name any agencies selected above. [facility] * Additional services required to return to the preadmission environment? No * Can the patient safely return to the preadmission environment? Yes * Has this patient been hospitalized within the prior 30 days at any hospital? No Patient Name: GRAZYNA VALVERDE Page [phone] at 1854 All edits/amendments must be made on the electronic document DICTATION DATE: 03/18/201853 AUTOMOTIVE CENTER MANAGER: VALDO 03/18/201853 RPT#: [id number] DC DATE:03/18/20 STATUS: DIS IN [facility] [address] [place] [address] END OF REPORT
--- NOTE | 2020-03-18 19:04 | MORECARE ---
CASE MANAGEMENT DISCHARGE SUMMARY PATIENT: GRAZYNA VALVERDEMON UNIT: [id number] ADM DATE: 03/14/20 AGE: 74 : 45 SEX: M ROOM/BED: D.2228 AUTHOR: SANFORD,DOC PHYSICIAN: REFERRING PHYSICIAN: SHAHLA LUCERO DO DATE OF SERVICE: 03/18/20 Discharge Plan Patient Name: GRAZYNA VALVERDE Facility: [facility]:[place] : 1945 Planned Disposition: Home with Home Health Anticipated Discharge Date: Discharge Date: 03/18/2020 Expected LOS: Initial Reviewer: [email or web address] Initial Review Date: 03/14/2020 Generated: 03/18/20 8:03 pm Comments DCP- Discharge Planning Updated by [email or web address]: Lila Cornell on 03/18/20 5:[address] Patient Name: GRAZYNA VALVERDE Admission Status: Elective Accout number: [id number] Admission Date: 03-14-2020 : 1945 Admission Diagnosis:CELLULITIS, UNSPECIFIED Attending: SHAHLA LUCERO Current LOS: 4 Anticipated DC Date: Planned Disposition: Home with Home Health Primary Insurance: Cover Discharge Planning Comments: CM met with patient to complete initial dc planning assessment. CM educated patient on the CM role and verbal consent given by patient to complete assessment. Patient lives at home with significant other. Patient is independent. At discharge patient plans to return home and feels this is a safe discharge. CM discussed availability of home health, rehab services, and medical equipment. Patient states that he has [facility] and plans to resume care upon d/c. TIFF signed. Patient will have family to transport home. Patient denied known discharge needs at this time. CM will continue to follow and will assist as needed with dc plans/needs. Parking Lot Supervisor: Lila Cornell Appended by Lila Cornell on 03/18/2020 18:59 CDT: CM called [facility] to let them know about d/c tonight. Left message with call service will fax [facility]c to [facility]. At this time marketing content specialist nurse has not returned call. DCPIA - Discharge Planning Initial Assessment Updated by [email or web address]: Lila Cornell on 03/18/20 6:50 pm * Is the patient Alert and Oriented? Yes * How many steps to enter\exit or inside your home? RAMP * PCP [facility] * Pharmacy [facility] * Preadmission Environment Home with Family * ADLs Independent * Other Equipment WALKER, W/C * List name and contact numbers for known caregivers / representatives who currently or will assist patient after discharge: ERASMO CARIAS [facility]- [phone] * Verbal permission to speak to the caregivers and representatives has been obtained from the patient. Yes * Community resources currently utilized Home Health * Please name any agencies selected above. [facility] * Additional services required to return to the preadmission environment? No * Can the patient safely return to the preadmission environment? Yes * Has this patient been hospitalized within the prior 30 days at any hospital? No Coverage Notice Reviewer: [email or web address] Leonarda Cornell Notice Issued Date-Time: 03/18/2020 17:24 Notice Type: IM Discharge Notice Notice Delivered To: Patient Relationship to Patient: Servicer Travel Trailers Name: Delivery Method: HAND - Hand Delivered Kirti Days: Prior Verbal Notification: Recipient Understood Notice: Yes Recipient Signature: Yes Med Rec Note Co-signed by Attending: Coverage Notice Comment: Reviewer: [email or web address] Leonarda Cornell Notice Issued Date-Time: 03/18/2020 17:24 Notice Type: Patient Choice Letter Notice Delivered To: Patient Relationship to Patient: Servicer Travel Trailers Name: Delivery Method: HAND - Hand Delivered Kirti Days: Prior Verbal Notification: Recipient Understood Notice: Yes Recipient Signature: Yes Med Rec Note Co-signed by Attending: Coverage Notice Comment: ARISTIDES Last DP export: 03/18/20 5:54 p Patient Name: GRAZYNA VALVERDE Page [id number] at 1904 All edits/amendments must be made on the electronic document DICTATION DATE: 03/18/201902 PREVENTIVE MEDICINE PHYSICIAN: VALDO 03/18/201902 RPT#: [id number] DC DATE:03/18/20 STATUS: DIS IN [facility] [address] [place] [address] END OF REPORT
--- NOTE | 2020-03-18 19:11 | MORECARE ---
CASE MANAGEMENT DISCHARGE SUMMARY PATIENT: GRAZYNA VALVERDEMON UNIT: [id number] ADM DATE: 03/14/20 AGE: 74 : 45 SEX: M ROOM/BED: D.2228 AUTHOR: SANFORD,DOC PHYSICIAN: REFERRING PHYSICIAN: SHAHLA LUCERO DO DATE OF SERVICE: 03/18/20 Discharge Plan Patient Name: GRAZYNA VALVERDE Facility: [facility]:[place] : 1945 Planned Disposition: Home with Home Health Anticipated Discharge Date: Discharge Date: 03/18/2020 Expected LOS: Initial Reviewer: [email or web address] Initial Review Date: 03/14/2020 Generated: 03/18/20 8:11 pm Comments DCP- Discharge Planning Updated by [email or web address]: Lila Cornell on 03/18/20 5:[address] Patient Name: GRAZYNA VALVERDE Admission Status: Elective Accout number: [id number] Admission Date: 03-14-2020 : 1945 Admission Diagnosis:CELLULITIS, UNSPECIFIED Attending: SHAHLA LUCERO Current LOS: 4 Anticipated DC Date: Planned Disposition: Home with Home Health Primary Insurance: [employer] Discharge Planning Comments: CM met with patient to complete initial dc planning assessment. CM educated patient on the CM role and verbal consent given by patient to complete assessment. Patient lives at home with significant other. Patient is independent. At discharge patient plans to return home and feels this is a safe discharge. CM discussed availability of home health, rehab services, and medical equipment. Patient states that he has [facility] and plans to resume care upon d/c. TIFF signed. Patient will have family to transport home. Patient denied known discharge needs at this time. CM will continue to follow and will assist as needed with dc plans/needs. Lpta: Lila Cornell Appended by Lila Cornell on 03/18/2020 18:59 CDT: CM called [facility] to let them know about d/c tonight. Left message with call service will fax [facility]c to [facility]. At this time source water protection specialist nurse has not returned call. DCPIA - Discharge Planning Initial Assessment Updated by [email or web address]: Lila Cornlel on 03/18/20 6:50 pm * Is the patient Alert and Oriented? Yes * How many steps to enter\exit or inside your home? RAMP * PCP [facility] * Pharmacy [facility] * Preadmission Environment Home with Family * ADLs Independent * Other Equipment WALKER, W/C * List name and contact numbers for known caregivers / representatives who currently or will assist patient after discharge: ERASMO CARIAS [facility]- [phone] * Verbal permission to speak to the caregivers and representatives has been obtained from the patient. Yes * Community resources currently utilized Home Health * Please name any agencies selected above. [facility] * Additional services required to return to the preadmission environment? No * Can the patient safely return to the preadmission environment? Yes * Has this patient been hospitalized within the prior 30 days at any hospital? No External Providers External Provider: Vinod DarienKelton Next Contact Date: Service Request Date: Service Type: Resolution: Reviewer: Comments: Coverage Notice Reviewer: [id number] Leonarda Cornell Notice Issued Date-Time: 03/18/2020 17:24 Notice Type: IM Discharge Notice Notice Delivered To: Patient Relationship to Patient: Chemical Checker Name: Delivery Method: HAND - Hand Delivered Kirti Days: Prior Verbal Notification: Recipient Understood Notice: Yes Recipient Signature: Yes Med Rec Note Co-signed by Attending: Coverage Notice Comment: Reviewer: [id number] Cornell Notice Issued Date-Time: 03/18/2020 17:24 Notice Type: Patient Choice Letter Notice Delivered To: Patient Relationship to Patient: Chemical Checker Name: Delivery Method: HAND - Hand Delivered Kirti Days: Prior Verbal Notification: Recipient Understood Notice: Yes Recipient Signature: Yes Med Rec Note Co-signed by Attending: Coverage Notice Comment: ARISTIDES Mathews DP export: 03/18/20 6:04 p Patient Name: GRAZYNA VALVERDE Page [phone] at 191 All edits/amendments must be made on the electronic document DICTATION DATE: 03/18/201910 DRY BOSS: VALDO 03/18/201910 RPT#: [id number] DC DATE:03/18/20 STATUS: DIS IN [facility] [address] [place] [address] END OF REPORT
--- NOTE | 2020-03-20 09:02 | MORECARE ---
CASE MANAGEMENT DISCHARGE SUMMARY PATIENT: GRAZYNA VALVERDEMON UNIT: [id number] ADM DATE: 03/14/20 AGE: 74 : 45 SEX: M ROOM/BED: D.2228 AUTHOR: SANFORD,DOC PHYSICIAN: REFERRING PHYSICIAN: SHAHLA LUCERO DO DATE OF SERVICE: 03/20/20 Discharge Plan Patient Name: GRAZYNA VALVERDE Facility: [facility]:[place] : 1945 Planned Disposition: Home with Home Health Anticipated Discharge Date: Discharge Date: 03/18/2020 Expected LOS: Initial Reviewer: [id number] Initial Review Date: 03/14/2020 Generated: 03/20/20 10:02 am Comments DCP- Discharge Planning Updated by [email or web address]: Lila Cornell on 03/18/20 5:[address] Patient Name: GRAZYNA VALVERDE Admission Status: Elective Accout number: [id number] Admission Date: 03-14-2020 : 1945 Admission Diagnosis:CELLULITIS, UNSPECIFIED Attending: SHAHLA LUCERO Current LOS: 4 Anticipated DC Date: Planned Disposition: Home with Home Health Primary Insurance: [employer] Discharge Planning Comments: CM met with patient to complete initial dc planning assessment. CM educated patient on the CM role and verbal consent given by patient to complete assessment. Patient lives at home with significant other. Patient is independent. At discharge patient plans to return home and feels this is a safe discharge. CM discussed availability of home health, rehab services, and medical equipment. Patient states that he has [facility] and plans to resume care upon d/c. TIFF signed. Patient will have family to transport home. Patient denied known discharge needs at this time. CM will continue to follow and will assist as needed with dc plans/needs. Shuttle Driver: Lila Cornell Appended by Lila Cornell on 03/18/2020 18:59 CDT: CM called [facility] to let them know about d/c tonight. Left message with call service will fax [facility] to [facility]. At this time micro paleontologist nurse has not returned call. DCPIA - Discharge Planning Initial Assessment Updated by [email or web address]: Lila Cornell on 03/18/20 6:50 pm * Is the patient Alert and Oriented? Yes * How many steps to enter\exit or inside your home? RAMP * PCP [facility] * Pharmacy [facility] * Preadmission Environment Home with Family * ADLs Independent * Other Equipment WALKER, W/C * List name and contact numbers for known caregivers / representatives who currently or will assist patient after discharge: ERASMO CARIAS [facility]- [phone] * Verbal permission to speak to the caregivers and representatives has been obtained from the patient. Yes * Community resources currently utilized Home Health * Please name any agencies selected above. [facility] * Additional services required to return to the preadmission environment? No * Can the patient safely return to the preadmission environment? Yes * Has this patient been hospitalized within the prior 30 days at any hospital? No Coverage Notice Reviewer: [email or web address] Leonarda Cornell Notice Issued Date-Time: 03/18/2020 17:24 Notice Type: IM Discharge Notice Notice Delivered To: Patient Relationship to Patient: Product Manufacturing Professional Name: Delivery Method: HAND - Hand Delivered Kirti Days: Prior Verbal Notification: Recipient Understood Notice: Yes Recipient Signature: Yes Med Rec Note Co-signed by Attending: Coverage Notice Comment: Reviewer: [id number] Leonarda Cornell Notice Issued Date-Time: 03/18/2020 17:24 Notice Type: Patient Choice Letter Notice Delivered To: Patient Relationship to Patient: Product Manufacturing Professional Name: Delivery Method: HAND - Hand Delivered Kirti Days: Prior Verbal Notification: Recipient Understood Notice: Yes Recipient Signature: Yes Med Rec Note Co-signed by Attending: Coverage Notice Comment: ARISTIDES Last DP export: 03/18/20 6:11 p Patient Name: GRAZYNA VALVERDE Page [phone] at 0902 All edits/amendments must be made on the electronic document DICTATION DATE: 03/20/20901 GLOBAL CREATIVE CHAIRMAN: VALDO 03/20/20901 RPT#: [id number] DC DATE:03/18/20 STATUS: DIS IN [facility] [address] [place] [address] END OF REPORT
== END 2020-03-18 18:17 | disposition home health service (06) | DRG 638 ==
LOC: D.MS 11:34
PROVIDERS: Family Medicine; Surgery; ADMIT Family Medicine; ATTEND Family Medicine
PROC: 0HB8XZZ Excision of Buttock Skin, External Approach (ICD-10-PCS; principal; 2020-03-16 09:30)
DX: E11.628 Type 2 diabetes mellitus with other skin complications (principal); L02.31 Cutaneous abscess of buttock; N17.9 Acute kidney failure, unspecified; E11.65 Type 2 diabetes mellitus with hyperglycemia; I25.10 Atherosclerotic heart disease of native coronary artery without angina pectoris; N40.0 Benign prostatic hyperplasia without lower urinary tract symptoms; K21.9 Gastro-esophageal reflux disease without esophagitis; D64.9 Anemia, unspecified; Z85.46 Personal history of malignant neoplasm of prostate; Z86.73 Personal history of transient ischemic attack (TIA), and cerebral infarction without residual deficits; I12.9 Hypertensive chronic kidney disease with stage 1 through stage 4 chronic kidney disease, or unspecified chronic kidney disease; E11.22 Type 2 diabetes mellitus with diabetic chronic kidney disease; N18.9 Chronic kidney disease, unspecified; H91.8X2 Other specified hearing loss, left ear

== ENCOUNTER 2020-05-02 21:59 | Emergency (ER) | payer OTHER ==
[~2020-05-02] VITALS: Ht 182.9 cm; Wt 111.4 kg
[~2020-05-02 21:59] MED LIST changes: +CALCIUM 500 +1 EAC3 PO; +DOXYCYCLINE HY100 M2 PO; +FLORAJEN3 CAPS460 MG PO; +THEREMS-M1 TAB PO; +VITAMIN E100 UNIT PO; +Vibramycin 100 MG/D5 IV
[2020-05-02 22:03] VITALS: Ht 182.9 cm; Wt 111.4 kg
[2020-05-02 23:25] VITALS: BP 159/72
== END 2020-05-02 23:25 | disposition home or self-care (01) ==
LOC: D.ER 21:59
DX: R04.0 Epistaxis (principal); E11.9 Type 2 diabetes mellitus without complications; I10 Essential (primary) hypertension; I50.9 Heart failure, unspecified; Z95.1 Presence of aortocoronary bypass graft; K21.9 Gastro-esophageal reflux disease without esophagitis

== ENCOUNTER 2020-10-31 10:57 | Emergency (ER) | payer OTHER ==
[~2020-10-31] VITALS: Ht 182.9 cm; Wt 108.6 kg
[~2020-10-31 10:57] MED LIST changes: +GLIPIZIDE10 MG PO; +PEPCID PO; +POTASSIUM CHLO10 ME1 PO; +THERAGRAN M [BK1 TAB PO
[2020-10-31 11:05] VITALS: BP 160/70; Ht 182.9 cm; Wt 108.6 kg
[2020-10-31 11:44] LABS: BASOPHILS 0.3 % (0-2); EOSINOPHILS 4.2 % (0-7); HEMATOCRIT 35.7 % (42.0-54.0); HEMOGLOBIN 11.4 g/dL (13.5-17.5); IMMATURE GRANULOCYTES 0.5 % (0-5); LYMPHOCYTE ABS# 1.77 10x3/uL (1.32-3.57); MCH 28.6 pg (26.0-34.0); MCHC 31.9 g/dL (31.0-37.0); MCV 89.7 fL (80.0-100.0); MEAN PLATELET VOLUME 9.9 fL (7.4-10.4); MONOCYTES 7.1 % (2-11); NEUTROPHIL ABS# 7.96 10x3/uL (1.78-5.38); NEUTROPHILS 71.9 % (40-80); PLATELET COUNT 365 10x3/uL (130-400); RBC 3.98 10x6/uL (4.20-6.10); RDW 14.6 % (11.5-14.5); WBC 11.1 10x3/uL (4.8-10.8)
[2020-10-31 11:58] LABS: ALBUMIN 2.4 g/dL (3.4-5.0); BILIRUBIN - TOTAL 0.36 mg/dL (0.2-1.3); CALCIUM 8.3 mg/dL (8.5-10.1); CARBON DIOXIDE 21.6 mmol/L (21.0-32.0); CREATININE - SERUM 3.4 mg/dL (0.6-1.3); POTASSIUM - SERUM 4.6 mmol/L (3.5-5.1)
== END 2020-10-31 14:59 | disposition left against medical advice (07) ==
LOC: D.ER 10:57
PROVIDERS: Emergency Medicine
DX: L02.91 Cutaneous abscess, unspecified (principal)

== ENCOUNTER 2020-11-02 09:50 | Inpatient (IN) | payer OTHER ==
[~2020-11-02] VITALS: Ht 182.9 cm; Wt 108.9 kg
--- NOTE | ~2020-11-02 | OP ---
PATIENT NAME: GRAZYNA VALVERDE MEDICAL RECORD: [id number] :45 LOCATION:D.M2 D.2103 ADMISSION DATE:11/02/20 SURGEON: ADRIENNE GLASS MD DATE OF OPERATION: 11/05/2020 PREOPERATIVE DIAGNOSES: 1. Left buttock abscess. 2. Diabetes mellitus. 3. Hypertension. 4. Peripheral vascular disease. 5. Wtfgm-ru-xvzywib kidney disease. 6. Systolic congestive heart failure. POSTOPERATIVE DIAGNOSES: 1. Left buttock abscess. 2. Diabetes mellitus. 3. Hypertension. 4. Peripheral vascular disease. 5. Bwuzo-bl-avoznwh kidney disease. 6. Systolic congestive heart failure. PROCEDURE: I&D of left buttock abscess times 2. SURGEON: Adrienne Glass M.D. DESCRIPTION OF PROCEDURE: The patient's left buttock was prepped and draped in sterile fashion. On the lateral aspect over the ischium there was a large area of induration with purulence coming through multiple pores of the skin. A longitudinal incision was made about 1 cm in length. I was able to poke into this area and there was a small amount of serous fluid with some purulence present within it. I went ahead and extended this incision down to where I could place my finger into the wound and I was able to feel around the wound and saw no evidence of any deep tracking. The wound extended superiorly and inferiorly for a little ways. I was able to irrigate out this wound with peroxide and saline solution. I then packed this wound with half-inch packing strips. The patient also had a small opening present near the crease of the left buttock. I was able to penetrate this with a hemostat and removed some tissue from it. The wound was then irrigated out with peroxide and saline solution and then packed with a single piece of half inch packing strip. The wounds were then dressed with dry 4 x 4s and an Teo wrap. COMPLICATIONS: None. CONDITION: Stable. ANESTHESIA: General endotracheal. BLOOD LOSS: Minimal. TRANSINT:[id number] Voice Confirmation ID: [id number] DOCUMENT ID: [id number] OPERATIVE REPORT [id number] VALVERDEGRAZYNA ROCHE ADRIENNE PRESTON MD CC: [id number] DICTATION DATE: 11/05/201417 LEATHER PATCHER: 11/05/202134 ADM IN [address] [address]
[2020-11-02 10:44] LABS: CALC OSMOLALITY 289 mosm/kg (275-300); CALCIUM 8.5 mg/dL (8.5-10.1); CARBON DIOXIDE 21.4 mmol/L (21.0-32.0); CHLORIDE - SERUM 103 mmol/L (98-107); CREATININE - SERUM 3.1 mg/dL (0.6-1.3); GLUCOSE 281 mg/dL (74-106); POTASSIUM - SERUM 4.4 mmol/L (3.5-5.1); SODIUM 135 mmol/L (136-145); UREA NITROGEN 40 mg/dL (7-18); eGFR NON AFRICAN AMERICAN 21 mL/min (90-120)
[2020-11-02 10:45] LABS: APTT 30.1 SECONDS (22.8-39.4); INR 1.18 (0.85-1.17); PROTIME 13.9 SECONDS (11.6-15.0)
[2020-11-02 10:58] LABS: BASOPHILS 0.3 % (0-2); EOSINOPHILS 3.5 % (0-7); HEMATOCRIT 33.3 % (42.0-54.0); HEMOGLOBIN 10.6 g/dL (13.5-17.5); IMMATURE GRANULOCYTES 0.7 % (0-5); LYMPHOCYTE ABS# 1.75 10x3/uL (1.32-3.57); LYMPHOCYTES 15.9 % (15-50); MCH 28.3 pg (26.0-34.0); MCHC 31.8 g/dL (31.0-37.0); MCV 88.8 fL (80.0-100.0); MEAN PLATELET VOLUME 10.1 fL (7.4-10.4); NEUTROPHIL ABS# 7.91 10x3/uL (1.78-5.38); NEUTROPHILS 71.6 % (40-80); PLATELET COUNT 416 10x3/uL (130-400); RBC 3.75 10x6/uL (4.20-6.10); RDW 14.5 % (11.5-14.5)
[2020-11-02 11:01] LABS: ALBUMIN 2.1 g/dL (3.4-5.0); ALKALINE PHOSPHATASE 88 U/L (30-120); ALT (SGPT) 12 U/L (10-68); BILIRUBIN - TOTAL 0.27 mg/dL (0.2-1.3); CKMB 0.7 U/L (0.0-3.6); CREATINE KINASE 25 UL (21-232); PROTEIN - SERUM 6.7 g/dL (6.4-8.2)
[2020-11-02 11:03] LABS: TROPONIN-I < 0.017 ng/mL (0.000-0.060)
--- NOTE | 2020-11-02 11:03 | NUR ---
FINGERSTICK BLOOD SUGAR DONE AT FAMILY REQUEST. RESULTS 263
--- NOTE | 2020-11-02 13:06 | NUR ---
RECEIVED PT TO ROOM 2103 VIA STRETCHER, PT WAS ABLE TO TRANSFER FROM STRETCHER TO BED X1 ASSIST. PT A/O X4, RESP EVEN AND NONLABORED ON RA. RT HAND IV INFUSING VANC AND NS AT 50CC/HR. ORIENTED PT TO ROOM AND CALL LIGHT. RATIONAL FOR SCDS EXPLAINED TO PT AND PT REFUSED TO WEAR SCDS, THERE IS ALSO AN ORDER FOR LOVENOX. PROVIDED PT WITH LUNCH TRAY. WILL ASSESS PT AND START PLAN OF CARE.
[2020-11-02 13:08] VITALS: BP 180/78; BMI 32.6
[2020-11-02] MEDS ORDERED: SOLIQUA 100 UNIT3 ML SQ (14:29)
[2020-11-02 16:16] VITALS: BP 159/78
--- NOTE | 2020-11-02 16:47 | NUR ---
BLOOD SUGAR OF 295, 6 UNITS OF INSULIN GIVEN PER S/S. PT UP TO SIDE OF BED, EATING DINNER, DENIES ANY NEEDS AT THIS TIME.CALL LIGHT IN REACH.
[2020-11-02 22:30] VITALS: BP 154/75
[2020-11-03 03:22] LABS: BILIRUBIN NEGATIVE (NEGATIVE); KETONE NEGATIVE (NEGATIVE); NITRITE NEGATIVE (NEGATIVE); UROBILINOGEN NORMAL mg/dL (< 2)
[2020-11-03 03:23] LABS: BACTERIA FEW HPF (NONE SEEN); SQUAMOUS EPITHELIAL 0-5 HPF (0-4); WHITE CELLS - URINE NONE SEEN HPF (0-1)
[2020-11-03 04:00] VITALS: BP 155/68
[2020-11-03 05:02] LABS: BASOPHILS 0.3 % (0-2); EOSINOPHILS 3.9 % (0-7); HEMATOCRIT 31.7 % (42.0-54.0); IMMATURE GRANULOCYTES 0.6 % (0-5); LYMPHOCYTE ABS# 1.59 10x3/uL (1.32-3.57); LYMPHOCYTES 13.9 % (15-50); MCH 27.7 pg (26.0-34.0); MCHC 31.5 g/dL (31.0-37.0); MCV 87.8 fL (80.0-100.0); MEAN PLATELET VOLUME 9.9 fL (7.4-10.4); MONOCYTES 8.4 % (2-11); NEUTROPHIL ABS# 8.33 10x3/uL (1.78-5.38); NEUTROPHILS 72.9 % (40-80); PLATELET COUNT 408 10x3/uL (130-400); RBC 3.61 10x6/uL (4.20-6.10); RDW 14.4 % (11.5-14.5); WBC 11.4 10x3/uL (4.8-10.8)
[2020-11-03 05:27] LABS: ALBUMIN 1.9 g/dL (3.4-5.0); BILIRUBIN - TOTAL 0.37 mg/dL (0.2-1.3); CALCIUM 8.3 mg/dL (8.5-10.1); CREATININE - SERUM 2.8 mg/dL (0.6-1.3); MAGNESIUM - SERUM 1.7 mg/dL (1.8-2.4); PHOSPHOROUS 3.3 mg/dL (2.5-4.9); PROTEIN - SERUM 6.2 g/dL (6.4-8.2)
[2020-11-03] MEDS ORDERED: ZYRTEC10 MG PO (08:36)
--- NOTE | 2020-11-03 08:47 | NUR ---
AM MEDS GIVEN PER EMAR. PT RR EVEN NON LABORED. PT ASSISTED TO AND FROM BATHROOM, TOLERATED WELL. NO FURTHER NEEDS VOICED AT THIS TIME. CLWR.
[2020-11-03 08:58] VITALS: BP 157/66
--- NOTE | 2020-11-03 09:00 | NUR ---
PT BS 255, COVERED WITH 10 UNITS SLIDING SCALE INSULIN ORDERED. PT C/O CONTIPATION. TELETYPESETTER PAGED WITH PT REQUEST FOR SUPPOSITORY WHICH SHE ORDERED. PT DECLINED ASSISTANCE WITH SUPPOSITORY. PT ERASMO CALLED NURSES STATION TO SAY PATIENT WAS HAVING TROUBLE INSERTING SUPPOSITORY, NURSE ASSISTED PATIENT AND PT HAD A SMALL BOWEL MOVEMENT. PT REPORTS FEELING MUCH BETTER. VITALS WNL. PT DENIES PAIN OR DISCOMFORT AT THIS TIME AND HAS NO FURTHER REQUESTS. WALKER AT BEDSIDE, ALL PERSONAL BELONGINGS WITHIN REACH.
--- NOTE | 2020-11-03 09:55 | NUR ---
PLACED RECLINER IN ROOM PER PT REQUEST D/T PT SLEEPS IN ONE AT HOME AND CANNOT GET COMOFRTABLE IN THE BED. NO FURTHER NEEDS VOICED. CLWR.
[2020-11-03 15:53] VITALS: BP 110/68
[2020-11-03 20:00] VITALS: BP 138/69
--- NOTE | 2020-11-04 00:26 | NUR ---
PT SITTINGIN RECLINER ASLEEP. NURSE ENTERS ROOM TO CHECK ON IV FLUIDS, PT WAKES UP AND REQUESTS TO BE DISCONNECTED FROM IV FLUIDS. EDUCATION DONE ON REASON PT IS SUPPOSED TO GET IV FLUIDS. PT VERBALIZED UNDERSTANDING AND STILL REQUESTS TO BE DISCONNECTED. IV FLUIDS DISCONNECTED PER PATIENT REQUEST.
[2020-11-04 04:00] VITALS: BP 153/70
[2020-11-04 06:01] LABS: BASOPHILS 0.3 % (0-2); EOSINOPHILS 4.2 % (0-7); HEMATOCRIT 32.1 % (42.0-54.0); HEMOGLOBIN 10.1 g/dL (13.5-17.5); IMMATURE GRANULOCYTES 0.9 % (0-5); LYMPHOCYTE ABS# 2.13 10x3/uL (1.32-3.57); LYMPHOCYTES 16.7 % (15-50); MCH 27.7 pg (26.0-34.0); MCHC 31.5 g/dL (31.0-37.0); MCV 88.2 fL (80.0-100.0); MEAN PLATELET VOLUME 9.5 fL (7.4-10.4); MONOCYTES 8.6 % (2-11); NEUTROPHIL ABS# 8.81 10x3/uL (1.78-5.38); NEUTROPHILS 69.3 % (40-80); PLATELET COUNT 452 10x3/uL (130-400); RBC 3.64 10x6/uL (4.20-6.10); RDW 14.5 % (11.5-14.5); WBC 12.7 10x3/uL (4.8-10.8)
[2020-11-04 06:19] LABS: ANION GAP 15.6 mmol/L (8-16); BILIRUBIN - TOTAL 0.42 mg/dL (0.2-1.3); CALCIUM 8.5 mg/dL (8.5-10.1); CARBON DIOXIDE 22.4 mmol/L (21.0-32.0); CREATININE - SERUM 3.5 mg/dL (0.6-1.3); MAGNESIUM - SERUM 1.8 mg/dL (1.8-2.4); PHOSPHOROUS 3.8 mg/dL (2.5-4.9); PROTEIN - SERUM 6.8 g/dL (6.4-8.2); VANCOMYCIN - RANDOM 18.3 ug/mL (10.0-20.0)
[2020-11-04 07:28] VITALS: BP 153/72
--- NOTE | 2020-11-04 09:35 | NUR ---
AM MEDS GIVEN WITH WATER AT THIS TIME PER EMAR. PT AWAKE AND ALERT, IV TO RIGHT HAND HAVING SOME DISCOMFORT WHEN GIVING MEDS. PT STATES HE WANTS TO DISCUSS OPTIONS WITH MD PRIOR TO TAKING IT OUT OR STARTING A NEW ONE D/T HISTORY OF PICC LINE PLACEMENT FOR HALF-WAY ANTIBIOTICS. NO FURTHER NEEDS VOICED. CLWR.
--- NOTE | 2020-11-04 12:25 | NUR ---
NEW IV TO LEFT FA PLACED. PT TOLERATED WELL.
[2020-11-04 15:00] VITALS: BP 150/70
--- NOTE | 2020-11-04 16:11 | MORECARE ---
CASE MANAGEMENT DISCHARGE SUMMARY PATIENT: GRAZYNA VALVERDE UNIT: [id number] ADM DATE: 11/02/20 AGE: 75 : 45 SEX: M ROOM/BED: D.2104 AUTHOR: SANFORD,DOC PHYSICIAN: REFERRING PHYSICIAN: NAA RAMIREZ MD DATE OF SERVICE: 11/04/20 Case Management Discharge Planning Summary DCP REVIEW SUMMARY ANTICIPATED D/C DATE: EXPECTED LOS : CASE STATUS: DCP Initiated INITIAL REVIEW: 11/02/2020 INITIAL REVIEWER: Vasquez Galvan FINAL DISCHARGE DISPOSITION: : FINAL REVIEWER: FINAL REVIEW DATE: DCP Focus Questions & Answers QUESTION: ANSWER : PATIENT: GRAZYNA VALVERDE ENCOUNTER: [id number] MEDICAL RECORD#: [id number] ADMISSION DATE: 11/02/2020 DISCHARGE DATE: ATTENDING MD: NAA MORALES : AGE: 75 MARITAL STATUS: M DC PLAN ID: [id number] FACILITY: [facility] PRINTED ON: 11/04/20 16:11 CT All edits/amendments must be made on the electronic document DICTATION DATE: 11/04/20 161 DISC RECORDIST: DM 11/04/20 161 RPT#: [id number] DC DATE: STATUS: ADM IN [facility] [address] [place] [address] END OF REPORT
--- NOTE | 2020-11-04 16:22 | MORECARE ---
CASE MANAGEMENT DISCHARGE SUMMARY PATIENT: GRAZYNA VALVERDE UNIT: [id number] ADM DATE: 11/02/20 AGE: 75 : 45 SEX: M ROOM/BED: D.2104 AUTHOR: SANFORD,DOC PHYSICIAN: REFERRING PHYSICIAN: NAA RAMIREZ MD DATE OF SERVICE: 11/04/20 Case Management Discharge Planning Summary COMMENTS ENTERED DATE: 11/04/20 16:17 CT COMMENT TYPE: Discharge Planning REVIEWER: [facility]quez [facility]. CM met with patient to complete DC plan and to evaluate needs. Patient lives is partially dependent for mobility and lives with his life partner, William Ceja, . Patient stated that their home is safe and has electricity and running water. Patient stated that the home has 6 steps to enter and they are difficult to go up and down but there is a plan in place for a ramp soon. Patient stated that he has no problems paying for medications and he fills his medications at [facility] Patient stated that his primary care physician is Dr. Spivey. At discharge, the patient plans to home and feels this is a safe discharge. CM discussed availability of home health, rehab services, and medical equipment. Patient declined SNF, Inpatient rehab, and DME. TIFF refusal signed for Group Home and Inpatient Rehab. Patient stated that he would like Home health with PT through [facility]. TIFF signed for Home Health signed for [facility] and [facility] and placed on chart. Patient stated he has a walker. Spoke with [facility]. [facility] stated that they are unable to see the patient this week. Spoke with Danika of [facility]. Danika stated that she will need updates when we get them but that [place] will be able to see the patient this week when he is discharged for HHS and PT. Spoke with William, patient's partner. William stated that he spoke with [employer] and was told that the patient's insurance would be an issue for [employer] [employer]. CM informed William that [facility] will be able to see the patient this week for HHS and PT. William agrees. Patient voiced no other needs at this time and is satisfied with DC plan. Transportation provider at discharge will be with William. DC IMM delivered, explained, signed by the patient, and placed in chart. Signed form also left with the patient. CM will continue to follow and will assist as needed with dc plans/needs. DCP REVIEW SUMMARY ANTICIPATED D/C DATE: EXPECTED LOS : CASE STATUS: DCP Initiated INITIAL REVIEW: 11/02/2020 INITIAL REVIEWER: Vasquez Galvan FINAL DISCHARGE DISPOSITION: : FINAL REVIEWER: FINAL REVIEW DATE: DCP Focus Questions & Answers QUESTION: ANSWER : PATIENT: GRAZYNA VALVERDE ENCOUNTER: [id number] MEDICAL RECORD#: [id number] ADMISSION DATE: 11/02/2020 DISCHARGE DATE: ATTENDING MD: NAA MORALES : AGE: 75 MARITAL STATUS: M DC PLAN ID: [id number] FACILITY: [facility] PRINTED ON: 11/04/20 16:22 CT All edits/amendments must be made on the electronic document DICTATION DATE: 11/04/201621 METER READER: VALDO 11/04/201621 RPT#: [id number] DC DATE: STATUS: ADM IN [facility] [address] [place] [address] END OF REPORT
--- NOTE | 2020-11-04 16:34 | MORECARE ---
CASE MANAGEMENT DISCHARGE SUMMARY PATIENT: GRAZYNA VALVERDE UNIT: [id number] ADM DATE: 11/02/20 AGE: 75 : 45 SEX: M ROOM/BED: D.2104 AUTHOR: SANFORD,DOC PHYSICIAN: REFERRING PHYSICIAN: NAA RAMIREZ MD DATE OF SERVICE: 11/04/20 Case Management Discharge Planning Summary COMMENTS ENTERED DATE: 11/04/20 16:30 CT COMMENT TYPE: Discharge Planning REVIEWER: Vasquez Galvan Clinicals faxed to [facility]. CM will continue to follow and will assist as needed with dc plans/needs. ENTERED DATE: 11/04/20 16:17 CT COMMENT TYPE: Discharge Planning REVIEWER: Vasquez Galvan [facility]. CM met with patient to complete DC plan and to evaluate needs. Patient lives is partially dependent for mobility and lives with his life partner, William Ceja, . Patient stated that their home is safe and has electricity and running water. Patient stated that the home has 6 steps to enter and they are difficult to go up and down but there is a plan in place for a ramp soon. Patient stated that he has no problems paying for medications and he fills his medications at [facility] Patient stated that his primary care physician is Dr. Spivey. At discharge, the patient plans to home and feels this is a safe discharge. CM discussed availability of home health, rehab services, and medical equipment. Patient declined SNF, Inpatient rehab, and DME. TIFF refusal signed for Senior Living and Inpatient Rehab. Patient stated that he would like Home health with PT through [facility]. TIFF signed for Home Health signed for [facility] and [facility] and placed on chart. Patient stated he has a walker. Spoke with [facility]. [facility] stated that they are unable to see the patient this week. Spoke with Danika of [facility]. Danika stated that she will need updates when we get them but that [facility] will be able to see the patient this week when he is discharged for HHS and PT. Spoke with William, patient's partner. William stated that he spoke with [facility] and was told that the patient's insurance would be an issue for [facility]. CM informed William that [place] will be able to see the patient this week for HHS and PT. William agrees. Patient voiced no other needs at this time and is satisfied with DC plan. Transportation provider at discharge will be with William. DC IMM delivered, explained, signed by the patient, and placed in chart. Signed form also left with the patient. CM will continue to follow and will assist as needed with dc plans/needs. DCP REVIEW SUMMARY ANTICIPATED D/C DATE: EXPECTED LOS : CASE STATUS: DCP Initiated INITIAL REVIEW: 11/02/2020 INITIAL REVIEWER: Vasquez Galvan FINAL DISCHARGE DISPOSITION: : FINAL REVIEWER: FINAL REVIEW DATE: DCP Focus Questions & Answers QUESTION: ANSWER : PATIENT: GRAZYNA VALVERDE ENCOUNTER: [id number] MEDICAL RECORD#: [id number] ADMISSION DATE: 11/02/2020 DISCHARGE DATE: ATTENDING MD: NAA MORALES : AGE: 75 MARITAL STATUS: M DC PLAN ID: [id number] FACILITY: [facility] PRINTED ON: 11/04/20 16:34 CT All edits/amendments must be made on the electronic document DICTATION DATE: 11/04/201633 BEACH LIFEGUARD: VALDO 11/04/201633 RPT#: [id number] DC DATE: STATUS: ADM IN [facility] [address] [place] [address] END OF REPORT
--- NOTE | 2020-11-04 16:46 | MORECARE ---
CASE MANAGEMENT DISCHARGE SUMMARY PATIENT: GRAZYNA VALVERDE UNIT: [id number] ADM DATE: 11/02/20 AGE: 75 : 45 SEX: M ROOM/BED: D.2104 AUTHOR: SANFORD,DOC PHYSICIAN: REFERRING PHYSICIAN: NAA RAMIREZ MD DATE OF SERVICE: 11/04/20 Case Management Discharge Planning Summary COMMENTS ENTERED DATE: 11/04/20 16:30 CT COMMENT TYPE: Discharge Planning REVIEWER: Vasquez Galvan Clinicals faxed to [facility]. CM will continue to follow and will assist as needed with dc plans/needs. ENTERED DATE: 11/04/20 16:17 CT COMMENT TYPE: Discharge Planning REVIEWER: Vasquez Galvan [facility]. CM met with patient to complete DC plan and to evaluate needs. Patient lives is partially dependent for mobility and lives with his life partner, William Ceja, . Patient stated that their home is safe and has electricity and running water. Patient stated that the home has 6 steps to enter and they are difficult to go up and down but there is a plan in place for a ramp soon. Patient stated that he has no problems paying for medications and he fills his medications at [facility] Patient stated that his primary care physician is Dr. Spivey. At discharge, the patient plans to home and feels this is a safe discharge. CM discussed availability of home health, rehab services, and medical equipment. Patient declined SNF, Inpatient rehab, and DME. TIFF refusal signed for Jail and Inpatient Rehab. Patient stated that he would like Home health with PT through [facility]. TIFF signed for Home Health signed for [facility] and [facility] and placed on chart. Patient stated he has a walker. Spoke with [facility]. [facility] stated that they are unable to see the patient this week. Spoke with Danika of [facility]. Danika stated that she will need updates when we get them but that [facility] will be able to see the patient this week when he is discharged for HHS and PT. Spoke with William, patient's partner. William stated that he spoke with [employer] and was told that the patient's insurance would be an issue for [employer]. CM informed William that [place] will be able to see the patient this week for HHS and PT. William agrees. Patient voiced no other needs at this time and is satisfied with DC plan. Transportation provider at discharge will be with William. DC IMM delivered, explained, signed by the patient, and placed in chart. Signed form also left with the patient. CM will continue to follow and will assist as needed with dc plans/needs. DCP REVIEW SUMMARY ANTICIPATED D/C DATE: EXPECTED LOS : CASE STATUS: DCP Initiated INITIAL REVIEW: 11/02/2020 INITIAL REVIEWER: Vasquez Galvan FINAL DISCHARGE DISPOSITION: : FINAL REVIEWER: FINAL REVIEW DATE: DCP Focus Questions & Answers DCP Evaluation QUESTION: ANSWER Patient and/or caregiver agree upon recommended discharge plan? : Yes Family / Caregiver's ability to cope with chronic illness: : a. Adequate (ability to meet patient's medical needs, ensures patient attends medical appts.) Patient's current cognitive status: : *Oriented to person, place, situation, time and present Patient's ability to cope with chronic illness : d. No chronic illness Patient gives permission to discuss discharge plans with: (name, relationship and number) : life partner, William Ceja, Does the patient have the ability to pay for or attain post discharge needs / services? : Yes Functional screen assessment: : Can meet basic needs but may require referral for resources Family / Caregiver's ability to cope with chronic illness: : a. Adequate (ability to meet patient's medical needs, ensures patient attends medical appts.) Physical Status: : Mobility impaired Equipment needed for post hospitalization: : None Is there a likelihood that the patient will require additional services to return to the preadmission environment? : No Living Arrangements: : Home with Spouse/Significant Other Partial Dependence, assistance required for: : Ambulation / Mobility Patient with capacity for self-care or can be cared for in same environment as prior to hospitalization? : Yes Baseline cognitive status: : *Oriented to person, place, situation, time and present Physical environment modification needed / anticipated for discharge: : No Physical environment referral comments (if applicable): : Patient stated that a ramp will be built soon Medication Management: : Patient states can read and understand medication labels Medication Management: : Patient states can afford medications Pharmacy name(s): : [facility] Does Patient have transportation to get home and to follow-up medical appointments when discharged from the hospital? : Yes Would patient like to participate in any Care Coordination programs (if applicable): : Not applicable Does the patient have electricity at home? : Yes Does the patient have running water in their house? : Yes Equipment in use: : Walker - Rolling Mental health screen: : No mental health history DCP Re-evaluation QUESTION: ANSWER Would patient like to participate in any Care Coordination programs (if applicable): : Not applicable PATIENT: GRAZYNA VALVERDE ENCOUNTER: [id number] MEDICAL RECORD#: [id number] ADMISSION DATE: 11/02/2020 DISCHARGE DATE: ATTENDING MD: NAA MORALES : AGE: 75 MARITAL STATUS: M DC PLAN ID: [id number] FACILITY: [facility] PRINTED ON: 11/04/20 16:46 CT All edits/amendments must be made on the electronic document DICTATION DATE: 11/04/201645 ABATTOIR SUPERVISOR: VALDO 11/04/201645 RPT#: [id number] DC DATE: STATUS: ADM IN [facility] [address] [place] [address] END OF REPORT
--- NOTE | 2020-11-04 18:56 | MORECARE ---
CASE MANAGEMENT DISCHARGE SUMMARY PATIENT: GRAZYNA VALVERDE UNIT: [id number] ADM DATE: 11/02/20 AGE: 75 : 45 SEX: M ROOM/BED: D.2104 AUTHOR: SANFORD,DOC PHYSICIAN: REFERRING PHYSICIAN: NAA RAMIREZ MD DATE OF SERVICE: 11/04/20 Case Management Discharge Planning Summary COMMENTS ENTERED DATE: 11/04/20 18:52 CT COMMENT TYPE: Discharge Planning REVIEWER: Vasquez Galvan MOTORIZED SCOOTER REQUEST. Patient's Family member, William at nurse station stating that patient would like a motorized scooter through [employer]. Informed family member that the patient's physician will have write a statement of necessity for the scooter. CM will continue to follow and will assist as needed with dc plans/needs. ENTERED DATE: 11/04/20 16:30 CT COMMENT TYPE: Discharge Planning REVIEWER: Vasquez Galvan Clinicals faxed to [facility]. CM will continue to follow and will assist as needed with dc plans/needs. ENTERED DATE: 11/04/20 16:17 CT COMMENT TYPE: Discharge Planning REVIEWER: Vasquez Galvan [facility]. CM met with patient to complete DC plan and to evaluate needs. Patient lives is partially dependent for mobility and lives with his life partner, William Ceja, . Patient stated that their home is safe and has electricity and running water. Patient stated that the home has 6 steps to enter and they are difficult to go up and down but there is a plan in place for a ramp soon. Patient stated that he has no problems paying for medications and he fills his medications at [facility] Patient stated that his primary care physician is Dr. Spivey. At discharge, the patient plans to home and feels this is a safe discharge. CM discussed availability of home health, rehab services, and medical equipment. Patient declined SNF, Inpatient rehab, and DME. TIFF refusal signed for Half-Way and Inpatient Rehab. Patient stated that he would like Home health with PT through [facility] or [facility]. TIFF signed for Home Health signed for [facility] and [facility] and placed on chart. Patient stated he has a walker. Spoke with [facility]. [facility] stated that they are unable to see the patient this week. Spoke with Danika of [facility]. Danika stated that she will need updates when we get them but that [facility] will be able to see the patient this week when he is discharged for HHS and PT. Spoke with William, patient's partner. William stated that he spoke with [facility] and was told that the patient's insurance would be an issue for [facility]. CM informed William that [facility] will be able to see the patient this week for HHS and PT. William agrees. Patient voiced no other needs at this time and is satisfied with DC plan. Transportation provider at discharge will be with William. DC IMM delivered, explained, signed by the patient, and placed in chart. Signed form also left with the patient. CM will continue to follow and will assist as needed with dc plans/needs. DCP REVIEW SUMMARY ANTICIPATED D/C DATE: EXPECTED LOS : CASE STATUS: DCP Initiated INITIAL REVIEW: 11/02/2020 INITIAL REVIEWER: Vasquez Galvan FINAL DISCHARGE DISPOSITION: : FINAL REVIEWER: FINAL REVIEW DATE: DCP Focus Questions & Answers DCP Evaluation QUESTION: ANSWER Patient and/or caregiver agree upon recommended discharge plan? : Yes Family / Caregiver's ability to cope with chronic illness: : a. Adequate (ability to meet patient's medical needs, ensures patient attends medical appts.) Patient's current cognitive status: : *Oriented to person, place, situation, time and present Patient's ability to cope with chronic illness : d. No chronic illness Patient gives permission to discuss discharge plans with: (name, relationship and number) : life partner, William Ceja, Does the patient have the ability to pay for or attain post discharge needs / services? : Yes Functional screen assessment: : Can meet basic needs but may require referral for resources Family / Caregiver's ability to cope with chronic illness: : a. Adequate (ability to meet patient's medical needs, ensures patient attends medical appts.) Physical Status: : Mobility impaired Equipment needed for post hospitalization: : None Is there a likelihood that the patient will require additional services to return to the preadmission environment? : No Living Arrangements: : Home with Spouse/Significant Other Partial Dependence, assistance required for: : Ambulation / Mobility Patient with capacity for self-care or can be cared for in same environment as prior to hospitalization? : Yes Baseline cognitive status: : *Oriented to person, place, situation, time and present Physical environment modification needed / anticipated for discharge: : No Physical environment referral comments (if applicable): : Patient stated that a ramp will be built soon Medication Management: : Patient states can read and understand medication labels Medication Management: : Patient states can afford medications Pharmacy name(s): : [facility] Does Patient have transportation to get home and to follow-up medical appointments when discharged from the hospital? : Yes Would patient like to participate in any Care Coordination programs (if applicable): : Not applicable Does the patient have electricity at home? : Yes Does the patient have running water in their house? : Yes Equipment in use: : Walker - [place] Mental health screen: : No mental health history DCP Re-evaluation QUESTION: ANSWER Would patient like to participate in any Care Coordination programs (if applicable): : Not applicable PATIENT: GRAZYNA VALVERDE ENCOUNTER: [id number] MEDICAL RECORD#: [id number] ADMISSION DATE: 11/02/2020 DISCHARGE DATE: ATTENDING MD: NAA MORALES : AGE: 75 MARITAL STATUS: M DC PLAN ID: [id number] FACILITY: [facility] PRINTED ON: 11/04/20 18:56 CT All edits/amendments must be made on the electronic document DICTATION DATE: 11/04/201855 PRODUCTION SUPERVISOR OFF SHIFT: VALDO 11/04/201855 RPT#: [id number] DC DATE: STATUS: ADM IN [facility] [address] [place] [address] END OF REPORT
[2020-11-04 21:00] VITALS: BP 148/70
[2020-11-04 23:56] VITALS: BP 160/74
--- NOTE | 2020-11-05 01:44 | NUR ---
PT CALLED NURSE BECAUSE HE FELT LIKE HE "WAS SUFFOCATING" VITALS WNL. OXYGEN 96% ON ROOM AIR, HR 56. PT HELPED TO RECLINER FOR BETTER POSITIONING AND 2L BNC PLACED ON PT FOR COMFORT. PT EXPRESSES FEAR OF PROCEDURE TODAY WITH RECURRING THOUGHTS ABOUT IT. WILL CONTINUE TO MONITOR PATIENT.
[2020-11-05 04:00] VITALS: BP 139/63
[2020-11-05 06:32] LABS: BASOPHILS 0.3 % (0-2); EOSINOPHILS 5.6 % (0-7); HEMATOCRIT 34.1 % (42.0-54.0); LYMPHOCYTE ABS# 1.81 10x3/uL (1.32-3.57); LYMPHOCYTES 18.5 % (15-50); MCH 28.3 pg (26.0-34.0); MCHC 32.3 g/dL (31.0-37.0); MCV 87.7 fL (80.0-100.0); MEAN PLATELET VOLUME 9.9 fL (7.4-10.4); MONOCYTES 11.2 % (2-11); NEUTROPHIL ABS# 6.19 10x3/uL (1.78-5.38); NEUTROPHILS 63.4 % (40-80); PLATELET COUNT 433 10x3/uL (130-400); RBC 3.89 10x6/uL (4.20-6.10); RDW 14.5 % (11.5-14.5); WBC 9.8 10x3/uL (4.8-10.8)
[2020-11-05 07:05] LABS: ALBUMIN 2.1 g/dL (3.4-5.0); ANION GAP 18.3 mmol/L (8-16); BILIRUBIN - TOTAL 0.4 mg/dL (0.2-1.3); CALCIUM 8.7 mg/dL (8.5-10.1); CARBON DIOXIDE 19.6 mmol/L (21.0-32.0); CREATININE - SERUM 3.4 mg/dL (0.6-1.3); MAGNESIUM - SERUM 1.8 mg/dL (1.8-2.4); PHOSPHOROUS 4.4 mg/dL (2.5-4.9); POTASSIUM - SERUM 3.9 mmol/L (3.5-5.1); PROTEIN - SERUM 6.9 g/dL (6.4-8.2); VANCOMYCIN - RANDOM 21.9 ug/mL (10.0-20.0)
[2020-11-05 08:01] VITALS: BP 154/84
--- NOTE | 2020-11-05 08:04 | NUR ---
MEDS GIVEN TO PT, PT SITTING ON SIDE OF BED. PT REPORTS BEING ANXIOUS D/T PROCEDURE TAKING PLACE TODAY. REASSURANCE GIVEN. PT ASKED ABOUT GETTING INTO THE SHOWER. NURSE STATES SHE WILL HELP PT BUT HE CALLED HIS TO COME AND ASSIST HIM. LINENS AND BATH TOWELS TAKEN INTO ROOM. NO FURTHER NEEDS VOICED. CLWR.
--- NOTE | 2020-11-05 09:28 | NUR ---
ASSISTED PT AND SPOUSE WITH SHOWER AT THIS TIME, NEW LINENS PLACED ON BED. PT TOELRATED ACTIVITY WELL. RR EVEN NON LABORED. DRESSING APPLIED TO BUTTOCK AND LEFT HIP/BUTTOCK AREA. NO FURTHER NEEDS VOICED.
[2020-11-05 11:17] VITALS: BP 165/76
--- NOTE | 2020-11-05 13:08 | NUR ---
PT PREOP'D AT THIS TIME PER REQUEST. NOTIFIED.
[2020-11-05 14:54] VITALS: BP 132/70
--- NOTE | 2020-11-05 14:54 | NUR ---
PT ARRIVED FROM SURGERY AT THIS TIME, AWAKE AND ALERT, RR EVEN NON LABORED. PT VS OBTAINED AND STABLE.
[2020-11-05] MEDS ORDERED: HYDROCODON-ACE1 EA10 (17:52)
--- NOTE | 2020-11-05 19:44 | NUR ---
RECIEVED UP IN BED. ALERT AND ORIENTED X4. UP AD LAYNE. DSG TO BUTTOCKS CDI. DENIES ANY NEEDS AT THIS TIME.
[2020-11-05 19:51] VITALS: BP 173/76
[2020-11-05 23:52] VITALS: BP 124/72
[2020-11-06 04:35] VITALS: BP 160/69
[2020-11-06 05:11] LABS: BASOPHILS 0.5 % (0-2); EOSINOPHILS 5.7 % (0-7); HEMATOCRIT 32.4 % (42.0-54.0); HEMOGLOBIN 10.4 g/dL (13.5-17.5); IMMATURE GRANULOCYTES 1.3 % (0-5); LYMPHOCYTE ABS# 1.62 10x3/uL (1.32-3.57); LYMPHOCYTES 19.8 % (15-50); MCH 28.2 pg (26.0-34.0); MCHC 32.1 g/dL (31.0-37.0); MCV 87.8 fL (80.0-100.0); MEAN PLATELET VOLUME 9.6 fL (7.4-10.4); MONOCYTES 11.6 % (2-11); NEUTROPHIL ABS# 5.01 10x3/uL (1.78-5.38); NEUTROPHILS 61.1 % (40-80); PLATELET COUNT 441 10x3/uL (130-400); RBC 3.69 10x6/uL (4.20-6.10); RDW 14.4 % (11.5-14.5); WBC 8.2 10x3/uL (4.8-10.8)
[2020-11-06 05:37] LABS: ALBUMIN 1.9 g/dL (3.4-5.0); ANION GAP 15.2 mmol/L (8-16); BILIRUBIN - TOTAL 0.27 mg/dL (0.2-1.3); CALCIUM 8.4 mg/dL (8.5-10.1); CARBON DIOXIDE 22.7 mmol/L (21.0-32.0); CREATININE - SERUM 3.4 mg/dL (0.6-1.3); MAGNESIUM - SERUM 1.9 mg/dL (1.8-2.4); PHOSPHOROUS 4.4 mg/dL (2.5-4.9); POTASSIUM - SERUM 3.9 mmol/L (3.5-5.1); PROTEIN - SERUM 6.4 g/dL (6.4-8.2)
[2020-11-06 08:25] VITALS: BP 172/73
[2020-11-06 10:54] VITALS: Ht 182.9 cm; Wt 108.9 kg
[2020-11-06 12:23] VITALS: BP 170/78
--- NOTE | 2020-11-06 14:16 | NUR ---
BLADDER SCAN WITHOUT ANY RESIDUAL, NO VIDAL NEEDED.
--- NOTE | 2020-11-06 16:02 | NUR ---
PT AMBULATED IN HALLS WITH THERAPY. NOW SITTING UP IN CHAIR AFTER GOING TO BATHROOM.
[2020-11-06 17:04] VITALS: BP 143/73
[2020-11-06 20:16] VITALS: BP 146/67
[2020-11-07 04:59] VITALS: BP 147/52
[2020-11-07 05:21] LABS: BASOPHILS 0.4 % (0-2); EOSINOPHILS 6.2 % (0-7); HEMATOCRIT 33.7 % (42.0-54.0); HEMOGLOBIN 10.6 g/dL (13.5-17.5); IMMATURE GRANULOCYTES 1.5 % (0-5); LYMPHOCYTE ABS# 1.75 10x3/uL (1.32-3.57); LYMPHOCYTES 23.4 % (15-50); MCH 27.7 pg (26.0-34.0); MCHC 31.5 g/dL (31.0-37.0); MCV 88.2 fL (80.0-100.0); MEAN PLATELET VOLUME 9.3 fL (7.4-10.4); MONOCYTES 10.3 % (2-11); NEUTROPHIL ABS# 4.35 10x3/uL (1.78-5.38); NEUTROPHILS 58.2 % (40-80); PLATELET COUNT 437 10x3/uL (130-400); RBC 3.82 10x6/uL (4.20-6.10); RDW 14.7 % (11.5-14.5); WBC 7.5 10x3/uL (4.8-10.8)
[2020-11-07 05:42] LABS: ANION GAP 12.6 mmol/L (8-16); BILIRUBIN - TOTAL 0.2 mg/dL (0.2-1.3); CALCIUM 8.5 mg/dL (8.5-10.1); CARBON DIOXIDE 23.3 mmol/L (21.0-32.0); CREATININE - SERUM 3.3 mg/dL (0.6-1.3); MAGNESIUM - SERUM 1.8 mg/dL (1.8-2.4); PHOSPHOROUS 4.8 mg/dL (2.5-4.9); POTASSIUM - SERUM 3.9 mmol/L (3.5-5.1); PROTEIN - SERUM 6.6 g/dL (6.4-8.2); VANCOMYCIN - RANDOM 20.5 ug/mL (10.0-20.0)
--- NOTE | 2020-11-07 06:16 | NUR ---
I have reviewed this patient and I concur with the Shift Assessment completed by the Licensed Practical Nurse today this shift.
[2020-11-07 08:29] VITALS: BP 182/78
[2020-11-07] MEDS ORDERED: CATAPRES TTS-20.2 MG TRANSDERM (09:59)
[2020-11-07] MEDS ORDERED: ADOXA100 MG PO (10:00)
--- NOTE | 2020-11-07 11:09 | MORECARE ---
CASE MANAGEMENT DISCHARGE SUMMARY PATIENT: GRAZYNA VALVERDE UNIT: [id number] ADM DATE: 11/02/20 AGE: 75 : 45 SEX: M ROOM/BED: D.2104 AUTHOR: SANFORD,DOC PHYSICIAN: REFERRING PHYSICIAN: NAA RAMIREZ MD DATE OF SERVICE: 11/07/20 Case Management Discharge Planning Summary COMMENTS ENTERED DATE: 11/07/20 11:06 CT COMMENT TYPE: Discharge Planning REVIEWER: Jessica Huang CM received discharge orders. I called Danika with [facility] and SOC tomorrow morning. I faxed DC orders, DC summary. IMM explained over phone, given with DC paperwork, voiced understanding. Home today with [facility]. ENTERED DATE: 11/04/20 18:52 CT COMMENT TYPE: Discharge Planning REVIEWER: Vasquez Galvan MOTORIZED SCOOTER REQUEST. Patient's Family member, William at nurse station stating that patient would like a motorized scooter through [employer]. Informed family member that the patient's physician will have write a statement of necessity for the scooter. CM will continue to follow and will assist as needed with dc plans/needs. ENTERED DATE: 11/04/20 16:30 CT COMMENT TYPE: Discharge Planning REVIEWER: Vasquez Galvan Clinicals faxed to [facility]. CM will continue to follow and will assist as needed with dc plans/needs. ENTERED DATE: 11/04/20 16:17 CT COMMENT TYPE: Discharge Planning REVIEWER: Vasquez Galvan [facility]. CM met with patient to complete DC plan and to evaluate needs. Patient lives is partially dependent for mobility and lives with his life partner, William Ceja, . Patient stated that their home is safe and has electricity and running water. Patient stated that the home has 6 steps to enter and they are difficult to go up and down but there is a plan in place for a ramp soon. Patient stated that he has no problems paying for medications and he fills his medications at [facility] Patient stated that his primary care physician is Dr. Spivey. At discharge, the patient plans to home and feels this is a safe discharge. CM discussed availability of home health, rehab services, and medical equipment. Patient declined SNF, Inpatient rehab, and DME. TIFF refusal signed for [facility] and Inpatient Rehab. Patient stated that he would like Home health with PT through [facility] or [facility]. TIFF signed for Home Health signed for [facility] and [facility] and placed on chart. Patient stated he has a walker. Spoke with [facility]. [facility] stated that they are unable to see the patient this week. Spoke with Danika of [facility]. Danika stated that she will need updates when we get them but that [facility] will be able to see the patient this week when he is discharged for HHS and PT. Spoke with William, patient's partner. William stated that he spoke with [employer] and was told that the patient's insurance would be an issue for [facility]. CM informed William that [facility] will be able to see the patient this week for HHS and PT. William agrees. Patient voiced no other needs at this time and is satisfied with DC plan. Transportation provider at discharge will be with William. DC IMM delivered, explained, signed by the patient, and placed in chart. Signed form also left with the patient. CM will continue to follow and will assist as needed with dc plans/needs. DCP REVIEW SUMMARY ANTICIPATED D/C DATE: EXPECTED LOS : CASE STATUS: DCP Initiated INITIAL REVIEW: 11/02/2020 INITIAL REVIEWER: Vasquez Galvan FINAL DISCHARGE DISPOSITION: : FINAL REVIEWER: FINAL REVIEW DATE: DCP Focus Questions & Answers DCP Evaluation QUESTION: ANSWER Patient and/or caregiver agree upon recommended discharge plan? : Yes Patient's current cognitive status: : *Oriented to person, place, situation, time and present Patient's ability to cope with chronic illness : d. No chronic illness Patient gives permission to discuss discharge plans with: (name, relationship and number) : life partner, William Ceja, Family / Caregiver's ability to cope with chronic illness: : a. Adequate (ability to meet patient's medical needs, ensures patient attends medical appts.) Does the patient have the ability to pay for or attain post discharge needs / services? : Yes Functional screen assessment: : Can meet basic needs but may require referral for resources Family / Caregiver's ability to cope with chronic illness: : a. Adequate (ability to meet patient's medical needs, ensures patient attends medical appts.) Physical Status: : Mobility impaired Equipment needed for post hospitalization: : None Is there a likelihood that the patient will require additional services to return to the preadmission environment? : No Living Arrangements: : Home with Spouse/Significant Other Partial Dependence, assistance required for: : Ambulation / Mobility Patient with capacity for self-care or can be cared for in same environment as prior to hospitalization? : Yes Baseline cognitive status: : *Oriented to person, place, situation, time and present Physical environment modification needed / anticipated for discharge: : No Physical environment referral comments (if applicable): : Patient stated that a ramp will be built soon Medication Management: : Patient states can read and understand medication labels Medication Management: : Patient states can afford medications Pharmacy name(s): : [facility] Does Patient have transportation to get home and to follow-up medical appointments when discharged from the hospital? : Yes Would patient like to participate in any Care Coordination programs (if applicable): : Not applicable Does the patient have electricity at home? : Yes Does the patient have running water in their house? : Yes Equipment in use: : Walker - Rolling Mental health screen: : No mental health history DCP Re-evaluation QUESTION: ANSWER Would patient like to participate in any Care Coordination programs (if applicable): : Not applicable PATIENT: GRAZYNA VALVERDE ENCOUNTER: [id number] MEDICAL RECORD#: [id number] ADMISSION DATE: 11/02/2020 DISCHARGE DATE: ATTENDING MD: NAA MORALES : AGE: 75 MARITAL STATUS: M DC PLAN ID: [id number] FACILITY: [facility] PRINTED ON: 11/07/20 11:09 CT All edits/amendments must be made on the electronic document DICTATION DATE: 11/07/201107 CRANE OILER: VALDO 11/07/201107 RPT#: [id number] DC DATE: STATUS: ADM IN [facility] [address] [place] [address] END OF REPORT
--- NOTE | 2020-11-07 12:06 | NUR ---
SALINE LOCK TAKEN OUT, DISCHARGE PAPERS WITH PATIENT AND AND TO CAR VIA W/C/
--- NOTE | 2020-11-09 17:08 | MORECARE ---
CASE MANAGEMENT DISCHARGE SUMMARY PATIENT: GRAZYNA VALVERDE UNIT: [id number] ADM DATE: 11/02/20 AGE: 75 : 45 SEX: M ROOM/BED: D.2104 AUTHOR: SANFORD,DOC PHYSICIAN: REFERRING PHYSICIAN: NAA RAMIREZ MD DATE OF SERVICE: 11/09/20 Case Management Discharge Planning Summary COMMENTS ENTERED DATE: 11/07/20 11:06 CT COMMENT TYPE: Discharge Planning REVIEWER: Jessica Huang CM received discharge orders. I called Danika with [facility] and SOC tomorrow morning. I faxed DC orders, DC summary. IMM explained over phone, given with DC paperwork, voiced understanding. Home today with [facility]. ENTERED DATE: 11/04/20 18:52 CT COMMENT TYPE: Discharge Planning REVIEWER: Vasquez Galvan MOTORIZED SCOOTER REQUEST. Patient's Family member, William at nurse station stating that patient would like a motorized scooter through [employer]. Informed family member that the patient's physician will have write a statement of necessity for the scooter. CM will continue to follow and will assist as needed with dc plans/needs. ENTERED DATE: 11/04/20 16:30 CT COMMENT TYPE: Discharge Planning REVIEWER: Vasquez Galvan Clinicals faxed to [facility]. CM will continue to follow and will assist as needed with dc plans/needs. ENTERED DATE: 11/04/20 16:17 CT COMMENT TYPE: Discharge Planning REVIEWER: Vasquez Galvan [facility]. CM met with patient to complete DC plan and to evaluate needs. Patient lives is partially dependent for mobility and lives with his life partner, William Ceja, . Patient stated that their home is safe and has electricity and running water. Patient stated that the home has 6 steps to enter and they are difficult to go up and down but there is a plan in place for a ramp soon. Patient stated that he has no problems paying for medications and he fills his medications at [facility] Patient stated that his primary care physician is Dr. Spivey. At discharge, the patient plans to home and feels this is a safe discharge. CM discussed availability of home health, rehab services, and medical equipment. Patient declined SNF, Inpatient rehab, and DME. TIFF refusal signed for [facility] and Inpatient Rehab. Patient stated that he would like Home health with PT through [facility] or [facility]. TIFF signed for Home Health signed for [facility] and [facility] and placed on chart. Patient stated he has a walker. Spoke with [facility]. [facility] stated that they are unable to see the patient this week. Spoke with Danika of [facility]. Danika stated that she will need updates when we get them but that [facility] will be able to see the patient this week when he is discharged for HHS and PT. Spoke with William, patient's partner. William stated that he spoke with [employer] and was told that the patient's insurance would be an issue for [facility]. CM informed William that [facility] will be able to see the patient this week for HHS and PT. William agrees. Patient voiced no other needs at this time and is satisfied with DC plan. Transportation provider at discharge will be with William. DC IMM delivered, explained, signed by the patient, and placed in chart. Signed form also left with the patient. CM will continue to follow and will assist as needed with dc plans/needs. DCP REVIEW SUMMARY ANTICIPATED D/C DATE: EXPECTED LOS : CASE STATUS: DCP Complete INITIAL REVIEW: 11/02/2020 INITIAL REVIEWER: Vasquez Galvan FINAL DISCHARGE DISPOSITION: 06 : Discharged/Trans to Home Under [facility] of [facility] in Anticipation of Skilled Care FINAL REVIEWER: Jessica Huang FINAL REVIEW DATE: 11/09/2020 DCP Focus Questions & Answers DCP Evaluation QUESTION: ANSWER Family / Caregiver's ability to cope with chronic illness: : a. Adequate (ability to meet patient's medical needs, ensures patient attends medical appts.) Patient gives permission to discuss discharge plans with: (name, relationship and number) : life partner, William Ceja, Patient's ability to cope with chronic illness : d. No chronic illness Patient's current cognitive status: : *Oriented to person, place, situation, time and present Patient and/or caregiver agree upon recommended discharge plan? : Yes Physical Status: : Mobility impaired Family / Caregiver's ability to cope with chronic illness: : a. Adequate (ability to meet patient's medical needs, ensures patient attends medical appts.) Functional screen assessment: : Can meet basic needs but may require referral for resources Does the patient have the ability to pay for or attain post discharge needs / services? : Yes Partial Dependence, assistance required for: : Ambulation / Mobility Living Arrangements: : Home with Spouse/Significant Other Is there a likelihood that the patient will require additional services to return to the preadmission environment? : No Equipment needed for post hospitalization: : None Baseline cognitive status: : *Oriented to person, place, situation, time and present Patient with capacity for self-care or can be cared for in same environment as prior to hospitalization? : Yes Physical environment modification needed / anticipated for discharge: : No Medication Management: : Patient states can afford medications Medication Management: : Patient states can read and understand medication labels Physical environment referral comments (if applicable): : Patient stated that a ramp will be built soon Pharmacy name(s): : [facility] Does Patient have transportation to get home and to follow-up medical appointments when discharged from the hospital? : Yes Would patient like to participate in any Care Coordination programs (if applicable): : Not applicable Does the patient have electricity at home? : Yes Does the patient have running water in their house? : Yes Equipment in use: : Walker - Rolling Mental health screen: : No mental health history DCP Re-evaluation QUESTION: ANSWER Would patient like to participate in any Care Coordination programs (if applicable): : Not applicable PATIENT: GRAZYNA VALVERDE ENCOUNTER: [id number] MEDICAL RECORD#: [id number] ADMISSION DATE: 11/02/2020 DISCHARGE DATE: 11/07/2020 ATTENDING MD: NAA MORALES : AGE: 75 MARITAL STATUS: M DC PLAN ID: [id number] FACILITY: [facility] PRINTED ON: 11/09/20 17:08 CT All edits/amendments must be made on the electronic document DICTATION DATE: 11/09/201707 SOLAR MAINTENANCE TECHNICIAN: VALDO 11/09/201707 RPT#: [id number] DC DATE:11/07/20 STATUS: DIS IN [facility] [address] [place] [address] END OF REPORT
--- NOTE | 2020-11-10 10:02 | MORECARE ---
CASE MANAGEMENT DISCHARGE SUMMARY PATIENT: GRAZYNA VALVERDE UNIT: [id number] ADM DATE: 11/02/20 AGE: 75 : 45 SEX: M ROOM/BED: D.2104 AUTHOR: SANFORD,DOC PHYSICIAN: REFERRING PHYSICIAN: NAA RAMIREZ MD DATE OF SERVICE: 11/10/20 Case Management Discharge Planning Summary COMMENTS ENTERED DATE: 11/07/20 11:06 CT COMMENT TYPE: Discharge Planning REVIEWER: Jessica Huang CM received discharge orders. I called Danika with [facility] and SOC tomorrow morning. I faxed DC orders, DC summary. IMM explained over phone, given with DC paperwork, voiced understanding. Home today with [facility]. ENTERED DATE: 11/04/20 18:52 CT COMMENT TYPE: Discharge Planning REVIEWER: Vasquez Galvan MOTORIZED SCOOTER REQUEST. Patient's Family member, William at nurse station stating that patient would like a motorized scooter through [employer]. Informed family member that the patient's physician will have write a statement of necessity for the scooter. CM will continue to follow and will assist as needed with dc plans/needs. ENTERED DATE: 11/04/20 16:30 CT COMMENT TYPE: Discharge Planning REVIEWER: Vasquez Galvan Clinicals faxed to [facility]. CM will continue to follow and will assist as needed with dc plans/needs. ENTERED DATE: 11/04/20 16:17 CT COMMENT TYPE: Discharge Planning REVIEWER: Vasquez Galvan [facility]. CM met with patient to complete DC plan and to evaluate needs. Patient lives is partially dependent for mobility and lives with his life partner, William Ceja, . Patient stated that their home is safe and has electricity and running water. Patient stated that the home has 6 steps to enter and they are difficult to go up and down but there is a plan in place for a ramp soon. Patient stated that he has no problems paying for medications and he fills his medications at [facility] Patient stated that his primary care physician is Dr. Spivey. At discharge, the patient plans to home and feels this is a safe discharge. CM discussed availability of home health, rehab services, and medical equipment. Patient declined SNF, Inpatient rehab, and DME. TIFF refusal signed for Care Home and Inpatient Rehab. Patient stated that he would like Home health with PT through [facility] or [facility]. TIFF signed for Home Health signed for [facility] and [facility] and placed on chart. Patient stated he has a walker. Spoke with [facility]. [facility] stated that they are unable to see the patient this week. Spoke with Danika of [facility]. Danika stated that she will need updates when we get them but that [facility] will be able to see the patient this week when he is discharged for HHS and PT. Spoke with William, patient's partner. William stated that he spoke with [employer] and was told that the patient's insurance would be an issue for [facility]. CM informed William that [facility] will be able to see the patient this week for HHS and PT. William agrees. Patient voiced no other needs at this time and is satisfied with DC plan. Transportation provider at discharge will be with William. DC IMM delivered, explained, signed by the patient, and placed in chart. Signed form also left with the patient. CM will continue to follow and will assist as needed with dc plans/needs. DCP REVIEW SUMMARY ANTICIPATED D/C DATE: EXPECTED LOS : CASE STATUS: DCP Complete INITIAL REVIEW: 11/02/2020 INITIAL REVIEWER: Vasquez Galvan FINAL DISCHARGE DISPOSITION: 06 : Discharged/Trans to Home Under [facility] of [facility] in Anticipation of Skilled Care FINAL REVIEWER: Jessica Huang FINAL REVIEW DATE: 11/09/2020 DCP Focus Questions & Answers DCP Evaluation QUESTION: ANSWER Patient and/or caregiver agree upon recommended discharge plan? : Yes Family / Caregiver's ability to cope with chronic illness: : a. Adequate (ability to meet patient's medical needs, ensures patient attends medical appts.) Patient's current cognitive status: : *Oriented to person, place, situation, time and present Patient's ability to cope with chronic illness : d. No chronic illness Patient gives permission to discuss discharge plans with: (name, relationship and number) : life partner, William Ceja, Does the patient have the ability to pay for or attain post discharge needs / services? : Yes Functional screen assessment: : Can meet basic needs but may require referral for resources Family / Caregiver's ability to cope with chronic illness: : a. Adequate (ability to meet patient's medical needs, ensures patient attends medical appts.) Physical Status: : Mobility impaired Equipment needed for post hospitalization: : None Is there a likelihood that the patient will require additional services to return to the preadmission environment? : No Living Arrangements: : Home with Spouse/Significant Other Partial Dependence, assistance required for: : Ambulation / Mobility Patient with capacity for self-care or can be cared for in same environment as prior to hospitalization? : Yes Baseline cognitive status: : *Oriented to person, place, situation, time and present Physical environment modification needed / anticipated for discharge: : No Physical environment referral comments (if applicable): : Patient stated that a ramp will be built soon Medication Management: : Patient states can read and understand medication labels Medication Management: : Patient states can afford medications Pharmacy name(s): : [facility] Does Patient have transportation to get home and to follow-up medical appointments when discharged from the hospital? : Yes Would patient like to participate in any Care Coordination programs (if applicable): : Not applicable Does the patient have electricity at home? : Yes Does the patient have running water in their house? : Yes Equipment in use: : Walker - Rolling Mental health screen: : No mental health history DCP Re-evaluation QUESTION: ANSWER Would patient like to participate in any Care Coordination programs (if applicable): : Not applicable PATIENT: GRAZYNA VALVERDE ENCOUNTER: [id number] MEDICAL RECORD#: [id number] ADMISSION DATE: 11/02/2020 DISCHARGE DATE: 11/07/2020 ATTENDING MD: NAA MORALES : AGE: 75 MARITAL STATUS: M DC PLAN ID: [id number] FACILITY: [facility] PRINTED ON: 11/10/20 10:02 CT All edits/amendments must be made on the electronic document DICTATION DATE: 11/10/20 1002 WOOD REPATCHER: VALDO 11/10/20 1002 RPT#: [id number] DC DATE:11/07/20 STATUS: DIS IN [facility] [address] [place] [address] END OF REPORT
== END 2020-11-07 12:07 | disposition home health service (06) | DRG 638 ==
LOC: D.ER 09:50 → D.M2 11:51
PROVIDERS: Family Medicine; Surgery; ADMIT Emergency Medicine; ATTEND Emergency Medicine
PROC: 0H98XZZ Drainage of Buttock Skin, External Approach (ICD-10-PCS; principal; 2020-11-05 11:00)
DX: E11.628 Type 2 diabetes mellitus with other skin complications (principal); L03.317 Cellulitis of buttock; I13.0 Hypertensive heart and chronic kidney disease with heart failure and stage 1 through stage 4 chronic kidney disease, or unspecified chronic kidney disease; N17.9 Acute kidney failure, unspecified; E11.65 Type 2 diabetes mellitus with hyperglycemia; D64.9 Anemia, unspecified; Z86.73 Personal history of transient ischemic attack (TIA), and cerebral infarction without residual deficits; I50.9 Heart failure, unspecified; I48.91 Unspecified atrial fibrillation; I25.10 Atherosclerotic heart disease of native coronary artery without angina pectoris; K21.9 Gastro-esophageal reflux disease without esophagitis; E11.22 Type 2 diabetes mellitus with diabetic chronic kidney disease; N18.9 Chronic kidney disease, unspecified; Z85.46 Personal history of malignant neoplasm of prostate

== ENCOUNTER 2020-11-28 10:01 | Inpatient (IN) | payer OTHER ==
[~2020-11-28] VITALS: Ht 182.9 cm; Wt 108.9 kg
[2020-11-28] VITALS (7 sets, daily range): BP systolic 135–166; BP diastolic 67–86; BMI 32.6
[~2020-11-28 10:01] MED LIST changes: +ADOXA100 MG PO; +CATAPRES TTS-20.2 MG TRANSDERM; +HYDROCODON-ACE1 EA10; +SOLIQUA 100 UNIT3 ML SQ; +ZYRTEC10 MG PO
--- NOTE | 2020-11-28 10:18 | NUR ---
JOHNNY NOTIFIED AT 1015, TO CT AT 1017.
[2020-11-28 10:29] LABS: BASOPHILS 0.6 % (0-2); EOSINOPHILS 4.1 % (0-7); HEMATOCRIT 35.7 % (42.0-54.0); HEMOGLOBIN 11.4 g/dL (13.5-17.5); IMMATURE GRANULOCYTES 0.3 % (0-5); LYMPHOCYTE ABS# 2.74 10x3/uL (1.32-3.57); LYMPHOCYTES 31.6 % (15-50); MCH 27.9 pg (26.0-34.0); MCHC 31.9 g/dL (31.0-37.0); MCV 87.5 fL (80.0-100.0); MEAN PLATELET VOLUME 10.3 fL (7.4-10.4); MONOCYTES 6.8 % (2-11); NEUTROPHIL ABS# 4.91 10x3/uL (1.78-5.38); NEUTROPHILS 56.6 % (40-80); RBC 4.08 10x6/uL (4.20-6.10); RDW 14.9 % (11.5-14.5); WBC 8.7 10x3/uL (4.8-10.8)
[2020-11-28 10:32] LABS: PLATELET COUNT 277 10x3/uL (130-400)
--- NOTE | 2020-11-28 10:35 | NUR ---
POC GLUCOSE 260.
[2020-11-28 10:40] LABS: ANION GAP 14.8 mmol/L (8-16); CALCIUM 8.5 mg/dL (8.5-10.1); CARBON DIOXIDE 21.4 mmol/L (21.0-32.0); CREATININE - SERUM 2.8 mg/dL (0.6-1.3); POTASSIUM - SERUM 4.2 mmol/L (3.5-5.1)
--- NOTE | 2020-11-28 10:48 | NUR ---
ARSAVES CONSULT STARTED AT THIS TIME.
[2020-11-28 10:51] LABS: ALBUMIN 2.5 g/dL (3.4-5.0); APTT 28.4 SECONDS (22.8-39.4); BILIRUBIN - TOTAL 0.31 mg/dL (0.2-1.3); INR 1.16 (0.85-1.17); PROTEIN - SERUM 6.7 g/dL (6.4-8.2); PROTIME 13.7 SECONDS (11.6-15.0); TROPONIN-I 0.029 ng/mL (0.000-0.060)
--- NOTE | 2020-11-28 10:53 | NUR ---
RADIOLOGY CONTACTED FOR SECOND TIME TO PUSH HEAD CT TO REPOSITORY.
--- NOTE | 2020-11-28 15:12 | NUR ---
ASSESSMENT PER FLOW SHEET. PATIENT IS WITHOUT DISTRESS. ASSIST X2 UP TO BESIDE FOR PATIENT TO VOID.REFUSES SCD'S. IS INSTRUCTED.FALL PREVENTION WITH BED ALARM.
[2020-11-28 15:59] LABS: CKMB 2.4 U/L (0.0-3.6); CREATINE KINASE 69 UL (21-232)
--- NOTE | 2020-11-28 16:05 | NUR ---
I have reviewed this patient and I concur with the Shift Assessment completed by the Licensed Practical Nurse today this shift.
--- NOTE | 2020-11-28 16:07 | NUR ---
RECEIVED CALL FROM LAB THAT PATIENT TROPONIN IS 0.220 CALLED AND SPOKE TO JUANPABLO DUBOSE AND RELAYED MESSAGE
--- NOTE | 2020-11-28 16:08 | NUR ---
PATIENT HAD MRI ORDERED TO R/O STROKE PATIENT REFUSED STATING HE IS TOO CLAUSTROPHOBIC, SENT MESSAGE TO DR BENITEZ WHO IS ORDERING DOCTOR.
--- NOTE | 2020-11-28 21:40 | NUR ---
AROUSE TO VERBAL STIMULI. NO DISTRESS NOTED. O2 @ 6L PER NC ON. NO COMPLAITNS VOICED. CL IN REACH
[2020-11-29 01:42] LABS: CKMB 2.4 U/L (0.0-3.6); CREATINE KINASE 69 UL (21-232)
[2020-11-29 01:48] LABS: TROPONIN-I 0.211 ng/mL (0.000-0.060)
--- NOTE | 2020-11-29 02:42 | NUR ---
I have reviewed this patient and I concur with the Shift Assessment completed by the Licensed Practical Nurse today this shift.
[2020-11-29 03:28] LABS: BASOPHILS 0.5 % (0-2); EOSINOPHILS 3.5 % (0-7); HEMATOCRIT 31.4 % (42.0-54.0); HEMOGLOBIN 10.1 g/dL (13.5-17.5); IMMATURE GRANULOCYTES 0.4 % (0-5); LYMPHOCYTE ABS# 1.49 10x3/uL (1.32-3.57); LYMPHOCYTES 20.1 % (15-50); MCH 28.2 pg (26.0-34.0); MCHC 32.2 g/dL (31.0-37.0); MCV 87.7 fL (80.0-100.0); MONOCYTES 8.5 % (2-11); NEUTROPHIL ABS# 4.98 10x3/uL (1.78-5.38); PLATELET COUNT 264 10x3/uL (130-400); RBC 3.58 10x6/uL (4.20-6.10); RDW 14.9 % (11.5-14.5); WBC 7.4 10x3/uL (4.8-10.8)
[2020-11-29 04:01] LABS: ALBUMIN 2.1 g/dL (3.4-5.0); ALKALINE PHOSPHATASE 78 U/L (30-120); ALT (SGPT) 18 U/L (10-68); BILIRUBIN - TOTAL 0.28 mg/dL (0.2-1.3); CALCIUM 8.3 mg/dL (8.5-10.1); CARBON DIOXIDE 23.8 mmol/L (21.0-32.0); CHLORIDE - SERUM 107 mmol/L (98-107); CHOLESTEROL, TOTAL 151 mg/dL (0-200); CREATINE KINASE 61 UL (21-232); CREATININE - SERUM 2.7 mg/dL (0.6-1.3); HDL CHOLESTEROL 30 mg/dL (32-96); LDL CHOLESTEROL 79 mg/dL (0-100); LDL-HDL RATIO 2.6 ratio (1.5-3.5); MAGNESIUM - SERUM 1.9 mg/dL (1.8-2.4); PHOSPHOROUS 3.4 mg/dL (2.5-4.9); POTASSIUM - SERUM 4.1 mmol/L (3.5-5.1); PROTEIN - SERUM 5.8 g/dL (6.4-8.2); SODIUM 139 mmol/L (136-145); TRIGLYCERIDE 213 mg/dL (30-200); UREA NITROGEN 28 mg/dL (7-18); eGFR NON AFRICAN AMERICAN 25 mL/min (90-120)
[2020-11-29 04:05] LABS: CALC OSMOLALITY 288 mosm/kg (275-300); GLUCOSE 195 mg/dL (74-106); TROPONIN-I 0.213 ng/mL (0.000-0.060)
[2020-11-29 05:56] VITALS: BP 125/45
[2020-11-29 09:55] VITALS: BP 149/77
[2020-11-29 12:56] VITALS: BP 163/76
[2020-11-29 14:03] VITALS: Ht 182.9 cm; Wt 108.9 kg
--- NOTE | 2020-11-29 15:24 | EC ---
PATIENT:GRAZYNA VALVERDE DATE OF SERVICE: 11/28/20 SEX: M MEDICAL RECORD: [id number] DATE OF : 45 LOCATION:[facility] AGE OF PATIENT: 75 ADMISSION DATE: 11/28/20 REFERRING PHYSICIAN: INTERPRETING PHYSICIAN: JOSE DE JESUS GOODWIN MD ECHOCARDIOGRAM REPORT ECHO CHARGES 4 ECHO COMPLETE Date: 11/29/20 CLINICAL DIAGNOSIS: POSSIBLE CVA, ASSESS FOR CLOTS AND EF HX OF CAD/CABG/MR/AI ECHOCARDIOGRAPHIC MEASUREMENTS (adult normal given) AC root (d.<3.7cm) 4.0 cm LV Septum d (<1.2 cm> 1.4 cm Valve Excursion 1.7 cm LV Septum (systole) 1.7 cm Left Atria (s.<4.0cm> 4.4 cm LVPW d(<1.2cm) 1.7 cm RV (d.<2.3cm) 4.8 cm LVPW (sytole) 2.0 cm LV diastole(<5.6CM) 7.5 cm MV E-F(>70mm/sec) cm LV systole 5.4 cm LVOT Diameter cm MV exc.(>10mm) 1.2 cm Est.ejection fraction (50-75%) % DOPPLER: LVIT cm/sec A 106.0cm/sec E 68.0 cm/sec LA cm/sec RVSP 45 mmHg LVOT 109 cm/sec AOP1/2T m/s Asc. Ao 118 cm/sec RVOT 62 cm/sec RA cm/sec PA 90 cm/sec AV Gradient Peak 5.57 mmHg AV Mean 3.16 mmHg AV Area 2.8 cm MV Gradient Peak 4.37 mmHg MV Mean 1.43 mmHg MV Area cm COMMENTS: Broadcast Systems Engineer: 2 LEONIDAS TOUSSAINT Research Greenhouse Supervisor: 5 Dr. Goodwin TAPE# PACS Pericardial Effusion N DATE OF SERVICE: CLINICAL INDICATION: Possible CVA/CAD/history of CABG. INTERPRETATION: Technically difficult study, overall low normal LV contractile function, ejection fraction around 50%. Mild left atrial chamber enlargement. Right atrium and right ventricular chamber size and function appears normal. Mild thickening and calcification of the aortic valve/aortic sclerosis. Trace aortic regurgitation. Mitral valve appears normal. Trace mitral regurgitation. ECHOCARDIOGRAM REPORT [id number] GRAZYNA VALVERDE Tricuspid valve appears normal. Mild tricuspid regurgitation. Pulmonic valve is not well visualized. No pulmonary regurgitation. No pericardial effusion visualized. IMPRESSION: Technically difficult study. Normal left ventricular chamber size with low normal left ventricular contractile function with ejection fraction of 50%. TRANSINT:[id number] Voice Confirmation ID: [id number] DOCUMENT ID: [id number] JOSE DE JESUS GOODWIN MD at 1524 CC: [id number] DICTATION DATE: 11/29/20 1229 THIRD SHIFT LIEUTENANT: 11/29/20 1431 ADM IN [facility] [address] [place] [id number]
--- NOTE | 2020-11-30 01:28 | NUR ---
I have reviewed this patient and I concur with the Shift Assessment completed by the Licensed Practical Nurse today this shift.
[2020-11-30 05:25] VITALS: BP 143/66
[2020-11-30 06:42] LABS: BASOPHILS 0.5 % (0-2); EOSINOPHILS 4.5 % (0-7); HEMATOCRIT 33.3 % (42.0-54.0); HEMOGLOBIN 10.6 g/dL (13.5-17.5); IMMATURE GRANULOCYTES 0.6 % (0-5); LYMPHOCYTE ABS# 2.08 10x3/uL (1.32-3.57); LYMPHOCYTES 24.4 % (15-50); MCH 28.1 pg (26.0-34.0); MCHC 31.8 g/dL (31.0-37.0); MCV 88.3 fL (80.0-100.0); MEAN PLATELET VOLUME 10.9 fL (7.4-10.4); MONOCYTES 9.6 % (2-11); NEUTROPHIL ABS# 5.15 10x3/uL (1.78-5.38); NEUTROPHILS 60.4 % (40-80); PLATELET COUNT 285 10x3/uL (130-400); RBC 3.77 10x6/uL (4.20-6.10); RDW 15.3 % (11.5-14.5); WBC 8.5 10x3/uL (4.8-10.8)
[2020-11-30 07:11] LABS: ALBUMIN 2.2 g/dL (3.4-5.0); ANION GAP 13.9 mmol/L (8-16); BILIRUBIN - TOTAL 0.36 mg/dL (0.2-1.3); CALCIUM 8.2 mg/dL (8.5-10.1); CARBON DIOXIDE 22.9 mmol/L (21.0-32.0); CREATININE - SERUM 2.9 mg/dL (0.6-1.3); MAGNESIUM - SERUM 1.9 mg/dL (1.8-2.4); PHOSPHOROUS 3.4 mg/dL (2.5-4.9); POTASSIUM - SERUM 3.8 mmol/L (3.5-5.1); PROTEIN - SERUM 6.2 g/dL (6.4-8.2)
[2020-11-30 11:28] VITALS: BP 171/78
[2020-11-30 18:48] VITALS: BP 171/80
[2020-11-30 22:28] VITALS: BP 194/86
[2020-12-01 09:33] VITALS: BP 171/76
[2020-12-01 09:42] LABS: BASOPHILS 0.3 % (0-2); EOSINOPHILS 4.1 % (0-7); HEMATOCRIT 35.8 % (42.0-54.0); HEMOGLOBIN 11.4 g/dL (13.5-17.5); IMMATURE GRANULOCYTES 0.7 % (0-5); LYMPHOCYTES 20.9 % (15-50); MCH 27.9 pg (26.0-34.0); MCHC 31.8 g/dL (31.0-37.0); MCV 87.5 fL (80.0-100.0); MEAN PLATELET VOLUME 10.7 fL (7.4-10.4); MONOCYTES 10.3 % (2-11); NEUTROPHIL ABS# 5.49 10x3/uL (1.78-5.38); NEUTROPHILS 63.7 % (40-80); PLATELET COUNT 284 10x3/uL (130-400); RBC 4.09 10x6/uL (4.20-6.10); RDW 15.1 % (11.5-14.5); WBC 8.6 10x3/uL (4.8-10.8)
[2020-12-01 10:01] LABS: ALBUMIN 2.2 g/dL (3.4-5.0); ANION GAP 14.5 mmol/L (8-16); BILIRUBIN - TOTAL 0.4 mg/dL (0.2-1.3); CALCIUM 8.3 mg/dL (8.5-10.1); CARBON DIOXIDE 22.4 mmol/L (21.0-32.0); CREATININE - SERUM 2.8 mg/dL (0.6-1.3); MAGNESIUM - SERUM 1.9 mg/dL (1.8-2.4); PHOSPHOROUS 3.7 mg/dL (2.5-4.9); POTASSIUM - SERUM 3.9 mmol/L (3.5-5.1); PROTEIN - SERUM 6.5 g/dL (6.4-8.2)
--- NOTE | 2020-12-01 10:12 | NUR ---
REHAB PRESCREEN RECEIVED. PHYSICAL THERAPY HAS SIGNED OFF ON HIM STATING HE IS AT HIS BASELINE AND PT FEELS THE WEAKNESS IS GONE. UNFORTUNATLEY WITHOUT THE NEED FOR TWO DISCIPLINS, HE DOES NOT MEET REQUIREMENTS. THANK YOU FOR THIS REFERAL. LAWANDA NIÑO RN CLINICAL LIAISON, INPATIENT REHAB.
[2020-12-01 10:24] LABS: CREATININE - URINE 56.4 mg/dL (30-125)
[2020-12-01 10:29] LABS: PRO/CRE RATIO URINE 8.7 mg/g; PROTEIN - URINE 492.4 mg/dL (0.0-11.9)
[2020-12-01 13:56] VITALS: BP 171/75
--- NOTE | 2020-12-01 14:36 | MORECARE ---
CASE MANAGEMENT DISCHARGE SUMMARY PATIENT: GRAZYNA VALVERDE UNIT: [id number] ADM DATE: 11/28/20 AGE: 75 : 45 SEX: M ROOM/BED: D.[facility] AUTHOR: SHELIA CHRISTINA PHYSICIAN: REFERRING PHYSICIAN: NAA RAMIREZ MD DATE OF SERVICE: 12/01/20 Case Management Discharge Planning Summary DCP REVIEW SUMMARY ANTICIPATED D/C DATE: EXPECTED LOS : CASE STATUS: DCP Initiated INITIAL REVIEW: 11/28/2020 INITIAL REVIEWER: Eulalia Zavala FINAL DISCHARGE DISPOSITION: : FINAL REVIEWER: FINAL REVIEW DATE: DCP Focus Questions & Answers QUESTION: ANSWER : PATIENT: GRAZYNA VALVERDE ENCOUNTER: [id number] MEDICAL RECORD#: [id number] ADMISSION DATE: 11/28/2020 DISCHARGE DATE: ATTENDING MD: NAA MORALES : AGE: 75 MARITAL STATUS: M DC PLAN ID: [id number] FACILITY: [facility] PRINTED ON: 12/01/20 14:36 CT All edits/amendments must be made on the electronic document DICTATION DATE: 12/01/20 143 EVENT SALES MANAGER: DM 12/01/20 143 RPT#: [id number] DC DATE: STATUS: ADM IN [facility] [address] [place] [address] END OF REPORT
--- NOTE | 2020-12-01 14:48 | MORECARE ---
CASE MANAGEMENT DISCHARGE SUMMARY PATIENT: GRAZYNA VALVERDE UNIT: [id number] ADM DATE: 11/28/20 AGE: 75 : 45 SEX: M ROOM/BED: D.[facility] AUTHOR: SHELIA CHRISTINA PHYSICIAN: REFERRING PHYSICIAN: NAA RAMIREZ MD DATE OF SERVICE: 12/01/20 Case Management Discharge Planning Summary DCP REVIEW SUMMARY ANTICIPATED D/C DATE: EXPECTED LOS : CASE STATUS: DCP Initiated INITIAL REVIEW: 11/28/2020 INITIAL REVIEWER: Eulalia Zavala FINAL DISCHARGE DISPOSITION: : FINAL REVIEWER: FINAL REVIEW DATE: DCP Focus Questions & Answers QUESTION: ANSWER : PATIENT: GRAZYNA VALVERDE ENCOUNTER: [id number] MEDICAL RECORD#: [id number] ADMISSION DATE: 11/28/2020 DISCHARGE DATE: ATTENDING MD: NAA MORALES : AGE: 75 MARITAL STATUS: M DC PLAN ID: [id number] FACILITY: [facility] PRINTED ON: 12/01/20 14:48 CT All edits/amendments must be made on the electronic document DICTATION DATE: 12/01/201447 MAIN GALLEY SCULLION: DM 12/01/201447 RPT#: [id number] DC DATE: STATUS: ADM IN [facility] [address] [place] [address] END OF REPORT
--- NOTE | 2020-12-01 15:01 | MORECARE ---
CASE MANAGEMENT DISCHARGE SUMMARY PATIENT: GRAZYNA VALVERDE UNIT: [id number] ADM DATE: 11/28/20 AGE: 75 : 45 SEX: M ROOM/BED: D.2236 AUTHOR: SANFORD,DOC PHYSICIAN: REFERRING PHYSICIAN: NAA RAMIREZ MD DATE OF SERVICE: 12/01/20 Case Management Discharge Planning Summary COMMENTS ENTERED DATE: 12/01/20 14:54 CT COMMENT TYPE: Discharge Planning REVIEWER: Eulalia Zavala CM MET WITH PATIENT AND TO DISCUSS DC PLANNING. HE IS PARTIALLY DEPENDENT AND HIS SPOUSE DOES ALOT FOR HIM. HE HAS A WALKER AND WHEELCHAIR AT HOME. DR LOCKHART IS HIS PCP AND THEY ALSO USE [employer] ON [address]. THEY ARE CURRENT WITH [facility], BUT WOULD LIKE TO CHANGE TO [facility]. I HAVE SENT THE REFERRAL TO [facility] PATIENT WILL ALSO NEED A WALK TEST TO SEE IS HE QUALIFIES FOR HOME O2. I HAVE ORDERED THAT AND SENT THE REFERRAL TO [facility] SERVED AND EXPLAINED TIFF WITH [facility] AND [facility] SIGNED DCP REVIEW SUMMARY ANTICIPATED D/C DATE: EXPECTED LOS : CASE STATUS: DCP Initiated INITIAL REVIEW: 11/28/2020 INITIAL REVIEWER: Eulalia Zavala FINAL DISCHARGE DISPOSITION: : FINAL REVIEWER: FINAL REVIEW DATE: DCP Focus Questions & Answers QUESTION: ANSWER : PATIENT: GRAZYNA VALVERDE ENCOUNTER: [id number] MEDICAL RECORD#: [id number] ADMISSION DATE: 11/28/2020 DISCHARGE DATE: ATTENDING MD: NAA MORALES : AGE: 75 MARITAL STATUS: M DC PLAN ID: [id number] FACILITY: [facility] PRINTED ON: 12/01/20 15:01 CT All edits/amendments must be made on the electronic document DICTATION DATE: 12/01/20 1501 TIME PIECE REPAIRER: VALDO 12/01/20 1501 RPT#: [id number] DC DATE: STATUS: ADM IN [facility] [address] [place] [address] END OF REPORT
--- NOTE | 2020-12-01 16:10 | NUR ---
GT BELT, O2 AT 4, PATIENT ABLE TO GET UP TO BEDSIDE BY HIMSELF. PATIENT WAS CGA TO STAND AND MIN ASST TO WALK IN DRAPER FOR 250 FEET USING WALKER.
--- NOTE | 2020-12-01 16:40 | NUR ---
OT NOTE: PT IS NON COMPLIANT WITH WEARING O2. PT EDUCATED TO WEAR CANNULA. PT COMPLETED EOB SITTING WITH SPV. PT COMPLETED SIT TO STAND WITH SBA. PT COMPLETED SIDE STEP WITH SBA. PT COMPELTED BUE AROM AXS TOLERATED. 4-035 THANK YOU,STEFANIA MCKEON
--- NOTE | 2020-12-01 16:58 | MORECARE ---
CASE MANAGEMENT DISCHARGE SUMMARY PATIENT: GRAZYNA VALVERDE UNIT: [id number] ADM DATE: 11/28/20 AGE: 75 : 45 SEX: M ROOM/BED: D.2236 AUTHOR: SANFORD,DOC PHYSICIAN: REFERRING PHYSICIAN: NAA RAMIREZ MD DATE OF SERVICE: 12/01/20 Case Management Discharge Planning Summary COMMENTS ENTERED DATE: 12/01/20 16:53 CT COMMENT TYPE: Discharge Planning REVIEWER: Eulalia Zavala I CALLED [facility] TO VERIFY THAT HE WANT'S TO SWITCH BACK TO [facility] I SPOKE WITH SCOTT AT [facility] AND THEY WILL ACCEPT HIM BACK [facility] [place] WILL DELIVER THE PORTABLE O2 TO THE ROOM, AND THE CONCENTRATOR AT HOME [facility] WILL ALSO SET UP A HOSPITAL BED TOMORROW. ENTERED DATE: 12/01/20 14:54 CT COMMENT TYPE: Discharge Planning REVIEWER: Eulalia Zavala CM MET WITH PATIENT AND TO DISCUSS DC PLANNING. HE IS PARTIALLY DEPENDENT AND HIS SPOUSE DOES ALOT FOR HIM. HE HAS A WALKER AND WHEELCHAIR AT HOME. DR LOCKHART IS HIS PCP AND THEY ALSO USE [employer] [facility]. THEY ARE CURRENT WITH [employer] [facility], BUT WOULD LIKE TO CHANGE TO [facility]. I HAVE SENT THE REFERRAL TO [facility] PATIENT WILL ALSO NEED A WALK TEST TO SEE IS HE QUALIFIES FOR HOME O2. I HAVE ORDERED THAT AND SENT THE REFERRAL TO [facility] [place] IMM SERVED AND EXPLAINED TIFF WITH [facility] AND [facility] SIGNED DCP REVIEW SUMMARY ANTICIPATED D/C DATE: EXPECTED LOS : CASE STATUS: DCP Initiated INITIAL REVIEW: 11/28/2020 INITIAL REVIEWER: Eulalia Zavala FINAL DISCHARGE DISPOSITION: : FINAL REVIEWER: FINAL REVIEW DATE: DCP Focus Questions & Answers QUESTION: ANSWER : PATIENT: GRAZYNA VALVERDE ENCOUNTER: [id number] MEDICAL RECORD#: [id number] ADMISSION DATE: 11/28/2020 DISCHARGE DATE: ATTENDING MD: NAA MORALES : AGE: 75 MARITAL STATUS: M DC PLAN ID: [id number] FACILITY: [facility] PRINTED ON: 12/01/20 16:58 CT All edits/amendments must be made on the electronic document DICTATION DATE: 12/01/201656 FIRST CALENDER WORKER: VALDO 12/01/201656 RPT#: [id number] DC DATE: STATUS: ADM IN [facility] [address] [place] [address] END OF REPORT
[2020-12-01 17:05] VITALS: BP 165/75
--- NOTE | 2020-12-01 17:09 | MORECARE ---
CASE MANAGEMENT DISCHARGE SUMMARY PATIENT: GRAZYNA VALVERDE UNIT: [id number] ADM DATE: 11/28/20 AGE: 75 : 45 SEX: M ROOM/BED: D.2236 AUTHOR: SHELIA CHRISTINA PHYSICIAN: REFERRING PHYSICIAN: NAA RAMIREZ MD DATE OF SERVICE: 12/01/20 Case Management Discharge Planning Summary COMMENTS ENTERED DATE: 12/01/20 17:00 CT COMMENT TYPE: Discharge Planning REVIEWER: Eulalia Zavala [place] O2 HAS BEEN DELIVERED TO THE ROOM ENTERED DATE: 12/01/20 16:53 CT COMMENT TYPE: Discharge Planning REVIEWER: Eulalia Zavala I CALLED [facility] TO VERIFY THAT HE WANT'S TO SWITCH BACK TO [facility] I SPOKE WITH SCOTT AT [facility] AND THEY WILL ACCEPT HIM BACK [facility] WILL DELIVER THE PORTABLE O2 TO THE ROOM, AND THE CONCENTRATOR AT HOME [facility] WILL ALSO SET UP A HOSPITAL BED TOMORROW. ENTERED DATE: 12/01/20 14:54 CT COMMENT TYPE: Discharge Planning REVIEWER: Eulalia Zavala CM MET WITH PATIENT AND TO DISCUSS DC PLANNING. HE IS PARTIALLY DEPENDENT AND HIS SPOUSE DOES ALOT FOR HIM. HE HAS A WALKER AND WHEELCHAIR AT HOME. DR LOCKHART IS HIS PCP AND THEY ALSO USE [employer] [facility] [employer] ON [address]. THEY ARE CURRENT WITH [employer] [facility], BUT WOULD LIKE TO CHANGE TO [facility]. I HAVE SENT THE REFERRAL TO [facility] PATIENT WILL ALSO NEED A WALK TEST TO SEE IS HE QUALIFIES FOR HOME O2. I HAVE ORDERED THAT AND SENT THE REFERRAL TO [facility] IMM SERVED AND EXPLAINED TIFF WITH [facility] AND [facility] SIGNED DCP REVIEW SUMMARY ANTICIPATED D/C DATE: EXPECTED LOS : CASE STATUS: DCP Initiated INITIAL REVIEW: 11/28/2020 INITIAL REVIEWER: Eulalia Zavala FINAL DISCHARGE DISPOSITION: : FINAL REVIEWER: FINAL REVIEW DATE: DCP Focus Questions & Answers QUESTION: ANSWER : PATIENT: GRAZYNA VALVERDE ENCOUNTER: [id number] MEDICAL RECORD#: [id number] ADMISSION DATE: 11/28/2020 DISCHARGE DATE: ATTENDING MD: NAA MORALES : AGE: 75 MARITAL STATUS: M DC PLAN ID: [id number] FACILITY: [facility] PRINTED ON: 12/01/20 17:09 CT All edits/amendments must be made on the electronic document DICTATION DATE: 12/01/201708 MEDICAL REFERRAL COORDINATOR: VALDO 12/01/201708 RPT#: [id number] DC DATE: STATUS: ADM IN [facility] [address] [place] [address] END OF REPORT
[2020-12-01] MEDS ORDERED: PLAVIX75 MG PO (17:31)
--- NOTE | 2020-12-02 14:06 | MORECARE ---
CASE MANAGEMENT DISCHARGE SUMMARY PATIENT: GRAZYNA VALVERDE UNIT: [id number] ADM DATE: 11/28/20 AGE: 75 : 45 SEX: M ROOM/BED: D.2236 AUTHOR: SHELIA CHRISTINA PHYSICIAN: REFERRING PHYSICIAN: NAA RAMIREZ MD DATE OF SERVICE: 12/02/20 Case Management Discharge Planning Summary COMMENTS ENTERED DATE: 12/01/20 17:00 CT COMMENT TYPE: Discharge Planning REVIEWER: Eulalia Zavala [place] O2 HAS BEEN DELIVERED TO THE ROOM ENTERED DATE: 12/01/20 16:53 CT COMMENT TYPE: Discharge Planning REVIEWER: Eulalia Zavala I CALLED [facility] TO VERIFY THAT HE WANT'S TO [facility]ITCH [facility] I SPOKE WITH SCOTT AT [facility] AND THEY WILL ACCEPT HIM BACK [facility] WILL DELIVER THE PORTABLE O2 TO THE ROOM, AND THE CONCENTRATOR AT HOME [facility] WILL ALSO SET UP A HOSPITAL BED TOMORROW. ENTERED DATE: 12/01/20 14:54 CT COMMENT TYPE: Discharge Planning REVIEWER: Eulalia Zavala CM MET WITH PATIENT AND TO DISCUSS DC PLANNING. HE IS PARTIALLY DEPENDENT AND HIS SPOUSE DOES ALOT FOR HIM. HE HAS A WALKER AND WHEELCHAIR AT HOME. DR LOCKHART IS HIS PCP AND THEY ALSO USE [employer] ON [address]. THEY ARE CURRENT WITH [employer] [facility], BUT WOULD LIKE TO CHANGE TO [facility]. I HAVE SENT THE REFERRAL TO [facility] PATIENT WILL ALSO NEED A WALK TEST TO SEE IS HE QUALIFIES FOR HOME O2. I HAVE ORDERED THAT AND SENT THE REFERRAL TO [facility] IMM SERVED AND EXPLAINED TIFF WITH [facility] AND [facility] SIGNED DCP REVIEW SUMMARY ANTICIPATED D/C DATE: EXPECTED LOS : CASE STATUS: DCP Initiated INITIAL REVIEW: 11/28/2020 INITIAL REVIEWER: Eulalia Zavala FINAL DISCHARGE DISPOSITION: : FINAL REVIEWER: FINAL REVIEW DATE: DCP Focus Questions & Answers QUESTION: ANSWER : PATIENT: GRAZYNA VALVERDE ENCOUNTER: [id number] MEDICAL RECORD#: [id number] ADMISSION DATE: 11/28/2020 DISCHARGE DATE: 12/01/2020 ATTENDING MD: NAA MORALES : AGE: 75 MARITAL STATUS: M DC PLAN ID: [id number] FACILITY: [facility] PRINTED ON: 12/02/20 14:06 CT All edits/amendments must be made on the electronic document DICTATION DATE: 12/02/201405 WIRE FRAME LAMP SHADE MAKER: VALDO 12/02/201405 RPT#: [id number] DC DATE:12/01/20 STATUS: DIS IN [facility] [address] [place] [address] END OF REPORT
== END 2020-12-01 19:10 | disposition home health service (06) | DRG 69 ==
LOC: D.ER 10:01 → D.MS 12:02
PROVIDERS: Internal Medicine Nephrology; Student in an Organized Health Care Education/Training Program; ADMIT Emergency Medicine; ATTEND Emergency Medicine
DX: G45.9 Transient cerebral ischemic attack, unspecified (principal); I50.22 Chronic systolic (congestive) heart failure; I13.0 Hypertensive heart and chronic kidney disease with heart failure and stage 1 through stage 4 chronic kidney disease, or unspecified chronic kidney disease; R20.2 Paresthesia of skin; E11.65 Type 2 diabetes mellitus with hyperglycemia; N18.9 Chronic kidney disease, unspecified; E11.22 Type 2 diabetes mellitus with diabetic chronic kidney disease; I25.10 Atherosclerotic heart disease of native coronary artery without angina pectoris; Z86.73 Personal history of transient ischemic attack (TIA), and cerebral infarction without residual deficits; Z85.46 Personal history of malignant neoplasm of prostate

== ENCOUNTER 2020-12-05 15:23 | Inpatient (IN) | payer OTHER ==
[~2020-12-05] VITALS: Ht 182.9 cm; Wt 107.5 kg
--- NOTE | ~2020-12-05 | HEMODYNAMI ---
PATIENT:GRAZYNA VALVERDE MEDICAL RECORD: [id number] : 45 LOCATION:[address] ADMISSION DATE: 12/05/20 Generatedon:117:35 Patient name: GRAZYNA VALVERDE Patient #: [id number] SSN: DO B: 1945 Date of study: 12/08/2020 Page: Of Hemodynamic Procedure Report Patient Data Patient Demographics Procedure consent was obtained First Name: GRAZYNA Gender: Male Last Name: ABRAM : 1945 Middle Initial: JUAN LUIS Age: 75 year(s) Patient #: [id number] Race: Unknown Additional ID: [id number] Contact details Address: [address] [place] [address] [address]ACE State: [place] City: [facility] Zip code: [address] Past Medical History Allergies Allergen Reaction Date Comments Reported Bactrim 12/08/2020 clindamycin Admission Admission Data Admission Date: 12/05/2020 Admission Time: 17:47 Room #: D.2125 Height (in.): 72 BSA: 2.29 (m2) Height (cm.): 182.88 BMI: 32.14 (kg/m2) Weight (lbs.): 237 Weight (kg.): 107.5 Procedure Procedure Types Cath Procedure Peripheral Cath Diagnostic Procedure Mainframe Systems Engineer Peripheral Procedures Venography IVC/SVC Inferior Venacava Filter Procedure Description Procedure Date Procedure Date: 12/08/2020 Procedure Start Time: 17:06 Procedure Staff Name Function Dany Mcdonald MD Performing Physician Patti Schreiber RT Canteen Manager Kinza Esquivel RN Nurse Rajinder Erickson RT Scrub Procedure Data Cath Procedure Fluoroscopy Diagnostic fluoroscopy Total fluoroscopy Time: 2.4 time: 2.4 min min Diagnostic fluoroscopy Total fluoroscopy dose: 475 dose: 475 mGy mGy Diagnostic catheters Device Type Used For End Catheter Placement Merit UHF Pigtail VESSEL SIZING 5Fr 65CM catheter ([id number]) Procedure Medications Medication Administration Route Dosage Heparin Flush Bag added to field 2 bags (1000units/500ml NS) Lidocaine 1% added to field 20 Hemodynamics Rest BSA: 2.29 (m2) O2 Consumption: Estimated: 267.34 (ml/min) O2 Consumption indexed : Estimated:116.74 (ml/min/m) Heart Rate: 75 (bpm) Snapshots Pre Cath Intra NCS Post Cath Vital Signs Time Heart Resp SPO2 etCO2 NIBP (mmHg) Rhythm Pain Sedation Rate (ipm) (%) (mmHg) Status Level (bpm) 17:01:49 83 17 96 12.7 177/95(152) NSR 0 (11) 10(A) , No pain 17:06:13 73 13 96 9.7 184/96(155) NSR 0 (11) 10(A) , No pain 17:10:29 71 21 95 16.5 159/89(150) NSR 0 (11) 10(A) , No pain 17:14:47 71 18 96 18 170/97(141) NSR 0 (11) 10(A) , No pain 17:19:07 72 18 96 16.5 153/81(117) NSR 0 (11) 10(A) , No pain 17:23:26 70 16 96 17.3 167/88(140) NSR 0 (11) 10(A) , No pain 17:27:48 71 11 94 15 163/90(139) NSR 0 (11) 10(A) , No pain 17:32:10 73 16 0 162/92(135) NSR 0 (11) 10(A) , No pain Medications Time Medication Route Dose Verified Delivered Reason Notes Effec tiveness by by 17:03:04 Heparin Flush added 2 Dany Saenz used for Bag to bags Harry Mcdonald MD procedure (1000units/500ml field MOORE NS) 17:03:15 Lidocaine 1% added 20ml Dany Saenz used for to vial Harry Mcdonald MD procedure field Procedure Log Time Note 16:50:04 Patient Height : 72 inches 16:50:09 Patient Weight : 237 lbs 16:50:16 Use device set IR Diagnostic 16:50:54 TUBING Contrast Injection High Pressure (TBI098X) opened to sterile field. 16:50:55 SHEATH 5FR [place] (FBU470) opened to sterile field. 16:50:56 DOUBLE ENDED GUIEDWIRE DOC 145CM (C24833) opened to sterile field. 16:50:58 Micropuncture VSI 4FR kit opened to sterile field. 16:50:59 Tegaderm 4 x 4 (1626W) opened to sterile field. 16:51:00 Sterile Angiographic Pack opened to sterile field. 16:51:01 Bag Decanter (2002S) opened to sterile field. 16:51:14 STOPCOCK 3-Way Large Bore (I90345) opened to sterile field. 16:51:29 FILTER Hardin Jugular Vena Cava (AL577L) opened to sterile field. 16:51:49 - 16:51:54 Time tracking: Call back (After hours or weekends) 16:52:15 Plan of Care:Hemodynamics will remain stable., Cardiac rhythm will remain stable., Comfort level will be maintained., Respiratory function will remain adequate., Patient/ family verbilizes understanding of procedure., Procedure tolerated without complication., Recovers from procedure without complications.. 16:52:23 Patient received from Dynadec II to IR Alert and oriented. Tansferred to table in Supine position. 16:52:47 Signed procedure consent form obtained from verbally. 16:53:01 - 16:53:08 H&P Date Dictated: 12/08/2020 Within 30 days and on chart.. 16:53:11 Pre-procedure instructions explained to patient. 16:53:12 Pre-op teaching completed and patient verbalized understanding. 16:53:14 Family unavailable. 16:53:19 Patient NPO since Lunch. 16:54:19 Patient allergic to Bactrimclindamycin 16:54:47 Is the patient allergic to Iodine/contrast media? No. 16:54:57 Is patient on blood thinner?Yes 16:55:04 Patient diabetic? Yes. 16:55:29 If diabetic: On Metformin? Yes 16:56:33 If on Metformin: Last Dose? 12/05/2020 16:56:37 - 16:56:47 Right neck area was prepped with chlora-prep and draped in sterile fashion 16:56:50 Alarms reviewed by Lion Nixon 16:56:52 - 17:00:33 ECG and BP/O2 sat monitors applied to patient. 17:00:35 Vital chart was started 17:00:37 Baseline sample Acquired. 17:00:39 Full Disclosure recording started 17:00:46 - 17:00:50 Physician arrived 17:00:50 --------ALL STOP TIME OUT------ 17:00:51 Final Timeout: patient, procedure, and site verified with staff and physician. All members of the team are in agreement. 17:03:04 Heparin Flush Bag (1000units/500ml NS) 2 bags added to field was administered by Dany Mcdonald MD; used for procedure; Verbal order read back and verified. 17:03:15 Lidocaine 1% 20ml vial added to field was administered by Dany Mcdonald MD; used for procedure; Verbal order read back and verified. 17:05:57 Fire Safety Assessment: A--An alcohol-based skin anteseptic being used preoperatively., C--Open oxygen or nitrous oxide is being used. 17:06:07 Fire Safety Assessment: B--The operative or invasive procedure is being performed above the xiphoid process or in the oropharynx. 17:06:23 4) 15-29 Severley reduced kidney function. 17:06:30 Procedure started. 17:06:38 Local anesthetic to right IJ vein with Lidocaine 1% by Dany Mcdonald MD.INITIAL ACCESS ONLY 17:07:16 Venous access obtained using ultrasound guidance. 17:09:24 A Traitify UHF Pigtail VESSEL SIZING 5Fr 65CM catheter ([id number]) was advanced over the wire and used for . 17:13:42 NOEL 180cm wire (J31719) opened to sterile field. 17:19:24 Venogram performed 17:20:34 AMPLATZ Super stiff 180cm wire ([id number]) opened to sterile field. 17:26:23 Bushra Jugular IVC filter was placed below renal veins. 17:27:50 Procedure ended.(Physican Out) 17:28:28 Fluoroscopy time 02.40 minutes. 17:28:44 Flurop Dose total: 475 17:28:44 Fluoroscopy dose: 475 mGy 17:28:55 Procedure and supply charges have been captured, reviewed, submitted an d are correct. 17:30:03 Report given to Lumenergi. 17:35:01 Vital chart was stopped Device Usage Item Name Manufacture Quantity Catalog Hospital Part Current Minima l Lot# / Number Charge Number Stock Stock Serial# Code TUBING [facility] 1 [id number] 350362 [id number] 5 Contrast Medical Injection High Pressure (AZZ363V) SHEATH 5FR Terumo 1 MHB787 728494 427912 663813 5 Hatfield (OXY442) DOUBLE ENDED Cook Medical 1 T78861 294445 842588 1 GUIEDWIRE DOC 145CM (M09639) Micropuncture VSI VASCULAR 1 7266V 255534 297739 5 VSI 4FR kit SOLUTIONS Tegaderm 4 x 3M 1 1626W 334144 938970 366824 5 4 (1626W) Sterile Cardinal 1 [id number] 148393 687066 5 Angiographic Health Pack Bag Decanter Microtek 1 2001S 438148 94960 329614 5 (2001S) Medical Inc. STOPCOCK [employer]rip Medical 1 P38898 788494 5386 854694 5 3-Way Large Bore (C71250) FILTER Bushra Bard 1 UL974N 524874 508344 966472 5 Jugular Vena Cava (DI785N) Merit [facility] Merit 1 [id number] 620842 393332 5 Pigtail Medical VESSEL SIZING 5Fr 65CM catheter ([id number]) NOEL 180cm Cook Medical 1 X07182 503421 452036 5 wire (J00008) AMPLATZ Super [place] 1 [id number] 273643 258591 782429 5 stiff 180cm Scientific wire ([id number]) Signature Audit [place]man Stage Time Signature Unsigned Intra-Procedure 12/08/2020 Patti Schreiber 5:34:56 PM RT(R) [place] [id number] [place] [address]
[2020-12-05 15:44] LABS: BASOPHILS 0.4 % (0-2); EOSINOPHILS 3.5 % (0-7); HEMATOCRIT 38.5 % (42.0-54.0); HEMOGLOBIN 12.6 g/dL (13.5-17.5); IMMATURE GRANULOCYTES 0.5 % (0-5); LYMPHOCYTE ABS# 2.21 10x3/uL (1.32-3.57); LYMPHOCYTES 21.3 % (15-50); MCH 28.6 pg (26.0-34.0); MCHC 32.7 g/dL (31.0-37.0); MCV 87.3 fL (80.0-100.0); MEAN PLATELET VOLUME 10.1 fL (7.4-10.4); MONOCYTES 7.3 % (2-11); NEUTROPHIL ABS# 6.97 10x3/uL (1.78-5.38); RBC 4.41 10x6/uL (4.20-6.10); RDW 15.1 % (11.5-14.5); WBC 10.4 10x3/uL (4.8-10.8)
[2020-12-05 15:49] LABS: PLATELET COUNT 345 10x3/uL (130-400)
[2020-12-05 15:54] LABS: APTT 25.3 SECONDS (22.8-39.4); INR 1.11 (0.85-1.17); PROTIME 13.2 SECONDS (11.6-15.0)
[2020-12-05 15:57] LABS: CALC OSMOLALITY 287 mosm/kg (275-300); CALCIUM 8.3 mg/dL (8.5-10.1); CARBON DIOXIDE 23.1 mmol/L (21.0-32.0); CHLORIDE - SERUM 102 mmol/L (98-107); CREATININE - SERUM 2.4 mg/dL (0.6-1.3); POTASSIUM - SERUM 3.6 mmol/L (3.5-5.1); SODIUM 136 mmol/L (136-145); UREA NITROGEN 20 mg/dL (7-18); eGFR NON AFRICAN AMERICAN 28 mL/min (90-120)
[2020-12-05 16:01] LABS: GLUCOSE 331 mg/dL (74-106)
[2020-12-05 16:11] LABS: ALBUMIN 2.2 g/dL (3.4-5.0); ALKALINE PHOSPHATASE 132 U/L (30-120); ALT (SGPT) 16 U/L (10-68); BILIRUBIN - TOTAL 0.33 mg/dL (0.2-1.3); CKMB 1.4 U/L (0.0-3.6); CREATINE KINASE 70 UL (21-232); PRO BNP 10467 pg/mL (0-450); TROPONIN-I 0.026 ng/mL (0.000-0.060)
[2020-12-05 20:14] VITALS: BP 172/94
--- NOTE | 2020-12-05 23:27 | NUR ---
PT LAYING IN BED RESTING. NON REBREATHER IN PLACE. PT IV FLUSHES WELL, NO MAINTENANCE FLUIDS ORDERED. PT IS AAO X4, DENIES PAIN AT THIS TIME. PT BRUSHED HIS TEETH WITH MINIMAL ASSISTANCE. CONDOM CATHETER WAS APPLIED BUT LEAKED, URINAL AT BEDSIDE. WOUND ON BUTTOCK FROM PREVIOUS I & D COVERED BY CLEAN, DRY DRESSING. 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 PT TOOK SCHEDULED MEDS. BS 207, 4 U SLIDING SCALE GIVEN ORDERED. ICE WATER PROVIDED TO PATIENT. PT C/O NON REBREATHER MASK BEING ANNOYING. VIRAJ RESTREPO NOTIFIED, WILL TRY HIGH FLOW.
--- NOTE | 2020-12-05 23:56 | NUR ---
PATIENT WAS NOT BRING C,OMPLIANT WITH NRB MASK. CHANGED TO HFNC @ 12 LPM. PATIENT IS TOLERATING WELL. WILL CONTINUE TO MONITOR STATUS AND TITRATE OXYGEN ACCORDINGLY. RN IS AWARE OF CHNANGE.
[2020-12-06 00:02] VITALS: BP 161/82
[2020-12-06 03:34] VITALS: BP 175/89
[2020-12-06 06:08] LABS: BASOPHILS 0.4 % (0-2); EOSINOPHILS 2.8 % (0-7); HEMOGLOBIN 11.6 g/dL (13.5-17.5); IMMATURE GRANULOCYTES 0.4 % (0-5); LYMPHOCYTE ABS# 1.84 10x3/uL (1.32-3.57); MCH 27.8 pg (26.0-34.0); MCHC 32.2 g/dL (31.0-37.0); MCV 86.3 fL (80.0-100.0); MEAN PLATELET VOLUME 10.1 fL (7.4-10.4); MONOCYTES 9.4 % (2-11); NEUTROPHIL ABS# 6.16 10x3/uL (1.78-5.38); PLATELET COUNT 342 10x3/uL (130-400); RBC 4.17 10x6/uL (4.20-6.10); RDW 15.1 % (11.5-14.5); WBC 9.2 10x3/uL (4.8-10.8)
[2020-12-06 06:28] LABS: ANION GAP 12.3 mmol/L (8-16); BILIRUBIN - TOTAL 0.32 mg/dL (0.2-1.3); CALCIUM 8.3 mg/dL (8.5-10.1); CARBON DIOXIDE 24.8 mmol/L (21.0-32.0); CREATININE - SERUM 2.4 mg/dL (0.6-1.3); MAGNESIUM - SERUM 2.1 mg/dL (1.8-2.4); POTASSIUM - SERUM 3.1 mmol/L (3.5-5.1); PROTEIN - SERUM 6.4 g/dL (6.4-8.2)
--- NOTE | 2020-12-06 07:00 | NUR ---
REPORT RECEVIED. PATIENT IS AAOX4, LYING IN SEMI-FOWLERS POSITION. NO S/S OF DISTRESS OBSERVED, RR EVEN AND UNLABORED ON 12L HFNC. PIV TO LT FA, PATENT, SL. NO FURTHER NEEDS EXPRESSED. CL IN REACH, BED LOCKED AND LOWERED. WILL CPOC.
[2020-12-06 08:00] VITALS: BP 160/79
--- NOTE | 2020-12-06 08:20 | NUR ---
PATIENT C/O NAUSEA AT THIS TIME. PRN ZOFRAN ADMINISTERED PER ORDER. AND BEDSIDE.
[2020-12-06 12:00] VITALS: BP 153/72
--- NOTE | 2020-12-06 12:30 | NUR ---
PREET AYALA APN OF US DOPPLER RESULTS
[2020-12-06 16:00] VITALS: BP 142/74
--- NOTE | 2020-12-06 16:06 | NUR ---
PATIENT TOOK HIMSELF TO THE BATHROOM AND WAS SOB WHEN RETURNING. REMINDED PATIENT HE IS NOT TO GET UP OUT OF BED DUE TO PE AND NEEDS TO USE URINAL FOR URINATING AND BED ALVARENGA FOR BM'S. TURNED ON BED ALARM, FUCTIONING PROPERLY. REPOSITIONED PATIENT IN BED. CL IN REACH, BED LOCKED AND LOWERED. WILL CPOC.
--- NOTE | 2020-12-06 19:30 | NUR ---
PATIENT RESTING IN BED WITH NO S/S OF DISTRESS AND DENIES NEEDS AT THIS TIME. BED IN LOWEST POSITION AND CALL LIGHT IN REACH. ENCOURAGED PATIENT TO CALL WITH NEEDS.
[2020-12-06 20:52] VITALS: BP 150/80
--- NOTE | 2020-12-06 21:45 | NUR ---
ADMINISTERED MEDS PER ORDERS. PATIENT ROYA WELL. ENCOURAGED PATIENT TO CALL WITH NEEDS.
[2020-12-07 01:38] VITALS: BP 139/72
[2020-12-07 05:44] VITALS: BP 146/73
[2020-12-07 05:59] LABS: BASOPHILS 0.6 % (0-2); EOSINOPHILS 2.1 % (0-7); HEMATOCRIT 33.8 % (42.0-54.0); HEMOGLOBIN 11.1 g/dL (13.5-17.5); IMMATURE GRANULOCYTES 0.4 % (0-5); LYMPHOCYTE ABS# 1.75 10x3/uL (1.32-3.57); LYMPHOCYTES 19.6 % (15-50); MCH 28.5 pg (26.0-34.0); MCHC 32.8 g/dL (31.0-37.0); MCV 86.9 fL (80.0-100.0); MEAN PLATELET VOLUME 9.9 fL (7.4-10.4); MONOCYTES 8.5 % (2-11); NEUTROPHIL ABS# 6.12 10x3/uL (1.78-5.38); NEUTROPHILS 68.8 % (40-80); PLATELET COUNT 330 10x3/uL (130-400); RBC 3.89 10x6/uL (4.20-6.10); RDW 15.2 % (11.5-14.5); WBC 8.9 10x3/uL (4.8-10.8)
[2020-12-07 06:16] LABS: ALBUMIN 1.9 g/dL (3.4-5.0); BILIRUBIN - TOTAL 0.26 mg/dL (0.2-1.3); CALCIUM 8.2 mg/dL (8.5-10.1); CARBON DIOXIDE 22.8 mmol/L (21.0-32.0); CREATININE - SERUM 2.9 mg/dL (0.6-1.3); MAGNESIUM - SERUM 2.2 mg/dL (1.8-2.4)
[2020-12-07 06:22] LABS: ANION GAP 15.2 mmol/L (8-16)
--- NOTE | 2020-12-07 07:00 | NUR ---
REPORT RECEIVED. PATIENT IS LYING IN BED RESTING WITH EYES CLOSED. NO S/S OF DISTRESS OBSERVED. RR EVEN AND UNLABORED ON 12L HFNC. NO NEEDS EXPRESSED AT THIS TIME. CL IN REACH, BED LOCKED AND LOWERED. PEGGY ALARM ON. WILL CPOC.
[2020-12-07 08:07] VITALS: BP 169/80
--- NOTE | 2020-12-07 11:24 | NUR ---
I have reviewed this patient and I concur with the Shift Assessment completed by the Licensed Practical Nurse today this shift.
[2020-12-07 12:06] VITALS: BP 143/71
[2020-12-07 16:55] VITALS: BP 161/75
--- NOTE | 2020-12-07 17:31 | NUR ---
PATIENT VOIDED ABOUT 50ML OF CONCENTRATED URINE. POST VOID BLADDER SCAN SHOWED 0ML.
[2020-12-07 20:00] VITALS: BP 160/77
[2020-12-08] VITALS: BP 151/90
--- NOTE | 2020-12-08 03:06 | NUR ---
I have reviewed this patient and I concur with the Shift Assessment completed by the Licensed Practical Nurse today this shift.
[2020-12-08 04:00] VITALS: BP 173/84
[2020-12-08 07:08] LABS: BASOPHILS 0.3 % (0-2); EOSINOPHILS 3.1 % (0-7); HEMATOCRIT 31.7 % (42.0-54.0); HEMOGLOBIN 9.9 g/dL (13.5-17.5); IMMATURE GRANULOCYTES 0.3 % (0-5); LYMPHOCYTE ABS# 1.26 10x3/uL (1.32-3.57); LYMPHOCYTES 17.5 % (15-50); MCH 27.6 pg (26.0-34.0); MCHC 31.2 g/dL (31.0-37.0); MCV 88.3 fL (80.0-100.0); MEAN PLATELET VOLUME 9.6 fL (7.4-10.4); MONOCYTES 8.4 % (2-11); NEUTROPHIL ABS# 5.06 10x3/uL (1.78-5.38); NEUTROPHILS 70.4 % (40-80); PLATELET COUNT 314 10x3/uL (130-400); RBC 3.59 10x6/uL (4.20-6.10); RDW 15.3 % (11.5-14.5); WBC 7.2 10x3/uL (4.8-10.8)
--- NOTE | 2020-12-08 07:13 | NUR ---
RECEIVE SHIFT REPORT. RESTING IN BED. STATES SOB AFTER O2 WAS WEANED TO 10L HFNC. 02 SAT 93%. INSTRUCTED ON BREATHING. AT BEDSIDE. DENIES ANY OTHER NEEDS AT THIS TIME. WILL GET BLADDER SCAN PER DR. ALEX. CONTINUE POC AND SAFETY PRECAUTIONS.
[2020-12-08 08:23] VITALS: BP 165/88
--- NOTE | 2020-12-08 08:30 | NUR ---
COLLECTED URINE SAMPLE, OUTPUT OF 150ML. DID POST RESIDUAL BLADDER SCAN SHOWING 0ML. WILL DO ANOTHER SCAN IN 8HOURS PER ORDERS.
[2020-12-08 09:27] LABS: ANION GAP 13.4 mmol/L (8-16); BILIRUBIN - TOTAL 0.34 mg/dL (0.2-1.3); CALCIUM 8.1 mg/dL (8.5-10.1); CARBON DIOXIDE 24.8 mmol/L (21.0-32.0); CREATININE - SERUM 3.3 mg/dL (0.6-1.3); MAGNESIUM - SERUM 2.2 mg/dL (1.8-2.4); POTASSIUM - SERUM 4.2 mmol/L (3.5-5.1); PROTEIN - SERUM 5.8 g/dL (6.4-8.2)
[2020-12-08 09:57] LABS: BILIRUBIN NEGATIVE (NEGATIVE); KETONE SMALL mg/dL (NEGATIVE); NITRITE NEGATIVE (NEGATIVE); UROBILINOGEN NORMAL mg/dL (< 2)
[2020-12-08 10:03] LABS: BACTERIA FEW HPF (NONE SEEN); SQUAMOUS EPITHELIAL NONE SEEN HPF (0-4); WHITE CELLS - URINE 0-5 HPF (0-1)
[2020-12-08 10:22] LABS: PRO/CRE RATIO URINE 8.4 mg/g; PROTEIN - URINE 1137.5 mg/dL (0.0-11.9)
[2020-12-08 12:22] VITALS: BP 148/74
--- NOTE | 2020-12-08 15:40 | NUR ---
OT NOTE: HOLD PER NURSING TODAY..WILL RE ATTEMPT TOMORROW. SHAHRAM RICHARD, OTR/L
[2020-12-08 16:04] VITALS: BP 147/69
--- NOTE | 2020-12-08 16:54 | NUR ---
PATIENT OFF FLOOR FOR PROCEDURE.
--- NOTE | 2020-12-08 17:49 | NUR ---
BACK FROM PROCEDURE. DRESSING TO RIGHT NECK WITH STERI STRIPS. DENIES ANY PAIN AT THIS TIME. WILL DO VS ORDERED.
[2020-12-08 20:56] VITALS: BP 177/87
--- NOTE | 2020-12-08 22:24 | NUR ---
EMPTIED 200 CC URINE OUT OF URINAL, BLADDER SCAN SHOWED ZERO RESIDUAL.
[2020-12-09 01:48] VITALS: BP 134/67
--- NOTE | 2020-12-09 03:19 | NUR ---
I have reviewed this patient and I concur with the Shift Assessment completed by the Licensed Practical Nurse today this shift.
[2020-12-09 05:24] LABS: BASOPHILS 0.2 % (0-2); EOSINOPHILS 2.6 % (0-7); HEMATOCRIT 35.7 % (42.0-54.0); HEMOGLOBIN 11.2 g/dL (13.5-17.5); IMMATURE GRANULOCYTES 0.5 % (0-5); LYMPHOCYTE ABS# 1.27 10x3/uL (1.32-3.57); LYMPHOCYTES 15.3 % (15-50); MCH 27.7 pg (26.0-34.0); MCHC 31.4 g/dL (31.0-37.0); MCV 88.1 fL (80.0-100.0); MONOCYTES 8.7 % (2-11); NEUTROPHIL ABS# 6.05 10x3/uL (1.78-5.38); NEUTROPHILS 72.7 % (40-80); RBC 4.05 10x6/uL (4.20-6.10); RDW 15.3 % (11.5-14.5); WBC 8.3 10x3/uL (4.8-10.8)
[2020-12-09 05:26] VITALS: BP 155/77
[2020-12-09 05:30] LABS: PLATELET COUNT 406 10x3/uL (130-400)
[2020-12-09 05:35] LABS: INR 1.24 (0.85-1.17); PROTIME 14.5 SECONDS (11.6-15.0)
[2020-12-09 05:50] LABS: ALBUMIN 1.8 g/dL (3.4-5.0); ANION GAP 10.6 mmol/L (8-16); BILIRUBIN - TOTAL 0.31 mg/dL (0.2-1.3); CALCIUM 8.2 mg/dL (8.5-10.1); CARBON DIOXIDE 27.3 mmol/L (21.0-32.0); CREATININE - SERUM 3.2 mg/dL (0.6-1.3); MAGNESIUM - SERUM 2.3 mg/dL (1.8-2.4); POTASSIUM - SERUM 3.9 mmol/L (3.5-5.1); PROTEIN - SERUM 6.1 g/dL (6.4-8.2)
--- NOTE | 2020-12-09 07:10 | NUR ---
RECEIVE SHIFT REPORT. RESTING IN BED. STATES HE NEEDS TO GET UP TO BEDSIDE COMMODE. AT BEDSIDE. DISCUSSED WITH PATIENT AND THAT HE DOES NOT NEED TO GET OUT OF BED HIS O2 SAT DROPPED IN LOW 50'S YESTERDAY WHEN ATTEMPTING. PATIENT INSISTED SO WE SAT HIM UP ON SIDE OF BED. ON 13L HFNC PATIENT O2 HOLDING STEADY AT 94% WHILE SITTING. TOOK A FEW MINUTES AND GOT PATIENT UP TO BEDSIDE COMMODE. O2 SAT DROPPED TO 89% AND CAME BACK UP TO 93%. INSTRUCTED ON BREATHING AND NOT STRAINING TO HAVE A BOWEL MOVEMENT. PATIENT TOLERATED WELL AND HAD BOWEL MOVEMENT. BACK TO BED. CALL LIGHT IN REACH. WILL CONTINUE POC AND SAFETY PRECAUTIONS.
[2020-12-09 07:32] VITALS: BP 181/85
[2020-12-09 11:37] VITALS: BP 129/73
[2020-12-09 13:26] VITALS: Ht 182.9 cm; Wt 107.5 kg
--- NOTE | 2020-12-09 14:50 | NUR ---
SITTING UP IN CHAIR. 02 SAT 94% ON 10L.
[2020-12-09 15:15] VITALS: BP 132/68
[2020-12-09 20:00] VITALS: BP 145/64
[2020-12-10] VITALS: BP 148/72
--- NOTE | 2020-12-10 04:44 | NUR ---
I have reviewed this patient and I concur with the Shift Assessment completed by the Licensed Practical Nurse today this shift.
[2020-12-10 06:59] LABS: BASOPHILS 0.4 % (0-2); EOSINOPHILS 3.7 % (0-7); HEMOGLOBIN 10.7 g/dL (13.5-17.5); IMMATURE GRANULOCYTES 0.8 % (0-5); LYMPHOCYTE ABS# 1.43 10x3/uL (1.32-3.57); LYMPHOCYTES 19.5 % (15-50); MCH 27.8 pg (26.0-34.0); MCHC 31.5 g/dL (31.0-37.0); MCV 88.3 fL (80.0-100.0); MEAN PLATELET VOLUME 9.7 fL (7.4-10.4); MONOCYTES 8.1 % (2-11); NEUTROPHIL ABS# 4.94 10x3/uL (1.78-5.38); NEUTROPHILS 67.5 % (40-80); PLATELET COUNT 379 10x3/uL (130-400); RBC 3.85 10x6/uL (4.20-6.10); RDW 15.5 % (11.5-14.5); WBC 7.3 10x3/uL (4.8-10.8)
[2020-12-10 07:09] LABS: INR 1.27 (0.85-1.17); PROTIME 14.7 SECONDS (11.6-15.0)
--- NOTE | 2020-12-10 07:10 | NUR ---
RECEIVE SHIFT REPORT. IN BED. DENIES ANY NEEDS AT THIS TIME. WILL CONTINUE POC AND SAFETY PRECAUTIONS. CALL LIGHT IN REACH. ON 8L [facility].
[2020-12-10 07:22] LABS: ALBUMIN 1.8 g/dL (3.4-5.0); ANION GAP 12.2 mmol/L (8-16); BILIRUBIN - TOTAL 0.29 mg/dL (0.2-1.3); CALCIUM 7.8 mg/dL (8.5-10.1); CARBON DIOXIDE 25.8 mmol/L (21.0-32.0); CREATININE - SERUM 3.4 mg/dL (0.6-1.3); MAGNESIUM - SERUM 2.2 mg/dL (1.8-2.4); PROTEIN - SERUM 5.9 g/dL (6.4-8.2)
[2020-12-10 08:06] VITALS: BP 134/81
--- NOTE | 2020-12-10 10:32 | NUR ---
SITTING UP IN CHAIR. TURNED DOWN TO 6L HFNC THIS AM AT 0830. CHECKED O2 SAT NOW @ 99-100%. TURNED DOWN FOR 4L HFNC WILL CONTINUE WATCHING AND CHECKING 02SAT.
[2020-12-10 11:12] LABS: ACLA - IGG AB <9 GPL U/mL (0-14); ACLA - IGM AB <9 MPL U/mL (0-12); HAPTOGLOBIN 287 mg/dL (34-355)
[2020-12-10 12:07] VITALS: BP 151/74
--- NOTE | 2020-12-10 12:15 | EC ---
PATIENT:GRAZYNA VALVERDE DATE OF SERVICE: 12/05/20 SEX: M MEDICAL RECORD: [id number] DATE OF : 45 LOCATION:D.M2 D.212 AGE OF PATIENT: 75 ADMISSION DATE: 12/05/20 REFERRING PHYSICIAN: INTERPRETING PHYSICIAN: SATHYA CONDE MD ECHOCARDIOGRAM REPORT ECHO CHARGES 5 ECHO LIMITED Date: 12/09/20 CLINICAL DIAGNOSIS: PE, SOB ECHOCARDIOGRAPHIC MEASUREMENTS (adult normal given) AC root (d.<3.7cm) 0 cm LV Septum d (<1.2 cm> 0 cm Valve Excursion 0 cm LV Septum (systole) 0 cm Left Atria (s.<4.0cm> 0 cm LVPW d(<1.2cm) 0 cm RV (d.<2.3cm) 0 cm LVPW (sytole) 0 cm LV diastole(<5.6CM) 0 cm MV E-F(>70mm/sec) 0 cm LV systole 0 cm LVOT Diameter 0 cm MV exc.(>10mm) 0 cm Est.ejection fraction (50-75%) % DOPPLER: LVIT cm/sec A 0 cm/sec E 0 cm/sec LA 0 cm/sec RVSP 26 mmHg LVOT 0 cm/sec AOP1/2T m/s Asc. Ao 0 cm/sec RVOT 0 cm/sec RA 0 cm/sec PA 0 cm/sec AV Gradient Peak 0 mmHg AV Mean 0 mmHg AV Area 0 cm MV Gradient Peak 0 mmHg MV Mean 0 mmHg MV Area cm COMMENTS: Database Consultant: Elizabeth [facility] Plate Finisher: 3 Dr. Ugalde TAPE# Pericardial Effusion N DATE OF SERVICE: COLOR FLOW ONLY: FINDINGS: Grossly LVH is present. LV internal dimension is normal. Wall motion is normal. EF is greater than or equal to 55%. Aortic valve is tricuspid. No evidence of stenosis by Doppler interrogation. Left atrium grossly is normal. Mitral valve shows no prolapse. Trivial MR. Right side is grossly normal. Mild TR. ECHOCARDIOGRAM REPORT [id number] GRAZYNA VALVERDE TRANSINT:[id number] Voice Confirmation ID: [id number] DOCUMENT ID: [id number] SATHYA CONDE MD at 1215 CC: [id number] DICTATION DATE: 12/09/20 1508 FOOD MIXER: 12/09/20 230 ADM IN [facility] [address] [place] [id number]
--- NOTE | 2020-12-10 15:27 | NUR ---
SITTING UP IN CHAIR. WORKED WITH PT TODAY. O2 SAT 97% ON 4LHFNC. TURNED DOWN O2 TO 3L.
[2020-12-10 15:52] VITALS: BP 141/60
[2020-12-10 23:28] VITALS: BP 121/64
[2020-12-11] VITALS: BP 143/72
--- NOTE | 2020-12-11 01:40 | NUR ---
I have reviewed this patient and I concur with the Shift Assessment completed by the Licensed Practical Nurse today this shift.
[2020-12-11 04:00] VITALS: BP 136/69
[2020-12-11 07:36] LABS: BASOPHILS 0.4 % (0-2); HEMATOCRIT 33.7 % (42.0-54.0); HEMOGLOBIN 10.4 g/dL (13.5-17.5); IMMATURE GRANULOCYTES 0.7 % (0-5); LYMPHOCYTE ABS# 1.95 10x3/uL (1.32-3.57); MCH 27.4 pg (26.0-34.0); MCHC 30.9 g/dL (31.0-37.0); MCV 88.7 fL (80.0-100.0); MEAN PLATELET VOLUME 10.1 fL (7.4-10.4); MONOCYTES 8.7 % (2-11); NEUTROPHIL ABS# 4.52 10x3/uL (1.78-5.38); NEUTROPHILS 60.2 % (40-80); PLATELET COUNT 416 10x3/uL (130-400); RDW 15.5 % (11.5-14.5); WBC 7.5 10x3/uL (4.8-10.8)
[2020-12-11 07:50] LABS: ALBUMIN 1.9 g/dL (3.4-5.0); ANION GAP 13.7 mmol/L (8-16); BILIRUBIN - TOTAL 0.26 mg/dL (0.2-1.3); CALCIUM 7.9 mg/dL (8.5-10.1); CARBON DIOXIDE 24.7 mmol/L (21.0-32.0); CREATININE - SERUM 3.6 mg/dL (0.6-1.3); POTASSIUM - SERUM 4.4 mmol/L (3.5-5.1); PROTEIN - SERUM 5.3 g/dL (6.4-8.2)
[2020-12-11 08:11] LABS: INR 1.21 (0.85-1.17); PROTIME 14.2 SECONDS (11.6-15.0)
[2020-12-11 08:22] VITALS: BP 154/77
--- NOTE | 2020-12-11 10:33 | NUR ---
PATIENT SITTING IN BEDSIDE CHAIR AAOX4, AT BEDSIDE WELL, RESP EVEN AND NON LABORED, NO S/S OF DISTRESS, MEDICATIONS ADMINSITERED WITH NO COMPLICATIONS, LARGE BOWEL MOVEMENT BROWN AND HARD IN BEDSIDE COMMODE, PATIENT STATES HE FEELS BETTER AFTER BOWEL MOVEMENT, NO FURTHER NEEDS AT THIS TIME, CLIR, BLP
--- NOTE | 2020-12-11 13:01 | NUR ---
I have reviewed this patient and I concur with the Shift Assessment completed by the Licensed Practical Nurse today this shift.
[2020-12-11 13:26] VITALS: BP 152/78
[2020-12-11 13:49] LABS: BACTERIA FEW HPF (NONE SEEN); BILIRUBIN NEGATIVE (NEGATIVE); KETONE NEGATIVE (NEGATIVE); NITRITE NEGATIVE (NEGATIVE); SQUAMOUS EPITHELIAL RARE HPF (0-4); UROBILINOGEN NORMAL mg/dL (< 2); WHITE CELLS - URINE OCC HPF (0-1)
[2020-12-11] MEDS ORDERED: BUSPAR10 MG PO (15:13)
[2020-12-11] MEDS ORDERED: WARFARIN SODIUM4 MG PO (15:13)
[2020-12-11] MEDS ORDERED: IPRAT-ALBUT 0.5-3 ML INH (15:13)
--- NOTE | 2020-12-11 16:48 | MORECARE ---
CASE MANAGEMENT DISCHARGE SUMMARY PATIENT: GRAZYNA VALVERDE UNIT: [id number] ADM DATE: 12/05/20 AGE: 75 : 45 SEX: M ROOM/BED: D.1937 AUTHOR: SHELIA CHRISTINA PHYSICIAN: REFERRING PHYSICIAN: GEETA VENTURA MD DATE OF SERVICE: 12/11/20 Case Management Discharge Planning Summary COMMENTS ENTERED DATE: 12/11/20 16:40 CT COMMENT TYPE: Discharge Planning REVIEWER: Jessica Huang Received discharge orders. I spoke with patient and his spouse, William Ceja, in his room. He is [facility], they are admitting when he gets home. William states that they have decided to stop [facility] and go with [facility]. He states they are all set up and ready for him. I called the office and they are set up for him to come home today. William to drive patient home, he has his portable oxygen. Dr. Painting is patient's PCP and they use [facility]. I faxed clinical and DC orders to [facility]. DCP REVIEW SUMMARY ANTICIPATED D/C DATE: EXPECTED LOS : CASE STATUS: DCP Initiated INITIAL REVIEW: 12/05/2020 INITIAL REVIEWER: Jessica Huang FINAL DISCHARGE DISPOSITION: : FINAL REVIEWER: FINAL REVIEW DATE: DCP Focus Questions & Answers QUESTION: ANSWER : PATIENT: GRAZYNA VALVERDE ENCOUNTER: [id number] MEDICAL RECORD#: [id number] ADMISSION DATE: 12/05/2020 DISCHARGE DATE: ATTENDING MD: AUDREY VENTURA : AGE: 75 MARITAL STATUS: M DC PLAN ID: [id number] FACILITY: [facility] PRINTED ON: 12/11/20 16:48 CT All edits/amendments must be made on the electronic document DICTATION DATE: 12/11/201647 ROLL TABLE OPERATOR: VALDO 12/11/201647 RPT#: [id number] DC DATE: STATUS: ADM IN [facility] [address] [place] [address] END OF REPORT
--- NOTE | 2020-12-11 16:50 | NUR ---
PATIENT DISCHARGED TO HOME HOSPICE VIA WHEELCHAIR WITH , NO COMPLICATIONS, TELEMETRY RETURNED TO ICU MONITORS.
[2020-12-12 11:11] LABS: PROTEIN S - FREE 125 % (57-157); PROTEIN S - TOTAL 140 % (60-150)
[2020-12-12 13:11] LABS: PROTEIN S - FREE 131 % (57-157); PROTEIN S - FUNCTIONAL 110 % (63-140); PROTEIN S - TOTAL 133 % (60-150)
[2020-12-13 07:15] LABS: LUPUS - INTERPRETATION Comment: (()); LUPUS - THROMBIN TIME 16.9 sec (0.0-23.0); LUPUS - dRVVT 51.8 sec (0.0-47.0); LUPUS - dRVVT CONFIRMATION 1.2 ratio (0.8-1.2)
[2020-12-14 03:06] LABS: PROTEIN C - ANTIGEN 113 % (60-150); PROTEIN C - FUNCTIONAL 133 % (73-180)
--- NOTE | 2020-12-14 17:51 | MORECARE ---
CASE MANAGEMENT DISCHARGE SUMMARY PATIENT: GRAZYNA VALVERDE UNIT: [id number] ADM DATE: 12/05/20 AGE: 75 : 45 SEX: M ROOM/BED: D.8880 AUTHOR: SANFORD,DOC PHYSICIAN: REFERRING PHYSICIAN: GEETA VENTURA MD DATE OF SERVICE: 12/14/20 Case Management Discharge Planning Summary COMMENTS ENTERED DATE: 12/11/20 16:40 CT COMMENT TYPE: Discharge Planning REVIEWER: Jessica Huang Received discharge orders. I spoke with patient and his spouse, William Ceja, in his room. He is being [facility], they are admitting when he gets home. iWlliam states that they have decided to stop [facility] and go with [facility]. He states they are all set up and ready for him. I called the office and they are set up for him to come home today. William to drive patient home, he has his portable oxygen. Dr. Painting is patient's PCP and they use [facility]. I faxed clinical and DC orders to [facility]. DCP REVIEW SUMMARY ANTICIPATED D/C DATE: EXPECTED LOS : CASE STATUS: DCP Initiated INITIAL REVIEW: 12/05/2020 INITIAL REVIEWER: Jessica Huang FINAL DISCHARGE DISPOSITION: : FINAL REVIEWER: FINAL REVIEW DATE: DCP Focus Questions & Answers QUESTION: ANSWER : PATIENT: GRAZYNA VALVERDE ENCOUNTER: [id number] MEDICAL RECORD#: [id number] ADMISSION DATE: 12/05/2020 DISCHARGE DATE: 12/11/2020 ATTENDING MD: AUDREY VENTURA : AGE: 75 MARITAL STATUS: M DC PLAN ID: [id number] FACILITY: [facility] PRINTED ON: 12/14/20 17:51 CT All edits/amendments must be made on the electronic document DICTATION DATE: 12/14/201750 PLASTERER HELPER: VALDO 12/14/201750 RPT#: [id number] DC DATE:12/11/20 STATUS: DIS IN [facility] [address] [place] [address] END OF REPORT
--- NOTE | 2020-12-15 13:03 | MORECARE ---
CASE MANAGEMENT DISCHARGE SUMMARY PATIENT: GRAZYNA VALVERDE UNIT: [id number] ADM DATE: 12/05/20 AGE: 75 : 45 SEX: M ROOM/BED: D.4264 AUTHOR: SANFORD,DOC PHYSICIAN: REFERRING PHYSICIAN: GEETA VENTURA MD DATE OF SERVICE: 12/15/20 Case Management Discharge Planning Summary COMMENTS ENTERED DATE: 12/11/20 16:40 CT COMMENT TYPE: Discharge Planning REVIEWER: Jesisca Huang Received discharge orders. I spoke with patient and his spouse, William Ceja, in his room. He is being [facility], they are admitting when he gets home. William states that they have decided to stop [facility] and go with [facility]. He states they are all set up and ready for him. I called the office and they are set up for him to come home today. William to drive patient home, he has his portable oxygen. Dr. Painting is patient's PCP and they use [facility]. I faxed clinical and DC orders to [facility]. DCP REVIEW SUMMARY ANTICIPATED D/C DATE: EXPECTED LOS : CASE STATUS: DCP Initiated INITIAL REVIEW: 12/05/2020 INITIAL REVIEWER: Jessica Huang FINAL DISCHARGE DISPOSITION: : FINAL REVIEWER: FINAL REVIEW DATE: DCP Focus Questions & Answers QUESTION: ANSWER : PATIENT: GRAZYNA VALVERDE ENCOUNTER: [id number] MEDICAL RECORD#: [id number] ADMISSION DATE: 12/05/2020 DISCHARGE DATE: 12/11/2020 ATTENDING MD: AUDREY VENTURA : AGE: 75 MARITAL STATUS: M DC PLAN ID: [id number] FACILITY: [facility] PRINTED ON: 12/15/20 13:03 CT All edits/amendments must be made on the electronic document DICTATION DATE: 12/15/20 1303 CONSTRUCTION ADMINISTRATOR: VALDO 12/15/20 1303 RPT#: [id number] DC DATE:12/11/20 STATUS: DIS IN [facility] [address] [place] [address] END OF REPORT
== END 2020-12-11 16:51 | disposition home health service (06) | DRG 175 ==
LOC: D.ER 15:23 → D.M2 17:47
PROVIDERS: Emergency Medicine; General Practice; Internal Medicine Nephrology; Internal Medicine Pulmonary Disease; ADMIT Family Medicine; ATTEND Family Medicine
PROC: 06H03DZ Insertion of Intraluminal Device into Inferior Vena Cava, Percutaneous Approach (ICD-10-PCS; principal; 2020-12-08 17:07)
DX: I26.99 Other pulmonary embolism without acute cor pulmonale (principal); J96.01 Acute respiratory failure with hypoxia; I50.23 Acute on chronic systolic (congestive) heart failure; I13.0 Hypertensive heart and chronic kidney disease with heart failure and stage 1 through stage 4 chronic kidney disease, or unspecified chronic kidney disease; N25.81 Secondary hyperparathyroidism of renal origin; L02.31 Cutaneous abscess of buttock; N17.9 Acute kidney failure, unspecified; E11.22 Type 2 diabetes mellitus with diabetic chronic kidney disease; N18.9 Chronic kidney disease, unspecified; K21.9 Gastro-esophageal reflux disease without esophagitis; E11.65 Type 2 diabetes mellitus with hyperglycemia; E78.5 Hyperlipidemia, unspecified; I48.91 Unspecified atrial fibrillation; I25.10 Atherosclerotic heart disease of native coronary artery without angina pectoris; D63.1 Anemia in chronic kidney disease; E87.6 Hypokalemia; E11.21 Type 2 diabetes mellitus with diabetic nephropathy; Z85.46 Personal history of malignant neoplasm of prostate; Z86.73 Personal history of transient ischemic attack (TIA), and cerebral infarction without residual deficits

== ENCOUNTER 2021-01-06 09:40 | Inpatient (IN) | payer OTHER ==
[~2021-01-06] VITALS: Ht 182.9 cm; Wt 107.8 kg
[~2021-01-06 09:40] MED LIST changes: +BUSPAR10 MG PO; +IPRAT-ALBUT 0.5-3 ML INH; +WARFARIN SODIUM4 MG PO
--- NOTE | 2021-01-06 09:55 | NUR ---
PT ARRIVED VIA WHEELCHAIR AT THIS TIME. PT AWAKE AND ALERT, SPOUSE AT BEDSIDE. RR EVN NON LABORED, O2 IN PLACE AT 3L NC. PT ANSWERS QUESTIONS APPROP. PT ORIENTED TO ROOM AND CALL LIGHT. PT STATES UNDERSTANDING. NO NEEDS OR PAIN VOICED. CLWR.
[2021-01-06] MEDS ORDERED: BAYER ASPIRIN325 MG PO (09:57)
[2021-01-06 09:58] VITALS: BP 120/48; BMI 32.3
[2021-01-06 10:42] LABS: CALCIUM 7.8 mg/dL (8.5-10.1); CARBON DIOXIDE 19.4 mmol/L (21.0-32.0); POTASSIUM - SERUM 5.4 mmol/L (3.5-5.1)
[2021-01-06 10:54] LABS: ALBUMIN 2.5 g/dL (3.4-5.0); BILIRUBIN - TOTAL 0.17 mg/dL (0.2-1.3); PHOSPHOROUS 4.7 mg/dL (2.5-4.9)
[2021-01-06 11:08] LABS: APTT 26.2 SECONDS (22.8-39.4); INR 1.27 (0.85-1.17); PROTIME 14.8 SECONDS (11.6-15.0)
[2021-01-06 12:07] LABS: WBC 10.9 10x3/uL (4.8-10.8)
[2021-01-06 12:09] LABS: EOSINOPHILS 2.9 % (0-7); LYMPHOCYTES 19.1 % (15-50); MCH 28.1 pg (26.0-34.0); MCHC 31.8 g/dL (31.0-37.0); MCV 88.2 fL (80.0-100.0); MEAN PLATELET VOLUME 7.9 fL (7.4-10.4); MONOCYTES 6.6 % (2-11); NEUTROPHILS 70.4 % (40-80); PLATELET COUNT 428 10x3/uL (130-400); RBC 2.03 10x6/uL (4.20-6.10); RDW 17.3 % (11.5-14.5)
[2021-01-06 12:13] LABS: HEMATOCRIT 17.9 % (42.0-54.0); HEMOGLOBIN 5.7 g/dL (13.5-17.5)
--- NOTE | 2021-01-06 12:20 | NUR ---
PAGED WALDEMAR AT THIS TIME REGARDING CRITICAL LABS
--- NOTE | 2021-01-06 12:45 | NUR ---
SPOKE WITH WALDEMAR MEDINA REGARDING NO IV ACCESS OR ABILITY TO OBTAIN ACCESS. WALDEMAR MEDINA PLACED ORDER FOR CENTRAL LINE PLACEMENT FOR BLOOD PRODUCTS / IC PROTONIX DRIP TO BE ISSUED. NOW AWAITING CVL PLACEMENT, CONSULT PLACED AND CALLED. CAROL AWARE.
--- NOTE | 2021-01-06 15:30 | NUR ---
PER CAROL MEDEIROS. PT POA IS HIS , ERASMO. VERBAL CONSENT GIVEN TO MYSELF AND RAE RN AT THIS TIME FOR BLOOD, CVL PLACEMENT, AND EGD/ANESTHESIA. PLACED IN CHART.
[2021-01-06 16:32] LABS: BILIRUBIN NEGATIVE (NEGATIVE); KETONE NEGATIVE (NEGATIVE); NITRITE NEGATIVE (NEGATIVE); UROBILINOGEN NORMAL mg/dL (< 2)
[2021-01-06 16:40] LABS: BASOPHILS 1.5 % (0-2); LYMPHOCYTES 20.7 % (15-50); MCH 27.4 pg (26.0-34.0); MCHC 31.3 g/dL (31.0-37.0); MCV 87.5 fL (80.0-100.0); MEAN PLATELET VOLUME 7.7 fL (7.4-10.4); MONOCYTES 6.9 % (2-11); NEUTROPHILS 67.9 % (40-80); PLATELET COUNT 350 10x3/uL (130-400); RDW 17.1 % (11.5-14.5)
[2021-01-06 16:46] LABS: RBC 1.96 10x6/uL (4.20-6.10)
[2021-01-06 16:47] LABS: HEMATOCRIT 17.2 % (42.0-54.0); HEMOGLOBIN 5.4 g/dL (13.5-17.5)
[2021-01-06 16:51] LABS: PRO/CRE RATIO URINE 3.2 mg/g; PROTEIN - URINE 308.2 mg/dL (0.0-11.9)
--- NOTE | 2021-01-06 17:05 | NUR ---
CONSENTS FOR UPCOMING PROCEDURE, ANESTHESIA, RECEIVING BLOOD PRODUCTS SPOKE WITH PT AT THIS TIME, PT SIGNED CONSENTS. EDUCATED AND HANDOUTS PROVIDED. NO QUESTIONS VOICED.
--- NOTE | 2021-01-06 17:15 | NUR ---
1ST UNIT OF PRBC INTIATED AT THIS TIME. RR EVEN NON LABORED. PT SITTING UP IN BED WITH O2 IN PLACE. AAOX4, PLEASANT. NO PAIN REPORTED. CLWR.
[2021-01-06 20:00] VITALS: BP 117/59
--- NOTE | 2021-01-06 20:01 | NUR ---
BRIGITTE BORGES APN PAGED CONCERNING PT'S CRITICAL H&H. DR BOONE HAS SEEN AND CONSULTED PT. THIS NURSE IS CONCERNED WITH PT'S STABILITY. AT THIS TIME PT IS A/O X4 VSS. 117/62 68-P O2-98 RR 16 T-97.9. FIRST UNIT ODF BLOOD HAS TRANSFUSED PT REMAINS STABLE. 80 OF LASIX GIVEN. WILL CONTINUE TO MONITOR PT ROLDAN.
[2021-01-07] VITALS: BP 130/56
--- NOTE | 2021-01-07 01:03 | NUR ---
I have reviewed this patient and I concur with the Shift Assessment completed by the Licensed Practical Nurse today this shift.
[2021-01-07 02:50] LABS: HEMATOCRIT 18.1 % (42.0-54.0); HEMOGLOBIN 5.9 g/dL (13.5-17.5)
[2021-01-07 04:00] VITALS: BP 152/65
--- NOTE | 2021-01-07 04:28 | NUR ---
STARTED PT'S #3 UNIT OF BLOOD AT THIS TIME PER DR. BOONE'S ORDER. PT VSS. BP-148/61 P-69 T-97.9 RR-16 O2 2L-98%. PT A/OX4. PT HAS BEEN NPO. NO S/S OF DISTRESS AT THIS TIME. WILL CONTINUE TO MONITOR
--- NOTE | 2021-01-07 04:37 | NUR ---
PT FSBS-147. PT NPO AT THIS TIME
[2021-01-07 04:41] LABS: WBC 7.6 10x3/uL (4.8-10.8)
[2021-01-07 04:44] LABS: BASOPHILS 1.1 % (0-2); EOSINOPHILS 3.8 % (0-7); LYMPHOCYTES 15.8 % (15-50); MCH 28.2 pg (26.0-34.0); MCHC 32.5 g/dL (31.0-37.0); MCV 86.9 fL (80.0-100.0); MEAN PLATELET VOLUME 7.7 fL (7.4-10.4); MONOCYTES 7.7 % (2-11); NEUTROPHILS 71.6 % (40-80); PLATELET COUNT 328 10x3/uL (130-400); RBC 2.23 10x6/uL (4.20-6.10); RDW 16.5 % (11.5-14.5)
[2021-01-07 05:04] LABS: % SATURATION 12 % (15-55); IRON 37 ug/dl (35-150); TOTAL IRON BIND CAPACITY 294 ug/dl (260-445); UNSAT IRON BIND CAPACITY 257 ug/dl (150-375)
[2021-01-07 05:08] LABS: HEMATOCRIT 19.4 % (42.0-54.0); HEMOGLOBIN 6.3 g/dL (13.5-17.5)
[2021-01-07 05:32] LABS: RETIC 4.65 % (0.45-2.28)
[2021-01-07 05:41] LABS: ALBUMIN 2.3 g/dL (3.4-5.0); BILIRUBIN - TOTAL 0.28 mg/dL (0.2-1.3); CALCIUM 7.7 mg/dL (8.5-10.1); CARBON DIOXIDE 20.6 mmol/L (21.0-32.0); CREATININE - SERUM 3.6 mg/dL (0.6-1.3); POTASSIUM - SERUM 4.6 mmol/L (3.5-5.1); PROTEIN - SERUM 5.6 g/dL (6.4-8.2)
--- NOTE | 2021-01-07 07:54 | NUR ---
PT LYING IN BED WITH HOB RAISED, RR EVEN NON LABORED WITH O2 IN PLACE VIA NC. PT AWAKE AND ALERT, ANSWERS QUESTIONS APPROP. 4TH UNIT OF BLOOD INTITIATED . PT VS STABLE. SPOUSE AT BEDSIDE. NO NEEDS VOICED AT THIS TIME. AM MEDS GIVEN WITH SIPS OF WATER. NO PAIN REPORTED. CLWR.
[2021-01-07 09:00] VITALS: BP 141/59
[2021-01-07 12:00] VITALS: BP 123/54
[2021-01-07 13:53] VITALS: Ht 182.9 cm; Wt 107.8 kg
[2021-01-07 14:06] LABS: EOSINOPHILS 2.8 % (0-7); LYMPHOCYTES 13.6 % (15-50); MCH 27.4 pg (26.0-34.0); MCV 85.7 fL (80.0-100.0); MEAN PLATELET VOLUME 7.6 fL (7.4-10.4); MONOCYTES 6.6 % (2-11); PLATELET COUNT 316 10x3/uL (130-400); RDW 15.7 % (11.5-14.5); WBC 7.5 10x3/uL (4.8-10.8)
[2021-01-07 14:23] LABS: HEMATOCRIT 24.8 % (42.0-54.0)
--- NOTE | 2021-01-07 14:52 | NUR ---
PREOP COMPLETED AT THIS TIME, NOTIFIED ERASMO , PT , REGARDING PLAN FOR EGD THIS AFTERNOON.
--- NOTE | 2021-01-07 15:10 | NUR ---
PRN ATIVAN GIVEN D/T INCREASED ANXIETY.
--- NOTE | 2021-01-07 15:39 | NUR ---
PT LEFT UNIT WITH GI LAB AT THIS TIME FOR EGD
--- NOTE | 2021-01-07 16:36 | NUR ---
PT ARRIVED BACK FROM EGD AT THIS TIME, RR EVEN NON LABORED, VSS. PT AMBUALTED TO AND FROM RESTROOM WITH WALKER AND STANDBY ASSIST. PT TOLERATED WELL. NO NEEDS VOICED, CLWR.
[2021-01-07 16:37] VITALS: BP 104/62
[2021-01-07 20:00] VITALS: BP 124/53
[2021-01-08] VITALS: BP 122/55
--- NOTE | 2021-01-08 04:15 | NUR ---
PT HAD LOOSE BOWEL MOVEMENT. PT STATES, " I SHARDED." SPECIMEN COLLECTED AND SENT TO LAB. PT HAS DECIDED THAT HE WOULD LIKE FOR DR. BOONE TO PROCEED WITH COLONOSCOPY. PT HAS BEEN NPO SINCE MIDNIGHT. I INFORMED PT THAT THERE ARE NO ORDERES OF NOW FOR PROCEDURE AAND THAT I WOULD NOTIFY DR. BOONE THAT SAID PT STATES, "I WANT TO GET COLONOSCOPY." PT SATES THAT HE CARED FOR HIS MOTHER WHO FROM COLON CANCER. PT VSS AND O2 STABLE AND WNL. PT GETS SOB FROM BED TO BATHEROOM. O2 STAYS ABOVE 96%. PT IS A/O X4 WITH NO S/S OF DISTRESS AT THIS TIME WILL CONTINUE TO MONITOR.
[2021-01-08 04:31] LABS: BASOPHILS 0.9 % (0-2); EOSINOPHILS 3.6 % (0-7); HEMATOCRIT 25.4 % (42.0-54.0); HEMOGLOBIN 8.3 g/dL (13.5-17.5); LYMPHOCYTES 12.4 % (15-50); MCH 28.3 pg (26.0-34.0); MCHC 32.6 g/dL (31.0-37.0); MEAN PLATELET VOLUME 7.8 fL (7.4-10.4); MONOCYTES 8.7 % (2-11); NEUTROPHILS 74.4 % (40-80); PLATELET COUNT 317 10x3/uL (130-400); RBC 2.92 10x6/uL (4.20-6.10); RDW 16.4 % (11.5-14.5)
[2021-01-08 04:48] LABS: ALBUMIN 2.5 g/dL (3.4-5.0); ANION GAP 15.1 mmol/L (8-16); BILIRUBIN - TOTAL 0.36 mg/dL (0.2-1.3); CALCIUM 7.7 mg/dL (8.5-10.1); CARBON DIOXIDE 21.2 mmol/L (21.0-32.0); CREATININE - SERUM 3.4 mg/dL (0.6-1.3); POTASSIUM - SERUM 4.3 mmol/L (3.5-5.1)
[2021-01-08 05:38] VITALS: BP 140/57
--- NOTE | 2021-01-08 08:45 | NUR ---
PT AWAKE AND ALERT, RR EVEN NON LABORED. PER SPAR FINISHER RN PT AND HIS DECIDED TO PROCEED WITH A COLONSCOPY , SPAR FINISHER RN SPOKE WITH VOICE AND MADE PT A CLEAR LIQUID DIET. NOTIFIED PT AND OF THIS. NO QUESTIONS OR NEEDS VOICED. CLWR.
--- NOTE | 2021-01-08 14:56 | NUR ---
NURSE NOTICED SUTURE TO CVL NOT IN PLACE. NOTIFIED TAN MEDINA IN SURGERY .
--- NOTE | 2021-01-08 14:57 | NUR ---
TAN HERE TO SUTURE CVL AND WILL OBTAIN XR FOR PLACEMENT POST. PT AWARE AND AGREES TO POC.
[2021-01-08 15:00] VITALS: BP 156/103
--- NOTE | 2021-01-08 15:08 | MORECARE ---
CASE MANAGEMENT DISCHARGE SUMMARY PATIENT: GRAZYNA VALVERDE UNIT: [id number] ADM DATE: 01/06/21 AGE: 75 : 45 SEX: M ROOM/BED: D.1856 AUTHOR: SHELIA CHRISTINA PHYSICIAN: REFERRING PHYSICIAN: SHAHLA LUCERO DO DATE OF SERVICE: 01/08/21 Case Management Discharge Planning Summary DCP REVIEW SUMMARY ANTICIPATED D/C DATE: 01/09/2021 EXPECTED LOS : 3 CASE STATUS: DCP Initiated INITIAL REVIEW: 01/06/2021 INITIAL REVIEWER: Jolanta Amado FINAL DISCHARGE DISPOSITION: 50 : In-Home Hospice Care FINAL REVIEWER: FINAL REVIEW DATE: DCP Focus Questions & Answers DCP Screen QUESTION: ANSWER High Risk Factors: : Hosp related to CHF, COPD, DM, End Stage Ds, CVA, CA DCP Evaluation QUESTION: ANSWER Patient and/or caregiver agree upon recommended discharge plan? : Yes Family / Caregiver's ability to cope with chronic illness: : a. Adequate (ability to meet patient's medical needs, ensures patient attends medical appts.) Patient's current cognitive status: : *Oriented to person, place, situation, time and present Patient's ability to cope with chronic illness : d. No chronic illness Does the patient have the ability to pay for or attain post discharge needs / services? : Yes Functional screen assessment: : Basic needs can adequately be met by self Family / Caregiver's ability to cope with chronic illness: : a. Adequate (ability to meet patient's medical needs, ensures patient attends medical appts.) Physical Status: : Independent with ADL's Equipment needed for post hospitalization: : None Is there a likelihood that the patient will require additional services to return to the preadmission environment? : Yes Living Arrangements: : Home with Spouse/Significant Other Results of this evaluation have been discussed with: : Patient Patient with capacity for self-care or can be cared for in same environment as prior to hospitalization? : Yes Baseline cognitive status: : *Oriented to person, place, situation, time and present Physical environment modification needed / anticipated for discharge: : N/A Medication Management: : Patient states can read and understand medication labels Medication Management: : Patient states they do have transportation to miner pick medications Medication Management: : Patient states can afford medications Planned post hospital services available for patient? : N/A Pharmacy name(s): : [facility] Planned post hospital services covered by insurance plan? : N/A Does Patient have transportation to get home and to follow-up medical appointments when discharged from the hospital? : Yes Would patient like to participate in any Care Coordination programs (if applicable): : Not applicable Does the patient have electricity at home? : Yes Does the patient have running water in their house? : Yes Equipment in use: : Shower Chair Mental health screen: : No mental health history Psychosocial status: : Independent adult (65+) Abuse/Neglect: : None Resources / Services in place: : Hospice - home Contact information for resources in use: : [facility] DCP Re-evaluation QUESTION: ANSWER Would patient like to participate in any Care Coordination programs (if applicable): : Not applicable PATIENT: GRAZYNA VALVERDE ENCOUNTER: [id number] MEDICAL RECORD#: [id number] ADMISSION DATE: 01/06/2021 DISCHARGE DATE: ATTENDING MD: SHAHLA TO : AGE: 75 MARITAL STATUS: M DC PLAN ID: [id number] FACILITY: [facility] PRINTED ON: 01/08/21 15:08 CT All edits/amendments must be made on the electronic document DICTATION DATE: 01/08/21 1508 DEAN OF MEN: VALDO 01/08/21 1508 RPT#: [id number] DC DATE: STATUS: ADM IN [facility] [address] [place] [address] END OF REPORT
--- NOTE | 2021-01-08 15:21 | MORECARE ---
CASE MANAGEMENT DISCHARGE SUMMARY PATIENT: GRAZYNA VALVERDE UNIT: [id number] ADM DATE: 01/06/21 AGE: 75 : 45 SEX: M ROOM/BED: D.2136 AUTHOR: SHELIA CHRISTINA PHYSICIAN: REFERRING PHYSICIAN: SHAHLA LUCERO DO DATE OF SERVICE: 01/08/21 Case Management Discharge Planning Summary COMMENTS ENTERED DATE: 01/08/21 15:13 CT COMMENT TYPE: Discharge Planning REVIEWER: Jolanta Amado CM met with patient to complete discharge planning assessment and offer availability of needed services. Patient states that he lives independently with help at home with his partner and on hospice services prior to admission. Pt verified that home environment is safe and has electricity and running water. Patient denies need for transportation and state that they have funds for services and medications if needed. PCP is Dr. Lucero and patient uses [facility]. Pt is was on service with [facility] prior to this admission. States that he is returning home on Palliative care with same company. Transportation home will be provided by . Patient states that he does not need additional services or DME at this time. DCP REVIEW SUMMARY ANTICIPATED D/C DATE: 01/09/2021 EXPECTED LOS : 3 CASE STATUS: DCP Initiated INITIAL REVIEW: 01/06/2021 INITIAL REVIEWER: Jolanta Amado FINAL DISCHARGE DISPOSITION: 50 : In-Home Hospice Care FINAL REVIEWER: FINAL REVIEW DATE: DCP Focus Questions & Answers DCP Screen QUESTION: ANSWER High Risk Factors: : Hosp related to CHF, COPD, DM, End Stage Ds, CVA, CA DCP Evaluation QUESTION: ANSWER Patient and/or caregiver agree upon recommended discharge plan? : Yes Family / Caregiver's ability to cope with chronic illness: : a. Adequate (ability to meet patient's medical needs, ensures patient attends medical appts.) Patient's current cognitive status: : *Oriented to person, place, situation, time and present Patient's ability to cope with chronic illness : d. No chronic illness Does the patient have the ability to pay for or attain post discharge needs / services? : Yes Functional screen assessment: : Basic needs can adequately be met by self Family / Caregiver's ability to cope with chronic illness: : a. Adequate (ability to meet patient's medical needs, ensures patient attends medical appts.) Physical Status: : Independent with ADL's Equipment needed for post hospitalization: : None Is there a likelihood that the patient will require additional services to return to the preadmission environment? : Yes Living Arrangements: : Home with Spouse/Significant Other Results of this evaluation have been discussed with: : Patient Patient with capacity for self-care or can be cared for in same environment as prior to hospitalization? : Yes Baseline cognitive status: : *Oriented to person, place, situation, time and present Physical environment modification needed / anticipated for discharge: : N/A Medication Management: : Patient states can read and understand medication labels Medication Management: : Patient states they do have transportation to case picker medications Medication Management: : Patient states can afford medications Planned post hospital services available for patient? : N/A Pharmacy name(s): : [facility] Planned post hospital services covered by insurance plan? : N/A Does Patient have transportation to get home and to follow-up medical appointments when discharged from the hospital? : Yes Would patient like to participate in any Care Coordination programs (if applicable): : Not applicable Does the patient have electricity at home? : Yes Does the patient have running water in their house? : Yes Equipment in use: : Shower Chair Mental health screen: : No mental health history Psychosocial status: : Independent adult (65+) Abuse/Neglect: : None Resources / Services in place: : Hospice - home Contact information for resources in use: : [facility] DCP Re-evaluation QUESTION: ANSWER Would patient like to participate in any Care Coordination programs (if applicable): : Not applicable PATIENT: GRAZYNA VALVERDE ENCOUNTER: [id number] MEDICAL RECORD#: [id number] ADMISSION DATE: 01/06/2021 DISCHARGE DATE: ATTENDING MD: SHAHLA TO : AGE: 75 MARITAL STATUS: M DC PLAN ID: [id number] FACILITY: [facility] PRINTED ON: 01/08/21 15:21 CT All edits/amendments must be made on the electronic document DICTATION DATE: 01/08/211520 WIRE MILL OPERATOR: VALDO 01/08/211520 RPT#: [id number] DC DATE: STATUS: ADM IN [facility] [address] [place] [address] END OF REPORT
--- NOTE | 2021-01-08 15:36 | NUR ---
CHEST XR PERFORMED TO CONFIRM PLACEMENT.
[2021-01-08 18:55] LABS: BASOPHILS 1.1 % (0-2); EOSINOPHILS 3.4 % (0-7); HEMATOCRIT 23.4 % (42.0-54.0); HEMOGLOBIN 7.7 g/dL (13.5-17.5); LYMPHOCYTES 16.6 % (15-50); MCH 28.4 pg (26.0-34.0); MCHC 32.9 g/dL (31.0-37.0); MCV 86.4 fL (80.0-100.0); MEAN PLATELET VOLUME 7.5 fL (7.4-10.4); MONOCYTES 9.2 % (2-11); NEUTROPHILS 69.7 % (40-80); PLATELET COUNT 281 10x3/uL (130-400); RBC 2.71 10x6/uL (4.20-6.10); RDW 16.3 % (11.5-14.5); WBC 6.1 10x3/uL (4.8-10.8)
[2021-01-08 21:34] VITALS: BP 138/68
--- NOTE | 2021-01-09 03:18 | NUR ---
I have reviewed this patient and I concur with the Shift Assessment completed by the Licensed Practical Nurse today this shift.
[2021-01-09 06:04] LABS: ALBUMIN 2.3 g/dL (3.4-5.0); BILIRUBIN - TOTAL 0.25 mg/dL (0.2-1.3); CALCIUM 7.6 mg/dL (8.5-10.1); CARBON DIOXIDE 23.8 mmol/L (21.0-32.0); CREATININE - SERUM 3.2 mg/dL (0.6-1.3); POTASSIUM - SERUM 3.8 mmol/L (3.5-5.1); PROTEIN - SERUM 5.5 g/dL (6.4-8.2)
[2021-01-09 07:25] VITALS: BP 139/65
[2021-01-09 11:25] LABS: BASOPHILS 0.8 % (0-2); EOSINOPHILS 4.7 % (0-7); HEMOGLOBIN 7.7 g/dL (13.5-17.5); LYMPHOCYTES 15.4 % (15-50); MCH 28.1 pg (26.0-34.0); MCV 87.9 fL (80.0-100.0); MEAN PLATELET VOLUME 7.7 fL (7.4-10.4); MONOCYTES 11.3 % (2-11); NEUTROPHILS 67.8 % (40-80); PLATELET COUNT 311 10x3/uL (130-400); RBC 2.73 10x6/uL (4.20-6.10); RDW 16.9 % (11.5-14.5); WBC 6.5 10x3/uL (4.8-10.8)
--- NOTE | 2021-01-09 12:56 | NUR ---
Nutrition Follow-up: NPO for colonoscopy today. Normal EGD on 01/07. Ate 100% x 2 meals yesterday. No new wt; last wt: 237.6# (01/07) Labs noted: BUN 41, Cre 3.2, GFR 20, Glu 198, Ca 7.6, Alb 2.3 Meds noted: Protonix, Humalog, Oscal D, Zofran -Rec advance diet as tolerated when medically feasible. -RD will follow up within 5-7 days.
--- NOTE | 2021-01-09 19:37 | NUR ---
RECEIVED REPORT, WILL ASSUME CARE OF PT, DENIES ANY NEEDS AT THIS TIME, BED IS LOW, SRX2, CALL LIGHT IN REACH, WILL CONTINUE PLAN OF CARE
[2021-01-09 20:59] VITALS: BP 134/54
[2021-01-10 01:58] VITALS: BP 140/59
[2021-01-10 04:37] LABS: BASOPHILS 1.2 % (0-2); EOSINOPHILS 5.3 % (0-7); HEMATOCRIT 24.8 % (42.0-54.0); LYMPHOCYTES 14.1 % (15-50); MCH 28.3 pg (26.0-34.0); MCHC 32.3 g/dL (31.0-37.0); MCV 87.6 fL (80.0-100.0); MEAN PLATELET VOLUME 7.5 fL (7.4-10.4); MONOCYTES 9.9 % (2-11); NEUTROPHILS 69.5 % (40-80); PLATELET COUNT 312 10x3/uL (130-400); RBC 2.83 10x6/uL (4.20-6.10); RDW 16.2 % (11.5-14.5); WBC 7.6 10x3/uL (4.8-10.8)
[2021-01-10 04:53] LABS: ALBUMIN 2.3 g/dL (3.4-5.0); ANION GAP 11.1 mmol/L (8-16); BILIRUBIN - TOTAL 0.15 mg/dL (0.2-1.3); CALCIUM 7.5 mg/dL (8.5-10.1); CARBON DIOXIDE 25.8 mmol/L (21.0-32.0); POTASSIUM - SERUM 3.9 mmol/L (3.5-5.1); PROTEIN - SERUM 5.6 g/dL (6.4-8.2)
[2021-01-10 05:02] VITALS: BP 151/62
[2021-01-10 08:06] VITALS: BP 153/62
[2021-01-10] MEDS ORDERED: TRICOR48 MG PO (11:52)
[2021-01-10] MEDS ORDERED: IPRAT-ALBUT 0.5-3 ML UPD (11:52)
[2021-01-10] MEDS ORDERED: MUCINEX DM ER1 EAC1 PO (11:53)
[2021-01-10] MEDS ORDERED: TESSALON PERLE100 MG PO (11:53)
[2021-01-10] MEDS ORDERED: FLUTICASONE PRO16 GM NASAL (11:53)
[2021-01-10] MEDS ORDERED: SINGULAIR10 MG PO (11:53)
[2021-01-10] MEDS ORDERED: MELATONIN 3 MG1 TAB PO (11:54)
[2021-01-10] MEDS ORDERED: CYANOCOBAL1000 MCG/4 SC (11:54)
[2021-01-10] MEDS ORDERED: PROTONIX40 MG PO (11:54)
[2021-01-10 13:10] LABS: IMMUNOGLOBULIN E 37 IU/mL (6-495)
--- NOTE | 2021-01-10 13:41 | MORECARE ---
CASE MANAGEMENT DISCHARGE SUMMARY PATIENT: GRAZYNA VALVERDE UNIT: [id number] ADM DATE: 01/06/21 AGE: 75 : 45 SEX: M ROOM/BED: D.2136 AUTHOR: SANFORD,DOC PHYSICIAN: REFERRING PHYSICIAN: SHAHLA LUCERO DO DATE OF SERVICE: 01/10/21 Case Management Discharge Planning Summary COMMENTS ENTERED DATE: 01/10/21 13:31 CT COMMENT TYPE: Discharge Planning REVIEWER: Ana Maria Camacho CM met with patient to complete DC plan and to evaluate needs. Patient lives independently with his spouse, William Valverde, . Patient stated that he has no problems paying for medications and he fills his medications at [facility]. At discharge, the patient plans to return home and resume hospice services with [facility] and feels this is a safe discharge. CM discussed SNF, IPR, and DME and patient declined these services. Patient stated that he ambulates independently and uses no assistive devices. Patient voiced no other needs at this time and is satisfied with DC plan. Transportation provider at discharge will be with his spouse, William. CM notified [facility] of patient's discharge and wish to reinstate services. DC IMM delivered, explained, signed by the patient, and placed in chart. Signed form also left with the patient. CM will continue to follow and will assist as needed with dc plans/needs. ENTERED DATE: 01/08/21 15:13 CT COMMENT TYPE: Discharge Planning REVIEWER: Jolanta Amado CM met with patient to complete discharge planning assessment and offer availability of needed services. Patient states that he lives independently with help at home with his partner and on hospice services prior to admission. Pt verified that home environment is safe and has electricity and running water. Patient denies need for transportation and state that they have funds for services and medications if needed. PCP is Dr. Lucero and patient uses [facility]. Pt is was on service with [facility] prior to this admission. States that he is returning home on Palliative care with same company. Transportation home will be provided by . Patient states that he does not need additional services or DME at this time. [facility] REVIEW SUMMARY ANTICIPATED D/C DATE: 01/09/2021 EXPECTED LOS : 3 CASE STATUS: DCP Initiated INITIAL REVIEW: 01/06/2021 INITIAL REVIEWER: Jolanta Amado FINAL DISCHARGE DISPOSITION: 50 : In-Home Hospice Care FINAL REVIEWER: FINAL REVIEW DATE: [facility] Focus Questions & Answers DCP Screen QUESTION: ANSWER High Risk Factors: : Hosp related to CHF, COPD, DM, End Stage Ds, CVA, CA DCP Evaluation QUESTION: ANSWER Patient's ability to cope with chronic illness : d. No chronic illness Patient's current cognitive status: : *Oriented to person, place, situation, time and present Family / Caregiver's ability to cope with chronic illness: : a. Adequate (ability to meet patient's medical needs, ensures patient attends medical appts.) Patient and/or caregiver agree upon recommended discharge plan? : Yes Physical Status: : Independent with ADL's Family / Caregiver's ability to cope with chronic illness: : a. Adequate (ability to meet patient's medical needs, ensures patient attends medical appts.) Functional screen assessment: : Basic needs can adequately be met by self Does the patient have the ability to pay for or attain post discharge needs / services? : Yes Living Arrangements: : Home with Spouse/Significant Other Is there a likelihood that the patient will require additional services to return to the preadmission environment? : Yes Equipment needed for post hospitalization: : None Baseline cognitive status: : *Oriented to person, place, situation, time and present Patient with capacity for self-care or can be cared for in same environment as prior to hospitalization? 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 : N/A Does Patient have transportation to get home and to follow-up medical appointments when discharged from the hospital? : Yes Planned post hospital services covered by insurance plan? : N/A Would patient like to participate in any Care Coordination programs (if applicable): : Not applicable Does the patient have electricity at home? : Yes Does the patient have running water in their house? : Yes Equipment in use: : Shower Chair Mental health screen: : No mental health history Psychosocial status: : Independent adult (65+) Abuse/Neglect: : None Resources / Services in place: : Hospice - home Contact information for resources in use: : [facility] DCP Re-evaluation QUESTION: ANSWER Would patient like to participate in any Care Coordination programs (if applicable): : Not applicable PATIENT: GRAZYNA VALVERDE ENCOUNTER: [id number] MEDICAL RECORD#: [id number] ADMISSION DATE: 01/06/2021 DISCHARGE DATE: ATTENDING MD: SHAHLA TO : AGE: 75 MARITAL STATUS: M DC PLAN ID: [id number] FACILITY: [facility] PRINTED ON: 01/10/21 13:41 CT All edits/amendments must be made on the electronic document DICTATION DATE: 01/10/21 134 WAITER/WAITRESS COCKTAIL LOUNGE: VALDO 01/10/21 1341 RPT#: [id number] DC DATE: STATUS: ADM IN [facility] [address] [place] [address] END OF REPORT
--- NOTE | 2021-01-10 14:02 | NUR ---
0700 BEDSIDE REPORT RECEIVED ASSESSMENT COMPLETE SITTTING UP IN BED WITH NO COMPLAINTS
--- NOTE | 2021-01-10 14:03 | NUR ---
0800 FLUSHED LEFT IJ CENTRAL LINE AND CLAMPED SITE SATISFACTORY
--- NOTE | 2021-01-10 14:04 | NUR ---
1300 DISCHARGE ORDERS WRITTEN D/C CENTRAL LINE INSTRUCTED PT TO LAY IN BED FOR 20 MINUTES AFTER I HELD PRESSURE
--- NOTE | 2021-01-10 14:05 | NUR ---
1325 RIGHT IJ CENTRAL IV SITE REMAINS CDI INSTRUCTED PT THAT HE CAN SIT UP IN BED NOW
--- NOTE | 2021-01-12 11:05 | MORECARE ---
CASE MANAGEMENT DISCHARGE SUMMARY PATIENT: GRAZYNA VALVERDE UNIT: [id number] ADM DATE: 01/06/21 AGE: 75 : 45 SEX: M ROOM/BED: D.2136 AUTHOR: SANFORD,DOC PHYSICIAN: REFERRING PHYSICIAN: SHAHLA LUCERO DO DATE OF SERVICE: 01/12/21 Case Management Discharge Planning Summary COMMENTS ENTERED DATE: 01/10/21 13:31 CT COMMENT TYPE: Discharge Planning REVIEWER: Ana Maria Camacho CM met with patient to complete DC plan and to evaluate needs. Patient lives independently with his spouse, William Valverde, . Patient stated that he has no problems paying for medications and he fills his medications at [facility]. At discharge, the patient plans to return home and resume hospice services with [facility] and feels this is a safe discharge. CM discussed SNF, IPR, and DME and patient declined these services. Patient stated that he ambulates independently and uses no assistive devices. Patient voiced no other needs at this time and is satisfied with DC plan. Transportation provider at discharge will be with his spouse, William. CM notified [facility] of patient's discharge and wish to reinstate services. DC IMM delivered, explained, signed by the patient, and placed in chart. Signed form also left with the patient. CM will continue to follow and will assist as needed with dc plans/needs. ENTERED DATE: 01/08/21 15:13 CT COMMENT TYPE: Discharge Planning REVIEWER: Jolanta Amado CM met with patient to complete discharge planning assessment and offer availability of needed services. Patient states that he lives independently with help at home with his partner and on hospice services prior to admission. Pt verified that home environment is safe and has electricity and running water. Patient denies need for transportation and state that they have funds for services and medications if needed. PCP is Dr. Lucero and patient uses [facility] pharmacy. Pt is was on service with [facility] prior to this admission. States that he is returning home on Palliative care with same company. Transportation home will be provided by . Patient states that he does not need additional services or DME at this time. [facility] REVIEW SUMMARY ANTICIPATED D/C DATE: 01/09/2021 EXPECTED LOS : 3 CASE STATUS: DCP Initiated INITIAL REVIEW: 01/06/2021 INITIAL REVIEWER: Jolanta Amado FINAL DISCHARGE DISPOSITION: 50 : In-Home Hospice Care FINAL REVIEWER: FINAL REVIEW DATE: [facility] Questions & Answers DCP Screen QUESTION: ANSWER High Risk Factors: : Hosp related to CHF, COPD, DM, End Stage Ds, CVA, CA DCP Evaluation QUESTION: ANSWER Patient and/or caregiver agree upon recommended discharge plan? : Yes Family / Caregiver's ability to cope with chronic illness: : a. Adequate (ability to meet patient's medical needs, ensures patient attends medical appts.) Patient's current cognitive status: : *Oriented to person, place, situation, time and present Patient's ability to cope with chronic illness : d. No chronic illness Does the patient have the ability to pay for or attain post discharge needs / services? : Yes Functional screen assessment: : Basic needs can adequately be met by self Family / Caregiver's ability to cope with chronic illness: : a. Adequate (ability to meet patient's medical needs, ensures patient attends medical appts.) Physical Status: : Independent with ADL's Equipment needed for post hospitalization: : None Is there a likelihood that the patient will require additional services to return to the preadmission environment? : Yes Living Arrangements: : Home with Spouse/Significant Other Results of this evaluation have been discussed with: : Patient Patient with capacity for self-care or can be cared for in same environment as prior to hospitalization? 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 : N/A Pharmacy name(s): : [facility] Planned post hospital services covered by insurance plan? : N/A Does Patient have transportation to get home and to follow-up medical appointments when discharged from the hospital? : Yes Would patient like to participate in any Care Coordination programs (if applicable): : Not applicable Does the patient have electricity at home? : Yes Does the patient have running water in their house? : Yes Equipment in use: : Shower Chair Mental health screen: : No mental health history Psychosocial status: : Independent adult (65+) Abuse/Neglect: : None Resources / Services in place: : Hospice - home Contact information for resources in use: : [facility] DCP Re-evaluation QUESTION: ANSWER Would patient like to participate in any Care Coordination programs (if applicable): : Not applicable PATIENT: GRAZYNA VALVERDE ENCOUNTER: [id number] MEDICAL RECORD#: [id number] ADMISSION DATE: 01/06/2021 DISCHARGE DATE: 01/10/2021 ATTENDING MD: SHAHLA TO : [id number] AGE: 75 MARITAL STATUS: M DC PLAN ID: [id number] FACILITY: [facility] PRINTED ON: 01/12/21 11:05 CT All edits/amendments must be made on the electronic document DICTATION DATE: 01/12/214 MULTIPLE KNIFE EDGE TRIMMER OPERATOR: VALDO 01/12/21 1104 RPT#: [id number] DC DATE:01/10/21 STATUS: DIS IN [facility] [address] [place] [address] END OF REPORT
== END 2021-01-10 14:47 | disposition home health service (06) | DRG 368 ==
LOC: D.M2 09:40
PROVIDERS: Emergency Medicine; Internal Medicine; Internal Medicine Gastroenterology; Internal Medicine Pulmonary Disease; ADMIT Family Medicine; ATTEND Family Medicine
PROC: B544ZZA Ultrasonography of Left Jugular Veins, Guidance (ICD-10-PCS; principal; 2021-01-06)
PROC: 02HV33Z Insertion of Infusion Device into Superior Vena Cava, Percutaneous Approach (ICD-10-PCS; 2021-01-06)
PROC: 0DJ08ZZ Inspection of Upper Intestinal Tract, Via Natural or Artificial Opening Endoscopic (ICD-10-PCS; 2021-01-07)
PROC: 0DJD8ZZ Inspection of Lower Intestinal Tract, Via Natural or Artificial Opening Endoscopic (ICD-10-PCS; 2021-01-09)
DX: K21.01 Gastro-esophageal reflux disease with esophagitis, with bleeding (principal); I50.23 Acute on chronic systolic (congestive) heart failure; J96.21 Acute and chronic respiratory failure with hypoxia; K29.71 Gastritis, unspecified, with bleeding; K57.91 Diverticulosis of intestine, part unspecified, without perforation or abscess with bleeding; D62 Acute posthemorrhagic anemia; N17.9 Acute kidney failure, unspecified; I13.0 Hypertensive heart and chronic kidney disease with heart failure and stage 1 through stage 4 chronic kidney disease, or unspecified chronic kidney disease; N18.4 Chronic kidney disease, stage 4 (severe); J44.1 Chronic obstructive pulmonary disease with (acute) exacerbation; E11.22 Type 2 diabetes mellitus with diabetic chronic kidney disease; E11.65 Type 2 diabetes mellitus with hyperglycemia; Z79.01 Long term (current) use of anticoagulants; N40.0 Benign prostatic hyperplasia without lower urinary tract symptoms; I48.0 Paroxysmal atrial fibrillation; K64.9 Unspecified hemorrhoids; Z87.891 Personal history of nicotine dependence; Z86.73 Personal history of transient ischemic attack (TIA), and cerebral infarction without residual deficits; Z86.711 Personal history of pulmonary embolism; Z86.718 Personal history of other venous thrombosis and embolism; E87.5 Hyperkalemia